=== PATIENT | male | born 1960 | race Caucasian/White ===

== ENCOUNTER → 2016-03-11 | Outpatient (CLI) | payer BC ==
[~2016-03-11] VITALS: Ht 180.3 cm; Wt 194.9 kg
[~2016-03-11] MED LIST: APIX1TAB3 PEG; CRDCD300 PO; LORA10CA2 PO; MULT-513 PO; OMEG10002 PO; PSYL55.43 PO; TMB/100 PO; TPRSR/25 PO
[2016-03-11 13:30] VITALS: BP 145/97; PULSE 103; Ht 180.3 cm; Wt 194.9 kg
== END | disposition home or self-care (01) ==
LOC: C.NEUR 13:08
PROVIDERS: ATTEND Internal Medicine Pulmonary Disease
DX: G47.34 Idiopathic sleep related nonobstructive alveolar hypoventilation (principal); R06.83 Snoring; I48.92 Unspecified atrial flutter

== ENCOUNTER → 2016-03-30 | Day surgery (SDC) | payer BC ==
[~2016-03-30] VITALS: Ht 180.3 cm; Wt 182.0 kg
[2016-03-30] VITALS (8 sets, daily range): BP systolic 109–158; BP diastolic 60–103; PULSE 77–117; TEMP 36.8; O2SAT 94–98; Ht 180.3 cm; Wt 182.0 kg
[~2016-03-30] MED LIST changes: +PROPOFOL IV EMULSION 10 MG/ML 20 ML VIAL IV ONE
--- NOTE | 2016-03-30 08:48 | Cardiology Procedure Brief Nt ---
Preliminary Cardiology Note Procedure Date Mar 30, 2016. Pre-Procedure Diagnosis atrial fibrillation Post-Procedure Diagnosis same Procedure(s) Performed Electrical cardioversion Graphic Production Artist Dr. Abdullahi Teacher Dancing(s) none Estimated Blood Loss none Preliminary Findings Successful cardioversion with 360 J, biphasic, delivered via one set of patches from the right prepectoral to the left scapular area. Another set of patches had been placed from the left prepectoral region to the right scapular area in case 2 defibrillators were required. They were not used however. Both sets of patches were placed under fluoroscopic guidance. Recommendations Monitor briefly and discharge Specimens None Anesthesia via anesthesia department Complication(s) None Disposition Four Slide Operator recovery
--- NOTE | 2016-03-30 08:51 | Discharge Instructions ---
Discharge Instructions Admission Atrial fibrillation Discharge Discharge Diagnosis / Problem: electrical cardioversion Discharge Goals Goal(s): Improve disease control Activity Recommendations Activity Limitations: resume your previous activity . Instructions / Follow-Up Instructions / Follow-Up ACTIVITY RECOMMENDATIONS: * May resume driving tomorrow. SPECIAL CARE: * May apply burn ointment for skin irritation. * Please contact physician for any lightheadedness, dizziness or palpitations. We will schedule outpatient follow-up in about one month Current Hospital Diet Patient's current hospital diet: AHA Diet (Heart Healthy) Discharge Diet Recommended Diet: AHA Diet (Heart Healthy) Pending Studies Studies pending at discharge: no Laboratory Results Hemoglobin A1c Test 01/21/16 14:55 Range/Units Estimated Average Glucose 128 mg/dl Hemoglobin A1c 6.1 H 4.5-5.6 % Lipid Panel Test 01/21/16 14:55 Range/Units Triglycerides Level 121 0-150 mg/dl Cholesterol Level 181 0-200 mg/dl HDL Cholesterol 36 mg/dl Cholesterol/HDL Ratio 5.0 LDL Cholesterol, Calculated 121 mg/dl Medical Emergencies . Who to Call and When: Medical Emergencies: If at any time you feel your situation is an emergency, please call 911 immediately. . Non-Emergent Contact Non-Emergency issues call your: Primary Care Provider . . "Provider Documentation" section prepared by Mark Abdullahi. VTE Core Measure Inpt VTE Proph given/why not?: Other Anticoagulation
--- NOTE | 2016-03-30 09:30 | OPERATIVE REPORT ---
DATE OF OPERATION: 03/30/2016 PREOPERATIVE DIAGNOSIS: Atrial fibrillation. POSTOPERATIVE DIAGNOSIS: Same. PROCEDURE: Electrical cardioversion. HISTORY: This is a 56-year-old male with a history of obesity and dyspnea on exertion when he presented to the office on 01/12/2016 and was noted to be in atrial flutter with a rapid ventricular response. His left ventricular function was normal. He was anticoagulated and scheduled for cardioversion. That procedure was performed; however, his conversion only converted him from atrial flutter to atrial fibrillation and atrial fibrillation could not be converted. He continued to feel poorly. Therefore, he is brought to the laboratory for repeat attempt at atrial fibrillation conversion. We are planning to place patches via fluoroscopic guidance to make sure we are in location since he has a very large chest, in addition 2 sets of patches will be placed for the possibility of using 2 defibrillators if one is unsuccessful. After obtaining informed consent for the procedure, he was brought to the electrophysiology laboratory, placed on the x-ray table and under fluoroscopic guidance, 2 sets of patches were placed, one in the right prepectoral region to the left posterior scapular area and the other from the left prepectoral region to the right posterior scapular area. Both positioned under x-ray guidance to include the left atrium in the field. Once these patches were in place, he was anesthetized using propofol anesthetic delivered by the anesthesia department. Having positioned the patches under fluoroscopic guidance, a single 360-joule shock was delivered via the patch location from the right prepectoral to the left scapular position, this was successful in converting the rhythm to sinus rhythm with a single shock. He remained in sinus rhythm in the laboratory. On the procedure, he recovered without sequelae, will be transferred to the recovery area and monitored briefly before discharge. MICHAEL
--- NOTE | 2016-03-30 11:14 | Anesthesiology Progress Note ---
Anesthesia Post Op Note Date & Time Mar 30, 2016 at 11:15 Vital Signs Pain Intensity: 0 Vital Signs Past 12 Hours Date Time Temp Pulse Resp B/P Pulse Ox O2 Delivery O2 Flow Rate FiO2 03/30/16 09:00 77 16 146/103 94 Room Air 03/30/16 08:45 78 16 122/69 94 Room Air 03/30/16 08:30 74 16 107/74 95 Room Air 03/30/16 08:10 87 16 146/60 95 Room Air 03/30/16 08:05 100 16 146/60 95 Room Air 03/30/16 08:00 100 16 140/80 95 Room Air 03/30/16 07:55 100 16 135/83 97 Mask 10 03/30/16 07:50 100 16 109/82 97 Mask 10 03/30/16 07:45 85 16 145/66 98 Mask 10 03/30/16 07:40 97 16 150/68 98 Mask 10 03/30/16 06:56 36.8 117 16 158/90 95 Room Air Notes Mental Status: alert / awake / arousable, participated in evaluation Pt Amnestic to Procedure: Yes Nausea / Vomiting: adequately controlled Pain: adequately controlled Airway Patency, RR, SpO2: stable & adequate BP & HR: stable & adequate Hydration State: stable & adequate Anesthetic Complications: no major complications apparent
== END | disposition home or self-care (01) ==
LOC: C.CATH 06:23
PROVIDERS: ATTEND Internal Medicine Cardiovascular Disease
DX: I48.91 Unspecified atrial fibrillation (principal); I48.92 Unspecified atrial flutter; E66.9 Obesity, unspecified; I10 Essential (primary) hypertension; R60.9 Edema, unspecified; F41.9 Anxiety disorder, unspecified; E78.5 Hyperlipidemia, unspecified; Z79.01 Long term (current) use of anticoagulants; Z87.891 Personal history of nicotine dependence; Z68.43 Body mass index [BMI] 50.0-59.9, adult

== ENCOUNTER → 2016-04-18 | Outpatient (CLI) | payer BC ==
[~2016-04-18] MED LIST changes: -PROPOFOL IV EMULSION 10 MG/ML 20 ML VIAL IV ONE
--- NOTE | 2016-04-19 06:35 | SPLIT NIGHT TECHNICIAN REPORT ---
[facility] Split Night Polysomnogram - Quality Assurance Nurse Report Study date: 04/18/2016 Referring Physician: DR. STAPLETON Name: LUCI HU Quality Assurance Nurse: WHITLEY Aparicio. Date of : 1960 Height: 56 years, Height 5' 11" Sex: Male Weight: 429 lbs Age: 56 Neck Circum: 21 INCHES BMI: Medications: 59.83 CLARITIN 10 MG, DILTIAZEM CD 300 MG, ELIQUIS 5 MG, FISH OIL 1000 MG Patient History PATIENT HAS HISTORY OF FATIGUE AND DAYTIME SLEEPINESS. HE WAS RECENTLY HOSPITALIZED FOR ONSET ATRIAL FLUTTER. SIGNIFICANT O2 DESATURATIONS WERE NOTED WHILE IN THE HOSPITAL. HE IS HERE TODAY FOR AN EVALUATION OF SIMIN. ESS = 9 RM 1 Parameters Monitored NPSG: E1-M2, E2-M1, Fp1-M2, Fp2-M1, F3-M2, F4-M2, F4-M1, C3-M2, C4-M2, C4-M1, O1-M2, O2-M2, O2-M1, T3-M2, T4-M1, P3-M2, P4-M1, CHIN1, CHIN2, HR, EKG, Legs, PFLOW, SNOR, FLOW, CFLOW, Tidal Volume, THOR, ABDO, SpO2, PLTH, CPRESS, ETCO2 Wave, ETCO2, pH SLEEP SUMMARY DATA DIAGNOSTIC TREATMENT Lights Out: 10:29:52 PM 1:24:22 AM Lights On: 1:04:22 AM 5:45:52 AM Total Recording Time (TRT): 155.0 min. 262.0 min. Total Sleep Time (TST): 126.5 min. 239.5 min. NREM Time: 126.5 min. 151.5 min. REM Time: 0.0 min. 88.0 min. Sleep Period Time (SPT): 145.0 min. 258.0 min. Sleep Efficiency (SE): 82 % 92 % Sleep Latency: 9.5 min. 3.0 min. Arousal Index: 19.0 9.8 PAP Treatment Levels: 4, 5, 6, 7, 8, 9, 10, 11, 12, 14, 15, 16 * Optimal Pressure(s) SLEEP STAGING DATA DIAGNOSTIC TREATMENT Duration (min) TST % Duration (min) TST % Stage Wake: 28.0 min. -- 22.5 min. -- WASO: 18.5 min. -- 18.5 min. -- NREM: 126.5 min. 100 % 151.5 min. 63 % Stage N1: 26.5 min. 21 % 20.0 min. 8 % Stage N2: 100.0 min. 79 % 110.5 min. 46 % Stage N3: 0.0 min. 0 % 21.0 min. 9 % REM: 0.0 min. 0 % 88.0 min. 37 % POSITIONAL DATA Event Count Index Event Count Index Supine: N/A N/A 16 12.2 Supine NREM: N/A N/A 14 14.9 Supine REM: N/A N/A 2 5 Non-Supine: 93 43.2 67 25.0 Non-Supine NREM: 93 43.2 56 35.4 Non-Supine REM: N/A N/A 11 10.0 AROUSAL SUMMARY DATA: Event Count Index Event Count Index Apnea Arousals: 7 7.6 5 4.0 Hypopnea Arousals: 7 3.3 11 2.8 Snore Arousals: 3 1.4 4 1.0 PLM Arousals: 0 0.0 0 0.0 Non-Specific Arousals: 19 9.0 19 4.8 Total Arousals: 40 19.0 39 9.8 MYOCLONUS (PLM) Event Count Index Event Count Index PLM: 0 0.0 1 0.3 PLM AROUSAL: 0 0.0 0 0.0 PLM W/O AROUSAL 0 0.0 1 0.3 PLM W/RESP EVENT 0 0.0 0 0.0 MYOCLONUS (PLM) Event Count Index Event Count Index LM: 4 8.1 7 1.8 LM AROUSAL: 4 1.9 1 0.3 LM W/O AROUSAL LM W/RESP EVENT LM NON SPECIFIC 8 3.8 7 1.8 HEART RATE DATA DIAGNOSTIC TREATMENT Sleep (bpm): 86 76 REM (bpm): N/A 91 NREM (bpm): 90 91 Tachycardia Count: 0 0 Tachycardia Duration: 0.00 0 Bradycardia Count: 0 0 Bradycardia Duration: 0.00 0 DIAGNOSTIC PORTION TREATMENT PORTION RESPIRATORY DATA Event Count Index Event Count Index AHI: -- 43.2 -- 20.8 RDI: -- 44.1 -- 21 Obstructive Apnea: 16 7.6 13 3.3 Central Apnea: 0 0.0 3 0.8 Mixed Apnea: 0 0.0 0 0.0 Hypopnea: 75 35.6 67 16.8 RERA: 2 0.9 0 0.0 Total Apneas: 16 7.6 16 4.0 RESPIRATORY DATA REM NREM SLEEP REM NREM SLEEP Supine Position: Obstructive Apneas: N/A N/A N/A 0 0 0 Central Apneas: N/A N/A N/A 1 0 1 Mixed Apneas: N/A N/A N/A 0 0 0 Hypopneas: N/A N/A N/A 1 14 15 RERA N/A N/A N/A 0 0 0 Total Supine Events: N/A N/A N/A 2 14 16 Supine AHI: N/A N/A N/A 5 14.9 12.2 Supine RDI: N/A N/A N/A 5.5 14.9 12.2 REM NREM SLEEP REM NREM SLEEP Non-Supine Position: Obstructive Apneas: N/A 16 16 1 12 13 Central Apneas: N/A 0 0 2 0 2 Mixed Apneas: N/A 0 0 0 0 0 Hypopneas: N/A 75 75 8 44 52 RERA N/A 2 2 0 0 0 Total Supine Events: N/A 93 93 11 56 67 Supine AHI: N/A 43.2 43.2 10.0 35.4 25.0 Supine RDI: N/A 44.1 44.1 10.0 35.4 25.0 OXYGEN DESTAURATION DATA: Event Count Index Event Count Index REM Desaturations: N/A N/A 11 7.5 NREM Desaturations: 93 44.1 75 29.7 SNORE DATA DIAGNOSTIC TREATMENT Snore Time: 22.0 1:27:22 AM Snore TST%: 9 12 Snore Arousal Count: 3 4 Snore Arousal Index: 1.4 1.0 Desaturation Event Summary: Minimum %SpO2 Event Count Mean/Min/Max Duration(sec.) Desaturation Index % Time In Bed > 90 165 23.2 / 5.3 / 57.0 46.4 51.4 86 - 90 99 22.8 / 7.8 / 64.0 30.1 47.5 81 - 85 2 20.3 / 18.0 / 22.5 27.9 1.0 76 - 80 0 N/A 0.0 0.1 71 - 75 0 N/A 0.0 0.0 66 - 70 0 N/A 0.0 0.0 61 - 65 0 N/A 0.0 0.0 56 - 60 0 N/A 0.0 0.0 51 - 55 0 N/A 0.0 0.0 < 50 0 N/A 0.0 0.0 OXYGEN SATURATION DATA DIAGNOSTIC TREATMENT SpO2 Mean Sleep: 90 % 91 % SpO2 Mean REM: N/A % 91 % SpO2 Mean NREM: 90 % 91 % SpO2 Minimum Sleep: 84 % 79 % SpO2 Minimum REM: N/A % 79 % SpO2 Minimum NREM: 84 % 84 % Time Below 90% (TST): 59.7 67.4 Time Below 88% (TST): 10.0 23.7 Total REM NREM Awake <50% 0.0 min. 0.0 min. 0.0 min. 0.0 min. 51 - 60% 0.0 min. 0.0 min. 0.0 min. 0.0 min. 61 - 70% 0.0 min. 0.0 min. 0.0 min. 0.0 min. 71 - 80% 0.2 min. 0.2 min. 0.0 min. 0.0 min. 81 - 90% 201.8 min. 29.0 min. 158.0 min. 14.8 min. 91 - 100% 213.4 min. 58.8 min. 120.0 min. 34.5 min. Average 91 91 90 92 Minimum SpO2 79 79 84 85 Desaturation Event Index 27.4 7.5 36.3 13.2 # Desat. Events below 89% 155 9 143 3 Time(%) with Saturation below 89% 19.3 3.2 15.6 0.5 Time(min.) with Saturation below 89% 80.0 13.2 64.8 2.0 Recording Quality Assurance Nurse Comments: Mr. Hu slept in the right, left and supine positions. Irregular EKG noted. Leg movements noted. No bruxism noted. Snoring was noted and scored as a 5 on a scale of 1 through 5. (0=no snoring, 5=snoring loud enough to be heard through a closed door or down the segura way) At 1:04 AM, Mr. Hu has met specific Split-Night criteria during the diagnostic portion of this study. CPAP was initiated at +4 CMH2O and up-titrated to an optimal level of +16 CMH2O, which nearly eliminated all respiratory events and snoring. A Resmed Mirage Quattro full face size medium mask was used during titration Mr. Hu awoke to use the restroom 1 time during the night. Mr. Hu stated I slept as well as I do when I am in my own bed. The final report will be interpreted and signed by a sleep physician. The completed physician report will then be placed in the patient medical record. Therapy Event: Therapy (cm H20) 0 4 5 6 7 8 9 Total Time at Pressure (min.) 154.5 11.7 8.9 9.5 9.1 16.2 32.2 TST at Pressure (min.) 126.5 6.7 7.9 9.5 9.1 15.7 30.2 # Periods 1 1 1 1 1 1 1 Sleep Onset (min.) 9.5 3.0 0.0 0.0 0.0 0.0 0.0 REM Onset (min.) N/A N/A N/A N/A N/A N/A 0.6 Sleep Efficiency % 81 57 88 100 100 96 93 Wakefulness (%) 18.1 42.8 11.2 0.0 0.0 3.1 6.2 Wakefulness (min.) 28.0 5.0 1.0 0.0 0.0 0.5 2.0 NREM 1 (%) 17.2 31.5 54.1 5.2 0.0 0.0 9.3 NREM 1 (min.) 26.5 3.7 4.8 0.5 0.0 0.0 3.0 NREM 2 (%) 64.7 25.7 34.7 94.8 100.0 96.9 5.0 NREM 2 (min.) 100.0 3.0 3.1 9.0 9.1 15.7 1.6 NREM 3 (%) 0.0 0.0 0.0 0.0 0.0 0.0 0.0 NREM 3 (min.) 0.0 0.0 0.0 0.0 0.0 0.0 0.0 REM (%) 0.0 0.0 0.0 0.0 0.0 0.0 79.5 REM (min.) 0.0 0.0 0.0 0.0 0.0 0.0 25.6 # Arousals 40 2 3 3 8 2 1 Arousal Index 19.0 18.0 22.7 18.9 52.8 7.7 2.0 # Snore 683 5 27 52 35 31 135 Snore Index 324.0 44.9 204.6 326.8 231.2 118.7 268.5 AHI 43.2 44.9 83.4 56.6 99.1 57.4 15.9 AHI Supine N/A N/A N/A N/A N/A N/A N/A AHI Non-Supine 43.2 44.9 83.4 56.6 99.1 57.4 15.9 NREM AHI 43.2 44.9 83.4 56.6 99.1 57.4 0.0 REM AHI N/A N/A N/A N/A N/A N/A 18.8 RDI 44.1 44.9 83.4 56.6 99.1 57.4 15.9 # Obstructive 16 2 4 1 4 1 0 # Central Ap 0 0 0 0 0 0 1 # Mixed 0 0 0 0 0 0 0 # Hypopneas 75 3 7 8 11 14 7 RERAS 2 0 0 0 0 0 0 Total Respiratory Events 93 5 11 9 15 15 8 Time Below SpO2 89.00% (min.) 34.5 1.4 3.1 5.8 5.0 9.7 13.5 Mean NREM SpO2 (%) 90 90 89 88 88 88 90 Mean REM SpO2 (%) N/A N/A N/A N/A N/A N/A 88 Mean Sleep SpO2 (%) 90 90 89 88 88 88 89 Min NREM SpO2 (%) 84 85 85 85 84 85 88 Min REM SpO2 (%) N/A N/A N/A N/A N/A N/A 79 Position Supine (min.) 0.0 0.0 0.0 0.0 0.0 0.0 0.0 Position Non-supine (min.) 126.5 6.7 7.9 9.5 9.1 15.7 30.2 LM Index Sleep 8.1 0.0 15.2 12.6 0.0 0.0 2.0 LM Index NREM 8.1 0.0 15.2 12.6 0.0 0.0 0.0 LM Index REM N/A N/A N/A N/A N/A N/A 2.3 Mean Heart Rate (bpm) 86 81 81 82 80 82 82 Min Heart Rate (bpm) 58 63 67 64 64 64 57 Therapy (cm H20) 10 11 12 14 15 16 Total Time at Pressure (min.) 10.9 8.6 16.2 8.8 12.7 116.9 TST at Pressure (min.) 10.4 8.6 16.2 8.8 12.7 103.9 # Periods 1 1 1 1 1 1 Sleep Onset (min.) 0.0 0.0 0.0 0.0 0.0 0.0 REM Onset (min.) 0.0 N/A N/A N/A N/A 5.4 Sleep Efficiency % 95 100 100 100 100 88 Wakefulness (%) 4.6 0.0 0.0 0.0 0.0 11.1 Wakefulness (min.) 0.5 0.0 0.0 0.0 0.0 13.0 NREM 1 (%) 9.2 0.0 0.0 0.0 0.0 6.0 NREM 1 (min.) 1.0 0.0 0.0 0.0 0.0 7.0 NREM 2 (%) 45.2 100.0 100.0 26.6 0.0 31.7 NREM 2 (min.) 4.9 8.6 16.2 2.3 0.0 37.0 NREM 3 (%) 0.0 0.0 0.0 73.4 100.0 1.6 NREM 3 (min.) 0.0 0.0 0.0 6.4 12.7 1.9 REM (%) 40.9 0.0 0.0 0.0 0.0 49.6 REM (min.) 4.4 0.0 0.0 0.0 0.0 58.0 # Arousals 1 6 3 0 0 10 Arousal Index 5.8 41.8 11.1 0.0 0.0 5.8 # Snore 67 110 212 128 184 10 Snore Index 388.3 767.0 787.3 876.0 869.8 5.8 AHI 34.8 55.8 7.4 0.0 0.0 2.3 AHI Supine 51.1 55.8 7.4 0.0 0.0 4.3 AHI Non-Supine 21.2 N/A N/A N/A N/A 1.6 NREM AHI 50.8 55.8 7.4 0.0 0.0 0.0 REM AHI 13.5 N/A N/A N/A N/A 4.1 RDI 34.8 55.8 7.4 0.0 0.0 2.3 # Obstructive 0 0 0 0 0 1 # Central Ap 0 0 0 0 0 2 # Mixed 0 0 0 0 0 0 # Hypopneas 6 8 2 0 0 1 RERAS 0 0 0 0 0 0 Total Respiratory Events 6 8 2 0 0 4 Time Below SpO2 89.00% (min.) 1.4 1.8 1.8 0.0 0.0 0.1 Mean NREM SpO2 (%) 91 90 90 90 91 93 Mean REM SpO2 (%) 90 N/A N/A N/A N/A 93 Mean Sleep SpO2 (%) 91 90 90 90 91 93 Min NREM SpO2 (%) 87 88 87 89 90 90 Min REM SpO2 (%) 88 N/A N/A N/A N/A 87 Position Supine (min.) 4.7 8.6 16.2 8.8 12.7 27.6 Position Non-supine (min.) 5.7 0.0 0.0 0.0 0.0 76.2 LM Index Sleep 11.6 0.0 0.0 0.0 0.0 0.6 LM Index NREM 0.0 0.0 0.0 0.0 0.0 0.0 LM Index REM 27.0 N/A N/A N/A N/A 1.0 Mean Heart Rate (bpm) 78 77 76 78 77 72 Min Heart Rate (bpm) 61 60 62 63 54 51
--- NOTE | 2016-04-22 10:52 | POLYSOMNOGRAPH REPORT ---
CLINICAL DATA: A 56-year-old male with BMI of 59.[address] Araya and myself with a recent admission to the hospital for atrial flutter. During that admission, he had significant oxygen desaturation. He does have fatigue, daytime sleepiness, and snoring. This was a split night study. SLEEP ARCHITECTURE: For the diagnostic portion of the study, total sleep period was 145 minutes. Total sleep time was 126.5 minutes, all non-REM sleep. Sleep latency was 9.5 minutes. Sleep efficiency was 82%. Arousal index was 19. Sleep consisted of stage N1 21%, stage N2 79%. For the treatment portion of the study, sleep period was 258 minutes. Total sleep time was 239.5 minutes divided between 151.5 minutes of non-REM sleep and 88 minutes of REM sleep. Sleep latency was 3 minutes. Sleep efficiency was 92%. Arousal index was 9.8. Sleep consisted of stage N1 8%, N2 46%, N3 9%, REM 37%. AROUSAL DATA: Prior to treatment, 40 arousals were recorded for an index of 19 per hour. During treatment, 39 arousals were recorded for an index of 9.8 per hour. PLM DATA: Prior to treatment, 8 limb movements during sleep were noted for an index of 3.8 per hour. During treatment, 7 limb movements during sleep were noted for an index of 1.8 per hour. EKG: Heart rates ranged from 76-91 beats per minute. Intermittent irregular heart rhythm? Atrial fib was noted. RESPIRATORY DATA: Severe sleep apnea was documented prior to treatment. The AHI was 43.2. The RDI was 44.1. There were 16 obstructive apneic episodes, 75 hypopneic episodes, and 2 RERAs. During treatment, the average AHI was 20.8. There were 13 obstructive and 3 central apneic episodes. There were 67 hypopneic episodes. OXIMETRY DATA: Nocturnal hypoxemia was seen. Oxygen ramon was 79%. Mean saturation during treatment was 91%. WINDOWS SERVER ARCHITECT'S COMMENTS AND TREATMENT SUMMARY: The patient slept in the right, left, and supine positions. Snoring was severe, rated 5 on a scale of 1-5. On 1:04 a.m., the patient met split night criteria. He used a ResMed Mirage Quattro full face mask size medium. He was started on CPAP and was titrated up to his final pressure setting of 16 cm of water pressure. At this final pressure setting, the patient slept for 103.9 minutes with an AHI of 2.3 without nocturnal hypoxemia. IMPRESSION: Severe sleep apnea/hypopnea with a diagnostic apnea-hypopnea index of 43.2 corrected with CPAP 16 cm of water pressure ResMed Mirage Quattro full facemask size medium. RECOMMENDATIONS: The patient should be started on the above noted treatment regimen and seen back in followup within 90 days to document efficacy and compliance. MICHAEL
== END | disposition home or self-care (01) ==
LOC: C.NEUR 21:00
PROVIDERS: ATTEND Internal Medicine Pulmonary Disease
DX: I48.92 Unspecified atrial flutter (principal); G47.34 Idiopathic sleep related nonobstructive alveolar hypoventilation; R06.83 Snoring; R06.81 Apnea, not elsewhere classified

== ENCOUNTER → 2016-04-22 | Outpatient (CLI) | payer BC ==
[~2016-04-22] VITALS: Ht 180.3 cm; Wt 195.5 kg
[2016-04-22 16:19] VITALS: BP 130/92; PULSE 112; Ht 180.3 cm; Wt 195.5 kg
== END | disposition home or self-care (01) ==
LOC: C.NEUR 13:19
PROVIDERS: ATTEND Internal Medicine Pulmonary Disease
DX: G47.30 Sleep apnea, unspecified (principal); R09.02 Hypoxemia; I48.91 Unspecified atrial fibrillation; I48.92 Unspecified atrial flutter; E66.9 Obesity, unspecified

== ENCOUNTER → 2016-07-08 | Outpatient (CLI) | payer BC ==
[~2016-07-08] VITALS: Ht 180.3 cm; Wt 197.9 kg
[~2016-07-08] MED LIST changes: -CRDCD300 PO; +DILT300C64 PO
[2016-07-08 15:26] VITALS: BP 131/79; PULSE 89; Ht 180.3 cm; Wt 197.9 kg
== END | disposition home or self-care (01) ==
LOC: C.NEUR 12:48
PROVIDERS: ATTEND Internal Medicine Pulmonary Disease
DX: G47.34 Idiopathic sleep related nonobstructive alveolar hypoventilation (principal); I48.91 Unspecified atrial fibrillation

== ENCOUNTER → 2016-07-26 | Outpatient (CLI) | payer BC ==
[2016-07-26 12:18] LABS: HEMATOCRIT 46.7 % (42-52); MEAN CELL VOLUME 89.8 fL (80-100); MEAN CORPUSCULAR HEMOGLOBIN 30.2 pg (25-34); MEAN CORPUSCULAR HGB CONC 33.6 g/dl (32-36); MEAN PLATELET VOLUME 11.5 fL (7.4-10.4); PLATELET COUNT 220 K/uL (130-400); WHITE BLOOD COUNT 6.68 K/uL (4.8-10.8)
[2016-07-26 12:26] LABS: ALT/SGPT 35 U/L (12-78); BLOOD UREA NITROGEN 11 mg/dl (7-18); BUN/CREATININE RATIO 12.5 (10-20); CARBON DIOXIDE 27 mmol/L (21-32); CHLORIDE 106 mmol/L (98-107); CHOLESTEROL 160 mg/dl (0-200); CREATININE 0.91 mg/dl (0.60-1.40); GLUCOSE 119 mg/dl (70-99); POTASSIUM 4.1 mmol/L (3.5-5.1); SODIUM 142 mmol/L (136-145); TRIGLYCERIDES 68 mg/dl (0-150); VERY LOW DENSITY LIPOPROT CALC 14 mg/dl
[2016-07-26 12:35] LABS: CALCIUM 8.7 mg/dl (8.5-10.1)
[2016-07-26 12:36] LABS: ALB/GLOB RATIO 0.9 (0.9-2); ALKALINE PHOSPHATASE 64 U/L (45-117); AST/SGOT 17 U/L (15-37); CHOLESTEROL/HDL RATIO 4.8; HDL CHOLESTEROL 33 mg/dl; LDL CHOLESTEROL CALCULATED 113 mg/dl
[2016-07-26 13:10] LABS: ESTIMATED AVERAGE GLUCOSE 134 mg/dl; HA1C FLAG Normal (Normal)
== END | disposition home or self-care (01) ==
LOC: C.LABBFT 10:02
PROVIDERS: ATTEND Internal Medicine
DX: R60.0 Localized edema (principal); I48.91 Unspecified atrial fibrillation; R73.9 Hyperglycemia, unspecified; E78.5 Hyperlipidemia, unspecified

== ENCOUNTER → 2016-09-23 | Day surgery (SDC) | payer BC ==
[~2016-09-23] VITALS: Ht 180.3 cm; Wt 195.0 kg
[~2016-09-23] MED LIST changes: +CRDCD300 PO; -DILT300C64 PO; +KETAMINE HCL INJ 50 MG/ML 10 ML VIAL ONE; +LIDOCAINE HCL 2% 2 ML VIAL (20MG/ML) ONE; +PROPOFOL IV EMULSION 10 MG/ML 20 ML VIAL IV ONE
[2016-09-23 07:00] VITALS: BP 136/68; PULSE 80; TEMP 36.7; O2SAT 95; Ht 180.3 cm; Wt 195.0 kg
--- NOTE | 2016-09-23 08:01 | History & Physical Bridge Note ---
H&P Re-Evaluation Bridge Note: I have examined the patient, reviewed the History & Physical and in the interval since the performance of the History & Physical I have noted the following changes of clinical significance: No changes noted. Procedure and risks reviewed, consent obtained. Discussed possible use of 2 defibrillations if needed.
[2016-09-23 08:02] VITALS: BP 124/67; PULSE 70; O2SAT 99
[2016-09-23 08:05] VITALS: BP 111/68; PULSE 59; O2SAT 98
[2016-09-23 08:10] VITALS: BP 121/62; PULSE 60; O2SAT 99
--- NOTE | 2016-09-23 08:10 | Cardioversion ---
Electricial Cardioversion Rpt Date of Service: 09/23/2016 Electrical Cardioversion Rprt Pt brought to lab NPO, on anticoagulation. Anesthesia via anesthesia dept ( propofol). 2 sets of patches placed in anteroposterior position using X-ray guidance. Successful cardioversion using only one set with 360J synchronized biphasic (L anterior, R posterior). Converted to SR, no complications, awoke without sequelae.
[2016-09-23 09:30] VITALS: BP 130/82; PULSE 60; O2SAT 95
--- NOTE | 2016-09-23 09:31 | Discharge Instructions ---
Discharge Instructions Date of Service Sep 23, 2016. Admission Atrial fibrillation Discharge Discharge Diagnosis / Problem: Electrical cardioversion Discharge Goals Goal(s): Improve disease control Activity Recommendations Activity Limitations: as noted below . Instructions / Follow-Up Instructions / Follow-Up ACTIVITY RECOMMENDATIONS: * May resume driving tomorrow. SPECIAL CARE: * May apply burn ointment for skin irritation. * Please contact physician for any lightheadedness, dizziness or palpitations. FOLLOW-UP: 10/05/2016 @ 12:[address] Abdullahi Current Hospital Diet Patient's current hospital diet: AHA Diet (Heart Healthy) Discharge Diet Recommended Diet: AHA Diet (Heart Healthy) Pending Studies Studies pending at discharge: no Laboratory Results Hemoglobin A1c Test 07/26/16 10:08 Range/Units Estimated Average Glucose 134 mg/dl Hemoglobin A1c 6.3 H 4.5-5.6 % Lipid Panel Test 07/26/16 10:08 Range/Units Triglycerides Level 68 0-150 mg/dl Cholesterol Level 160 0-200 mg/dl HDL Cholesterol 33 mg/dl Cholesterol/HDL Ratio 4.8 LDL Cholesterol, Calculated 113 mg/dl Medical Emergencies . Who to Call and When: Medical Emergencies: If at any time you feel your situation is an emergency, please call 911 immediately. . Non-Emergent Contact Non-Emergency issues call your: Sap Security Architect . . "Provider Documentation" section prepared by Paola Ha. . VTE Core Measure Inpt VTE Proph given/why not?: Other Anticoagulation
--- NOTE | 2016-09-23 11:40 | Anesthesiology Progress Note ---
Anesthesia Post Op Note Date & Time Sep 23, 2016 at 11:40 Vital Signs Pain Intensity: 0 Vital Signs Past 12 Hours Date Time Temp Pulse Resp B/P (MAP) Pulse Ox O2 Delivery O2 Flow Rate FiO2 09/23/16 09:30 60 19 121/85 (97) 95 Room Air 130/82 (98) 09/23/16 09:00 60 19 120/85 (97) 95 Room Air 09/23/16 08:45 59 18 109/85 (93) 95 Room Air 09/23/16 08:30 58 18 124/80 (95) 95 Room Air 09/23/16 08:10 60 16 121/62 99 Mask 10 09/23/16 08:05 59 14 111/68 98 Mask 10 09/23/16 08:02 70 16 124/67 99 Mask 10 09/23/16 07:00 36.7 80 18 136/68 95 Room Air Notes Mental Status: alert / awake / arousable, participated in evaluation Pt Amnestic to Procedure: Yes Nausea / Vomiting: adequately controlled Pain: adequately controlled Airway Patency, RR, SpO2: stable & adequate BP & HR: stable & adequate Hydration State: stable & adequate Anesthetic Complications: no major complications apparent
== END | disposition home or self-care (01) ==
LOC: C.CATH 06:31
PROVIDERS: ATTEND Internal Medicine Cardiovascular Disease
DX: I48.91 Unspecified atrial fibrillation (principal); I10 Essential (primary) hypertension; E66.9 Obesity, unspecified; E78.5 Hyperlipidemia, unspecified; G47.30 Sleep apnea, unspecified; Z79.01 Long term (current) use of anticoagulants

== ENCOUNTER 2018-05-04 08:35 | Inpatient (IN) ==
[2018-05-04] MEDS ORDERED: PROCHLORPERAZINE 10 MG in SYRINGE 8 ML IV PRN (10:15)
[2018-05-04] MEDS ORDERED: PROCHLORPERAZINE MALEATE 10 MG TAB PO PRN (10:17)
[2018-05-04] MEDS ORDERED: POLYETHYLENE (MIRALAX) 17 GM PACK PO PRN (11:42)
[2018-05-04] MEDS ORDERED: ALUMINUM/MAGNESIUM SUSP 30 ML UDC PO PRN (11:42)
[2018-05-04] MEDS: SODIUM CHLORIDE 0.9% 1000ML 1,000 ML IV SCH (12:09)
--- NOTE | 2018-05-04 12:41 | History & Physical Report ---
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 Buttock drained and KHUSHI drain currently in place * Mediport placed * Patient admitted to undergo induction chemotherapy with doxorubicin, ifosfamide, and mesna * Compazine ordered as needed for antiemetic as well as 24 mg of Zofran prior to induction. * Review of patient notes indicates that this is most likely palliation and not curative * Further management per oncology (2) Hyperlipidemia: * Continue atorvastatin * Medication reconciliation with 40 mg daily * Patient reports that this is how it was prescribed but he takes 2 tablets ev blessing other day for convenience and does not take any when he is traveling (3) Obstructive sleep apnea: * Patient may use his own CPAP * Continue at 16 cm of water * Patient denies use of supplemental oxygen (4) Atrial fibrillation/flutter: * Continue Toprol, diltiazem, flecainide, Eliquis * Normal sinus rhythm on exam * Rate controlled on exam * Follows with Dr. Abdullahi * Recently changed to one visit per year as arrhythmia is well controlled (5) Morbid obesity: * Height 5 feet 8 inches * Weight 186.5 kg * BMI 62.5 kg/m * BSA 2.99 m (6) Hyperglycemia: * No history of diabetes mellitus * Patient receiving dexamethasone 20 mg prior to induction of chemotherapy * Random glucose slightly elevated * Check a hemoglobin A1c * May be necessary to start BSG's but will hold for now (7) Hypokalemia: * Patient's potassium levels 3.5 * Will give patient 40 mEq of potassium chloride * Check repeat potassium level in the morning * Check magnesium level in the morning (8) DVT prophylaxis: * Patient positive for malignancy * Hemoglobin, hematocrit, platelet count within normal limits * Eliquis History of Present Illness Primary Care Provider: Lc Araya MD Attending:Dr. Cody This is a 58 yo male with a history of atrial flutter/fibrillation, chronic anticoagulation with Eliquis, hyperlipidemia, SIMIN on BiPAP at 16 cm H2O, morbid obesity, and newly diagnosed sarcoma in 03/2018. He is being admitted for induction chemotherapy under the direction of Dr. Camara. He denies hx of DM, CAD, HTN, COPD. Patient has no history of MDRO. He has no recent travel history or illness. he denies fever, chills, sweats, rigors. He has no SOB of chest pain. He denies back pain or abdominal pain. He further denies N/V/D. No other acute complaints are reported. He has no smoking history but has used snuff for most of his adult life. He recently quit using snuff and is now substituting canned, shredded beef jerky. He has no history of regular ethanol abuse. He recently had a KHUSHI drain placed to his left buttock by Dr. Candelario. This is intended to be left in until surgical evaluation in [place] in late May. He has a significant amount of pain from this and controls his pain with Tramadol. Allergies Allergy/AdvReac Type Severity Reaction Status Date / Time No Known Allergies Allergy Unverified 05/02/18 08:16 Home Medications Home Medications Medication Instructions Recorded Confirmed Type Metamucil 1 dose PO QAM 05/01/18 05/02/18 History diltiazem HCl 300 mg PO QAM 05/01/18 05/02/18 History flecainide 100 mg PO Q12H 05/01/18 05/02/18 History loratadine 10 mg PO QAM 05/01/18 05/02/18 History metoprolol succinate 25 mg PO QAM 05/01/18 05/02/18 History multivitamin 1 tab PO QAM 05/01/18 05/02/18 History omega 1-ftf-vzx-fish oil [Fish Oil] 1 cap PO QAM 05/01/18 05/02/18 History oxycodone-acetaminophen [Percocet] 1 tab PO Q4H PRN #20 tab 05/02/18 Rx atorvastatin 40 mg PO DAILY 05/04/18 05/04/18 History tramadol 50 mg PO Q8H 05/04/18 05/04/18 History Past Med/Surg History Social History Communication Ability: Effective Beliefs That Will Affect Care: None Current Living Situation: Spouse and Family 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 Appears uncomfortable secondary to drain and left buttock EYES: No icterus, gaze conjugate. Pupils equal round and reactive to light NOSE: No evidence of epistaxis. MOUTH: No lesions or candidiasis. No facial droop. Tongue midline NECK: Supple LUNGS: CTA B/L, no wheezes, rales or rhonchi. Good inspirational effort HEART: Regular, rate controlled. No appreciation of ectopy CHEST: Mediport in place under the left clavicle with access device ABDOMEN: Soft, NT, ND, BS Present. Protuberant EXTREMITIES: Trace LE edema, pedal pulses intact. KHUSHI drain in left buttock with minimal drainage and no evidence of serosanguineous solution NEURO: A&OX3. No focal deficits Results & Data Laboratory Results Laboratory Tests 05/03/18 05/03/18 05/03/18 14:00 14:00 14:00 WBC 13.27 H RBC 4.43 L Hgb 12.6 L Hct 38.0 L Plt Count 372 Neut # (Auto) 10.71 H Sodium 135 L Potassium 3.5 Chloride 98 Carbon Dioxide 27 Anion Gap 10.0 BUN 9 Creatinine 0.77 Glucose 110 H Lactate Dehydrogenase 287 H Albumin 2.1 L Diagnostic Findings SINGLE VIEW CHEST CLINICAL HISTORY: Status post infusion port placement. FINDINGS: 2 AP, portable, upright chest radiographs are compared to study dated 01/12/2016 and correlated with chest CT dated 04/12/2018. The examination is degraded by portable technique and patient rotation. A left internal jugular central venous infusion port has been placed. The tip of the catheter projects over the junction of the internal jugular and subclavian veins at the thoracic inlet. The examination is degraded by portable technique and patient rotation. The heart is top normal for projection. There is congestion of the pulmonary vasculature. Multifocal pulmonary metastatic disease is again seen. The largest lesion measures 2.8 cm. Bibasilar atelectasis is observed. There is no airspace consolidation typical for pneumonia or large pleural effusion. No pneumothorax is seen. The bony thorax is grossly intact. IMPRESSION: 1. A left internal jugular central venous infusion port as been placed. The tip of the catheter projects over the confluence of the left internal jugular and subclavian veins at the thoracic inlet. 2. No pneumothorax is identified post procedure. 3. Multifocal pulmonary metastatic disease is again noted. 4. There is pulmonary vascular congestion. Electronically signed by: Gian Tillman M.D. 05/02/2018 12:[address] chest w con CLINICAL HISTORY: 58 years-old Male presenting with Sarcoma of soft tissue. TECHNIQUE: Multidetector CT imaging of the chest was performed after the administration of intravenous contrast. IV contrast: 120 mL of Optiray 320. One or more dose lowering techniques were used consistent with the principles of ALARA (as low as reasonably achievable), including automatic exposure control, mA or kV adjustment to individual patient size, and/or use of iterative reconstruction. COMPARISON: None. CT DOSE (mGy.cm): The estimated cumulative dose is 4521.83 mGy.cm. 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 Soft tissues: Partially visualized thyroid gland normal. Gynecomastia. Subcentimeter mediastinal lymph nodes measuring 8 mm in short axis along the right paratracheal region. Few additional prominent subcarinal lymph nodes measuring 9 mm in short axis. Multiple small bilateral hilar lymph nodes. No axillary or supraclavicular lymphadenopathy. Normal aorta. Normal heart size. No pericardial or pleural effusion. Upper abdomen normal. Lungs and airways: No pneumothorax. Central airways patent. Multiple bilateral solid pulmonary nodules affecting all 5 lobes. These have a rounded appearance. The largest is located in the posterior segment of the right upper lobe measuring 28 mm (series 5 image 108). The largest in the left lung is located in the anterior segment of the right upper lobe measuring 22 mm (series 5 image 105). Musculoskeletal: Degenerative changes of the spine. IMPRESSION: 1. Multiple solid bilateral pulmonary nodules affecting all 5 lobes consistent with diffuse metastatic disease. 2. Borderline lymphadenopathy in the mediastinum and bilateral haley. Lymph node involvement cannot be excluded. Electronically signed by: Lino Gonzales M.D. 04/12/2018 8:14 AM Operation Date: 05/02/18 09:55 Actual Procedures p Insertion of Mediport in left internal jugular with Fluoroscopy(Left) - Jaylon Candelario, DO, FACS Code Status & VTE Plan Code Status Level 1 full code. VTE Prophylaxis Plan VTE Prophylaxis will be ordered: Yes Critical Care Time Critical Care Time: No Supervising Physician Co-Signing Physician Notes PA Supervision Note: I personally saw and examined the patient. I verified all medina points and agree with JAKI Santana with the following exceptions and/or additions: Patient directly admitted for his first round of chemotherapy for high-grade sarcoma in the left buttocks. He was having pain which is now much improved with tramadol. He denies chest pain or shortness of breath, denies abdominal pain. He is making plenty of urine. History reviewed as above Vitals reviewed Gen: AAOx3, NAD, morbidly obese HEENT: Anicteric sclerae, EOMI CV: RRR no mgr nl S1S2 Pulm: CTAB no wcr Abd: +BS soft NT ND no masses or hernias Ext: 3+ pitting edema of the left leg and 2+ of the right leg to the knees bilaterally, 2+ DP pulses Skin: Left buttocks with large area of erythema and induration with mass with drain coming out with serosanguineous fluid 58-year-old male here with history of SIMIN, obesity, paroxysmal atrial fibrillation and flutter on Eliquis, here with high-grade sarcoma for induction chemotherapy. -Chemotherapy orders as per oncology -Continue IV fluids, antiemetics -Continue pain control with tramadol -Follow labs
[2018-05-04] MEDS ORDERED: POTASSIUM CHLORIDE 20 MEQ TABCR PO ONE (14:00)
[2018-05-04] MEDS: TRAMADOL HCL 50 MG TABLET PO PRN ×2 (14:41→22:47)
[2018-05-04] MEDS: dexAMETHasone 4 MG TAB PO SCH (16:01)
[2018-05-04] MEDS: ONDANSETRON 8 MG TABLET PO SCH (16:02)
[2018-05-04] MEDS: SODIUM CHLORIDE 0.9% IV SCH ×2 (16:41→16:42)
[2018-05-04] MEDS: DOXORUBICIN HCL IV SCH (16:41)
[2018-05-04] MEDS: IFOSFAMIDE IV SCH (16:42)
[2018-05-04] MEDS: MESNA IV SCH (16:42)
[2018-05-04] MEDS ORDERED: Nursing to Pharmacy Communication ONE (22:34)
[2018-05-04] MEDS: FLECAINIDE ACETATE 100 MG TABLET PO SCH (22:44)
[2018-05-04] MEDS: APIXABAN 5 MG TABLET PO SCH (22:44)
[2018-05-05 06:23] LABS: Basophils # (auto) 0.01 K/uL (0-0.2); Basophils % (auto) 0.1 %; Eosinophils # (auto) 0.01 K/uL (0-0.5); Eosinophils % (auto) 0.1 %; Hematocrit (blood only) 41.4 % (42-52); Hemoglobin 13.8 g/dL (14.0-18.0); Immature Granulocytes # (auto) 0.07 K/uL (0.00-0.02); Immature Granulocytes % (auto) 0.5 %; Lymphocytes # (auto) 0.86 K/uL (1.2-3.4); Lymphocytes % (auto) 5.8 %; Mean Corpuscular Hgb Conc 33.3 g/dL (32-36); Mean Corpuscular Volume 85.7 fL (80-100); Mean Platelet Volume 10.2 fL (7.4-10.4); Monocytes # (auto) 0.35 K/uL (0.11-0.59); Monocytes % (auto) 2.4 %; Neutrophils # (auto) 13.59 K/uL (1.4-6.5); Neutrophils % (auto) 91.1 %; Platelet Count 429 K/uL (130-400); RDW Coefficient of Variation 13.7 % (11.5-14.5); RDW Standard Deviation 42.9 fL (36.4-46.3); Red Blood Count 4.83 M/uL (4.7-6.1); White Blood Count 14.89 K/uL (4.8-10.8)
[2018-05-05] MEDS: SODIUM CHLORIDE 0.9% 1000ML 1,000 ML IV SCH ×3 (06:51→15:57)
[2018-05-05 06:58] LABS: BUN Creatinine Ratio 15.1 (10-20); Calcium 8.4 mg/dl (8.5-10.1); Creatinine Clr Calc Pharmacy 164.6 ml/min; Est GFR (African American) 114.3; Est GFR (Non-African American) 98.7; Magnesium 1.9 mg/dl (1.8-2.4)
[2018-05-05 07:11] LABS: Estimated Average Glucose 128 mg/dl; Hemoglobin A1C 6.1 % (4.5-5.6)
[2018-05-05] MEDS: FLECAINIDE ACETATE 100 MG TABLET PO SCH ×2 (07:43→21:41)
[2018-05-05] MEDS: APIXABAN 5 MG TABLET PO SCH ×2 (07:43→21:40)
[2018-05-05] MEDS: METOPROLOL SUCC 25MG EXT REL TAB PO SCH (07:44)
[2018-05-05] MEDS: dilTIAZem HCL 300 MG CAPCR PO SCH (07:44)
[2018-05-05] MEDS ORDERED: ATORVASTATIN 40 MG TAB PO SCH (09:00)
[2018-05-05] MEDS: TRAMADOL HCL 50 MG TABLET PO PRN ×2 (10:52→21:47)
[2018-05-05] MEDS: dexAMETHasone 4 MG TAB PO SCH (15:57)
[2018-05-05] MEDS: ONDANSETRON 8 MG TABLET PO SCH (15:58)
[2018-05-05] MEDS: SODIUM CHLORIDE 0.9% IV SCH ×2 (17:49→18:03)
[2018-05-05] MEDS: DOXORUBICIN HCL IV SCH (17:49)
[2018-05-05] MEDS: IFOSFAMIDE IV SCH (18:03)
[2018-05-05] MEDS: MESNA IV SCH (18:03)
--- NOTE | 2018-05-05 20:17 | Hospitalist Progress Note ---
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 Buttock drained and KHUSHI drain currently in place * Mediport placed * Patient admitted to undergo induction chemotherapy with doxorubicin, ifosfamide, and mesna-today is day #2 * Continue Compazine ordered as needed for antiemetic as well as 24 mg of Zofran prior to induction. * Review of patient notes indicates that this is most likely palliation and not curative * Further management per oncology (2) Hyperlipidemia: * Continue atorvastatin 40 mill grams daily (3) Obstructive sleep apnea: * Patient may use his own CPAP * Continue at 16 cm of water * Patient denies use of supplemental oxygen (4) Atrial fibrillation/flutter: * Continue Toprol, diltiazem, flecainide, Eliquis * Normal sinus rhythm on exam * Rate controlled on exam * Follows with Dr. Abdullahi * Recently changed to one visit per year as arrhythmia is well controlled (5) Morbid obesity: * BMI 62.5 kg/m (6) Hyperglycemia: * No history of diabetes mellitus * Patient receiving dexamethasone 20 mg prior to induction of chemotherapy * Fasting glucose this morning was 164 * hemoglobin A1c here is in the prediabetic range at 6.1% * No need for Accu-Cheks at this point * -Needs lifestyle modification (7) Hypokalemia: Resolved after replacement (8) DVT prophylaxis: Continue Eliquis Disposition-remain [place] until chemotherapy completed Doing well so far Subjective Patient feeling well today. Denies chest pain or shortness of breath except with walking [place]. Denies nausea or vomiting and is tolerating p.o. The pain in his buttocks is "very comfortable" he thinks it may be due to the dexamethasone he received here. Review of Systems All systems reviewed & are unremarkable except as noted in HPI & below Physical Exam Vital Signs (Past 24 Hours): Last Vital Signs Temp 36.4 C L 05/05/18 19:29 Pulse 62 05/05/18 19:29 Resp 20 05/05/18 19:29 BP 114/61 05/05/18 19:29 Pulse Ox 95 05/05/18 19:29 Constitutional: WD/WN, vitals as above + morbidly obese Eyes: PERRL, conjunctivae normal, anicteric sclerae Neck: trachea midline, no thyromegaly Respiratory: normal respiratory effort, lungs clear to auscultation Cardiovascular: Rate/Rhythm: regular rate and regular rhythm Heart Sounds: no murmur Extremities: + edema (3+ pitting edema of the left leg, 2+ pitting edema of the right leg) Gastrointestinal (Abdomen): normal bowel sounds, soft, nontender, no hepatosplenomegaly Musculoskeletal: Extremities: no cyanosis and no clubbing Skin: + rash (Erythema of the left buttocks with dressing in place with drain with serosanguineous drainage) Neurologic: moves all extremities and awake; no focal motor deficits Psychiatric: A+Ox3, euthymic affect Results & Data Laboratory Results 05/05/18 05/05/18 05/05/18 Range/Units 05:50 05:50 05:50 WBC 14.89 H (4.8-10.8) K/uL RBC 4.83 (4.7-6.1) M/uL Hgb 13.8 L (14.0-18.0) g/dL Hct 41.4 L (42-52) % MCV 85.7 (80-100) fL MCH 28.6 (25-34) pg MCHC 33.3 (32-36) g/dL RDW Std Deviation 42.9 (36.4-46.3) fL RDW Coeff of Silas 13.7 (11.5-14.5) % Plt Count 429 H (130-400) K/uL MPV 10.2 (7.4-10.4) fL Immature Gran % (Auto) 0.5 % Neut % (Auto) 91.1 % Lymph % (Auto) 5.8 % [place] % (Auto) 2.4 % Eos % (Auto) 0.1 % Baso % (Auto) 0.1 % Immature Gran # (Auto) 0.07 H (0.00-0.02) K/uL Neut # (Auto) 13.59 H (1.4-6.5) K/uL Lymph # (Auto) 0.86 L (1.2-3.4) K/uL [place] # (Auto) 0.35 (0.11-0.59) K/uL Eos # (Auto) 0.01 (0-0.5) K/uL Baso # (Auto) 0.01 (0-0.2) K/uL Sodium 135 L (136-145) mmol/L Potassium 4.0 (3.5-5.1) mmol/L Chloride 103 (98-107) mmol/L Carbon Dioxide 23 (21-32) mmol/L Anion Gap 9.0 (3-11) BUN 12 (7-18) mg/dl Creatinine 0.81 (0.6-1.4) mg/dl Est Cr Clr Drug Dosing 164.6 ml/min Est GFR ( Amer) 114.3 Est GFR (Non-Af Amer) 98.7 BUN/Creatinine Ratio 15.1 (10-20) Glucose 164 H (70-99) mg/dl POC Glucose (70-99) Estimat Average Glucose 128 mg/dl Hemoglobin A1c 6.1 H (4.5-5.6) % Calcium 8.4 L (8.5-10.1) mg/dl Magnesium 1.9 (1.8-2.4) mg/dl 05/04/18 Range/Units 20:31 WBC (4.8-10.8) K/uL RBC (4.7-6.1) M/uL Hgb (14.0-18.0) g/dL Hct (42-52) % MCV (80-100) fL MCH (25-34) pg MCHC (32-36) g/dL RDW Std Deviation (36.4-46.3) fL RDW Coeff of Silas (11.5-14.5) % Plt Count (130-400) K/uL MPV (7.4-10.4) fL Immature Gran % (Auto) % Neut % (Auto) % Lymph % (Auto) % [place] % (Auto) % Eos % (Auto) % Baso % (Auto) % Immature Gran # (Auto) (0.00-0.02) K/uL Neut # (Auto) (1.4-6.5) K/uL Lymph # (Auto) (1.2-3.4) K/uL [place] # (Auto) (0.11-0.59) K/uL Eos # (Auto) (0-0.5) K/uL Baso # (Auto) (0-0.2) K/uL Sodium (136-145) mmol/L Potassium (3.5-5.1) mmol/L Chloride (98-107) mmol/L Carbon Dioxide (21-32) mmol/L Anion Gap (3-11) BUN (7-18) mg/dl Creatinine (0.6-1.4) mg/dl Est Cr Clr Drug Dosing ml/min Est GFR ( Amer) Est GFR (Non-Af Amer) BUN/Creatinine Ratio (10-20) Glucose (70-99) mg/dl POC Glucose 170 H (70-99) Estimat Average Glucose mg/dl Hemoglobin A1c (4.5-5.6) % Calcium (8.5-10.1) mg/dl Magnesium (1.8-2.4) mg/dl
[2018-05-05] MEDS: ATORVASTATIN 40 MG TAB PO SCH (21:41)
--- NOTE | 2018-05-06 00:24 | Consultation Report ---
DATE OF CONSULTATION: 05/05/2018 MEDICAL ONCOLOGY CONSULTATION REASON FOR CONSULTATION: A 58-year-old gentleman with metastatic pleomorphic sarcoma, receiving initial course of combination ifosfamide, Adriamycin and mesna. HISTORY OF PRESENT ILLNESS: Mr. Hu is a morbidly obese 58-year-old gentleman who was admitted to [facility] yesterday to begin his first cycle of combination Adriamycin, ifosfamide and mesna. I originally met Jerrell last month when he had presented with soft tissue sarcoma involving his left buttock. Jerrell was continuing to have symptoms of increased pain from a protruding growth from the left buttock that began in early December. He initially had some relief from the lesion spontaneously shrinking. However, shortly thereafter, the lesion reemerged towards in January, was quite large and painful specifically upon sitting. He was initially seen by his primary care physician who ordered a CT scan of the pelvis, which revealed a complex primarily cystic mass in the subcutaneous fat, measuring 17 x 13 cm, thought to be a hematoma/seroma; however, a cystic neoplastic process was not excluded. A couple of days thereafter, the gentleman was seen by Dr. Candelario, general surgery service, and recommended drainage to relieve his discomfort. According to Jerrell, over a liter of fluid was extracted, which provided a fair amount of pain relief. Unfortunately, the relief was short lived and Jerrell underwent 2 additional aspirations in the meantime. After the third, a Billy-Whitman drain was then installed, which Jerrell empties on an average 7-8 times per day. I had recommended surgical oncologic consultation at the [facility]. I was not aware of this gentleman's abnormal CT of the chest, which clearly demonstrated multiple pulmonary lesions suggesting he suffers from metastatic disease, and therefore, surgery other than for palliation was not an option. Jerrell was eventually seen by Dr. Vang at the [facility] who recommended at least 2 cycles of combination chemotherapy and reevaluate Jerrell thereafter for possible palliative surgical resection. PAST MEDICAL HISTORY: Again, significant for: 1. Metastatic pleomorphic sarcoma. 2. Anxiety. 3. Atrial fibrillation. 4. Dyslipidemia. 5. Hypertension. 6. Hyperglycemia. 7. Obstructive sleep apnea. PAST SURGICAL HISTORY: Ultrasound-guided biopsy of the left gluteal mass, hernia repair and back surgery. MEDICATIONS: Prior to admission include atorvastatin 20 mg p.o. daily, Cardizem 300 mg p.o. daily, Eliquis 5 mg p.o. b.i.d., tramadol 50 mg 1-2 tablets q.8 hours p.r.n., Metamucil daily, multivitamins 1 p.o. daily, furosemide 20 mg p.o. daily, Claritin 10 mg p.o. at bedtime, flecainide 100 mg p.o. b.i.d., metoprolol 25 mg p.o. daily, [place] fatty acids 1000 mg p.o. daily. ALLERGIES: No known drug allergies. SOCIAL HISTORY: The patient is retired, , nonsmoker, nondrinker. FAMILY HISTORY: Both his mother and maternal grandmother suffered from gynecologic based cancers. His maternal grandmother is actually a patient of mine, suffers from colorectal cancer. REVIEW OF SYSTEMS: As per HPI, most notably for left gluteal pain, brought on by progressing tumor. GENERAL: Negative for fevers, chills or sweats. He is morbidly obese. SKIN: No rashes or lesions otherwise. No history of dermatoses. HEENT: Negative for headaches, lightheadedness or dizziness. No acute visual or hearing deficits. No sinus symptoms, sore throat or dysphagia. LYMPHATICS: No history of lymphoproliferative disease. CARDIAC: Positive for atrial fibrillation. No current angina or palpitations. PULMONARY: Negative for COPD. He is not short of breath, dyspneic or orthopneic. He does suffer from obstructive sleep apnea. ABDOMEN: No abdominal pain, nausea, vomiting, diarrhea, constipation, hematochezia or melena stools. GENITOURINARY: No hematuria, dysuria, or urinary incontinence. PSYCHIATRIC: Negative for anxiety, depression or psychoses. ENDOCRINE: Negative for diabetes or thyroid disease. NEUROLOGIC: Negative for seizure, stroke, or migraine headache. HEMATOLOGIC: Negative for anemia, thrombophilia or bleeding diathesis. PHYSICAL EXAMINATION: GENERAL: Jerrell is a very morbidly obese, pleasant 58-year-old gentleman. Awake, alert and appropriate, in no acute distress. VITAL SIGNS: Temperature 36.8, pulse 70, respiratory rate 20, blood pressure 146/76. SKIN: Warm, dry, noncyanotic without petechia, rash or ecchymosis. HEENT: Atraumatic, normocephalic. Eyes: PERRLA, EOMI. Sclerae nonicteric. No conjunctival injection. Nares are patent without rhinorrhea or discharge. Throat is clear. Tongue is midline. Mucous membranes are moist. NECK: Bull neck, supple. Trachea is midline. LYMPHATICS: No cervical or supraclavicular palpable nodes. HEART: Regular rate and rhythm. No clicks, rubs, murmurs or gallops. LUNGS: Clear to auscultation bilaterally. ABDOMEN: Obese, soft, nontender, nondistended, without palpable hepatosplenomegaly. Bowel sounds are active. EXTREMITIES: Trace peripheral edema. MUSCULOSKELETAL: Strength is equal in all 4 quadrants. NEUROLOGICAL: He is awake, alert, oriented x3. Cranial nerves are intact. No gross motor or sensory deficits are noted. LABORATORY DATA: WBC count 14,890, hemoglobin 13.8, platelet count 429,000. Sodium 135, potassium 4.0, chloride 103, carbon dioxide 23, BUN 12, creatinine 0.81. IMPRESSION: 1. Metastatic pleomorphic sarcoma (pulmonary metastasis). 2. Begin cycle 1 combination Adriamycin, ifosfamide and mesna. 3. Leukocytosis. 4. Billy-Whitman drainage of the left buttock primary lesion. 5. Atrial fibrillation. 6. Deep venous thrombosis prophylaxis. PLAN: Mr. Hu is a pleasant, unfortunate 58-year-old gentleman who suffers from pleomorphic metastatic sarcoma involving the lungs. Jerrell has a primary left gluteal lesion, which was aspirated on several occasions and subsequently Billy-Whitman drain was placed to facilitate frequent drainage. Jerrell began a combination Adriamycin, ifosfamide and mesna in yesterday. He was very pleased that he was able to sleep comfortably overnight and quite frankly there most likely has been some tumor regression and less pressure on his sciatic nerve distribution, which I am convinced has been encroached by this lesion. Hopefully, he will continue to enjoy pain-free nights. His infusion will continue for 4 days. Jerrell was provided information regarding chemotherapy and signed informed consent allowing us to proceed. We will continue to periodically monitor Jerrell during his stay. I do not anticipate any difficulties moving forward. I agree with medical management otherwise. I appreciate the hospitalist's help in taking care of Jerrell's medical problems during chemotherapy. I have nothing further to add at this time. Thank you very much for allowing me to assist in his care. MICHAEL
[2018-05-06] MEDS: SODIUM CHLORIDE 0.9% 1000ML 1,000 ML IV SCH ×3 (01:59→21:32)
[2018-05-06 06:09] LABS: Hematocrit (blood only) 37.6 % (42-52); Hemoglobin 12.3 g/dL (14.0-18.0); Immature Granulocytes % (auto) 0.7 %; Lymphocytes # (auto) 0.84 K/uL (1.2-3.4); Lymphocytes % (auto) 5.7 %; Mean Corpuscular Hgb Conc 32.7 g/dL (32-36); Mean Corpuscular Volume 86.2 fL (80-100); Monocytes # (auto) 0.81 K/uL (0.11-0.59); Monocytes % (auto) 5.5 %; Neutrophils # (auto) 13.06 K/uL (1.4-6.5); Neutrophils % (auto) 88.1 %; Platelet Count 380 K/uL (130-400); RDW Coefficient of Variation 13.7 % (11.5-14.5); RDW Standard Deviation 43.3 fL (36.4-46.3); Red Blood Count 4.36 M/uL (4.7-6.1); White Blood Count 14.81 K/uL (4.8-10.8)
[2018-05-06 06:44] LABS: BUN Creatinine Ratio 19.9 (10-20); Calcium 8.4 mg/dl (8.5-10.1); Creatinine Clr Calc Pharmacy 201.6 ml/min; Est GFR (African American) 124.4; Est GFR (Non-African American) 107.3; Potassium 4.1 mmol/L (3.5-5.1)
[2018-05-06] MEDS: METOPROLOL SUCC 25MG EXT REL TAB PO SCH (08:19)
[2018-05-06] MEDS: FLECAINIDE ACETATE 100 MG TABLET PO SCH ×2 (08:19→21:30)
[2018-05-06] MEDS: dilTIAZem HCL 300 MG CAPCR PO SCH (08:19)
[2018-05-06] MEDS: APIXABAN 5 MG TABLET PO SCH ×2 (08:19→20:11)
[2018-05-06] MEDS: TRAMADOL HCL 50 MG TABLET PO PRN ×2 (08:20→16:36)
--- NOTE | 2018-05-06 10:45 | Hospitalist Progress Note ---
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 Buttock drained and KHUSHI drain currently in place-seems to be draining a lot around it and having increased pain today- consult general surgery to see if drain needs to be replaced * Mediport in place * Patient admitted to undergo induction chemotherapy with doxorubicin, ifosfamide, and mesna-today is day #3/4 * Continue Compazine ordered as needed for antiemetic as well as 24 mg of Zofran * Review of patient notes indicates that this is most likely palliation and not curative * Further management per oncology * Pain management with tramadol 50 mg p.o. every 6 hours as needed (2) Hyperlipidemia: * Continue atorvastatin 40 mg daily (3) Obstructive sleep apnea: * Continue home CPAP at 16 * Not requiring oxygen (4) Atrial fibrillation/flutter: * Continue Toprol, diltiazem, flecainide, Eliquis * Normal sinus rhythm on exam * Rate controlled on exam * Follows with Dr. Abdullahi * Recently changed to one visit per year as arrhythmia is well controlled (5) Morbid obesity: * BMI 62.5 kg/m (6) Hyperglycemia: * No history of diabetes mellitus * Patient receiving dexamethasone 20 mg daily with chemotherapy * Fasting glucose this morning was again 164 * hemoglobin A1c here is in the prediabetic range at 6.1% * No need for Accu-Cheks at this point * -Needs lifestyle modification (7) Hypokalemia: Resolved after replacement (8) DVT prophylaxis: Continue Eliquis Disposition-remain in inpatient [place] until chemotherapy completed, then likely home on Monday Doing well so far Subjective Patient having a lot of drainage coming from around his buttocks KHUSHI than previous. RN reports it is soaking the dressing every 2 hours which was not happening before. His bulb drain is not feeling it nearly as frequently as before. He is having more pain in the area as well. No fevers, no nausea or vomiting. No chest pain or shortness of breath. He is concerned that his weight is up so much, however I noted that the scale is likely inaccurate as his I's and O's which nurses reporting are very accurate are only showing that he is up 1 L positive for the whole stay. Review of Systems All systems reviewed & are unremarkable except as noted in HPI & below Physical Exam Vital Signs (Past 24 Hours): Last Vital Signs Temp 36.4 C L 05/06/18 07:00 Pulse 68 05/06/18 07:00 Resp 20 05/06/18 07:00 BP 118/64 05/06/18 07:00 Pulse Ox 95 05/06/18 07:00 Constitutional: WD/WN, vitals as above + morbidly obese Eyes: PERRL, conjunctivae normal, anicteric sclerae Neck: trachea midline, no thyromegaly Respiratory: normal respiratory effort, lungs clear to auscultation Cardiovascular: Rate/Rhythm: regular rate and regular rhythm Heart Sounds: no murmur Extremities: + edema (3+ pitting edema of the left leg, 2+ pitting edema of the right leg) Gastrointestinal (Abdomen): normal bowel sounds, soft, nontender, no hepatosplenomegaly Musculoskeletal: Extremities: no cyanosis and no clubbing Skin: + rash (Decreased erythema of the left buttocks with dressing in place with drain with serosanguineous drainage, soaked dressing) Neurologic: moves all extremities and awake; no focal motor deficits Psychiatric: A+Ox3, euthymic affect Results & Data Laboratory Results 05/06/18 05/06/18 05/06/18 Range/Units 07:37 05:57 05:57 WBC 14.81 H (4.8-10.8) K/uL RBC 4.36 L (4.7-6.1) M/uL Hgb 12.3 L (14.0-18.0) g/dL Hct 37.6 L (42-52) % MCV 86.2 (80-100) fL MCH 28.2 (25-34) pg MCHC 32.7 (32-36) g/dL RDW Std Deviation 43.3 (36.4-46.3) fL RDW Coeff of Silas 13.7 (11.5-14.5) % Plt Count 380 (130-400) K/uL MPV 10.0 (7.4-10.4) fL Immature Gran % (Auto) 0.7 % Neut % (Auto) 88.1 % Lymph % (Auto) 5.7 % [place] % (Auto) 5.5 % Eos % (Auto) 0.0 % Baso % (Auto) 0.0 % Immature Gran # (Auto) 0.10 H (0.00-0.02) K/uL Neut # (Auto) 13.06 H (1.4-6.5) K/uL Lymph # (Auto) 0.84 L (1.2-3.4) K/uL [place] # (Auto) 0.81 H (0.11-0.59) K/uL Eos # (Auto) 0.00 (0-0.5) K/uL Baso # (Auto) 0.00 (0-0.2) K/uL Sodium 143 D (136-145) mmol/L Potassium 4.1 (3.5-5.1) mmol/L Chloride 110 H (98-107) mmol/L Carbon Dioxide 27 (21-32) mmol/L Anion Gap 7.0 (3-11) BUN 13 (7-18) mg/dl Creatinine 0.66 (0.6-1.4) mg/dl Est Cr Clr Drug Dosing 201.6 ml/min Est GFR ( Amer) 124.4 Est GFR (Non-Af Amer) 107.3 BUN/Creatinine Ratio 19.9 (10-20) Glucose 164 H (70-99) mg/dl POC Glucose 142 H (70-99) Calcium 8.4 L (8.5-10.1) mg/dl
[2018-05-06] MEDS: DOCUSATE SODIUM 100 MG CAP PO SCH ×2 (12:40→20:11)
[2018-05-06] MEDS: ACETAMINOPHEN 325 MG TAB PO PRN (12:40)
[2018-05-06] MEDS: dexAMETHasone 4 MG TAB PO SCH (16:16)
[2018-05-06] MEDS: IFOSFAMIDE IV SCH (16:16)
[2018-05-06] MEDS: SODIUM CHLORIDE 0.9% IV SCH ×2 (16:16)
[2018-05-06] MEDS: MESNA IV SCH (16:16)
[2018-05-06] MEDS: DOXORUBICIN HCL IV SCH (16:16)
[2018-05-06] MEDS: ONDANSETRON 8 MG TABLET PO SCH (16:17)
--- NOTE | 2018-05-06 19:25 | Surgery Consultation ---
Date of Consultation May 06, 2018 Assessment & Plan (1) Sarcoma of buttock: the drain appeared clogged with debris as did the grenade itself I flushed the tubing with sterile saline, stripped it, and shortened it we also obtained a new grenade. tubing appeared to immediately start filling up with fluid again if this doesn't work, will d/w Dr. Candelario about possibly inserting a new drain. History of Present Illness Attending Physician: Maria Isabel Cody MD History of Present Illness pt known to our practice. 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 has had a drain in to assist with fluid extraction secondary to symptoms. he is admitted for chemo induction. this am the drain stopped functioning and he has been getting large amounts of fluid from around the drain. he feels pressure build up in the buttock as well. Allergies Allergy/AdvReac Type Severity Reaction Status Date / Time No Known Allergies Allergy Unverified 05/02/18 08:16 Home Medications Home Medications Medication Instructions Recorded Confirmed Type Metamucil 1 dose PO QAM 05/01/18 05/04/18 History diltiazem HCl 300 mg PO QAM 05/01/18 05/04/18 History flecainide 100 mg PO Q12H 05/01/18 05/04/18 History loratadine 10 mg PO QAM 05/01/18 05/04/18 History metoprolol succinate 25 mg PO QAM 05/01/18 05/04/18 History multivitamin 1 tab PO QAM 05/01/18 05/04/18 History omega 9-[id number]-fish oil [Fish Oil] 1 cap PO QAM 05/01/18 05/04/18 History oxycodone-acetaminophen [Percocet] 1 tab PO Q4H PRN #20 tab 05/02/18 05/04/18 Rx atorvastatin 40 mg PO DAILY 05/04/18 05/04/18 History tramadol 50 mg PO Q8H 05/04/18 05/04/18 History Patient History Social History Communication Ability: Effective Beliefs That Will Affect Care: None Current Living Situation: Spouse and Family 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 Physical Exam Vital Signs (Past 24 Hours): Last Vital Signs Temp 36.6 C 05/06/18 15:00 Pulse 69 05/06/18 15:00 Resp 20 05/06/18 15:00 BP 130/61 05/06/18 15:00 Pulse Ox 94 05/06/18 15:00 Physical Exam: alert. nad. lying on abdomen for comfort. large left buttock fluid collection. serous. round drain in place. minimal fluid in drain
[2018-05-06] MEDS: ATORVASTATIN 40 MG TAB PO SCH (20:11)
[2018-05-07] MEDS: TRAMADOL HCL 50 MG TABLET PO PRN ×2 (06:28→20:56)
[2018-05-07] MEDS: SODIUM CHLORIDE 0.9% 1000ML 1,000 ML IV SCH ×2 (06:30→16:27)
[2018-05-07] MEDS: FLECAINIDE ACETATE 100 MG TABLET PO SCH ×2 (07:50→20:51)
[2018-05-07] MEDS: DOCUSATE SODIUM 100 MG CAP PO SCH ×2 (07:51→20:51)
[2018-05-07] MEDS: dilTIAZem HCL 300 MG CAPCR PO SCH (07:51)
[2018-05-07] MEDS: APIXABAN 5 MG TABLET PO SCH ×2 (07:51→20:52)
[2018-05-07] MEDS: METOPROLOL SUCC 25MG EXT REL TAB PO SCH (08:56)
[2018-05-07 09:09] LABS: Basophils # (auto) 0.01 K/uL (0-0.2); Basophils % (auto) 0.1 %; Hematocrit (blood only) 38.4 % (42-52); Hemoglobin 12.7 g/dL (14.0-18.0); Immature Granulocytes # (auto) 0.04 K/uL (0.00-0.02); Immature Granulocytes % (auto) 0.3 %; Lymphocytes # (auto) 0.71 K/uL (1.2-3.4); Mean Corpuscular Hgb Conc 33.1 g/dL (32-36); Mean Corpuscular Volume 87.3 fL (80-100); Mean Platelet Volume 9.7 fL (7.4-10.4); Monocytes # (auto) 0.99 K/uL (0.11-0.59); Neutrophils # (auto) 12.34 K/uL (1.4-6.5); Neutrophils % (auto) 87.6 %; Platelet Count 387 K/uL (130-400); RDW Coefficient of Variation 13.9 % (11.5-14.5); RDW Standard Deviation 44.2 fL (36.4-46.3); White Blood Count 14.09 K/uL (4.8-10.8)
--- NOTE | 2018-05-07 09:19 | Hospitalist Progress Note ---
Date of Service May 07, 2018 Assessment & Plan (1) Sarcoma of buttock: * Patient with biopsy in February 2018 showing sarcoma. Patient is having increased buttock pain and. gerneral surgery manipulated surgical drain 05/06 and is now working * Mediport in place for recurrent chemotherapy * Patient admitted to undergo induction chemotherapy with doxorubicin, ifosfamide, and mesna * Continue Compazine ordered as needed for antiemetic as well as 24 mg of Zofran * Review of patient notes indicates that this is most likely palliation and not curative * Pain management with tramadol 50 mg p.o. every 6 hours as needed (2) Hyperlipidemia: * Continue atorvastatin 40 mg daily (3) Obstructive sleep apnea: * Continue home CPAP at 16 * Not requiring oxygen (4) Atrial fibrillation/flutter: * Remains controlled with Toprol, diltiazem, flecainide, Eliquis, patient is in normal sinus rhythm on exam * Follows with Dr. Abdullahi * Recently changed to one visit per year as arrhythmia is well controlled (5) Morbid obesity: * BMI 62.5 kg/m this will directly impact wound healing (6) Hyperglycemia: * No history of diabetes mellitus however his morbid obesity places him at increased risk for type 2 diabetes * Patient receiving dexamethasone 20 mg daily with chemotherapy * Fasting glucose this morning was again 164 * hemoglobin A1c here is in the prediabetic range at 6.1% * No need for Accu-Cheks at this point (7) Hypokalemia: Resolved after replacement (8) DVT prophylaxis: Continue Eliquis Disposition-remain in inpatient [place] until chemotherapy completed, then likely home on Monday Doing well so far Subjective Patient states he had some discomfort last night in his buttocks and left leg but this is improved today. Some is revolved around his surgical drain being occluded this was repositioned by surgery and is are draining quite nicely. Otherwise he has very poor appetite and some fatigue but no other new complaints or problems Review of Systems ROS: well nourished well developed. Patient's morbidly obese No double vision blurry vision No problems with speech or swallowing No palpitations, chest pain or pressure No Wheezing or breathing issues No abdominal pain nausea vomiting diarrhea changes in appetite or weight No burning urine urine frequency or changes in color Patient has some joint pain in his left leg his rib lead with position Patient has a drain in his left buttocks and some swelling No unusual bruising or bleeding No focused back pain or numbness or loss of strength No changes in memory or confusion Physical Exam Vital Signs (Past 24 Hours): Last Vital Signs Temp 36.4 C L 05/07/18 08:26 Pulse 61 05/07/18 08:26 Resp 16 19 08:26 BP 132/70 05/07/18 08:26 Pulse Ox 97 05/07/18 08:26 The patient appeared well nourished and normally developed. Patient is morbidly obese with a BMI of 65.5 Vital signs as documented. Head exam is unremarkable. normocephalic, atraumatic Neck is without jugular venous distension, thyromegaly, or lymphademopathy Lungs are clear to auscultation and percussion. Cardiac exam reveals Rhythm is regular. First and second heart sounds normal. Abdominal exam reveals normal bowel sounds, no masses, no organomegaly Extremities are mildly edematous and both pedal pulses are present Patient is extreme discordance size between his left and right gluteus buttock area his left big markedly enlarged and firm to palpation with a drain surgical drain in place Neurologic exam is A&Ox3, no focal deficits, strength is equal bilateral Psychologically seems neither anxious or depressed Skin is warm Dry without bruises or lesions
[2018-05-07 09:41] LABS: BUN Creatinine Ratio 20.9 (10-20); Calcium 8.2 mg/dl (8.5-10.1); Creatinine Clr Calc Pharmacy 199.1 ml/min; Est GFR (African American) 122.1; Est GFR (Non-African American) 105.4; Potassium 4.1 mmol/L (3.5-5.1)
--- NOTE | 2018-05-07 13:50 | Surgery Progress Note ---
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 He has a drain in his left buttock sarcoma due to the large seroma that is occurred around it. Over the weekend the drain became clogged and was leaking and causing him significant discomfort as the pressure build up around the tumor. Dr. Menezes trouble shot the drain yesterday and it appears to be functioning well. He still says it is not draining much but is not leaking as much either. He also says his pain is improving though still feels a little swollen. Physical Exam Vital Signs (Past 24 Hours): Last Vital Signs Temp 36.5 C 05/07/18 11:32 Pulse 123 H 05/07/18 11:32 Resp 16 05/07/18 11:32 BP 118/74 05/07/18 11:32 Pulse Ox 96 05/07/18 11:32 Constitutional: WD/WN, vitals as above Skin: Large left buttock sarcoma, drain appears to be functioning with no debris. Dressing in place, not saturated
[2018-05-07] MEDS ORDERED: SODIUM CHLORIDE 0.9% IV ONE (16:00)
[2018-05-07] MEDS ORDERED: MESNA IV ONE (16:00)
[2018-05-07] MEDS: ATORVASTATIN 40 MG TAB PO SCH (20:50)
[2018-05-08] MEDS: HEPARIN 100 UNIT/ML 5ML FLUSH FLUSH PRN ×3 (04:16→23:52)
[2018-05-08] MEDS: METOPROLOL SUCC 25MG EXT REL TAB PO SCH ×2 (08:45→10:13)
[2018-05-08] MEDS: FLECAINIDE ACETATE 100 MG TABLET PO SCH ×3 (08:45→21:21)
[2018-05-08] MEDS: dilTIAZem HCL 300 MG CAPCR PO SCH ×2 (08:45→10:12)
[2018-05-08] MEDS: DOCUSATE SODIUM 100 MG CAP PO SCH ×3 (08:46→21:22)
[2018-05-08] MEDS: APIXABAN 5 MG TABLET PO SCH ×3 (08:46→21:22)
[2018-05-08] MEDS ORDERED: HYDROmorphone INJ 0.5 MG/0.5 ML SYR IV STA (08:59)
--- NOTE | 2018-05-08 11:40 | Surgery Progress Note ---
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
[2018-05-08] MEDS: HYDROmorphone INJ 1 MG/ML SYRINGE IV PRN ×2 (12:31→23:51)
--- NOTE | 2018-05-08 15:56 | Hospitalist Progress Note ---
Date of Service May 08, 2018 Assessment & Plan (1) Encephalopathy: Patient is hospital delirium which may be in part from his chemotherapy. We will look for secondary sources of infection or electrolyte abnormalities and consider imaging of his brain. If his area of discoloration of the skin expands of his hip or if he declares clinical signs of infection we may re-CT scan his hip to look for a subcutaneous abscess given he is had a surgical drain in place for quite some time (2) Sarcoma of buttock: * Patient with biopsy in February 2018 showing sarcoma. Patient is having increased buttock pain and. gerneral surgery manipulated surgical drain 05/06 and is now working drain was sutured in place for more secure status on 319 * Mediport in place for recurrent chemotherapy * Patient admitted to undergo induction chemotherapy with doxorubicin, ifosfamide, and mesna * Continue Zofran * Review of patient notes indicates that this is most likely palliation and not curative * Pain management with tramadol 50 mg p.o. every 6 hours as needed patient had addition of parenteral opiates for pain control on 05/08 due to extreme pain in his buttocks (3) Hyperlipidemia: * Continue atorvastatin 40 mg daily (4) Obstructive sleep apnea: * Continue home CPAP at 16 * Not requiring oxygen (5) Atrial fibrillation/flutter: * Remains controlled and asymptomatic with Toprol, diltiazem, flecainide, Eliquis, patient is in normal sinus rhythm on exam * Follows with Dr. Abdullahi * Recently changed to one visit per year as arrhythmia is well controlled (6) Morbid obesity: * BMI 62.5 kg/m this will directly impact wound healing (7) Hyperglycemia: * No history of diabetes mellitus however his morbid obesity places him at increased risk for type 2 diabetes * Patient receiving dexamethasone 20 mg daily with chemotherapy * 's glucose has remained in acceptable ranges * hemoglobin A1c here is in the prediabetic range at 6.1% * No need for Accu-Cheks at this point (8) Hypokalemia: Resolved after replacement (9) DVT prophylaxis: Continue Eliquis Disposition-remain in inpatient [place] until chemotherapy completed, then likely home on Monday Doing well so far Subjective Patient is having some in-hospital delirium today's having some incontinence of urine he is very emotionally labile and tearful. He however is oriented when direct questioning is asked to him. He has persistent discomfort at the site of his tumor there is some concern that overnight his drain was disconnected from his vacuum source. Surgery reevaluate the area and sutured the drain in place His and daughter at the bedside and they were updated Review of Systems The patient appeared comfortable and tearful Vital signs as documented. Head exam is unremarkable. normocephalic, atraumatic Neck is without jugular venous distension, thyromegaly, or lymphademopathy Lungs are clear to auscultation and percussion. Cardiac exam reveals Rhythm is regular. First and second heart sounds normal. Abdominal exam reveals normal bowel sounds, no masses, no organomegaly Patient is tenderness to this large protruding left buttocks mass with some surrounding discomfort down his leg Extremities are mildly edematous and both pedal pulses are present Neurologic exam is A&Ox3, no focal deficits, strength is equal bilateral Psychologically seems anxious and emotionally labile Skin is warm Dry bruising about his left leg near the mass Physical Exam Vital Signs (Past 24 Hours): Last Vital Signs Temp 37.0 C 05/08/18 07:32 Pulse 87 05/08/18 07:32 Resp 20 05/08/18 07:32 BP 146/73 H 05/08/18 07:32 Pulse Ox 99 05/08/18 07:32 The patient appeared in emotional distress and morbidly obese Vital signs as documented. Had no fever Head exam is unremarkable. normocephalic, atraumatic Neck is without jugular venous distension, thyromegaly, or lymphademopathy Lungs are clear to auscultation and percussion. Cardiac exam reveals Rhythm is regular. First and second heart sounds normal. Abdominal exam reveals normal bowel sounds, no masses, no organomegaly Extremities are mildly edematous and his left buttocks has a protruding drain. There is some mottling ecchymotic area laterally down his left thigh this was drawn around with a line of demarcation Neurologic exam is A&Ox3, no focal deficits, strength is equal bilateral Psychologically seems anxious depressed and emotionally labile
--- NOTE | 2018-05-08 16:38 | Hematology/Oncology Prog Note ---
Date of Service May 08, 2018 Assessment & Plan (1) Encephalopathy: He was encephalopathic on exam today. Encephalopathy is a well- characterized, if uncommon, toxicity of ifosfamide. It is attributable to toxic metabolites that can persist in the serum following treatment. These effects tend to last a few days and clear spontaneously. Very rarely, patients can develop seizures or other focal neurologic signs. He may also have a metabolic encephalopathy for unrelated reasons and I would investigate him for lab abnormalities and infections. However, if no explanation is identified, we may attribute this issue to the ifosfamide. Present on Admission?: No (2) Sarcoma of buttock: He has completed his first cycle of chemotherapy. He had no major issues with nausea or hematuria. However, as noted above, he may be experiencing an acute drug toxicity. His drug was dosed based on actual body weight. Moving forward, we may consider dosing him based on ideal body weight, given his morbid obesity. Present on Admission?: Yes Subjective Mr. Hu was very uncomfortable when I saw him this morning. He was com plaining of pain in his buttocks but also seemed confused. His nurse noted that he was much less calm and more confused than usual. He denied any fevers, nausea, or headaches. Review of Systems His ROS was limited due to his acute pain and his confusion. See HPI for limited pertinent positives. Physical Exam Vital Signs (Past 24 Hours): Last Vital Signs Temp 36.7 C 05/08/18 15:58 Pulse 77 05/08/18 15:58 Resp 20 05/08/18 15:58 BP 157/67 H 05/08/18 15:58 Pulse Ox 96 05/08/18 15:58 Constitutional: + acute distress (mild distress due to pain), + ill appearing and + morbidly obese Respiratory: normal respiratory effort, lungs clear to auscultation Cardiovascular: Rate/Rhythm: regular rate and + tachycardic Extremities: no edema Gastrointestinal (Abdomen): normal bowel sounds, soft, nontender, no hepatosplenomegaly Musculoskeletal: His large mass in his left buttocks area was tender and malodorous. Psychiatric: Orientation: alert and oriented x 3 Results & Data Laboratory Results Laboratory Results - last 48 hr 05/07/18 05/07/18 08:42 08:42 WBC 14.09 H RBC 4.40 L Hgb 12.7 L Hct 38.4 L MCV 87.3 MCH 28.9 MCHC 33.1 RDW Std Deviation 44.2 RDW Coeff of Silas 13.9 Plt Count 387 MPV 9.7 Immature Gran % (Auto) 0.3 Neut % (Auto) 87.6 Lymph % (Auto) 5.0 [place] % (Auto) 7.0 Eos % (Auto) 0.0 Baso % (Auto) 0.1 Immature Gran # (Auto) 0.04 H Neut # (Auto) 12.34 H Lymph # (Auto) 0.71 L [place] # (Auto) 0.99 H Eos # (Auto) 0.00 Baso # (Auto) 0.01 Sodium 140 Potassium 4.1 Chloride 109 H Carbon Dioxide 26 Anion Gap 5.0 BUN 14 Creatinine 0.69 Est Cr Clr Drug Dosing 199.1 Est GFR ( Amer) 122.1 Est GFR (Non-Af Amer) 105.4 BUN/Creatinine Ratio 20.9 H Glucose 122 H Calcium 8.2 L
[2018-05-08 17:19] LABS: Eosinophils # (auto) 0.03 K/uL (0-0.5); Eosinophils % (auto) 0.3 %; Hematocrit (blood only) 35.7 % (42-52); Hemoglobin 11.7 g/dL (14.0-18.0); Immature Granulocytes # (auto) 0.02 K/uL (0.00-0.02); Immature Granulocytes % (auto) 0.2 %; Lymphocytes # (auto) 0.81 K/uL (1.2-3.4); Lymphocytes % (auto) 9.3 %; Mean Corpuscular Hgb Conc 32.8 g/dL (32-36); Mean Corpuscular Volume 86.9 fL (80-100); Mean Platelet Volume 9.8 fL (7.4-10.4); Monocytes # (auto) 0.17 K/uL (0.11-0.59); Monocytes % (auto) 1.9 %; Neutrophils % (auto) 88.3 %; Platelet Count 294 K/uL (130-400); RDW Coefficient of Variation 14.1 % (11.5-14.5); RDW Standard Deviation 44.7 fL (36.4-46.3); Red Blood Count 4.11 M/uL (4.7-6.1); White Blood Count 8.73 K/uL (4.8-10.8)
[2018-05-08 17:46] LABS: Albumin Level 1.7 gm/dl (3.4-5.0); BUN Creatinine Ratio 23.7 (10-20); Calcium 8.5 mg/dl (8.5-10.1); Creatinine Clr Calc Pharmacy 195.4 ml/min; Est GFR (African American) 120.7; Est GFR (Non-African American) 104.2; Potassium 3.6 mmol/L (3.5-5.1)
[2018-05-08 17:49] LABS: Albumin Globulin Ratio 0.5 (0.9-2); Bilirubin,Total 0.7 mg/dl (0.2-1); Globulin 3.5 gm/dl (2.5-4.0); Total Protein 5.2 gm/dl (6.4-8.2)
[2018-05-08] MEDS: ATORVASTATIN 40 MG TAB PO SCH (21:22)
[2018-05-09] MEDS: dilTIAZem HCL 300 MG CAPCR PO SCH (07:34)
[2018-05-09] MEDS: FLECAINIDE ACETATE 100 MG TABLET PO SCH ×2 (07:34→20:08)
[2018-05-09] MEDS: DOCUSATE SODIUM 100 MG CAP PO SCH ×2 (07:34→20:08)
[2018-05-09] MEDS: APIXABAN 5 MG TABLET PO SCH ×2 (07:35→20:08)
[2018-05-09] MEDS: METOPROLOL SUCC 25MG EXT REL TAB PO SCH (07:35)
[2018-05-09] MEDS: TRAMADOL HCL 50 MG TABLET PO PRN ×2 (09:04→15:04)
[2018-05-09] MEDS: ACETAMINOPHEN 325 MG TAB PO PRN ×2 (13:41→18:23)
--- NOTE | 2018-05-09 13:45 | Surgery Progress Note ---
Date of Service May 09, 2018 Assessment & Plan (1) Sarcoma of buttock: buttock sarcoma, reactive seroma controlled with drain, functioning. Recommend flush every few days with 10cc sterile saline. f/u in clinic as needed call with questions or concerns patient scheduled for possible palliative resection in [place] in May. Present on Admission?: Yes Subjective left buttock sarcoma with mets, admitted for induction chemo. Drain functioning. Some delirium yesterday but improving. Physical Exam Vital Signs (Past 24 Hours): Last Vital Signs Temp 36.7 C 05/09/18 11:47 Pulse 80 05/09/18 11:47 Resp 20 05/09/18 11:47 BP 125/56 L 05/09/18 11:47 Pulse Ox 95 05/09/18 11:47 Constitutional: WD/WN, vitals as above Skin: large left buttock sarcoma, drain in place, functioning, ss fluid.
--- NOTE | 2018-05-09 17:18 | Hospitalist Progress Note ---
Date of Service May 09, 2018 Assessment & Plan (1) Encephalopathy: delirium seems to be from his chemotherapy. Laboratories checked on 05/08 did not support any serological evidence of physiological stress of infection. Since it is clearing we will continue to have watchful waiting and not employ imaging of his brain or hip (2) Sarcoma of buttock: * Patient with biopsy in February 2018 showing sarcoma. Patient is having increased buttock pain and. gerneral surgery manipulated surgical drain 05/06 and is now working drain was sutured in place for more secure status on 319 * Mediport in place for recurrent chemotherapy * Patient admitted to undergo induction chemotherapy with doxorubicin, ifosfamide, and mesna * Review of patient notes indicates that this is most likely palliation and not curative * Pain management with will attempt to use oxycodone in addition to Ultram for pain control of augmented parenteral Dilaudid if need be during his the remainder of his hospital stay (3) Hyperlipidemia: * Continues with atorvastatin 40 mg daily (4) Obstructive sleep apnea: * Continue home CPAP at 16 * Not requiring oxygen (5) Atrial fibrillation/flutter: * Remains controlled and asymptomatic with Toprol, diltiazem, flecainide, Eliquis, patient is in normal sinus rhythm on exam * Follows with Dr. Abdullahi (6) Morbid obesity: * BMI 62.5 kg/m this will directly impact wound healing (7) Hyperglycemia: * No history of diabetes mellitus however his morbid obesity places him at increased risk for type 2 diabetes * Patient was receiving dexamethasone 20 mg daily with chemotherapy * hemoglobin A1c here is in the prediabetic range at 6.1% (8) Hypokalemia: Resolved after replacement (9) DVT prophylaxis: Continue Eliquis Disposition-remain in inpatient [place] until chemotherapy completed, then likely home on Monday Doing well so far Subjective She is much more mentally clear today would not he is completely at his baseline his pain is significantly an issue still his buttocks is drain was inspected bobs in the room by his Dr. Candelario from surgery who feels was appropriately draining Review of Systems ROS: well nourished well developed. No double vision blurry vision No problems with speech or swallowing No palpitations, chest pain or pressure No Wheezing or breathing issues No abdominal pain nausea vomiting diarrhea changes in appetite or weight No burning urine urine frequency or changes in color Focal left hip pain. swollen and painful No skin rashes or oral lesions No unusual bruising or bleeding No focused back pain or numbness or loss of strength No changes in memory or confusion Physical Exam Vital Signs (Past 24 Hours): Last Vital Signs Temp 36.9 C 05/09/18 15:43 Pulse 76 05/09/18 15:43 Resp 20 05/09/18 15:43 BP 147/68 H 05/09/18 15:43 Pulse Ox 94 05/09/18 15:43 The patient appeared morbidly obese Vital signs as documented. Head exam is unremarkable. normocephalic, atraumatic Neck is without jugular venous distension, thyromegaly, or lymphademopathy Lungs are clear to auscultation and percussion. Cardiac exam reveals Rhythm is regular. First and second heart sounds normal. Abdominal exam reveals normal bowel sounds, no masses, no organomegaly Extremities are moderately edematous larger swelling on his left hip does not show any progression of erythema from the line of demarcation is not any more large swollen or tender than yesterday and I think his encephalopathy improving help has not tolerating pain somewhat better Neurologic exam is A&Ox3, no focal deficits, strength is equal bilateral Psychologically seems anxious
[2018-05-09] MEDS ORDERED: OXYCODONE HCL IR 5 MG TAB (IMMEDIATE RELEASE) PO PRN (18:00)
[2018-05-09] MEDS: ATORVASTATIN 40 MG TAB PO SCH (20:08)
[2018-05-10] MEDS: TRAMADOL HCL 50 MG TABLET PO PRN ×2 (03:07→08:18)
[2018-05-10 05:36] VITALS: O2SAT 96
[2018-05-10] MEDS: DOCUSATE SODIUM 100 MG CAP PO SCH (08:16)
[2018-05-10] MEDS: METOPROLOL SUCC 25MG EXT REL TAB PO SCH (08:16)
[2018-05-10] MEDS: FLECAINIDE ACETATE 100 MG TABLET PO SCH (08:17)
[2018-05-10] MEDS: dilTIAZem HCL 300 MG CAPCR PO SCH (08:17)
[2018-05-10] MEDS: APIXABAN 5 MG TABLET PO SCH (08:17)
[2018-05-10 08:43] VITALS: BP 143/73; PULSE 77; TEMP 97.9
--- NOTE | 2018-05-10 10:18 | Progress Note ---
DATE: 05/10/2018 DIAGNOSES: 1. Toxic encephalopathy attributable to ifosfamide. 2. 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 SUBJECTIVE: The patient was seen and examined at bedside this morning. He was awake, alert and appropriate. He recognized that he had a difficult time about [address] Acevedo had imparted some information regarding the patient's behavior was a little bizarre and I believe attributable to ifosfamide toxicity. His original dose was based on total body weight and maybe considerable considering the patient's obesity. He is tolerating his diet, although he readily admits to dysgeusia, which again I believe is attributable to chemotherapy. Nursing reports no overnight difficulties. PHYSICAL EXAMINATION: GENERAL: The patient is in no acute distress. VITAL SIGNS: Temperature 36.7, pulse 78, respiratory rate 20, blood pressure 151/63. SKIN: Without rash or lesion. HEENT: Oral mucosa without erythema or ulceration. NECK: Bull neck HEART: Regular rate and rhythm. LUNGS: Clear to auscultation bilaterally. ABDOMEN: Obese, soft, nontender, nondistended. EXTREMITIES: 1+ peripheral edema bilaterally. NEUROLOGIC: Grossly intact. LABORATORY DATA: Hematology was last performed on 05/08/2018. WBC count 8730, hemoglobin 11.7, platelet count 294,000. Chemistries as of the : Sodium 141, potassium 3.6, chloride 108, carbon dioxide 27, creatinine 0.71, BUN 17, albumin 1.7. IMPRESSION: 1. Metastatic pleomorphic sarcoma. 2. Toxic encephalopathy attributable to ifosfamide. 3. Hypoalbuminemia. 4. Left buttock primary lesion with a KHUSHI drain intact. PLAN: I visited with the patient at bedside this morning and from a neurologic and psychologic perspective, he is doing much better. He definitely expressed desire to go home. His one complaint he felt that his KHUSHI drain has not been emptied frequent enough. He continues to struggle with some discomfort; however, the opioids have been quite helpful. Main concern moving forward is avoiding ifosfamide induced neurotoxicity. Therefore, we will plan to reduce his dose by 20% leading up to cycle #2. I request Neulasta be given 6 mg subQ prior to discharge. He will almost certainly become neutropenic. We will arrange for outpatient followup sometime in the next week or two to ensure he is progressing satisfactorily. I very much appreciate your assistance in this very pleasant, but unfortunate gentleman. MICHAEL
[2018-05-10] MEDS: HEPARIN 100 UNIT/ML 5ML FLUSH FLUSH PRN (11:18)
[2018-05-10] MEDS: ACETAMINOPHEN 325 MG TAB PO PRN (11:28)
--- NOTE | 2018-05-10 17:10 | Discharge Summary ---
Date of Service May 10, 2018 Admission HPI Per Admitting Provider Attending:Dr. Cody This is a 58 yo male with a history of atrial flutter/fibrillation, chronic anticoagulation with Eliquis, hyperlipidemia, SIMIN on BiPAP at 16 cm H2O, morbid obesity, and newly diagnosed sarcoma in 03/2018. He is being admitted for induction chemotherapy under the direction of Dr. Camara. He denies hx of DM, CAD, HTN, COPD. Patient has no history of MDRO. He has no recent travel history or illness. he denies fever, chills, sweats, rigors. He has no SOB of chest pain. He denies back pain or abdominal pain. He further denies N/V/D. No other acute complaints are reported. He has no smoking history but has used snuff for most of his adult life. He recently quit using snuff and is now substituting canned, shredded beef jerky. He has no history of regular ethanol abuse. He recently had a KHUSHI drain placed to his left buttock by Dr. Candelario. This is intended to be left in until surgical evaluation in [place] in late May. He has a significant amount of pain from this and controls his pain with Tramadol. Principal Diagnosis Sarcoma treated with chemotherapy Toxic encephalopathy from chemotherapy resolved Pain from sarcoma Discharge Exam Left buttocks is extremely large amount of soft tissue swelling there is erythema which is contained within the LAD demarcation and a drain with vacuum grenade based upon it is boggy and firm does not appear to have changed in size since institute of chemotherapy Constitutional well developed and average body habitus Eyes no conjunctival abnormality and no scleral abnormality Neck normal visual inspection and trachea midline Respiratory normal respiratory effort; no respiratory distress Auscultation: lungs clear to auscultation bilaterally Cardiovascular RRR, no murmur, no edema Gastrointestinal (Abdomen) normal bowel sounds, soft, nontender, no hepatosplenomegaly Discharge Data Allergies Allergy/AdvReac Type Severity Reaction Status Date / Time No Known Allergies Allergy Unverified 05/02/18 08:16 Consultations 05/04/18 11:44 Consult Case Management - Discharge Planning Routine Consult Oncology Routine 05/06/18 10:40 Consult General Surgery Routine Hospital Course (1) Encephalopathy: delirium from his chemotherapy. Laboratories checked on 05/08 did not support any serological evidence of physiological stress of infection. It has since resolved (2) Sarcoma of buttock: * Patient with biopsy in February 2018 showing sarcoma. Patient is having increased buttock pain and. gerneral surgery manipulated surgical drain 05/06 and is now working drain was sutured in place for more secure status on 319 * Mediport in place for recurrent chemotherapy * Patient admitted to undergo induction chemotherapy with doxorubicin, ifosfamide, and mesna * Review of patient notes indicates that this is most likely palliation and not curative * Pain management with oxycodone in addition to Ultram for pain control with scheduled aspirin (3) Hyperlipidemia: * Continues with atorvastatin 40 mg daily (4) Obstructive sleep apnea: * Continue home CPAP at 16 * Not requiring oxygen (5) Atrial fibrillation/flutter: * Remains controlled and asymptomatic with Toprol, diltiazem, flecainide, Eliquis, patient is in normal sinus rhythm on exam * Follows with Dr. Abdullahi (6) Morbid obesity: * BMI 62.5 kg/m this will directly impact wound healing (7) Hyperglycemia: * No history of diabetes mellitus however his morbid obesity places him at increased risk for type 2 diabetes * hemoglobin A1c here is in the prediabetic range at 6.1% (8) Hypokalemia: Resolved after replacement (9) DVT prophylaxis: Continue Eliquis Total Time Total Time Spent Total Time Spent (In Minutes): greater than 30 minutes were required to prepare discharge Discharge Plan Discharge Items Patient Disposition: Home - Home Health Services Reason For Visit: TO RECEIVE CHEMOTHERAPY Discharge Diagnosis: sarcoma with chemotheropy induction and surgical drain at site Discharge Goals: Decrease discomfort, Diagnostic testing and Improve disease control Activity: Resume your previous activity Non-emergency contact: Primary Care Provider and Surgeon Call non-emergency contact if: you have any medication questions Follow-up/Referrals: Lc Araya III, MD [Primary Care Provider] - 05/16/18 2:00 pm (Please, follow up at Dr. Araya's office with his associate, Brittani SPRINGER, on MondayJune 16 at 2:00 pm. ) Diet: Carb Consistent or DM2 Addtl Provider Instructions: please follow up with surgery for drain management, and please have a lower carbohydrate diet as your treatment has increased your blood sugars Prescriptions: New tramadol 50 mg Tablet 100 mg PO Q6H PRN (Reason: pain) Qty: 60 RF: 0 oxycodone 5 mg capsule 10 mg PO Q6H PRN (Reason: pain) Qty: 60 RF: 0 Senna-Extra 17.2 mg tablet 17.2 mg PO DAILY Qty: 30 RF: 0 acetaminophen 500 mg capsule 1,000 mg PO Q8 Qty: 90 RF: 0 Continued atorvastatin 20 mg tablet 40 mg PO DAILY RF: 0 multivitamin Tablet 1 tab PO QAM RF: 0 flecainide 100 mg Tablet 100 mg PO Q12H RF: 0 metoprolol succinate 25 mg Tablet Extended Release 24 Hr 25 mg PO QAM RF: 0 loratadine 10 mg Tablet 10 mg PO QAM RF: 0 diltiazem HCl 300 mg Tablet Extended Release 24 Hr 300 mg PO QAM RF: 0 omega [id number]-fish oil [Fish Oil] 1,000 mg (120 mg-180 mg) Capsule 1 cap PO QAM RF: 0 Metamucil 1 dose PO QAM RF: 0 Discontinued tramadol 50 mg tablet 50 mg PO Q8H RF: 0 oxycodone-acetaminophen [Percocet] 5-325 mg Tablet 1 tab PO Q4H PRN (Reason: pain) Qty: 20 RF: 0 Stand-Alone Forms: [facility]/Other Patient Handouts: Prediabetes, Diabetes Meal Planning Discharge Orders: Discharge Order (Routine); Ordered 05/10/18 Ordered By: Alex Acevedo Admission Data Admit Date/Time: 05/04/18 10:29 Attending Provider: Alex Acevedo Admit Provider: Maria Isabel Cody Primary Care Provider: Lc Araya III Other Providers: Karl Camara V ; Tato Menezes ; Maria Isabel Cody Service: Oncology Other Interventions: Discharge Summary Assessment (RN) Last Done: 05/10/18 11:16 DC Date/Time DO NOT enter until pt leaves facility: 05/10/18 12:19
== END 2018-05-10 12:19 | disposition home health service (06) | DRG 846 ==
LOC: 4E 10:29 → SUATTDRO 10:29

== ENCOUNTER 2018-05-16 14:23 | Inpatient (IN) ==
[2018-05-16] MEDS ORDERED: SODIUM CHLORIDE 0.9% 1000ML 500 ML IV ONE (14:51)
--- NOTE | 2018-05-16 15:06 | XRay Report ---
XR chest 1V portable CLINICAL HISTORY: Chest Pain dyspnea COMPARISON STUDY: 05/02/2018 FINDINGS: Bilateral parenchymal nodularity is again noted. Appears stable. Hilar adenopathy is stable as well. There is a central catheter in superior vena cava. There is no evidence pneumothorax. IMPRESSION: 1. Unchanged metastatic disease as discussed. 2. Central catheter ends in the superior vena cava cava. 3. No significant interval change from the prior study. The above report was generated using voice recognition software. It may contain grammatical, syntax or spelling errors. Electronically signed by: Siva Springer M.D. 05/16/2018 3:05 PM
[2018-05-16 15:39] LABS: INR 1.4 (0.9-1.1); Prothrombin Time 14.3 Seconds (9.0-12.0)
[2018-05-16 15:45] LABS: Creatinine Clr Calc Pharmacy 121.8 ml/min
[2018-05-16 15:46] LABS: Albumin Level 1.8 gm/dl (3.4-5.0); BUN Creatinine Ratio 10.8 (10-20); Calcium 7.9 mg/dl (8.5-10.1); Est GFR (Non-African American) 73.3; Magnesium 1.8 mg/dl (1.8-2.4); Potassium 2.8 mmol/L (3.5-5.1)
[2018-05-16] MEDS ORDERED: ACETAMINOPHEN 1,000 MG/100 ML VIAL IV STA (15:47)
[2018-05-16 15:56] LABS: Albumin Globulin Ratio 0.5 (0.9-2); Globulin 3.9 gm/dl (2.5-4.0); Phosphorus 1.8 mg/dl (2.5-4.9); Total Protein 5.7 gm/dl (6.4-8.2); Troponin I 0.028 ng/ml (0-0.045)
[2018-05-16 16:15] LABS: Influenza A virus by PCR Neg for Influ A (Neg); Influenza B virus by PCR Neg for Influ B (Neg)
[2018-05-16] MEDS: fentaNYL citrate 100 MCG/2 ML VIAL IV STA ×2 (16:16→16:21)
[2018-05-16 16:21] LABS: Hematocrit (blood only) 32.3 % (42-52); Hemoglobin 10.6 g/dL (14.0-18.0); Mean Corpuscular Hgb Conc 32.8 g/dL (32-36); Mean Corpuscular Volume 83.7 fL (80-100); Mean Platelet Volume 10.3 fL (7.4-10.4); Platelet Count 155 K/uL (130-400); Red Blood Count 3.86 M/uL (4.7-6.1); White Blood Count 1.45 K/uL (4.8-10.8)
[2018-05-16] MEDS ORDERED: VANCOMYCIN HCL 2,750 MG in SODIUM CHLORIDE 0.9% 500 ML IV ONE ×2 (16:21→22:00)
[2018-05-16] MEDS ORDERED: VANCOMYCIN CONSULT ACTIVE PRN ×2 (16:21→21:18)
[2018-05-16] MEDS ORDERED: PIPERACILLIN/TAZOBACTAM 4.5 GM/120 ML BAG IV ONE (16:21)
[2018-05-16 16:22] LABS: Basophils # (auto) 0.01 K/uL (0-0.2); Basophils % (auto) 0.7 %; Immature Granulocytes # (auto) 0.01 K/uL (0.00-0.02); Immature Granulocytes % (auto) 0.7 %; Lymphocytes # (auto) 0.38 K/uL (1.2-3.4); Lymphocytes % (auto) 26.2 %; Monocytes # (auto) 0.61 K/uL (0.11-0.59); Monocytes % (auto) 42.1 %; Neutrophils # (auto) 0.44 K/uL (1.4-6.5); Neutrophils % (auto) 30.3 %
[2018-05-16] MEDS ORDERED: POTASSIUM PHOS 3 MMOL/1 ML INFUSION IV STA (16:23)
[2018-05-16] MEDS ORDERED: POTASSIUM PHOSPHATE 9 MMOL in SODIUM CHLORIDE 0.9% 250 ML IV STA (16:28)
[2018-05-16] MEDS ORDERED: OPTIRAY 320 125ml IV PRN (16:44)
--- NOTE | 2018-05-16 16:54 | CT Scan Report ---
CT abd pelvis IV con only CLINICAL HISTORY: left gluteal sarcoma/erythema/neutropenia/fever COMPARISON STUDY: 04/12/2018 TECHNIQUE: The patient was scanned in a dynamic helical fashion during intravenous administration of 122 cc of Optiray 320. A dose lowering technique was utilized adhering to the principles of ALARA. CT DOSE: 2349.17 mGy.cm FINDINGS: Lower chest: There are enlarging bilateral solid pulmonary nodules indicative of progressive pulmonar y metastatic disease. Liver: The contrast-enhanced liver is normal in size, contour, and attenuation. There is no intrahepa tic biliary ductal dilatation. The hepatic veins and portal veins are patent. Gallbladder: Unremarkable. Spleen: The spleen is enlarged measuring 16.8 cm Pancreas: Unremarkable. Adrenal glands: Unremarkable. Kidneys: There is symmetric renal cortical enhancement. The kidneys are normal in size without hydron ephrosis. Bowel: Portions of bowel are not visible due to the patient's large body habitus. The right lateral a bdomen is not fully included. There are no transition zones to indicate bowel obstruction. There is c olonic diverticulosis. There are no acute peridiverticular inflammatory changes. The appendix is not visualized. Peritoneum: There is no intraperitoneal free air or abdominal ascites. Vasculature: The abdominal aorta is normal in course and caliber. Adenopathy: None. Pelvic viscera: The bladder, and pelvic viscera are unremarkable. Skeletal structures: Postsurgical changes are present within the lumbar spine. There is a very large are slightly visualized left sided gluteal mass measuring in excess of 20 cm. This contains multiple air locules as well as catheters. The multiple air bubbles likely indicate a necrotic/infected mass. IMPRESSION: 1. Technically limited study secondary to the patient's large body habitus. 2. Enlarging bilateral pulmonary nodules indicative of progressive pulmonary metastasis. 3. Partially visualized left-sided gluteal mass measuring in excess of 20 cm. This contains multiple air locules and catheters. The air bubbles indicate either a necrotic/infected mass. Electronically signed by: Rickie Paul M.D. 05/16/2018 4:53 PM
[2018-05-16] MEDS ORDERED: CEFEPIME 2,000 MG in SYRINGE 7.5 ML IV ONE (19:00)
[2018-05-16] MEDS: POTASSIUM CHLORIDE / WTR 10 MEQ/100 ML PLCT IV SCH ×2 (19:06→22:39)
--- NOTE | 2018-05-16 19:26 | History & Physical Report ---
Date of Service May 16, 2018 Assessment & Plan (1) Neutropenia: Patient is neutropenic, WBC=1.45, ANC=0.44. These numbers are improved from laboratory studies obtained on 05/14/18 (0.53 and 0.12, respectively.) Patient is afebrile. Tm at outpatient clinic reported to be 99.8. He has mari ined afebrile here as well. His chills and episode of night sweats are concerning for underlying infection, however. Sources to include lung, blood, buttock wound. His generalized complaints of weakness and fatigue may be secondary to possible infection vs underlying electrolyte derangements. -Admit to medical floor -Follow blood culture results -Empiric coverage with Vancomycin and Cefepime -Wound care -Consider surgical consult Present on Admission?: Yes (2) Atrial fibrillation/flutter: Patient with history of PAF. Presently in AF, rate of 97 -Continue Diltiazem -Continue metoprolol -Continue Flecainide -Continue Eliquis -Telemetry monitoring Present on Admission?: Yes (3) Hypokalemia: K=2.8. Patient administered potassium repletion in ER -Repeat BMP in AM -Continue to monitor electrolytes Present on Admission?: Yes (4) Obstructive sleep apnea: Patient with CPAP at home -CPAP qHS at 16 Present on Admission?: Yes (5) Hyperlipidemia: Chronic -Continue Atorvastatin Present on Admission?: Yes (6) Sarcoma of buttock: Patient with newly diagnosed sarcoma of the buttock, concern for metastatic lesions to the lung. S/p induction chemotherapy 05/04 complicated by chemo-induced delirium. Drain in place. -Wound Care consult -Empiric antibiotics with Vancomycin and Cefepime -Monitor wound, consider surgical consultation for further debridement -Will Consult Hematology for additional recommendations Present on Admission?: Yes (7) Hypophosphatemia: PO4=1.8. Patient administerd KPhos in the ER -Repeat level in AM -Continue to monitor Present on Admission?: Yes (8) Hyponatremia: Xw=085. Patient with poor po intake. Suspect mild degree of volume contraction -NSS -Repeat BMP in AM F/E/N - NSS at 125mL/hr x 2 liters, repletion of electrolytes, K, Mg and PO4, patient may require Ca as well, Heart healthy diet as tolerated Ppx - Eliquis at home dose Code - Full Dispo - Admit to medical floor History of Present Illness Chief Complaint: weakness, fatigue Primary Care Provider: Lc Araya MD Mr. 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 Patient is s/p inpatient induction chemotherapy performed on 05/04/18 with adriamycin, ifosfamide and mesna. Chemotherapy was complicated by episode of delirium. Patient did not receive Neupogen/or CSF after chemo. He was discharged home in stable condition. He was feeling well. He has home health nursing that comes in and draws blood every Monday and . Blood that was drawn on 05/14/18 with neutropenia, WBC=0.53 and ANC of 0.12. Over the last 2-3 days the patient states he has been feeling weak and fatigued. He has difficult time ambulating in his home and performing ADLS secondary to weakness and shortness of breath. He complains of chills since receiving chemotherapy. Had an episode of night sweats last evening. Also with poor appetite, food does not taste well. He was seen at Dr. Araya's office for the above complaints. Per Brittani Claudio's note the patient appeared miranda and color with dyspnea, worse with exertion. His temperature was found to be 99.8. She also noted foul smelling discharge from the catheter site. Patient had aspiration of fluid from the mass performed x 3. Had placement of a Billy-Whitman drain which the patient manages and drains on his own. Patient is to receive two cycles of combination chemotherapy and [place] [facility] [place]ang for palliative surgical resection. He also has a left sided chest port Allergies Allergy/AdvReac Type Severity Reaction Status Date / Time No Known Allergies Allergy Unverified 05/16/18 15:36 Home Medications Home Medications Medication Instructions Recorded Confirmed Type diltiazem HCl 300 mg PO QAM 05/01/18 05/16/18 History flecainide 100 mg PO Q12H 05/01/18 05/16/18 History metoprolol succinate 25 mg PO QAM 05/01/18 05/16/18 History multivitamin 1 tab PO QAM 05/01/18 05/16/18 History atorvastatin 40 mg PO DAILY 05/04/18 05/16/18 History acetaminophen 1,000 mg PO Q8 #90 cap 05/08/18 05/16/18 Rx tramadol 100 mg PO Q6H PRN #60 tab 05/08/18 05/16/18 Rx psyllium husk [Metamucil] 1 dose PO QAM 05/16/18 05/16/18 History Past Med/Surg History Medical History Anxiety Dyslipidemia History of atrial fibrillation ON ELIQUIS History of atrial flutter ON ELIQUIS Hypertension Morbid obesity with BMI of 60.0-69.9, adult Sarcoma of soft tissue Sleep apnea CPAP Surgical History History of cardioversion X 2 History of colonoscopy History of excision of pilonidal cyst History of inguinal hernia repair BL History of lumbar fusion History of wisdom tooth extraction Social History Preferred Language: Kazakh Beliefs That Will Affect Care: None Current Living Situation: Spouse and Family 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 Feels Safe at Home: Yes Smoking Status: Former smoker Hx Alcohol Use: No Hx Substance Use: No Review of Systems All systems reviewed & are unremarkable except as noted in HPI & below Physical Exam Vital Signs (Past 24 Hours): Last Vital Signs Temp 37.2 C 05/16/18 14:42 Pulse 97 H 05/16/18 18:22 Resp 30 H 05/16/18 18:22 BP 116/58 L 05/16/18 18:22 Pulse Ox 94 05/16/18 18:22 Physical Exam: General: patient resting comfortably, NAD, non-toxic in appearance, AA&O x 4, morbidly obese Skin: warm, dry, no rashes HEENT: NC/AT, PERRL, EOMI, anicteric sclera, conjunctiva without injection, external ear normal to inspection and nontender, nares patent, moist mucus membranes, dentition intact, no oropharyngeal lesions, neck supple, trachea midline, no LAD, no thyromegaly, no JVD Heart: +S1/S2, irregularly irregular, no m/r/g Lungs: equal air entry bilaterally, no rales/rhonchi/wheezes Abd: +BS, soft, NT/ND, no masses/organomegaly/ascites Ext: warm, 1+ pulses in UE/LE bilaterally, 3+ nonpitting edema of LLE, 2+ edema of RLE Neuro: nonfocal, patient AA&O x 4, speech intact, no facial droop, moving all extremities on command with equal strength 5/5 Buttock wound with dressing in place, c/d/i, small amount of serosanguinous drainage in the KHUSHI, area is tender to palpation Results & Data Laboratory Results Lab Results 05/16/18 05/16/18 05/16/18 Range/Units 15:10 15:13 15:13 WBC 1.45 L (4.8-10.8) K/uL RBC 3.86 L (4.7-6.1) M/uL Hgb 10.6 L (14.0-18.0) g/dL Hct 32.3 L (42-52) % MCV 83.7 (80-100) fL MCH 27.5 (25-34) pg MCHC 32.8 (32-36) g/dL RDW Std Deviation 42.0 (36.4-46.3) fL RDW Coeff of Silas 14.0 (11.5-14.5) % Plt Count 155 (130-400) K/uL MPV 10.3 (7.4-10.4) fL Immature Gran % (Auto) 0.7 % Neut % (Auto) 30.3 % Lymph % (Auto) 26.2 % Carroll % (Auto) 42.1 % Eos % (Auto) 0.0 % Baso % (Auto) 0.7 % Immature Gran # (Auto) 0.01 (0.00-0.02) K/uL Neut # (Auto) 0.44 L* (1.4-6.5) K/uL Lymph # (Auto) 0.38 L (1.2-3.4) K/uL Carroll # (Auto) 0.61 H (0.11-0.59) K/uL Eos # (Auto) 0.00 (0-0.5) K/uL Baso # (Auto) 0.01 (0-0.2) K/uL PT (9.0-12.0) Seconds INR (0.9-1.1) Sodium 132 L (136-145) mmol/L Potassium 2.8 L (3.5-5.1) mmol/L Chloride 96 L (98-107) mmol/L Carbon Dioxide 29 (21-32) mmol/L Anion Gap 7.0 (3-11) BUN 12 (7-18) mg/dl Creatinine 1.11 (0.6-1.4) mg/dl Est Cr Clr Drug Dosing 121.8 ml/min Est GFR ( Amer) 85.0 Est GFR (Non-Af Amer) 73.3 BUN/Creatinine Ratio 10.8 (10-20) Glucose 124 H (70-99) mg/dl Calcium 7.9 L (8.5-10.1) mg/dl Phosphorus 1.8 L (2.5-4.9) mg/dl Magnesium 1.8 (1.8-2.4) mg/dl Total Bilirubin 1.0 (0.2-1) mg/dl AST 14 L (15-37) U/L ALT 17 (12-78) U/L Alkaline Phosphatase 120 H (45-117) U/L Troponin I 0.028 (0-0.045) ng/ml Total Protein 5.7 L (6.4-8.2) gm/dl Albumin 1.8 L (3.4-5.0) gm/dl Globulin 3.9 (2.5-4.0) gm/dl Albumin/Globulin Ratio 0.5 L (0.9-2) Lipase 25 L (73-393) U/L Procalcitonin (0-0.5) ng/ml TSH 1.480 (0.300-4.500) uIu/ml Influenza Type A (PCR) Neg for Influ A (Neg) Influenza Type B (PCR) Neg for Influ B (Neg) 05/16/18 05/16/18 05/16/18 Range/Units 15:13 15:13 15:13 WBC (4.8-10.8) K/uL RBC (4.7-6.1) M/uL Hgb (14.0-18.0) g/dL Hct (42-52) % MCV (80-100) fL MCH (25-34) pg MCHC (32-36) g/dL RDW Std Deviation (36.4-46.3) fL RDW Coeff of Silas (11.5-14.5) % Plt Count (130-400) K/uL MPV (7.4-10.4) fL Immature Gran % (Auto) % Neut % (Auto) % Lymph % (Auto) % Carroll % (Auto) % Eos % (Auto) % Baso % (Auto) % Immature Gran # (Auto) (0.00-0.02) K/uL Neut # (Auto) (1.4-6.5) K/uL Lymph # (Auto) (1.2-3.4) K/uL Carroll # (Auto) (0.11-0.59) K/uL Eos # (Auto) (0-0.5) K/uL Baso # (Auto) (0-0.2) K/uL PT 14.3 H (9.0-12.0) Seconds INR 1.4 H (0.9-1.1) Sodium (136-145) mmol/L Potassium (3.5-5.1) mmol/L Chloride (98-107) mmol/L Carbon Dioxide (21-32) mmol/L Anion Gap (3-11) BUN (7-18) mg/dl Creatinine (0.6-1.4) mg/dl Est Cr Clr Drug Dosing ml/min Est GFR ( Amer) Est GFR (Non-Af Amer) BUN/Creatinine Ratio (10-20) Glucose (70-99) mg/dl Calcium (8.5-10.1) mg/dl Phosphorus (2.5-4.9) mg/dl Magnesium (1.8-2.4) mg/dl Total Bilirubin (0.2-1) mg/dl AST (15-37) U/L ALT (12-78) U/L Alkaline Phosphatase (45-117) U/L Troponin I (0-0.045) ng/ml Total Protein (6.4-8.2) gm/dl Albumin (3.4-5.0) gm/dl Globulin (2.5-4.0) gm/dl Albumin/Globulin Ratio (0.9-2) Lipase (73-393) U/L Procalcitonin 4.27 H (0-0.5) ng/ml TSH Cancelled (0.300-4.500) uIu/ml Influenza Type A (PCR) (Neg) Influenza Type B (PCR) (Neg) Diagnostic Findings CT abd pelvis IV con only CLINICAL HISTORY: left gluteal sarcoma/erythema/neutropenia/fever COMPARISON STUDY: 04/12/2018 TECHNIQUE: The patient was scanned in a dynamic helical fashion during intravenous administration of 122 cc of Optiray 320. A dose lowering technique was utilized adhering to the principles of ALARA. CT DOSE: 2349.17 mGy.cm FINDINGS: Lower chest: There are enlarging bilateral solid pulmonary nodules indicative of progressive pulmonary metastatic disease. Liver: The contrast-enhanced liver is normal in size, contour, and attenuation. There is no intrahepatic biliary ductal dilatation. The hepatic veins and portal veins are patent. Gallbladder: Unremarkable. Spleen: The spleen is enlarged measuring 16.8 cm Pancreas: Unremarkable. Adrenal glands: Unremarkable. Kidneys: There is symmetric renal cortical enhancement. The kidneys are normal in size without hydronephrosis. Bowel: Portions of bowel are not visible due to the patient's large body habi tus. The right lateral abdomen is not fully included. There are no transition zones to indicate bowel obstruction. There is colonic diverticulosis. There are no acute peridiverticular inflammatory changes. The appendix is not visualized. Peritoneum: There is no intraperitoneal free air or abdominal ascites. Vasculature: The abdominal aorta is normal in course and caliber. Adenopathy: None. Pelvic viscera: The bladder, and pelvic viscera are unremarkable. Skeletal structures: Postsurgical changes are present within the lumbar spine. There is a very large are slightly visualized left sided gluteal mass measuring in excess of 20 cm. This contains multiple air locules as well as catheters. The multiple air bubbles likely indicate a necrotic/infected mass. IMPRESSION: 1. Technically limited study secondary to the patient's large body habitus. 2. Enlarging bilateral pulmonary nodules indicative of progressive pulmonary metastasis. 3. Partially visualized left-sided gluteal mass measuring in excess of 20 cm. This contains multiple air locules and catheters. The air bubbles indicate either a necrotic/infected mass. Electronically signed by: Rickie Paul M.D. 05/16/2018 4:53 PM Dictated: 05/16/185 Transcribed: 05/16/18 1645 XR chest 1V portable CLINICAL HISTORY: Chest Pain dyspnea COMPARISON STUDY: 05/02/2018 FINDINGS: Bilateral parenchymal nodularity is again noted. Appears stable. Hilar adenopathy is stable as well. There is a central catheter in superior vena cava. There is no evidence pneumothorax. IMPRESSION: 1. Unchanged metastatic disease as discussed. 2. Central catheter ends in the superior vena cava cava. 3. No significant interval change from the prior study. The above report was generated using voice recognition software. It may contain grammatical, syntax or spelling errors. Electronically signed by: Siva Springer M.D. 05/16/2018 3:05 PM Dictated: 05/16/18 1504 Transcribed: 05/16/18 1504 ECG Additional Comments: The study reveals AF at 113bpm, normal axis, QRS=90, KSy=254, no acute ischemic changes Code Status & VTE Plan Code Status FULL VTE Prophylaxis Plan VTE Prophylaxis will be ordered: Yes Critical Care Time Critical Care Time: No (1) Hyperlipidemia Hyperlipidemia type: unspecified Qualified Code(s): E78.5 - Hyperlipidemia, unspecified (2) Neutropenia Neutropenia type: secondary to cancer chemotherapy Qualified Code(s): D70.1 - Agranulocytosis secondary to cancer chemotherapy; T45.1X5A - Adverse effect of antineoplastic and immunosuppressive drugs, initial encounter
[2018-05-16] MEDS ORDERED: ONDANSETRON INJ 2 MG/ML 2 ML VIAL IV PRN (21:18)
[2018-05-16] MEDS ORDERED: NON-FORMULARY MEDICATION (Acetaminophen 1,000 MG) PO SCH (22:00)
[2018-05-16] MEDS: ACETAMINOPHEN 325 MG TAB PO PRN (22:39)
[2018-05-16] MEDS: SODIUM CHLORIDE 0.9% 1000ML 1,000 ML IV SCH (22:53)
[2018-05-16] MEDS ORDERED: POTASSIUM CHLORIDE 20 MEQ TABCR PO STA (22:58)
[2018-05-16] MEDS ORDERED: MAGNESIUM SULFATE / D5W 1 GM/100 ML BAG IV ONE (23:00)
[2018-05-16] MEDS: FLECAINIDE ACETATE 100 MG TABLET PO SCH (23:02)
[2018-05-16] MEDS ORDERED: IBUPROFEN 800 MG TAB PO STA (23:07)
--- NOTE | 2018-05-16 23:35 | Emergency Department Note ---
Entered by Kayla Moon acting as a scribe for Cash Monreal MD History of Present Illness General Chief complaint: Illness Time Seen by Provider: 05/16/18 14:44 Source: patient Limitations: no limitations History of Present Illness Provider complaint: illness Onset (ago): week(s) 1 Associated symptoms: + denies other symptoms (congestion, abdominal pain), + fever/chills (fevers no chills ) and + weakness; no cough Treatments prior to arrival: none The patient is a 58 year old male who presents to the Emergency Room with complaints of an illness that began 1 week prior to arrival. The patient states that he has weakness and fevers. The patient denies any cough, congestion, or abdominal pain. The patient states that he has been eating and drinking normally. The patient states that he went to a follow-up appointment with Dr. Cam[facility] 1 day prior to arrival for his sarcoma tumor and states that it was drained. Previous Records: The patient was admitted in March for a left gluteal mass and there was also evidenace of metastatic disease with multiple solid pulmonary nodules steve aterally. 05/14 WBC 0.53 with an ANC 0.12. The patient was discharged on 05/11 due to chemotherapy-induced delirium. The patient has been undergoing chemotherapy. The patient was shown to have sleep apnea on CPAP and was shown to have afib on Diltiazem and Eliquis. Home Medications Home Medications Medication Instructions Recorded Confirmed Type diltiazem HCl 300 mg PO QAM 05/01/18 05/16/18 History flecainide 100 mg PO Q12H 05/01/18 05/16/18 History metoprolol succinate 25 mg PO QAM 05/01/18 05/16/18 History multivitamin 1 tab PO QAM 05/01/18 05/16/18 History atorvastatin 40 mg PO DAILY 05/04/18 05/16/18 History acetaminophen 1,000 mg PO Q8 #90 cap 05/08/18 05/16/18 Rx tramadol 100 mg PO Q6H PRN #60 tab 05/08/18 05/16/18 Rx psyllium husk [Metamucil] 1 dose PO QAM 05/16/18 05/16/18 History Allergies Allergy/AdvReac Type Severity Reaction Status Date / Time No Known Allergies Allergy Unverified 05/16/18 15:36 Past Med/Surg History Medical History Anxiety Dyslipidemia History of atrial fibrillation ON ELIQUIS History of atrial flutter ON ELIQUIS Hypertension Morbid obesity with BMI of 60.0-69.9, adult Sarcoma of soft tissue Sleep apnea CPAP Surgical History History of cardioversion X 2 History of colonoscopy History of excision of pilonidal cyst History of inguinal hernia repair BL History of lumbar fusion History of wisdom tooth extraction Family History Father Family history of diabetes mellitus Mother , in her 70s Cancer Uterine,ovarian Social History Preferred Language: German Communication Ability: Effective Insurance Processing Clerk Required: No Beliefs That Will Affect Care: None Current Living Situation: Spouse 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 and A total of 10 systems reviewed and were otherwise negative See HPI for pertinent positives & negatives. A total of 10 systems reviewed and were otherwise negative. Physical Exam Vital Signs Vital Signs - 24 hr 05/16/18 14:42 05/16/18 15:31 05/16/18 16:01 Temperature 37.2 C Temperature Source Oral Sepsis Recent Fever Within 48 Hours No Sepsis New/Unexplained Change in Mental Status No Sepsis Action Taken by Nursing No Action Required Pulse Rate 95 H 104 H 109 H Pulse Rate [Brachial] Pulse Rate from SpO2 Sensor 125 H 163 H Respiratory Rate 16 19 30 H Respiratory Effort / Characteristics Respiratory Depth Respiratory Pattern Blood Pressure 91/50 L 136/87 121/92 Blood Pressure [Left Arm] Blood Pressure Mean 63 103 101 Blood Pressure Mean [Left Arm] Blood Pressure Position [Left Arm] Pulse Oximetry 95 93 92 Oxygen Delivery Method Room Air Room Air Room Air 05/16/18 18:22 05/16/18 20:16 05/16/18 20:57 Temperature 36.8 C 38.8 C H Temperature Source Oral Sepsis Recent Fever Within 48 Hours Sepsis New/Unexplained Change in Mental Status Sepsis Action Taken by Nursing Pulse Rate 97 H 121 H Pulse Rate [Brachial] 114 H Pulse Rate from SpO2 Sensor Respiratory Rate 30 H 18 20 Respiratory Effort / Characteristics Respiratory Depth Respiratory Pattern Blood Pressure 116/58 L 133/81 Blood Pressure [Left Arm] 111/64 Blood Pressure Mean 77 98 Blood Pressure Mean [Left Arm] 79 Blood Pressure Position [Left Arm] Left Lateral Pulse Oximetry 94 96 94 Oxygen Delivery Method Room Air Room Air 05/16/18 22:57 05/16/18 23:00 05/16/18 23:03 Temperature 39.4 C H 38.9 C H Temperature Source Oral Oral Sepsis Recent Fever Within 48 Hours Sepsis New/Unexplained Change in Mental Status Sepsis Action Taken by Nursing Pulse Rate 124 H Pulse Rate [Brachial] 123 H 135 H Pulse Rate from SpO2 Sensor Respiratory Rate 28 H 22 Respiratory Effort / Characteristics Non-Labored Spontaneous Respiratory Depth Normal Respiratory Pattern Regular Blood Pressure Blood Pressure [Left Arm] 123/65 113/64 Blood Pressure Mean Blood Pressure Mean [Left Arm] 84 80 Blood Pressure Position [Left Arm] Pulse Oximetry 92 90 91 Oxygen Delivery Method Room Air Room Air 05/17/18 00:30 Temperature 37.7 C H Temperature Source Oral Sepsis Recent Fever Within 48 Hours Sepsis New/Unexplained Change in Mental Status Sepsis Action Taken by Nursing Pulse Rate Pulse Rate [Brachial] Pulse Rate from SpO2 Sensor Respiratory Rate Respiratory Effort / Characteristics Respiratory Depth Respiratory Pattern Blood Pressure Blood Pressure [Left Arm] Blood Pressure Mean Blood Pressure Mean [Left Arm] Blood Pressure Position [Left Arm] Pulse Oximetry Oxygen Delivery Method GENERAL: Awake, alert, ill-appearing, in no distress. HENT: Normocephalic, atraumatic. Oropharynx with dry mucous membranes and otherwise unremarkable. EYES: Normal conjunctiva. Sclera non-icteric. NECK: Supple. No nuchal rigidity. FROM. No JVD. RESPIRATORY: Clear to auscultation. CARDIAC: Tachycardic rate, irregular rhythm. Extremities warm and well perfused. Pulses equal. ABDOMEN: Soft, non-distended. No tenderness to palpation. No rebound or guarding. No masses. RECTAL: Deferred. MUSCULOSKELETAL: Chest examination reveals no tenderness. The back is symmetrical on inspection without obvious abnormality. There is no CVA tenderness to palpation. No joint edema. LOWER EXTREMITIES: 15 cm left gluteal wound site with surrounding edema, erythema, warmth, and serous discharge. Calves are equal size bilaterally and non-tender. Scant BLE edema. No discoloration. NEURO: Normal sensorium. No sensory or motor deficits noted. SKIN: No rash or jaundice noted. Course 1448: Past medical records reviewed. The patient was evaluated in room C1A, and a complete history and physical examination were performed. 1620: I checked on and updated the patient on his results. 1724: I discussed the patient's case with Dr. Blake [facility] Hospitalist who will evaluate the patient for further hospitalization. Consultations Consultation #1: Dr. Blake [facility] Hospitalist Time: 17:24 Administered Medications Acetaminophen (Tylenol) 650 mg PO Q4H PRN PRN Reason: pain/fever Stop: 06/15/18 21:17 Last Admin: 05/16/18 22:39 Dose: 650 mg Documented by: [id number] Apixaban (Eliquis) 5 mg PO BID [facility] Stop: 06/15/18 21:17 Last Admin: 05/17/18 00:04 Dose: 5 mg Documented by: [id number] Flecainide Acetate (Tambocor) 100 mg PO Q12 ALICIA Stop: 06/15/18 21:59 Last Admin: 05/16/18 23:02 Dose: 100 mg Documented by: [id number] Sodium Chloride (Nss 1000ml) 1,000 mls @ 125 mls/hr IV .Q8H [facility] Stop: 05/17/18 13:17 Last Admin: 05/16/18 22:53 Dose: 125 mls/hr Documented by: [id number] Cefepime HCl 2,000 mg/ Syringe 20 mls @ 5.5 mls/min IV Q8H [facility]; Protocol Stop: 05/19/18 01:59 Last Admin: 05/17/18 01:24 Dose: 5.5 mls/min Documented by: [id number] Vancomycin HCl 2,000 mg/ (Sodium Chloride) 540 mls @ 200 mls/hr IV Q12H [facility] Stop: 05/19/18 03:59 Last Admin: 05/17/18 04:18 Dose: 200 mls/hr Documented by: [id number] Discontinued Medications Fentanyl Citrate (Fentanyl Citrate) 50 mcg IV NOW STA Stop: 05/16/18 15:48 Last Admin: 05/16/18 16:21 Dose: Not Given Documented by: [id number] Sodium Chloride (Nss 1000ml) 500 mls @ 999 mls/hr IV .Q31M ONE Stop: 05/16/18 15:21 Last Infusion: 05/16/18 15:51 Dose: 0 mls/hr Documented by: [id number] Admin: 05/16/18 15:20 Dose: 999 mls/hr Documented by: [id number] Acetaminophen (Ofirmev) 1,000 mg in 100 mls @ 400 mls/hr IV NOW STA Stop: 05/16/18 16:01 Last Infusion: 05/16/18 16:35 Dose: 0 mls/hr Documented by: [id number] Admin: 05/16/18 16:16 Dose: 400 mls/hr Documented by: [id number] Piperacillin Sod/Tazobactam Sod (Zosyn) 4.5 gm in 120 mls @ 30 mls/hr IV NOW ONE Stop: 05/16/18 20:20 Last Admin: 05/16/18 19:26 Dose: Not Given Documented by: [id number] Vancomycin HCl 2,750 mg/ (Sodium Chloride) 555 mls @ 200 mls/hr IV NOW ONE Stop: 05/16/18 19:07 Last Admin: 05/16/18 19:26 Dose: Not Given Documented by: [id number] Potassium Chloride (K Jan / Wtr) 10 meq in 100 mls @ 100 mls/hr IV Q1H ALICIA Stop: 05/16/18 18:29 Last Infusion: 05/17/18 00:09 Dose: 0 mls/hr Documented by: [id number] Admin: 05/16/18 22:39 Dose: 100 mls/hr Documented by: [id number] Infusion: 05/16/18 22:06 Dose: 0 mls/hr Documented by: [id number] Admin: 05/16/18 19:06 Dose: 100 mls/hr Documented by: [id number] Potassium Phosphate 9 mmol/ (Sodium Chloride) 253 mls @ 88 mls/hr IV NOW STA Stop: 05/16/18 19:20 Last Infusion: 05/16/18 21:26 Dose: 0 mls/hr Documented by: [id number] Admin: 05/16/18 18:15 Dose: 88 mls/hr Documented by: [id number] Cefepime HCl 2,000 mg/ Syringe 20 mls @ 5.5 mls/min IV ONE ONE Stop: 05/16/18 19:03 Last Admin: 05/16/18 19:05 Dose: 5.5 mls/min Documented by: [id number] Vancomycin HCl 2,750 mg/ (Sodium Chloride) 555 mls @ 200 mls/hr IV NOW ONE Stop: 05/17/18 00:46 Last Infusion: 05/17/18 04:02 Dose: 0 mls/hr Documented by: [id number] Admin: 05/16/18 22:56 Dose: 200 mls/hr Documented by: [id number] Magnesium Sulfate/Dextrose (Magnesium Sulfate / D5w) 1 gm in 100 mls @ 100 mls/hr IV ONE ONE Stop: 05/16/18 23:59 Last Infusion: 05/17/18 01:34 Dose: 0 mls/hr Documented by: [id number] Admin: 05/17/18 00:01 Dose: 100 mls/hr Documented by: [id number] Ibuprofen (Motrin) 800 mg PO NOW STA Stop: 05/16/18 23:08 Last Admin: 05/16/18 23:32 Dose: 800 mg Documented by: [id number] Ioversol (Optiray 320 125ml) 122 ml IV ONCE PRN PRN Reason: Interaction Checking Stop: 05/20/18 16:43 Last Admin: 05/16/18 16:44 Dose: 122 ml Documented by: [id number] Potassium Chloride (Klor-Con M20) 60 meq PO NOW STA Stop: 05/16/18 22:59 Last Admin: 05/17/18 00:04 Dose: 60 meq Documented by: [id number] Potassium Phosphate (Potassium Phosphate Replace) 9 mmol IV NOW STA Stop: 05/16/18 16:24 Last Admin: 05/16/18 18:15 Dose: Not Given Documented by: [id number] Medical Decision Making Differential Diagnosis Differential diagnosis: Etiologies such as viral syndrome, otitis, pharyngitis, pneumonia, influenza, meningitis, urinary tract infection, sepsis, bacteremia, as well as others were entertained. Medical Records Attestation: I reviewed the patient's medical records. Home Medications Current Medication List: was personally reviewed by me Laboratory Data Attestation: I reviewed the patient's lab results. Result diagrams: 05/16/18 15:13 05/16/18 15:13 Lab Results 05/16/18 05/16/1805/16/19 Range/Units 15:10 15:13 15:13 WBC 1.45 L (4.8-10.8) K/uL RBC 3.86 L (4.7-6.1) M/uL Hgb 10.6 L (14.0-18.0) g/dL Hct 32.3 L (42-52) % MCV 83.7 (80-100) fL MCH 27.5 (25-34) pg MCHC 32.8 (32-36) g/dL RDW Std Deviation 42.0 (36.4-46.3) fL RDW Coeff of Silas 14.0 (11.5-14.5) % Plt Count 155 (130-400) K/uL MPV 10.3 (7.4-10.4) fL Immature Gran % (Auto) 0.7 % Neut % (Auto) 30.3 % Lymph % (Auto) 26.2 % [place] % (Auto) 42.1 % Eos % (Auto) 0.0 % Baso % (Auto) 0.7 % Immature Gran # (Auto) 0.01 (0.00-0.02) K/uL Neut # (Auto) 0.44 L* (1.4-6.5) K/uL Lymph # (Auto) 0.38 L (1.2-3.4) K/uL [place] # (Auto) 0.61 H (0.11-0.59) K/uL Eos # (Auto) 0.00 (0-0.5) K/uL Baso # (Auto) 0.01 (0-0.2) K/uL PT (9.0-12.0) Seconds INR (0.9-1.1) Sodium 132 L (136-145) mmol/L Potassium 2.8 L (3.5-5.1) mmol/L Chloride 96 L (98-107) mmol/L Carbon Dioxide 29 (21-32) mmol/L Anion Gap 7.0 (3-11) BUN 12 (7-18) mg/dl Creatinine 1.11 (0.6-1.4) mg/dl Est Cr Clr Drug Dosing 121.8 ml/min Est GFR ( Amer) 85.0 Est GFR (Non-Af Amer) 73.3 BUN/Creatinine Ratio 10.8 (10-20) Glucose 124 H (70-99) mg/dl Lactate (0.4-2.0) mmol/L Calcium 7.9 L (8.5-10.1) mg/dl Phosphorus 1.8 L (2.5-4.9) mg/dl Magnesium 1.8 (1.8-2.4) mg/dl Total Bilirubin 1.0 (0.2-1) mg/dl AST 14 L (15-37) U/L ALT 17 (12-78) U/L Alkaline Phosphatase 120 H (45-117) U/L Troponin I 0.028 (0-0.045) ng/ml Total Protein 5.7 L (6.4-8.2) gm/dl Albumin 1.8 L (3.4-5.0) gm/dl Globulin 3.9 (2.5-4.0) gm/dl Albumin/Globulin Ratio 0.5 L (0.9-2) Lipase 25 L (73-393) U/L Procalcitonin (0-0.5) ng/ml TSH 1.480 (0.300-4.500) uIu/ml Influenza Type A (PCR) Neg for Influ A (Neg) Influenza Type B (PCR) Neg for Influ B (Neg) 05/16/18 05/16/18 05/16/18 Range/Units 15:13 15:13 15:13 WBC (4.8-10.8) K/uL RBC (4.7-6.1) M/uL Hgb (14.0-18.0) g/dL Hct (42-52) % MCV (80-100) fL MCH (25-34) pg MCHC (32-36) g/dL RDW Std Deviation (36.4-46.3) fL RDW Coeff of Silas (11.5-14.5) % Plt Count (130-400) K/uL MPV (7.4-10.4) fL Immature Gran % (Auto) % Neut % (Auto) % Lymph % (Auto) % [place] % (Auto) % Eos % (Auto) % Baso % (Auto) % Immature Gran # (Auto) (0.00-0.02) K/uL Neut # (Auto) (1.4-6.5) K/uL Lymph # (Auto) (1.2-3.4) K/uL [place] # (Auto) (0.11-0.59) K/uL Eos # (Auto) (0-0.5) K/uL Baso # (Auto) (0-0.2) K/uL PT 14.3 H (9.0-12.0) Seconds INR 1.4 H (0.9-1.1) Sodium (136-145) mmol/L Potassium (3.5-5.1) mmol/L Chloride (98-107) mmol/L Carbon Dioxide (21-32) mmol/L Anion Gap (3-11) BUN (7-18) mg/dl Creatinine (0.6-1.4) mg/dl Est Cr Clr Drug Dosing ml/min Est GFR ( Amer) Est GFR (Non-Af Amer) BUN/Creatinine Ratio (10-20) Glucose (70-99) mg/dl Lactate (0.4-2.0) mmol/L Calcium (8.5-10.1) mg/dl Phosphorus (2.5-4.9) mg/dl Magnesium (1.8-2.4) mg/dl Total Bilirubin (0.2-1) mg/dl AST (15-37) U/L ALT (12-78) U/L Alkaline Phosphatase (45-117) U/L Troponin I (0-0.045) ng/ml Total Protein (6.4-8.2) gm/dl Albumin (3.4-5.0) gm/dl Globulin (2.5-4.0) gm/dl Albumin/Globulin Ratio (0.9-2) Lipase (73-393) U/L Procalcitonin 4.27 H (0-0.5) ng/ml TSH Cancelled (0.300-4.500) uIu/ml Influenza Type A (PCR) (Neg) Influenza Type B (PCR) (Neg) 05/16/18 05/16/18 Range/Units 18:50 21:47 WBC (4.8-10.8) K/uL RBC (4.7-6.1) M/uL Hgb (14.0-18.0) g/dL Hct (42-52) % MCV (80-100) fL MCH (25-34) pg MCHC (32-36) g/dL RDW Std Deviation (36.4-46.3) fL RDW Coeff of Silas (11.5-14.5) % Plt Count (130-400) K/uL MPV (7.4-10.4) fL Immature Gran % (Auto) % Neut % (Auto) % Lymph % (Auto) % [place] % (Auto) % Eos % (Auto) % Baso % (Auto) % Immature Gran # (Auto) (0.00-0.02) K/uL Neut # (Auto) (1.4-6.5) K/uL Lymph # (Auto) (1.2-3.4) K/uL [place] # (Auto) (0.11-0.59) K/uL Eos # (Auto) (0-0.5) K/uL Baso # (Auto) (0-0.2) K/uL PT (9.0-12.0) Seconds INR (0.9-1.1) Sodium (136-145) mmol/L Potassium (3.5-5.1) mmol/L Chloride (98-107) mmol/L Carbon Dioxide (21-32) mmol/L Anion Gap (3-11) BUN (7-18) mg/dl Creatinine (0.6-1.4) mg/dl Est Cr Clr Drug Dosing ml/min Est GFR ( Amer) Est GFR (Non-Af Amer) BUN/Creatinine Ratio (10-20) Glucose (70-99) mg/dl Lactate 2.0 (0.4-2.0) mmol/L Calcium (8.5-10.1) mg/dl Phosphorus (2.5-4.9) mg/dl Magnesium (1.8-2.4) mg/dl Total Bilirubin (0.2-1) mg/dl AST (15-37) U/L ALT (12-78) U/L Alkaline Phosphatase (45-117) U/L Troponin I 0.039 (0-0.045) ng/ml Total Protein (6.4-8.2) gm/dl Albumin (3.4-5.0) gm/dl Globulin (2.5-4.0) gm/dl Albumin/Globulin Ratio (0.9-2) Lipase (73-393) U/L Procalcitonin (0-0.5) ng/ml TSH (0.300-4.500) uIu/ml Influenza Type A (PCR) (Neg) Influenza Type B (PCR) (Neg) Imaging Data Radiologist's Impression: Radiology results as stated below per my review and the radiologist's interpretation: XR chest 1V portable CLINICAL HISTORY: Chest Pain dyspnea COMPARISON STUDY: 05/02/2018 FINDINGS: Bilateral parenchymal nodularity is again noted. Appears stable. Hilar adenopathy is stable as well. There is a central catheter in superior vena cava. There is no evidence pneumo thorax. IMPRESSION: 1. Unchanged metastatic disease as discussed. 2. Central catheter ends in the superior vena cava cava. 3. No significant interval change from the prior study. The above report was generated using voice recognition software. It may contain grammatical, syntax or spelling errors. Electronically signed by: Siva Springer M.D. 05/16/2018 3:[address] abd pelvis IV con only CLINICAL HISTORY: left gluteal sarcoma/erythema/neutropenia/fever COMPARISON STUDY: 04/12/2018 TECHNIQUE: The patient was scanned in a dynamic helical fashion during intravenous administration of 122 cc of Optiray 320. A dose lowering technique was utilized adhering to the principles of ALARA. CT DOSE: 2349.17 mGy.cm FINDINGS: Lower chest: There are enlarging bilateral solid pulmonary nodules indicative of progressive pulmonary metastatic disease. Liver: The contrast-enhanced liver is normal in size, contour, and attenuation. There is no intrahepatic biliary ductal dilatation. The hepatic veins and portal veins are patent. Gallbladder: Unremarkable. Spleen: The spleen is enlarged measuring 16.8 cm Pancreas: Unremarkable. Adrenal glands: Unremarkable. Kidneys: There is symmetric renal cortical enhancement. The kidneys are normal in size without hydronephrosis. Bowel: Portions of bowel are not visible due to the patient's large body habitu s. The right lateral abdomen is not fully included. There are no transition zones to indicate bowel obstruction. There is colonic diverticulosis. There are no acute peridiverticular inflammatory changes. The appendix is not visualized. Peritoneum: There is no intraperitoneal free air or abdominal ascites. Vasculature: The abdominal aorta is normal in course and caliber. Adenopathy: None. Pelvic viscera: The bladder, and pelvic viscera are unremarkable. Skeletal structures: Postsurgical changes are present within the lumbar spine. There is a very large are slightly visualized left sided gluteal mass measuring in excess of 20 cm. This contains multiple air locules as well as catheters. The multiple air bubbles likely indicate a necrotic/infected mass. IMPRESSION: 1. Technically limited study secondary to the patient's large body habitus. 2. Enlarging bilateral pulmonary nodules indicative of progressive pulmonary metastasis. 3. Partially visualized left-sided gluteal mass measuring in excess of 20 cm. This contains multiple air locules and catheters. The air bubbles indicate ei ther a necrotic/infected mass. Electronically signed by: Rickie Paul M.D. 05/16/2018 4:53 PM ECG Data Attestation: I personally reviewed and interpreted this ECG as follows: Indication: weakness Rate (beats per minute): 113 Rhythm: atrial fibrillation (RVR) Findings: no acute ischemic change and no ectopy Blood Pressure Blood Pressure Findings: Normal blood pressure MDM Narrative The patient is a 58-year-old gentleman with a past medical history of A. 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 On arrival the patient is ill-appearing but no acute distress, afebrile at 37.2, with heart rate in the 100s and blood pressure 90s over 50s but mentating normally. On exam the patient appears clinically dry. There is a 15 cm left gluteal wound site with surrounding edema, erythema, warmth, and serous discharge. Patient CBC is notable for neutropenia with WBC of 1.5 and ANC of 0.44. H/H 10.6/32.3 within patient's recent baseline. Chemistry without acidosis. Potassium 2.8 and phosphorus 1.8 with repletion ordered. Lactate 2.0. Troponin within normal limits. Pro-calcitonin 4.2. F flu negative. Chest x-ray demonstrates unchanged metastatic disease and otherwise no acute process. CT abdomen pelvis with progressively enlarged pulmonary nodules consistent with metastatic disease. Recent left gluteal mass is visualized with multiple air locules and catheters which could be consistent with necrotic/infected mass. Given the patient's neutropenia and fever the patient was treated with vancomycin and Zosyn upon arrival. Blood pressure improving with IV fluid hydration. Case was discussed with Dr. Espinoza, [facility] hospitalist, who will evaluate the patient for admission. Impression & Plan Sepsis, Hypophosphatemia, Hypokalemia, Fever and neutropenia, Cellulitis, gluteal, left, Metastatic disease Critical Care Time I have personally spent greater than 65 minutes of critical care time in the direct management of this patient. This includes bedside care, interpretation of diagnostic studies, and testing, discussion with consultants, patient, and family members, and other required patient management activities. This 65 minutes is in excess of all separately billable procedures. Critical Care Time: Yes Total Critical Care Time: 65 Discharge Plan Visit Data *Final* Discharge Date/Time: 05/16/18 20:15 Chief Complaint: Illness ED Provider: Cash Monreal Discharge Problem: Sepsis, Hypophosphatemia, Hypokalemia, Fever and neutropenia, Cellulitis, gluteal, left, Metastatic disease Patient Disposition: Admitted As Inpatient Discharge Instructions Interventions: ED Discharge Assessment Last Done: 05/16/18 20:15 Discharge Problem: Sepsis Qualifiers: Sepsis type: sepsis due to unspecified organism Qualified Code(s): A41.9 - Sepsis, unspecified organism The scribe's documentation has been prepared under my direction and personally reviewed by me in its entirety. I confirm that the note above accurately reflects all work, treatment, procedures, and medical decision making performed by me.
[2018-05-17] MEDS: APIXABAN 5 MG TABLET PO SCH ×3 (00:04→21:23)
[2018-05-17] MEDS: CEFEPIME 2,000 MG in SYRINGE 7.5 ML IV SCH ×3 (01:24→17:41)
[2018-05-17] MEDS ORDERED: VANCOMYCIN HCL 2,000 MG in SODIUM CHLORIDE 0.9% 500 ML IV SCH (04:00)
[2018-05-17 05:07] LABS: Albumin Level 1.6 gm/dl (3.4-5.0); Bilirubin Direct 0.5 mg/dl (0-0.2); Calcium 7.9 mg/dl (8.5-10.1); Creatinine Clr Calc Pharmacy 137.7 ml/min; Est GFR (African American) 101.3; Est GFR (Non-African American) 87.4; Potassium 3.2 mmol/L (3.5-5.1)
[2018-05-17 05:17] LABS: Bilirubin,Total 0.8 mg/dl (0.2-1); Phosphorus 3.1 mg/dl (2.5-4.9); Total Protein 5.2 gm/dl (6.4-8.2)
[2018-05-17 05:23] LABS: Hematocrit (blood only) 30.1 % (42-52); Hemoglobin 10.1 g/dL (14.0-18.0); Mean Corpuscular Hgb Conc 33.6 g/dL (32-36); Mean Corpuscular Volume 83.8 fL (80-100); Platelet Count 159 K/uL (130-400); RDW Standard Deviation 42.4 fL (36.4-46.3); Red Blood Count 3.59 M/uL (4.7-6.1); White Blood Count 1.69 K/uL (4.8-10.8)
[2018-05-17 05:25] LABS: ALC (manual) 0.45 K/uL (1.2-3.4); Dohle Bodies 1+; Eosinophils # (manual) 0.02 K/uL (0-0.5); Eosinophils % (manual) 0.9 %; Giant Platelets 1+; Lymphocytes # (manual) 0.45 K/uL (1.2-3.4); Lymphocytes % (manual) 26.7 %; Monocytes # (manual) 0.48 K/uL (0.11-0.59); Monocytes % (manual) 28.4 %; Myelocytes # (manual) 0.03 K/uL (0-0); Myelocytes % (manual) 1.7 %; Neutrophils % (manual) 42.3 %; Toxic Vacuolation 1+
[2018-05-17] MEDS ORDERED: POTASSIUM CHLORIDE / WTR 20 MEQ/100 ML PLCT IV ONE (09:30)
[2018-05-17] MEDS ORDERED: POTASSIUM CHLORIDE 10 MEQ TABCR PO ONE (09:30)
--- NOTE | 2018-05-17 09:38 | Consultation Report ---
DATE OF CONSULTATION: 05/17/2018 REASON FOR CONSULTATION: Neutropenic fever in a 58-year-old gentleman status post Adriamycin, ifosfamide, mesna. 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 The patient had just been discharged from his initial course of combination of Adriamycin, ifosfamide and mesna. He was supposed to receive Neulasta afterwards, which was denied by the insurance company. Apparently last night, developed low grade fever as well as generalized weakness and fatigue. He has also been struggling performing his activities of daily living because of weakness and shortness of breath. The patient also describes anorexia and dysgeusia. He has also described many tearful episodes, which he believes has worsened since diagnosis. I had met the patient about a month prior to his initial admission when he had originally presented with a protruding growth from the left buttock that began in early December. The lesion had initially spontaneously shrunk; however, shortly thereafter, the lesion grew much larger and in January, became painful upon sitting. Jerrell was initially seen by his primary care physician, who ordered CT scan of the abdomen and pelvis, which revealed a complex primary cystic mass in the subcutaneous fat measuring 17 x 13 cm. Couple of days thereafter, he was then seen by Dr. Candelario and recommended drainage to relieve his discomfort. Jerrell was drained multiple times and finally a Billy-Whitman drain was installed. During the initial workup, a CT scan of the chest also demonstrated multiple pulmonary lesions suggestive of metastatic disease. The patient was subsequently admitted receiving his first course of Adriamycin, ifosfamide and mesna. His course was complicated by temporary psychoses, which resolved over time. The patient again continues to benoit with depressive symptoms particularly spontaneous crying and depressed mood. PAST MEDICAL HISTORY: Again significant for metastatic pleomorphic sarcoma, anxiety, atrial fibrillation, dyslipidemia, hypertension, hyperglycemia and obstructive sleep apnea. PAST SURGICAL HISTORY: Includes ultrasound-guided biopsy of left gluteal mass, hernia repair and back surgery. MEDICATIONS: Prior to admission include atorvastatin 20 mg p.o. daily, Cardizem 300 mg p.o. daily, Eliquis 5 mg p.o. b.i.d., tramadol 50 mg 1-2 tablets q. 8 hours p.r.n., Metamucil daily, multivitamins 1 p.o. daily, furosemide 20 mg p.o. daily, Claritin 10 mg p.o. at bedtime, flecainide 100 mg p.o. b.i.d., metoprolol 25 mg p.o. daily, omega fatty acids 1000 mg p.o. daily. ALLERGIES: No known drug allergies. SOCIAL HISTORY: The patient is retired, , nonsmoker, nondrinker. FAMILY HISTORY: Both his mother and maternal grandmother suffered from gynecologic based cancers. Maternal grandmother is actually a patient of mine suffers from colorectal cancer. REVIEW OF SYSTEMS: GENERAL: Positive for generalized weakness, fatigue, anorexia and dysgeusia. He has also been struggling with a depressed mood. SKIN: No new rashes or lesions. No history of dermatoses. HEENT: Negative for headaches. He is not lightheaded or dizzy. No acute visual or hearing deficits. No sinus symptoms, sore throat or dysphagia. LYMPH: No history of lymphoproliferative disease. CARDIAC: Negative for angina or palpitations. PULMONARY: Negative for COPD. No shortness of breath, dyspnea or orthopnea. He suffers from obstructive sleep apnea, utilizes CPAP. GASTROINTESTINAL: Negative for abdominal pain. No current nausea or vomiting. No diarrhea or constipation. GENITOURINARY: No history of prostate disease. No hematuria, dysuria, urinary incontinence. PSYCHIATRIC: Positive for depressed mood. ENDOCRINE: Negative for diabetes or thyroid disease. NEUROLOGIC: Negative for seizure, stroke or migraine headache. HEMATOLOGIC: Positive for cytopenias attributable to chemotherapy. PHYSICAL EXAMINATION: GENERAL: The patient is a morbidly obese 58-year-old gentleman, in no acute distress. VITAL SIGNS: Temperature 34.2, pulse 112, respiratory rate 20, blood pressure 108/68. SKIN: Warm, dry, noncyanotic without petechia, rash or ecchymosis. Sterile dressing covering the left buttock lesion. KHUSHI drain functional. HEENT: Atraumatic, normocephalic. Eyes: PERRLA, EOMI. Sclerae nonicteric. No conjunctival injection. Nares are patent without rhinorrhea or discharge. Throat is clear. Tongue is midline. Mucous membranes are moist. NECK: Supple without JVD or thyromegaly. LYMPH: No cervical or supraclavicular palpable nodes. HEART: Regular rate and rhythm. No clicks, rubs, murmurs, gallops. LUNGS: Clear to auscultation bilaterally. ABDOMEN: Obese, soft, nontender, nondistended. EXTREMITIES: Trace peripheral edema bilaterally and translated pedal edema. MUSCULOSKELETAL: Strength is equal in all 4 quadrants. NEUROLOGICAL: He is awake, alert and oriented x3. Cranial nerves are grossly intact. LABORATORY DATA: WBC count 1690, hemoglobin 10.1, platelet count 59,000, absolute neutrophil count 440. Sodium 140, potassium 3.2, chloride 105, carbon dioxide 29, BUN 13, creatinine 0.96, albumin 1.6. MICROBIOLOGY: Blood culture, one culture is positive for Gram positive cocci. DIAGNOSTIC DATA: CT scan of the abdomen and pelvis done yesterday technically limited study; however, enlarging bilateral pulmonary nodules indicative of disease progression, partially visualized left gluteal mass measuring in excess of 20 cm, air bubbles present suggestive of chronic possible infected mass. IMPRESSION: 1. Neutropenic fever. 2. Gram-positive bacteremia. 3. Hypoalbuminemia. 4. Hypokalemia. 5. Metastatic pleomorphic sarcoma. 6. Clinical depression. PLAN: In summary, the patient is a very pleasant unfortunate 58-year-old gentleman well known to [facility], currently under my care, recently completed his initial course of Adriamycin, ifosfamide and mesna. The patient was hospitalized for about 5 days while receiving treatment. During that time experienced some neurotoxicity, particularly temporary psychoses, confusion, agitation, which was transient and did resolve. It was decided after the psychotic event to consider reducing his dose of ifosfamide and mesna by 20% prior to his next course. His most recent CT of the abdomen and pelvis is somewhat discouraging suggesting his disease is progressing despite our efforts. Additionally, the patient is struggling with depression, was quite tearful during today's interview and I have taken the liberty of starting him on Effexor 75 mg p.o. daily. I believe his next course of chemotherapy is due in about 10 days. Obviously, we need to start granulocyte colony stimulating growth factor 480 mcg daily for the next 3-4 days to bolster his white count. One blood culture is positive for Gram positive cocci, presumably coag negative staph; however, sensitivity and identification is pending. Replace electrolytes as appropriate. We also need to work on the patient's nutritional status. His albumin is very low at 1.6. His overall prognosis is quite poor, nonetheless has expressed desire to continue fighting. Thank you very much for assisting us in the care of this very pleasant gentleman. We will continue to follow him periodically during his hospital stay. MICHAEL
[2018-05-17] MEDS: FLECAINIDE ACETATE 100 MG TABLET PO SCH ×2 (09:52→21:23)
[2018-05-17] MEDS: VENLAFAXINE HCL XR 75 MG CAPXR PO SCH (09:52)
[2018-05-17] MEDS: dilTIAZem ER 180 MG CAPCR PO SCH (09:53)
[2018-05-17] MEDS: METOPROLOL SUCC 25MG EXT REL TAB PO SCH (09:53)
[2018-05-17] MEDS: PSYLLIUM 58.6% POWDER PACKET PO SCH (09:53)
[2018-05-17] MEDS: ATORVASTATIN 40 MG TAB PO SCH (09:53)
[2018-05-17] MEDS: dilTIAZem ER 120 MG CAPCR PO SCH (09:53)
[2018-05-17] MEDS: SODIUM CHLORIDE 0.9% 1000ML 1,000 ML IV SCH (09:55)
--- NOTE | 2018-05-17 11:05 | Infectious Disease Consult ---
Date of Consultation May 17, 2018 Assessment & Plan (1) Staphylococcus aureus bacteremia with sepsis: 58-year-old male with metastatic sarcoma with necrotic gluteal mass on chemotherapy now with staph aureus sepsis. Potential sources include seeding from his gluteal process, as well as infection related to his indwelling [id number]. Will continue vancomycin for now, likely can change to cephalosporin alone once sensitivities available. Will need likely 14 days minimum of IV antibiotics. Would generally recommend removal of [id number], but given his clinical situation may want to try attempted medical treatment. Will follow. History of Present Illness Reason for Consultation: Staph bacteremia Attending Physician: Maria Isabel Cody MD History of Present Illness 58-year-old male with recently diagnosed sarcoma of the left buttock, with large necrotic left buttock mass requiring drainage and drain placement, now on chemotherapy, admitted with fever and chills and weakness with pancytopenia found on CBC. Started empirically on vancomycin and cefepime. Blood cultures returned positive for a methicillin sensitive staph aureus. Patient has indwelling [id number], has had no problems with access or any evidence of infection. He has persistent pain in his left buttock with brownish drainage. Feeling slightly better since admission. Temperature is down. Remains pancytopenic. Allergies Allergy/AdvReac Type Severity Reaction Status Date / Time No Known Allergies Allergy Unverified 05/16/18 15:36 Home Medications Home Medications Medication Instructions Recorded Confirmed Type diltiazem HCl 300 mg PO QAM 05/01/18 05/16/18 History flecainide 100 mg PO Q12H 05/01/18 05/16/18 History metoprolol succinate 25 mg PO QAM 05/01/18 05/16/18 History multivitamin 1 tab PO QAM 05/01/18 05/16/18 History atorvastatin 40 mg PO DAILY 05/04/18 05/16/18 History acetaminophen 1,000 mg PO Q8 #90 cap 05/08/18 05/16/18 Rx tramadol 100 mg PO Q6H PRN #60 tab 05/08/18 05/16/18 Rx psyllium husk [Metamucil] 1 dose PO QAM 05/16/18 05/16/18 History Patient History Medical History Anxiety Dyslipidemia History of atrial fibrillation ON ELIQUIS History of atrial flutter ON ELIQUIS Hypertension Morbid obesity with BMI of 60.0-69.9, adult Sarcoma of soft tissue Sleep apnea CPAP Surgical History History of cardioversion X 2 History of colonoscopy History of excision of pilonidal cyst History of inguinal hernia repair BL History of lumbar fusion History of wisdom tooth extraction Family History Father Family history of diabetes mellitus Mother , in her 70s Cancer Uterine,ovarian Social History Communication Ability: Effective Beliefs That Will Affect Care: None Current Living Situation: Spouse 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 Other Information That Helps Us Care for You: No Feels Safe at Home: Yes Safety Concerns: Feels Safe At This Time Smoking Status: Never smoker Hx Alcohol Use: No Hx Substance Use: No Review of Systems All systems were reviewed and are negative except as per HPI Physical Exam Vital Signs (Past 24 Hours): Last Vital Signs Temp 36.5 C 05/17/18 10:48 Pulse 120 H 05/17/18 10:48 Resp 20 05/17/18 10:48 BP 106/68 05/17/18 10:48 Pulse Ox 98 05/17/18 10:48 Constitutional: WD/WN, vitals as above + ill appearing and comfortable; no acute distress Eyes: PERRL, conjunctivae normal, anicteric sclerae ENMT: external ear and nose normal, oropharynx normal Neck: trachea midline, no thyromegaly neck nontender Respiratory: normal respiratory effort, lungs clear to auscultation normal percussion; does not use accessory muscles Cardiovascular: Rate/Rhythm: regular rate and regular rhythm Heart Sounds: normal S1 and normal S2; no gallop, no murmur and no cardiac rub Vessels: normal peripheral pulses; no JVD Gastrointestinal (Abdomen): normal bowel sounds, soft, nontender, no hepatosplenomegaly Musculoskeletal: no cyanosis or clubbing, extremities motor strength 5/5 Spine: thoracic spine normal to inspection and lumbar spine normal to inspection; no cervical spinal tenderness Skin: normal turgor and + wound (With drain in place, erythema and induration, a port line appears without evidence of infection); no rashes Neurologic: patellar DTR's 2+ bilat, sensation intact no focal motor deficits Psychiatric: A+Ox3, euthymic affect Orientation: cooperative Lymphatic: no cervical or axillary lymphadenopathy no inguinal lymphadenopathy Results & Data Laboratory Results Short CBC 05/16/18 05/17/18 Range/Units 15:13 04:38 WBC 1.45 L 1.69 L (4.8-10.8) K/uL Hgb 10.6 L 10.1 L (14.0-18.0) g/dL Hct 32.3 L 30.1 L (42-52) % Plt Count 155 159 (130-400) K/uL BMP 05/16/18 05/17/18 15:13 04:38 Sodium 132 L 140 D Potassium 2.8 L 3.2 L Chloride 96 L 105 Carbon Dioxide 29 29 BUN 12 13 Creatinine 1.11 0.96 Glucose 124 H 127 H Calcium 7.9 L 7.9 L Cardiac Enzymes 05/16/18 05/16/18 Range/Units 15:13 21:47 Troponin I 0.028 0.039 (0-0.045) ng/ml Liver Function 05/16/18 05/17/18 Range/Units 15:13 04:38 Total Bilirubin 1.0 0.8 (0.2-1) mg/dl Direct Bilirubin 0.5 H (0-0.2) mg/dl AST 14 L 17 (15-37) U/L ALT 17 18 (12-78) U/L Alkaline Phosphatase 120 H 104 (45-117) U/L Albumin 1.8 L 1.6 L (3.4-5.0) gm/dl Diagnostic Findings Microbiology 05/16/18 18:00 Blood Blood Culture - Preliminary Gram positive cocci 05/16/18 15:13 Blood Blood Culture - Preliminary Gram positive cocci CT abd pelvis IV con only CLINICAL HISTORY: left gluteal sarcoma/erythema/neutropenia/fever COMPARISON STUDY: 04/12/2018 TECHNIQUE: The patient was scanned in a dynamic helical fashion during intravenous administration of 122 cc of Optiray 320. A dose lowering technique was utilized adhering to the principles of ALARA. CT DOSE: 2349.17 mGy.cm FINDINGS: Lower chest: There are enlarging bilateral solid pulmonary nodules indicative of progressive pulmonary metastatic disease. Liver: The contrast-enhanced liver is normal in size, contour, and attenuation. There is no intrahepatic biliary ductal dilatation. The hepatic veins and portal veins are patent. Gallbladder: Unremarkable. Spleen: The spleen is enlarged measuring 16.8 cm Pancreas: Unremarkable. Adrenal glands: Unremarkable. Kidneys: There is symmetric renal cortical enhancement. The kidneys are normal in size without hydronephrosis. Bowel: Portions of bowel are not visible due to the patient's large body habitus. The right lateral abdomen is not fully included. There are no transition zones to indicate bowel obstruction. There is colonic diverticulosis. There are no acute peridiverticular inflammatory changes. The appendix is not visualized. Peritoneum: There is no intraperitoneal free air or abdominal ascites. Vasculature: The abdominal aorta is normal in course and caliber. Adenopathy: None. Pelvic viscera: The bladder, and pelvic viscera are unremarkable. Skeletal structures: Postsurgical changes are present within the lumbar spine. There is a very large are slightly visualized left sided gluteal mass measuring in excess of 20 cm. This contains multiple air locules as well as catheters. The multiple air bubbles likely indicate a necrotic/infected mass. IMPRESSION: 1. Technically limited study secondary to the patient's large body habitus. 2. Enlarging bilateral pulmonary nodules indicative of progressive pulmonary metastasis. 3. Partially visualized left-sided gluteal mass measuring in excess of 20 cm. This contains multiple air locules and catheters. The air bubbles indicate either a necrotic/infected mass. Electronically signed by: Rickie Paul M.D. 05/16/2018 4:53 PM Dictated: 05/16/18 1645 Transcribed: 05/16/18 1645
[2018-05-17] MEDS: TRAMADOL HCL 50 MG TABLET PO PRN (15:32)
[2018-05-17] MEDS ORDERED: CALCIUM CARBONATE 500 MG CHEWABLE TAB PO PRN (16:51)
--- NOTE | 2018-05-17 17:36 | Hospitalist Progress Note ---
Date of Service May 17, 2018 Assessment & Plan (1) Fever and neutropenia: Patient is neutropenic which is improving today With bacteremia as below -treating with abx -Oncology recommended starting Neupogen--> will start in AM if ANC doesn't continue to rise as it is already (2) Staphylococcus aureus bacteremia with sepsis: MSSA in blood on both sets of BCxs -treating with Cefepime, dcd Vanco due to morbid obesity making dosing difficult -discussed case with ID Dr. Carter who recommended Ancef IV until final culture results back -repeat BCxs today -if port is infected, consider lock therapy (3) Atrial fibrillation/flutter: With h/o PAFlutter; here with rapid A-flutter which is now improved after reciving IVFs -Continue Diltiazem -Continue metoprolol -Continue Flecainide -Continue Eliquis -Telemetry monitoring (4) Hypokalemia: persists but is improved -replace with IV and po KCl today -follow BMP (5) Obstructive sleep apnea: Patient with CPAP at home -CPAP qHS at 16 (6) Hyperlipidemia: Chronic -Continue Atorvastatin (7) Sarcoma of buttock: Patient with newly diagnosed sarcoma of the buttock, concern for metastatic lesions to the lung. S/p induction chemotherapy 05/04 complicated by chemo-induced delirium. Drain in place. CT scan here shows enlarging pulm nodules and sarcoma in buttocks -Wound Care consult -Empiric antibiotics as above -Monitor wound, consider surgical consultation for further debridement -Will Consult Hematology for additional recommendations (8) Hypophosphatemia: PO4=1.8. Patient administerd KPhos in the ER -Repeat level in AM -Continue to monitor (9) Hyponatremia: Ln=865 on admission and likely secondary to poor po intake. Suspect mild degree of volume contraction -NSS was given and now Na+ 140 -follow BMP (10) Morbid obesity: BMI 67 -needs weight loss counseling (11) DVT prophylaxis: Eliquis Dispo-can change from PCU to Med tele Subjective Pt feeling very tired but overall feels much improved since yesterday. Reports having some chills again now. No CP or SOB. Has pain in left buttocks. Having heart burn today too Review of Systems All systems reviewed & are unremarkable except as noted in HPI & below Physical Exam Vital Signs (Past 24 Hours): Last Vital Signs Temp 36.4 C L 05/17/18 15:51 Pulse 94 H 05/17/18 15:51 Resp 20 05/17/18 15:51 BP 110/85 05/17/18 15:51 Pulse Ox 97 05/17/18 15:51 Constitutional: WD/WN, vitals as above + morbidly obese Eyes: PERRL, conjunctivae normal, anicteric sclerae ENMT: external ear and nose normal, oropharynx normal Neck: trachea midline, no thyromegaly Respiratory: normal respiratory effort, lungs clear to auscultation Cardiovascular: RRR, no murmur, no edema Gastrointestinal (Abdomen): normal bowel sounds, soft, nontender, no hepatosplenomegaly Musculoskeletal: Extremities: + extremities abnormal to inspection (left buttocks with immensely large mass about 12 inches across protruding), no c yanosis and no clubbing Skin: no rashes, warm and dry Neurologic: moves all extremities and awake; no focal motor deficits Psychiatric: A+Ox3, euthymic affect Results & Data Laboratory Results 05/17/18 05/17/18 05/17/18 Range/Units 05:50 04:38 04:38 WBC (4.8-10.8) K/uL RBC (4.7-6.1) M/uL Hgb (14.0-18.0) g/dL Hct (42-52) % MCV (80-100) fL MCH (25-34) pg MCHC (32-36) g/dL RDW Std Deviation (36.4-46.3) fL RDW Coeff of Silas (11.5-14.5) % Plt Count (130-400) K/uL MPV (7.4-10.4) fL Neutrophils % (Manual) % Lymphocytes % (Manual) % Monocytes % (Manual) % Eosinophils % (Manual) % Myelocytes % (Man) % Neutrophils # (Manual) (1.4-6.5) K/uL Total Absolute Neuts (1.4-6.5) K/uL Lymphocytes # (Manual) (1.2-3.4) K/uL Total Abs Lymphocytes (1.2-3.4) K/uL Monocytes # (Manual) (0.11-0.59) K/uL Eosinophils # (Manual) (0-0.5) K/uL Myelocytes # (Manual) (0-0) K/uL Toxic Vacuolation Dohle Bodies Giant Platelets Sodium 140 D (136-145) mmol/L Potassium 3.2 L (3.5-5.1) mmol/L Chloride 105 (98-107) mmol/L Carbon Dioxide 29 (21-32) mmol/L Anion Gap 6.0 (3-11) BUN 13 (7-18) mg/dl Creatinine 0.96 (0.6-1.4) mg/dl Est Cr Clr Drug Dosing 137.7 ml/min Est GFR ( Amer) 101.3 Est GFR (Non-Af Amer) 87.4 BUN/Creatinine Ratio 14.0 (10-20) Glucose 127 H (70-99) mg/dl Calcium 7.9 L (8.5-10.1) mg/dl Ionized Calcium 1.05 L Cancelled Phosphorus 3.1 D (2.5-4.9) mg/dl Total Bilirubin 0.8 (0.2-1) mg/dl Direct Bilirubin 0.5 H (0-0.2) mg/dl AST 17 (15-37) U/L ALT 18 (12-78) U/L Alkaline Phosphatase 104 (45-117) U/L Total Protein 5.2 L (6.4-8.2) gm/dl Albumin 1.6 L (3.4-5.0) gm/dl Bld Cult Staph aureus PCR (Negative) Blood Culture MRSA PCR (Negative) 05/17/18 05/16/18 Range/Units 04:38 15:13 WBC 1.69 L (4.8-10.8) K/uL RBC 3.59 L (4.7-6.1) M/uL Hgb 10.1 L (14.0-18.0) g/dL Hct 30.1 L (42-52) % MCV 83.8 (80-100) fL MCH 28.1 (25-34) pg MCHC 33.6 (32-36) g/dL RDW Std Deviation 42.4 (36.4-46.3) fL RDW Coeff of Silas 14.0 (11.5-14.5) % Plt Count 159 (130-400) K/uL MPV 10.0 (7.4-10.4) fL Neutrophils % (Manual) 42.3 % Lymphocytes % (Manual) 26.7 % Monocytes % (Manual) 28.4 % Eosinophils % (Manual) 0.9 % Myelocytes % (Man) 1.7 % Neutrophils # (Manual) 0.71 L (1.4-6.5) K/uL Total Absolute Neuts 0.71 L* (1.4-6.5) K/uL Lymphocytes # (Manual) 0.45 L (1.2-3.4) K/uL Total Abs Lymphocytes 0.45 L (1.2-3.4) K/uL Monocytes # (Manual) 0.48 (0.11-0.59) K/uL Eosinophils # (Manual) 0.02 (0-0.5) K/uL Myelocytes # (Manual) 0.03 H (0-0) K/uL Toxic Vacuolation 1+ Dohle Bodies 1+ Giant Platelets 1+ Sodium (136-145) mmol/L Potassium (3.5-5.1) mmol/L Chloride (98-107) mmol/L Carbon Dioxide (21-32) mmol/L Anion Gap (3-11) BUN (7-18) mg/dl Creatinine (0.6-1.4) mg/dl Est Cr Clr Drug Dosing ml/min Est GFR ( Amer) Est GFR (Non-Af Amer) BUN/Creatinine Ratio (10-20) Glucose (70-99) mg/dl Calcium (8.5-10.1) mg/dl Ionized Calcium Phosphorus (2.5-4.9) mg/dl Total Bilirubin (0.2-1) mg/dl Direct Bilirubin (0-0.2) mg/dl AST (15-37) U/L ALT (12-78) U/L Alkaline Phosphatase (45-117) U/L Total Protein (6.4-8.2) gm/dl Albumin (3.4-5.0) gm/dl Bld Cult Staph aureus PCR Positive A (Negative) Blood Culture MRSA PCR Negative (Negative) (1) Hyperlipidemia Hyperlipidemia type: unspecified Qualified Code(s): E78.5 - Hyperlipidemia, unspecified
[2018-05-17] MEDS: FAMOTIDINE 20 MG in SYRINGE 3 ML IV SCH (17:41)
[2018-05-18] MEDS ORDERED: CEFAZOLIN 1000MG 1,000 MG/7.5 ML SYR IV SCH
[2018-05-18] MEDS: CEFAZOLIN 2000MG 2,000 MG/15 ML SYR IV SCH ×4 (00:37→20:18)
[2018-05-18] MEDS ORDERED: VANCOMYCIN TROUGH ONE (03:30)
[2018-05-18] MEDS: ACETAMINOPHEN 325 MG TAB PO PRN (04:56)
[2018-05-18 05:41] LABS: Hematocrit (blood only) 29.4 % (42-52); Hemoglobin 9.7 g/dL (14.0-18.0); Mean Corpuscular Volume 83.5 fL (80-100); Mean Platelet Volume 9.7 fL (7.4-10.4); Platelet Count 198 K/uL (130-400); RDW Coefficient of Variation 14.2 % (11.5-14.5); RDW Standard Deviation 42.9 fL (36.4-46.3); Red Blood Count 3.52 M/uL (4.7-6.1); White Blood Count 3.02 K/uL (4.8-10.8)
[2018-05-18 06:12] LABS: BUN Creatinine Ratio 17.1 (10-20); Calcium 7.9 mg/dl (8.5-10.1); Creatinine Clr Calc Pharmacy 165.2 ml/min; Est GFR (African American) 114.9; Est GFR (Non-African American) 99.2; Magnesium 2.1 mg/dl (1.8-2.4)
[2018-05-18 06:48] LABS: Basophils # (manual) 0.08 K/uL (0-0.2); Basophils % (manual) 2.7 %; Dohle Bodies 1+; Giant Platelets 1+; Lymphocytes % (manual) 13.3 %; Monocytes # (manual) 0.69 K/uL (0.11-0.59); Myelocytes # (manual) 0.08 K/uL (0-0); Myelocytes % (manual) 2.7 %; Neutrophils % (manual) 58.3 %; Toxic Granulation 1+
[2018-05-18] MEDS ORDERED: POTASSIUM CHLORIDE 20 MEQ TABCR PO ONE (08:30)
[2018-05-18] MEDS: ATORVASTATIN 40 MG TAB PO SCH (08:32)
[2018-05-18] MEDS: dilTIAZem ER 120 MG CAPCR PO SCH (08:32)
[2018-05-18] MEDS: dilTIAZem ER 180 MG CAPCR PO SCH (08:32)
[2018-05-18] MEDS: FLECAINIDE ACETATE 100 MG TABLET PO SCH ×2 (08:32→20:18)
[2018-05-18] MEDS: METOPROLOL SUCC 25MG EXT REL TAB PO SCH (08:33)
[2018-05-18] MEDS: VENLAFAXINE HCL XR 75 MG CAPXR PO SCH (08:33)
[2018-05-18] MEDS: POTASSIUM CHLORIDE / WTR 20 MEQ/100 ML PLCT IV SCH ×2 (08:33→11:27)
[2018-05-18] MEDS: FAMOTIDINE 20 MG in SYRINGE 3 ML IV SCH (08:50)
[2018-05-18] MEDS: PSYLLIUM 58.6% POWDER PACKET PO SCH (08:51)
[2018-05-18] MEDS: NSS + 20MEQ KCL 20 MEQ/1,000 ML BAG IV SCH ×2 (09:04→19:08)
--- NOTE | 2018-05-18 09:44 | Progress Note ---
DATE: 05/18/2018 MEDICAL ONCOLOGY PROGRESS NOTE DIAGNOSES: 1. Neutropenic fever. 2. Gram-positive bacteremia. 3. Hypoalbuminemia. 4. Hypokalemia. 5. Clinical depression. 6. Metastatic pleomorphic sarcoma. SUBJECTIVE: Jerrell was seen and examined at bedside. He was definitely in better spirits this morning. Encouraged him to continue Effexor as it generally takes about 10 days before mood improves. Briefly I spoke to Dr. Cody, who is currently managing Jerrell. He continues broad-spectrum antibiotics for both the bacteremia and positive wound cultures. Conceivably, he may be on antimicrobials for the next couple of weeks. Surprisingly, he is having no symptoms particularly nausea, attributable to chemotherapy. His pain is actually improved. Nursing reports no overnight difficulties with Jerrell. PHYSICAL EXAMINATION: GENERAL: Morbidly obese 58-year-old gentleman in no acute distress. VITAL SIGNS: Temperature 37.1, pulse 117, respiratory rate 18, blood pressure 103/66. SKIN: Without any rash or lesion. HEENT: Oral mucosa without erythema or ulceration. HEART: Regular rate and rhythm. LUNGS: Clear to auscultation bilaterally. ABDOMEN: Obese, soft, nontender, nondistended. EXTREMITIES: Chronic lower extremity edema and translated pedal edema. NEUROLOGIC: Awake, alert and appropriate. Grossly intact otherwise. LABORATORY DATA: WBC count 3220, hemoglobin 9.7, platelet count 198,000. Sodium 137, potassium 3.0, chloride 103, carbon dioxide 27, creatinine 0.80, BUN 14. Microbiology: Blood positive for Staphylococcus aureus ____. IMPRESSION: 1. Neutropenic fever. 2. Staphylococcus aureus bacteremia. 3. Hypoalbuminemia. 4. Hypokalemia. 5. Depression. 6. Metastatic pleomorphic sarcoma. PLAN: Jerrell is making slow but steady progress. His pain is improved. Thus far, he is having no adverse effects from his previously administered chemotherapy. I need to calculate when he is due for next treatment as it may be overlapping with antibiotics moving forward. From a laboratory perspective, he needs potassium replaced, but otherwise seems to be holding his own. I have nothing further to add. Again, I encouraged him to continue Effexor to see if this is helpful offset Jerrell's depressed mood. He is scheduled to see me in the office, I believe on May 27. Dr. Cardenas will be taking over service over the weekend. Thank you again for assisting us in the care of this very pleasant gentleman.
[2018-05-18] MEDS: APIXABAN 5 MG TABLET PO SCH ×2 (10:26→20:19)
[2018-05-18] MEDS: TRAMADOL HCL 50 MG TABLET PO PRN (19:08)
[2018-05-18] MEDS: FAMOTIDINE 20 MG TAB PO SCH (20:19)
--- NOTE | 2018-05-18 23:11 | Hospitalist Progress Note ---
Date of Service May 18, 2018 Assessment & Plan (1) Fever and neutropenia: Patient was neutropenic on admission and febrile. Neutropenia now resolved, afebrile now for over 24 hrs With bacteremia as below -treating with abx No need for neupogen now (2) Staphylococcus aureus bacteremia with sepsis: MSSA in blood on both sets of BCxs from 05/16 and again 05/17 cxs with GPC -Appreciate ID consultation -now on IV Ancef 2000mg IV q8h--> needs 14 days of therapy from time of last negative culture -repeat BCxs today -if port is infected, consider lock therapy -check ECHO for valvular vegetation (3) Atrial fibrillation/flutter: With h/o PAFlutter; here with rapid A-flutter which is now improved after receiving IVFs Rates still slightly elevated -Continue Diltiazem 300mg daily -Continue metoprolol XL 25mg daily -Continue Flecainide 100mg po bid -Continue Eliquis 5mg po bid -continue Telemetry monitoring -restarted IVFs for hydration--> normally rate controlled on these doses and this is likely due to physiologic response to sepsis and infection (4) Hypokalemia: Severe at 3.0 today, possibly due to poor po intake -replace with IV and po KCl today -follow BMP (5) Obstructive sleep apnea: Patient with CPAP at home -CPAP qHS at 16 (6) Hyperlipidemia: Chronic -Continue Atorvastatin (7) Sarcoma of buttock: Patient with newly diagnosed pleomorphic sarcoma of the buttock, 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 S/p induction chemotherapy 05/04 complicated by chemo-induced delirium. Drain in place. CT scan here shows enlarging pulm nodules and sarcoma in buttocks -Wound Care consult -Empiric antibiotics as above -has KHUSHI drain in place from wound-necrotic appearing on CT scan this admission likely secondary to infection vs chemo effect -continue tramadol prn pain (8) Hypophosphatemia: low on admission and replaced (9) Hyponatremia: Pj=174 on admission and likely secondary to poor po intake. Suspect mild degree of volume contraction -NSS was given and now Na+ normal -follow BMP (10) Morbid obesity: BMI 61 -needs weight loss counseling (11) Anemia: Hgb dropped to 9.7, likely secondary to antineoplastic effect -follow CBC (12) Adjustment disorder: Started on Effexor for depressed mood here by Oncology -follow mood (13) DVT prophylaxis: Jennifer Dispo-continue tele monitoring Subjective Pt still feeling "drained" but slightly improved today. No nausea and appetite slightly improved today. Pain in buttocks is improved Tele with atrial flutter, rates in the 100s now but were in the 120s-130s overnight Discussed his case with Dr. Camara of Oncology Review of Systems All systems reviewed & are unremarkable except as noted in HPI & below Physical Exam Vital Signs (Past 24 Hours): Last Vital Signs Temp 36.7 C 05/18/18 19:42 Pulse 102 H 05/18/18 19:42 Resp 20 05/18/18 19:42 BP 124/68 05/18/18 19:42 Pulse Ox 90 05/18/18 19:42 Constitutional: WD/WN, vitals as above + morbidly obese Eyes: PERRL, conjunctivae normal, anicteric sclerae Neck: trachea midline, no thyromegaly Respiratory: normal respiratory effort, lungs clear to auscultation Cardiovascular: RRR, no murmur, no edema Gastrointestinal (Abdomen): normal bowel sounds, soft, nontender, no hepatosplenomegaly Musculoskeletal: Extremities: + extremities abnormal to inspection (left buttocks with immensely large mass about 12 inches across protruding), no cyanosis and no clubbing Skin: no rashes, warm and dry Neurologic: moves all extremities and awake; no focal motor deficits Psychiatric: A+Ox3, euthymic affect Results & Data Laboratory Results 05/18/18 05/18/18 Range/Units 05:32 05:32 WBC 3.02 L (4.8-10.8) K/uL RBC 3.52 L (4.7-6.1) M/uL Hgb 9.7 L (14.0-18.0) g/dL Hct 29.4 L (42-52) % MCV 83.5 (80-100) fL MCH 27.6 (25-34) pg MCHC 33.0 (32-36) g/dL RDW Std Deviation 42.9 (36.4-46.3) fL RDW Coeff of Silas 14.2 (11.5-14.5) % Plt Count 198 (130-400) K/uL MPV 9.7 (7.4-10.4) fL Neutrophils % (Manual) 58.3 % Lymphocytes % (Manual) 13.3 % Monocytes % (Manual) 23.0 % Basophils % (Manual) 2.7 % Myelocytes % (Man) 2.7 % Neutrophils # (Manual) 1.76 (1.4-6.5) K/uL Total Absolute Neuts 1.76 (1.4-6.5) K/uL Lymphocytes # (Manual) 0.40 L (1.2-3.4) K/uL Total Abs Lymphocytes 0.40 L (1.2-3.4) K/uL Monocytes # (Manual) 0.69 H (0.11-0.59) K/uL Basophils # (Manual) 0.08 (0-0.2) K/uL Myelocytes # (Manual) 0.08 H (0-0) K/uL Toxic Granulation 1+ Dohle Bodies 1+ Giant Platelets 1+ Sodium 137 (136-145) mmol/L Potassium 3.0 L (3.5-5.1) mmol/L Chloride 103 (98-107) mmol/L Carbon Dioxide 27 (21-32) mmol/L Anion Gap 7.0 (3-11) BUN 14 (7-18) mg/dl Creatinine 0.80 (0.6-1.4) mg/dl Est Cr Clr Drug Dosing 165.2 ml/min Est GFR ( Amer) 114.9 Est GFR (Non-Af Amer) 99.2 BUN/Creatinine Ratio 17.1 (10-20) Glucose 114 H (70-99) mg/dl Calcium 7.9 L (8.5-10.1) mg/dl Magnesium 2.1 (1.8-2.4) mg/dl BCxs 05/16 2/2 bottles with MSSA BCxs 05/17 2/2 with GPC (1) Hyperlipidemia Hyperlipidemia type: unspecified Qualified Code(s): E78.5 - Hyperlipidemia, unspecified
[2018-05-19] MEDS: CEFAZOLIN 2000MG 2,000 MG/15 ML SYR IV SCH ×4 (02:57→20:13)
[2018-05-19] MEDS: NSS + 20MEQ KCL 20 MEQ/1,000 ML BAG IV SCH ×2 (05:12→15:49)
[2018-05-19 05:51] LABS: Hematocrit (blood only) 29.4 % (42-52); Hemoglobin 9.6 g/dL (14.0-18.0); Mean Corpuscular Hgb Conc 32.7 g/dL (32-36); Mean Platelet Volume 10.3 fL (7.4-10.4); Platelet Count 279 K/uL (130-400); RDW Coefficient of Variation 14.4 % (11.5-14.5); RDW Standard Deviation 43.6 fL (36.4-46.3); White Blood Count 6.22 K/uL (4.8-10.8)
[2018-05-19 06:14] LABS: BUN Creatinine Ratio 15.8 (10-20); Calcium 7.5 mg/dl (8.5-10.1); Creatinine Clr Calc Pharmacy 207.1 ml/min; Est GFR (Non-African American) 108.7; Magnesium 2.2 mg/dl (1.8-2.4); Phosphorus 1.8 mg/dl (2.5-4.9); Potassium 3.5 mmol/L (3.5-5.1)
[2018-05-19 06:17] LABS: Basophils # (auto) 0.02 K/uL (0-0.2); Basophils % (auto) 0.3 %; Dohle Bodies 1+; Eosinophils # (auto) 0.01 K/uL (0-0.5); Eosinophils % (auto) 0.2 %; Lymphocytes # (auto) 0.55 K/uL (1.2-3.4); Lymphocytes % (auto) 8.8 %; Monocytes # (auto) 1.25 K/uL (0.11-0.59); Monocytes % (auto) 20.1 %; Neutrophils # (auto) 3.89 K/uL (1.4-6.5); Neutrophils % (auto) 62.6 %; Toxic Granulation 2+
[2018-05-19] MEDS: TRAMADOL HCL 50 MG TABLET PO PRN ×2 (07:24→15:52)
[2018-05-19] MEDS: VENLAFAXINE HCL XR 75 MG CAPXR PO SCH (08:36)
[2018-05-19] MEDS: METOPROLOL SUCC 25MG EXT REL TAB PO SCH ×2 (08:36→10:38)
[2018-05-19] MEDS: FAMOTIDINE 20 MG TAB PO SCH ×2 (08:37→20:14)
[2018-05-19] MEDS: ATORVASTATIN 40 MG TAB PO SCH (08:37)
[2018-05-19] MEDS: dilTIAZem ER 180 MG CAPCR PO SCH (08:37)
[2018-05-19] MEDS: dilTIAZem ER 120 MG CAPCR PO SCH (08:38)
[2018-05-19] MEDS: FLECAINIDE ACETATE 100 MG TABLET PO SCH ×2 (08:38→20:15)
[2018-05-19] MEDS: APIXABAN 5 MG TABLET PO SCH ×2 (08:38→20:14)
[2018-05-19] MEDS: PSYLLIUM 58.6% POWDER PACKET PO SCH (08:39)
[2018-05-19] MEDS ORDERED: POTASSIUM PHOS 3 MMOL/1 ML INFUSION IV STA (08:48)
[2018-05-19] MEDS ORDERED: POTASSIUM CHLORIDE 20 MEQ TABCR PO STA (08:48)
[2018-05-19] MEDS ORDERED: POTASSIUM PHOSPHATE 15 MMOL in SODIUM CHLORIDE 0.9% 250 ML IV ONE (09:30)
--- NOTE | 2018-05-19 14:53 | Hospitalist Progress Note ---
Date of Service May 19, 2018 Assessment & Plan (1) Fever and neutropenia: Patient was neutropenic on admission and febrile. Neutropenia now resolved, afebrile now for over 48 hrs With bacteremia as below -treating with abx No need for neupogen now as neutropenia resolved (2) Staphylococcus aureus bacteremia with sepsis: MSSA in blood on both sets of BCxs from 05/16 and again 05/17 cxs with Staph species -Appreciate ID consultation -now on IV Ancef 2000mg IV q8h--> needs 14 days of therapy from time of last negative culture-so far NGTD on cultures from 05/18 -follow BCxs Port now appears to have developed surrounding erythema and is tender on palpation -likely need to consider lock therapy with Vanco vs removal of port--> will await opinion from ID ECHO negative for obvious valvular vegetation If gets lock therapy, will need PIV placed temporarily, and if needs port removal, would need PICC line placed (3) Atrial fibrillation/flutter: With h/o PAFlutter; here with rapid A-flutter likely due to physiologic response to sepsis and infection - now improved after receiving IVFs and after resolution of sepsis Rates still slightly elevated in the low 100s -Continue Diltiazem 300mg daily -increase metoprolol XL to 37.5mg daily -Continue Flecainide 100mg po bid -Continue Eliquis 5mg po bid -continue Telemetry monitoring -dc IVFs as now taking po (4) Hypokalemia: was severe at 3.0, possibly due to poor po intake, now improved -replace with IV and po KCl today to keep>4.0 -follow BMP (5) Obstructive sleep apnea: Patient with CPAP at home -CPAP qHS at 16 (6) Hyperlipidemia: Chronic -Continue Atorvastatin (7) Sarcoma of buttock: Patient with newly diagnosed pleomorphic sarcoma of the buttock, 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 S/p induction chemotherapy 05/04 complicated by chemo-induced delirium. Drain in place. CT scan here shows enlarging pulm nodules and sarcoma in buttocks -Wound Care consult -Empiric antibiotics as above -has KHUSHI drain in place from wound-necrotic appearing on CT scan this admission likely secondary to infection vs chemo effect -continue tramadol prn pain (8) Hypophosphatemia: low again-replaced with IV phos (9) Hyponatremia: Ac=803 on admission and likely secondary to poor po intake. Suspect mild degree of volume contraction -NSS was given and now Na+ normal -follow BMP (10) Morbid obesity: BMI 61 -needs weight loss counseling (11) Anemia: Hgb dropped to 9.6 and stable, likely secondary to antineoplastic effect -follow CBC (12) Adjustment disorder: Started on Effexor for depressed mood here by Oncology -follow mood-seems improved today (13) DVT prophylaxis: Jennifer Dispo-continue tele monitoring Subjective Feeling better today, more energy, better appetite. is having some soreness he noticed today at his port site. No CP or SOB Tele with Aflutter, rates low 100s Review of Systems All systems reviewed & are unremarkable except as noted in HPI & below Physical Exam Vital Signs (Past 24 Hours): Last Vital Signs Temp 36.5 C 05/19/18 12:34 Pulse 113 H 05/19/18 12:34 Resp 20 05/19/18 12:34 BP 104/64 05/19/18 12:34 Pulse Ox 92 05/19/18 12:34 Constitutional: WD/WN, vitals as above + morbidly obese Eyes: PERRL, conjunctivae normal, anicteric sclerae Neck: trachea midline, no thyromegaly Respiratory: normal respiratory effort, lungs clear to auscultation Cardiovascular: RRR, no murmur, no edema Gastrointestinal (Abdomen): normal bowel sounds, soft, nontender, no hepatosplenomegaly Musculoskeletal: Extremities: + extremities abnormal to inspection (left buttocks with immensely large mass about 12 inches across protruding), no cyanosis and no clubbing Skin: + erythema (over left buttocks and also some erythema surrounding port) Neurologic: moves all extremities and awake; no focal motor deficits Psychiatric: A+Ox3, euthymic affect Results & Data Laboratory Results 05/19/18 05/19/18 Range/Units 05:23 05:23 WBC 6.22 (4.8-10.8) K/uL RBC 3.50 L (4.7-6.1) M/uL Hgb 9.6 L (14.0-18.0) g/dL Hct 29.4 L (42-52) % MCV 84.0 (80-100) fL MCH 27.4 (25-34) pg MCHC 32.7 (32-36) g/dL RDW Std Deviation 43.6 (36.4-46.3) fL RDW Coeff of Silas 14.4 (11.5-14.5) % Plt Count 279 (130-400) K/uL MPV 10.3 (7.4-10.4) fL Immature Gran % (Auto) 8.0 % Neut % (Auto) 62.6 % Lymph % (Auto) 8.8 % [place] % (Auto) 20.1 % Eos % (Auto) 0.2 % Baso % (Auto) 0.3 % Immature Gran # (Auto) 0.50 H (0.00-0.02) K/uL Neut # (Auto) 3.89 (1.4-6.5) K/uL Lymph # (Auto) 0.55 L (1.2-3.4) K/uL [place] # (Auto) 1.25 H (0.11-0.59) K/uL Eos # (Auto) 0.01 (0-0.5) K/uL Baso # (Auto) 0.02 (0-0.2) K/uL Toxic Granulation 2+ Dohle Bodies 1+ Sodium 137 (136-145) mmol/L Potassium 3.5 D (3.5-5.1) mmol/L Chloride 104 (98-107) mmol/L Carbon Dioxide 27 (21-32) mmol/L Anion Gap 6.0 (3-11) BUN 10 (7-18) mg/dl Creatinine 0.64 (0.6-1.4) mg/dl Est Cr Clr Drug Dosing 207.1 ml/min Est GFR ( Amer) 126.0 Est GFR (Non-Af Amer) 108.7 BUN/Creatinine Ratio 15.8 (10-20) Glucose 108 H (70-99) mg/dl Calcium 7.5 L (8.5-10.1) mg/dl Phosphorus 1.8 L (2.5-4.9) mg/dl Magnesium 2.2 (1.8-2.4) mg/dl BCxs 05/18- NGTD BCx 05/17 Staph species 2/2 BCxs 05/16 MSSA (1) Hyperlipidemia Hyperlipidemia type: unspecified Qualified Code(s): E78.5 - Hyperlipidemia, unspecified
[2018-05-19] MEDS ORDERED: PERFLUTREN LIPID MICROSPHERE (DEFINITY) IV ONE (15:41)
[2018-05-20] MEDS: CEFAZOLIN 2000MG 2,000 MG/15 ML SYR IV SCH ×4 (01:24→20:46)
[2018-05-20] MEDS: TRAMADOL HCL 50 MG TABLET PO PRN ×3 (01:31→17:03)
[2018-05-20] MEDS: NSS + 20MEQ KCL 20 MEQ/1,000 ML BAG IV SCH (05:33)
[2018-05-20 06:09] LABS: Hematocrit (blood only) 31.4 % (42-52); Mean Corpuscular Hgb Conc 31.8 g/dL (32-36); Mean Corpuscular Volume 84.9 fL (80-100); Nucleated RBC # (auto) 0.03 K/uL (0-0); Nucleated RBC % (auto) 0.4 %; Platelet Count 347 K/uL (130-400); RDW Coefficient of Variation 14.5 % (11.5-14.5); RDW Standard Deviation 45.1 fL (36.4-46.3); White Blood Count 8.93 K/uL (4.8-10.8)
[2018-05-20 06:36] LABS: ALC (manual) 0.86 K/uL (1.2-3.4); Dohle Bodies 1+; Echinocytes 1+; Eosinophils # (manual) 0.08 K/uL (0-0.5); Eosinophils % (manual) 0.9 %; Lymphocytes # (manual) 0.86 K/uL (1.2-3.4); Lymphocytes % (manual) 9.6 %; Metamyelocytes # (manual) 0.46 K/uL (0-0); Metamyelocytes % (manual) 5.2 %; Monocytes # (manual) 1.55 K/uL (0.11-0.59); Monocytes % (manual) 17.4 %; Myelocytes # (manual) 0.15 K/uL (0-0); Myelocytes % (manual) 1.7 %; Neutrophils % (manual) 65.2 %; Toxic Granulation 1+
[2018-05-20 06:37] LABS: BUN Creatinine Ratio 16.8 (10-20); Calcium 7.9 mg/dl (8.5-10.1); Creatinine Clr Calc Pharmacy 230.1 ml/min; Est GFR (African American) 131.2; Est GFR (Non-African American) 113.2; Potassium 3.9 mmol/L (3.5-5.1)
[2018-05-20] MEDS: FLECAINIDE ACETATE 100 MG TABLET PO SCH ×2 (09:06→20:47)
[2018-05-20] MEDS: APIXABAN 5 MG TABLET PO SCH ×2 (09:06→20:46)
[2018-05-20] MEDS: FAMOTIDINE 20 MG TAB PO SCH ×2 (09:06→20:47)
[2018-05-20] MEDS: VENLAFAXINE HCL XR 75 MG CAPXR PO SCH (09:07)
[2018-05-20] MEDS: METOPROLOL SUCC 25MG EXT REL TAB PO SCH (09:08)
[2018-05-20] MEDS: ATORVASTATIN 40 MG TAB PO SCH (09:08)
[2018-05-20] MEDS: dilTIAZem ER 180 MG CAPCR PO SCH (09:08)
[2018-05-20] MEDS: dilTIAZem ER 120 MG CAPCR PO SCH (09:09)
[2018-05-20] MEDS: PSYLLIUM 58.6% POWDER PACKET PO SCH (09:10)
[2018-05-20] MEDS ORDERED: FUROSEMIDE 40 MG TAB PO ONE (13:42)
[2018-05-20] MEDS ORDERED: POTASSIUM CHLORIDE 20 MEQ TABCR PO STA (13:42)
--- NOTE | 2018-05-20 20:28 | Hospitalist Progress Note ---
Date of Service May 20, 2018 Assessment & Plan (1) Staphylococcus aureus bacteremia with sepsis: suspected source - PORT. alternatively it could have been from skin on buttocks. Port seems to be the source given his erythema and swelling. most recent blood cultures were negative. surface echo w/o obvious valvular vegetations but limited study. need for ALEXIS? appreciate ID consult. remains on ancef. need to remove port? salvage therapy? will d/w ID. Present on Admission?: Yes (2) Fever and neutropenia: resolved. 2nd to recent chemo for sarcoma. Present on Admission?: Yes (3) Sarcoma of buttock: left - recent diagnosis and recent initiation of Rx. follows with [facility]. will ask wound care to see due to the extent of his skin issues in this region. Present on Admission?: Yes (4) Morbid obesity: BMI 63 Present on Admission?: Yes (5) Edema: stop IVF. lasix 20mg x 1 along with K supplementation. patient is on chronic anticoagulation- DVT unlikely. could be due to diltiazem. Present on Admission?: No (6) Atrial fibrillation/flutter: stable telemetry. continue diltiazem and fleicanide. continue eliquis. (7) Obstructive sleep apnea: CPAP (8) Hyponatremia: resolved (9) DVT prophylaxis: eliquis BID PT, OT evals wound care consult Subjective patient states he has developed edema over the last few days. however he denies any dyspnea at rest or with exertion. port in left chest is modestly tender. denies fever/chills. appetite ok. only pain is in buttocks. Constitutional: no weakness Respiratory: no cough and no dyspnea Cardiovascular: no chest pain Gastrointestinal: no abdominal pain and no diarrhea/loose stools Physical Exam Vital Signs (Past 24 Hours): Last Vital Signs Temp 36.6 C 05/20/18 20:12 Pulse 82 05/20/18 20:12 Resp 20 05/20/18 20:12 BP 106/65 05/20/18 20:12 Pulse Ox 95 05/20/18 20:12 Constitutional: + morbidly obese; no acute distress and not ill appearing ENMT: external ear and nose normal, oropharynx normal Respiratory: normal respiratory effort, lungs clear to auscultation Cardiovascular: Rate/Rhythm: + abnormal rhythm (irregular) Heart Sounds: normal S1 and normal S2; no murmur Vessels: posterior tibial pulses present and dorsalis pedis pulses present; no JVD Extremities: + edema (2+b/l) Gastrointestinal (Abdomen): normal bowel sounds, soft, nontender, no hepatosplenomegaly Skin: Port - left upper chest - mild erythema surrounding port and mildly tender to touch; left buttock with severe induration, swelling, and KHUSHI drain in place; malodorous smell exuding from left buttock Psychiatric: A+Ox3, euthymic affect Results & Data Laboratory Results Laboratory Results - last 24 hr 05/20/18 05/20/18 05:22 05:22 WBC 8.93 RBC 3.70 L Hgb 10.0 L Hct 31.4 L MCV 84.9 MCH 27.0 MCHC 31.8 L RDW Std Deviation 45.1 RDW Coeff of Silas 14.5 Plt Count 347 MPV 10.0 Absolute Nucleated RBC 0.03 H Nucleated RBC % (auto) 0.4 Neutrophils % (Manual) 65.2 Lymphocytes % (Manual) 9.6 Monocytes % (Manual) 17.4 Eosinophils % (Manual) 0.9 Metamyelocytes % (Man) 5.2 Myelocytes % (Man) 1.7 Neutrophils # (Manual) 5.82 Total Absolute Neuts 5.82 Lymphocytes # (Manual) 0.86 L Total Abs Lymphocytes 0.86 L Monocytes # (Manual) 1.55 H Eosinophils # (Manual) 0.08 Metamyelocytes # (Man) 0.46 H Myelocytes # (Manual) 0.15 H Toxic Granulation 1+ Dohle Bodies 1+ Echinocytes 1+ Sodium 137 Potassium 3.9 Chloride 104 Carbon Dioxide 28 Anion Gap 5.0 BUN 10 Creatinine 0.58 L Est Cr Clr Drug Dosing 230.1 Est GFR ( Amer) 131.2 Est GFR (Non-Af Amer) 113.2 BUN/Creatinine Ratio 16.8 Glucose 107 H Calcium 7.9 L (1) Edema Edema type: unspecified Qualified Code(s): R60.9 - Edema, unspecified
[2018-05-21] MEDS: CEFAZOLIN 2000MG 2,000 MG/15 ML SYR IV SCH ×4 (02:13→20:39)
[2018-05-21] MEDS: TRAMADOL HCL 50 MG TABLET PO PRN ×2 (04:19→23:53)
[2018-05-21] MEDS: HEPARIN 100 UNIT/ML 5ML FLUSH FLUSH PRN (05:57)
[2018-05-21 07:06] LABS: BUN Creatinine Ratio 14.9 (10-20); Calcium 7.9 mg/dl (8.5-10.1); Creatinine Clr Calc Pharmacy 226.5 ml/min; Est GFR (African American) 130.3; Est GFR (Non-African American) 112.4; Potassium 3.6 mmol/L (3.5-5.1)
[2018-05-21] MEDS: VENLAFAXINE HCL XR 75 MG CAPXR PO SCH (08:29)
[2018-05-21] MEDS: dilTIAZem ER 120 MG CAPCR PO SCH (08:29)
[2018-05-21] MEDS: FLECAINIDE ACETATE 100 MG TABLET PO SCH ×2 (08:29→20:47)
[2018-05-21] MEDS: METOPROLOL SUCC 25MG EXT REL TAB PO SCH (08:29)
[2018-05-21] MEDS: APIXABAN 5 MG TABLET PO SCH ×2 (08:29→20:47)
[2018-05-21] MEDS: FAMOTIDINE 20 MG TAB PO SCH ×2 (08:29→20:47)
[2018-05-21] MEDS: ATORVASTATIN 40 MG TAB PO SCH (08:29)
[2018-05-21] MEDS: dilTIAZem ER 180 MG CAPCR PO SCH (08:29)
[2018-05-21] MEDS: PSYLLIUM 58.6% POWDER PACKET PO SCH (08:30)
[2018-05-21] MEDS: FUROSEMIDE 20 MG TAB PO SCH (11:14)
[2018-05-21] MEDS: POTASSIUM CHLORIDE 20 MEQ TABCR PO SCH (11:14)
[2018-05-21] MEDS: ACETAMINOPHEN 325 MG TAB PO PRN (15:28)
--- NOTE | 2018-05-21 18:18 | Surgery Consultation ---
Date of Consultation May 21, 2018 Assessment & Plan (1) Sarcoma of buttock: 58-year-old male with large left buttock sarcoma with metastatic disease to the lungs. He also presented with neutropenic fever and bacteremia, and the presumed source of infection is his port Infectious disease and the hospitalist service is decided against removing the port at this time. I agree with this as this was a difficult access given his body habitus, and he would be difficult for a PICC line or other venous access. Regarding his buttock sarcoma, it appears somewhat stable from the last time I saw it. The CT scan shows that it is likely necrotic and I imagine that is why it is grown several centimeters since the induction of chemotherapy. This is also likely why he has the erythema and edema present. No surgical intervention indicated. We will reassess tomorrow to make sure the drain is still functioning and that the erythema has not progressed. Present on Admission?: Yes History of Present Illness Attending Physician: Camacho Dixon History of Present Illness 58-year-old male well-known to me for left buttock sarcoma with metastatic disease to the lungs. He has a drain in place that appears to be functioning though he states it is slowing down over the past 24 hours. He also has a port that I placed a few weeks ago and has been undergoing chemotherapy with plans for a palliative resection of the sarcoma for comfort. He was admitted with a neutropenic fever and found to have bacteremia with staph growing in his blood. The presumed source is his port, however they have decided to continue with antibiotics at this time. I was consulted who evaluated the sarcoma as it appears to have grown in size but does not appear to have an acute abscess at this time. He states he is having no increased pain, though again he notes that the drain is producing less and has some leakage around it. He feels much better than when he was admitted a few days ago. Allergies Allergy/AdvReac Type Severity Reaction Status Date / Time No Known Allergies Allergy Unverified 05/16/18 15:36 Home Medications Home Medications Medication Instructions Recorded Confirmed Type diltiazem HCl 300 mg PO QAM 05/01/18 05/16/18 History flecainide 100 mg PO Q12H 05/01/18 05/16/18 History metoprolol succinate 25 mg PO QAM 05/01/18 05/16/18 History multivitamin 1 tab PO QAM 05/01/18 05/16/18 History atorvastatin 40 mg PO DAILY 05/04/18 05/16/18 History acetaminophen 1,000 mg PO Q8 #90 cap 05/08/18 05/16/18 Rx tramadol 100 mg PO Q6H PRN #60 tab 05/08/18 05/16/18 Rx psyllium husk [Metamucil] 1 dose PO QAM 05/16/18 05/16/18 History Patient History Medical History Anxiety Dyslipidemia History of atrial fibrillation ON ELIQUIS History of atrial flutter ON ELIQUIS Hypertension Morbid obesity with BMI of 60.0-69.9, adult Sarcoma of soft tissue Sleep apnea CPAP Surgical History History of cardioversion X 2 History of colonoscopy History of excision of pilonidal cyst History of inguinal hernia repair BL History of lumbar fusion History of wisdom tooth extraction Family History Father Family history of diabetes mellitus Mother , in her 70s Cancer Uterine,ovarian Social History Communication Ability: Effective Beliefs That Will Affect Care: None Current Living Situation: Spouse 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 Other Information That Helps Us Care for You: No Feels Safe at Home: Yes Safety Concerns: Feels Safe At This Time Smoking Status: Never smoker Hx Alcohol Use: No Hx Substance Use: No Review of Systems 10 point review of systems negative except as above Physical Exam Vital Signs (Past 24 Hours): Last Vital Signs Temp 36.6 C 05/21/18 15:48 Pulse 94 H 05/21/18 16:00 Resp 20 05/21/18 15:48 BP 108/69 05/21/18 15:48 Pulse Ox 96 05/21/18 15:48 Constitutional: WD/WN, vitals as above + obese Eyes: PERRL, conjunctivae normal, anicteric sclerae ENMT: external ear and nose normal, oropharynx normal Neck: trachea midline, no thyromegaly Respiratory: normal respiratory effort, lungs clear to auscultation Cardiovascular: RRR, no murmur, no edema Gastrointestinal (Abdomen): normal bowel sounds, soft, nontender, no hep atosplenomegaly Musculoskeletal: no cyanosis or clubbing, extremities motor strength 5/5 Skin: Large left buttock sarcoma, drain in place draining serous sinus fluid. There is some erythema and pitting edema, however this is stable from the last time I saw it. This appears to be more reaction to the size of the tumor rather than an infection Neurologic: PERRL, EOMI, accommodation nl, no face palsy, no dysarthria Psychiatric: A+Ox3, euthymic affect Lymphatic: no cervical or axillary lymphadenopathy Results & Data Laboratory Results Laboratory Results - last 24 hr 05/21/18 05:56 Sodium 139 Potassium 3.6 Chloride 103 Carbon Dioxide 28 Anion Gap 8.0 BUN 9 Creatinine 0.59 L Est Cr Clr Drug Dosing 226.5 Est GFR ( Amer) 130.3 Est GFR (Non-Af Amer) 112.4 BUN/Creatinine Ratio 14.9 Glucose 105 H Calcium 7.[address] abd pelvis IV con only CLINICAL HISTORY: left gluteal sarcoma/erythema/neutropenia/fever COMPARISON STUDY: 04/12/2018 TECHNIQUE: The patient was scanned in a dynamic helical fashion during intravenous administration of 122 cc of Optiray 320. A dose lowering technique was utilized adhering to the principles of ALARA. CT DOSE: 2349.17 mGy.cm FINDINGS: Lower chest: There are enlarging bilateral solid pulmonary nodules indicative of progressive pulmonary metastatic disease. Liver: The contrast-enhanced liver is normal in size, contour, and attenuation. There is no intrahepatic biliary ductal dilatation. The hepatic veins and portal veins are patent. Gallbladder: Unremarkable. Spleen: The spleen is enlarged measuring 16.8 cm Pancreas: Unremarkable. Adrenal glands: Unremarkable. Kidneys: There is symmetric renal cortical enhancement. The kidneys are normal in size without hydronephrosis. Bowel: Portions of bowel are not visible due to the patient's large body habitus. The right lateral abdomen is not fully included. There are no transition zones to indicate bowel obstruction. There is colonic diverticulosis. There are no acute peridiverticular inflammatory changes. The appendix is not visualized. Peritoneum: There is no intraperitoneal free air or abdominal ascites. Vasculature: The abdominal aorta is normal in course and caliber. Adenopathy: None. Pelvic viscera: The bladder, and pelvic viscera are unremarkable. Skeletal structures: Postsurgical changes are present within the lumbar spine. There is a very large are slightly visualized left sided gluteal mass measuring in excess of 20 cm. This contains multiple air locules as well as catheters. The multiple air bubbles likely indicate a necrotic/infected mass. IMPRESSION: 1. Technically limited study secondary to the patient's large body habitus. 2. Enlarging bilateral pulmonary nodules indicative of progressive pulmonary metastasis. 3. Partially visualized left-sided gluteal mass measuring in excess of 20 cm. This contains multiple air locules and catheters. The air bubbles indicate either a necrotic/infected mass.
--- NOTE | 2018-05-21 20:28 | Hospitalist Progress Note ---
Date of Service May 21, 2018 Assessment & Plan (1) Staphylococcus aureus bacteremia with sepsis: suspected source - PORT. alternatively it could have been from skin on buttocks. Port seems to be the top source. most recent blood cultures were negative (05/18/18). surface echo w/o obvious valvular vegetations but limited study. appreciate ID consult. remains on ancef. case d/w Dr. Carter today. plan - 14 day course of IV abx therapy from date of most recent negative blood culture. at d/c change to rocephin 2 grams IV daily. then after completion of IV abx change to prolonged oral course. at this time all providers feel we should leave port in place for now. (2) Fever and neutropenia: resolved. 2nd to recent chemo for sarcoma. (3) Sarcoma of buttock: left - recent diagnosis and recent initiation of Rx. follows with [facility] Dr. Candelario. Dr. Candelario formally consulted today - no surgical Rx at this time. wound care appreciated. (4) Morbid obesity: BMI 63 (5) Edema: continue lasix daily. daily labs. (6) Atrial fibrillation/flutter: ongoing poor rates. increase metoprolol xl to BID. continue diltiazem and fleicanide. continue eliquis. will speak with cardiology about alternative anti-arrhythmic. (7) Obstructive sleep apnea: CPAP (8) Hyponatremia: resolved (9) DVT prophylaxis: eliquis BID PT, OT evals hopefully home next couple of days daughter updated Subjective no new complaints edema is improved feels ok ambulating port feels similar to yesterday buttock pain similar although KHUSHI drain not draining as much today daughter updated at bedside Constitutional: no fever Respiratory: no cough and no dyspnea Cardiovascular: no chest pain Gastrointestinal: no abdominal pain and no diarrhea/loose stools Physical Exam Vital Signs (Past 24 Hours): Last Vital Signs Temp 36.8 C 05/21/18 19:41 Pulse 103 H 05/21/18 19:41 Resp 20 05/21/18 19:41 BP 129/76 05/21/18 19:41 Pulse Ox 93 05/21/18 19:41 Constitutional: + morbidly obese; no acute distress and not ill appearing ENMT: external ear and nose normal, oropharynx normal Respiratory: normal respiratory effort, lungs clear to auscultation Cardiovascular: Rate/Rhythm: + tachycardic; + abnormal rhythm (irregular) Heart Sounds: normal S1 and normal S2; no murmur Vessels: posterior tibial pulses present and dorsalis pedis pulses present; no JVD Extremities: + edema (1+b/l) Gastrointestinal (Abdomen): normal bowel sounds, soft, nontender, no hepatosplenomegaly Skin: port - mild erythema surrounding the device; no tenderness. left buttock - large amount of swelling and erythema extending most of left buttock; KHUSHI drain in place; no definable superficial abscess present; mild tenderness to palpation; foul odor present. Psychiatric: A+Ox3, euthymic affect (1) Edema Edema type: unspecified Qualified Code(s): R60.9 - Edema, unspecified
[2018-05-21] MEDS ORDERED: METOPROLOL SUCC 25MG EXT REL TAB PO SCH (21:00)
[2018-05-22] MEDS: CEFAZOLIN 2000MG 2,000 MG/15 ML SYR IV SCH ×4 (02:47→20:44)
[2018-05-22 06:08] LABS: Hemoglobin 10.7 g/dL (14.0-18.0); Mean Corpuscular Hgb Conc 32.4 g/dL (32-36); Mean Corpuscular Volume 84.8 fL (80-100); Mean Platelet Volume 9.7 fL (7.4-10.4); Nucleated RBC # (auto) 0.04 K/uL (0-0); Nucleated RBC % (auto) 0.3 %; Platelet Count 479 K/uL (130-400); RDW Coefficient of Variation 14.7 % (11.5-14.5); RDW Standard Deviation 45.3 fL (36.4-46.3); Red Blood Count 3.89 M/uL (4.7-6.1); White Blood Count 11.57 K/uL (4.8-10.8)
[2018-05-22 06:38] LABS: BUN Creatinine Ratio 13.8 (10-20); Calcium 8.2 mg/dl (8.5-10.1); Creatinine Clr Calc Pharmacy 234.4 ml/min; Est GFR (African American) 132.1; Magnesium 1.7 mg/dl (1.8-2.4); Potassium 3.7 mmol/L (3.5-5.1)
[2018-05-22] MEDS: MAGNESIUM SULFATE / D5W 1 GM/100 ML BAG IV SCH ×2 (08:15→09:20)
[2018-05-22] MEDS: METOPROLOL SUCC 25MG EXT REL TAB PO SCH (08:18)
[2018-05-22] MEDS: dilTIAZem ER 180 MG CAPCR PO SCH (08:18)
[2018-05-22] MEDS: FLECAINIDE ACETATE 100 MG TABLET PO SCH ×2 (08:18→20:52)
[2018-05-22] MEDS: dilTIAZem ER 120 MG CAPCR PO SCH (08:18)
[2018-05-22] MEDS: POTASSIUM CHLORIDE 20 MEQ TABCR PO SCH (08:18)
[2018-05-22] MEDS: ATORVASTATIN 40 MG TAB PO SCH (08:18)
[2018-05-22] MEDS: VENLAFAXINE HCL XR 75 MG CAPXR PO SCH (08:18)
[2018-05-22] MEDS: FUROSEMIDE 20 MG TAB PO SCH (08:19)
[2018-05-22] MEDS: PSYLLIUM 58.6% POWDER PACKET PO SCH (08:19)
[2018-05-22] MEDS: FAMOTIDINE 20 MG TAB PO SCH ×2 (08:19→20:52)
[2018-05-22] MEDS: APIXABAN 5 MG TABLET PO SCH ×2 (08:19→20:51)
[2018-05-22] MEDS: TRAMADOL HCL 50 MG TABLET PO PRN (08:27)
--- NOTE | 2018-05-22 12:44 | Medical Student Progress Note ---
Date of Service May 22, 2018 Assessment & Plan (1) Staphylococcus aureus bacteremia with sepsis: Positive blood culture 05/18, + staph aureus Started on IV Vancomycin, switched to IV Cephazolin for 14 days per ID consult Infection likely from port due to local erythema and tenderness of port, surgical consult decided against removing port No signs of vegetation on echo, consider ALEXIS to better visualize valve (2) Fever and neutropenia: resolved, secondary to chemotherapy 05/04 (3) Sarcoma of buttock: Diagnosed 04/10, completed first round of chemo 05/04/2018. Abdominal CT scan may be indicative of metastasis to lung. Site of sarcoma is edematous and erythematous, CT scan showed some necrosis from sarcoma which may be from chemo or may be a sign of infection. [facility] surgery Consult Would Care. (4) Edema: IVF were stopped 05/16/18 bilateral edema remains present, L>R Continue Lasix 20 mg with K supplement Edema type: unspecified Qualified Code(s): R60.9 - Edema, unspecified (5) Atrial fibrillation/flutter: On telemetry, Continue diltiazem, fleicanide, and metoprolol. On Eliquis for anticoagulation Place cardiology consult due to unstable rate control (6) Obstructive sleep apnea: Continue CPAP (7) Adjustment disorder: Pt saw therapist today, says mood is "ok," having issues with sleep Continue Venlafaxine Adjustment disorder type: with depressed mood Qualified Code(s): F43.21 - Adjustment disorder with depressed mood (8) Hypomagnesemia: Mg 1.7 4/2 MgSO4 D5 IV was started Subjective Pt is a 58 yo M w/ a hx of sarcoma of soft tissue recently treated with chemotherapy 05/04, hx of afib, paroxysmal aflutter, htn, on day 7 of his admission for febrile neutropenia and bacteremia w/ sepsis. Overnight, there were no acute changes. Nursing reports this morning that patient seemed depressed and was having pain at the site of his sarcoma and was given tramadol. When speaking to pt, says his mood feels "ok" although he is feeling tired since he did not sleep well last night. He states he spoke to the therapist today and they both agreed that he did not need to be seen by therapy. Pt's pain is at 4 /10 and is localized at site of sarcoma. Pt state pain feels better when lays on his abdomen, but cannot stay in that position for too long. Pt feels swelling in legs has subsided slightly. Pt says appetite feels okay, ate half his breakfast this morning and had a bm today. Pt denies new onset of fever, chills, nausea, vomitting, chest pain, SOB, abdominal pain, genitourinary sx, change in bms. ROS + L. gluteal pain, R. & L. leg edema Musculoskeletal: + swelling (in legs bilaterally) Integumentary: + wounds (gluteal pain) and + alopecia Psychiatric: + depression Physical Exam Vital Signs (Past 24 Hours): Last Vital Signs Temp 36.6 C 05/22/18 07:44 Pulse 129 H 05/22/18 08:00 Resp 16 05/22/18 07:44 BP 100/61 05/22/18 07:44 Pulse Ox 93 05/22/18 07:44 Constitutional: well developed, + ill appearing and + obese Eyes: PERRL, conjunctivae normal, anicteric sclerae ENMT: external ear and nose normal, oropharynx normal Neck: normal visual inspection Respiratory: normal respiratory effort, lungs clear to auscultation Cardiovascular: Rate/Rhythm: + tachycardic (irregular rate, irregular rhythm ) Heart Sounds: normal S1 and normal S2 Extremities: normal capillary refill Gastrointestinal (Abdomen): normal bowel sounds, soft, nontender, no hepatosplenomegaly Musculoskeletal: Head/Neck/Chest: + abnormal inspection of chest wall (erythematous port at left upper chest) Extremities: extremities normal to inspection (IV line L. hand) Bilateral leg edema Skin: erythematous, edematous left gluteal at site of sarcoma with KHUSHI drain Psychiatric: Orientation: alert and oriented x 3 Affect: + depressed affect Suicidal Thoughts: denies suicidal thoughts Results & Data Laboratory Results WBC: RBC: 3.59 Hgb: 10/7 Hct 33 Na: 139 K: 3.7 Cl: 103 HCO3: 27 BUN: 8 Cr: .57 Glucose: 117 Ca: 8.2 M.7 Diagnostic Findings 05/[address] Enlarging Pulmonary nodules indicative of progressive metastasis Gluteal Mass measuring 20cm with signs of necrosis
[2018-05-22] MEDS: ACETAMINOPHEN 325 MG TAB PO PRN (15:46)
--- NOTE | 2018-05-22 16:05 | Surgery Progress Note ---
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 He also presented with neutropenic fever and bacteremia, and the presumed source of infection is his port. Infectious disease and the hospitalist service have decided against removing the port at this time. Regarding his buttock sarcoma, the drain may not be functioning, though I'm not sure it is producing all that much fluid. I would consider removing the drain as it will likely freely drain at this point no evidence of infection surgery will follow. 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 Admitted with neutropenic fever and bacteremia, believed secondary to infected port. Left buttock drain with minimal output, some leakage around it. Physical Exam Vital Signs (Past 24 Hours): Last Vital Signs Temp 36.6 C 05/22/18 15:37 Pulse 103 H 05/22/18 15:37 Resp 18 05/22/18 15:37 BP 107/68 05/22/18 15:37 Pulse Ox 94 05/22/18 15:37 Constitutional: WD/WN, vitals as above Skin: left buttock sarcoma with erythema and edema, no induration. Drain with minimal SS output, some necrotic tissue at insertion. Drain flushed, minimal return.
--- NOTE | 2018-05-22 17:10 | Cardiology Consultation ---
Date of Consultation May 22, 2018 Assessment & Plan (1) Atrial fibrillation/flutter: He is in atrial fibrillation with a somewhat rapid heart rate although he tolerates it well and on recent echocardiography his left ventricular function is good. I cannot tell for sure if he has had a lapse in anticoagulation, based on the records it appears so. I can only confirm that he is back on his anticoagulation since May 16, therefore just a little bit soon to consider cardioversion. He is on high dose Cardizem, low-dose metoprolol and moderate dose flecainide. We could increase his flecainide but I would like to hold off for now as he has not been anticoagulated and I do not want to encourage cardioversion. I am going to increase his metoprolol. Cardioversion is somewhat problematic in that we had difficulty converting his rhythm probably due to his size, the last time we did it I position patches with fluoroscopic guidance but this is a cumbersome procedure and cannot be easily accomplished on short notice. We will keep that in mind however as a future consideration. History of Present Illness Reason for Consultation: Atrial fibrillation with a rapid ventricular response Attending Physician: Camacho Dixon History of Present Illness This is a very pleasant 57-year-old gentleman who has a history of obesity and back difficulty for which he had surgery in 2014. He was having symptoms of progressive dyspnea on exertion for several months and presented to the office on 01/12/2016. He also noted palpitations and a sensation of a rapid heart rate as well as some peripheral edema. Evaluation disclosed atrial flutter with a rapid ventricular response (predominantly 2-1). He was hospitalized, left ventricular function was normal on echocardiography and he was started on diltiazem and heparin infusions. These were subsequently switched to oral diltiazem and Eliquis and he was discharged for outpatient treatment. His symptoms may go back almost a year before that, he is not very clear as to when they started but certainly they were much worse for a few days prior to hospitalization. He had noticed increasing difficulty with peripheral edema over the prior year and he has been less active over the prior year. He has not sought medical advice however and has not had electrocardiography therefore the time of onset is not definitely known. We arranged cardioversion after anticoagulation, this was done on 02/18/2016 however was unsuccessful (he is a very large gentleman). We therefore rescheduled it for 03/30/2016, we set him up to use a patch placement under fluoroscopy as well as 2 defibrillators however we were successful in converting him with a single 360 J shock on that occasion. He thinks he was in sinus rhythm (and felt considerably better) for perhaps 2 weeks and then had a return to atrial fibrillation which he felt was quite obvious at that time. His heart rate was somewhat fast therefore we started metoprolol succinate on 08/18/2016. He continued having shortness of breath, especially when walking or working outside in the sun, as well as some peripheral edema. He has also had his sleep apnea evaluated and treated, which may be part of the causation of his atrial fibrillation. Based on his symptoms we started flecainide 100 mg twice a day on 09/02/2016 and arranged cardioversion on 09/23/2016 which was successful in restoring sinus rhythm with a single shock. I last saw him in the office December 21, 2017 where he was in sinus rhythm. Since then he has had a number of difficulties including a sarcoma and is undergone chemotherapy. He has been observed to be back in atrial fibrillation now with a rapid heart rate. He was in atrial fibrillation as of May 16, 2018 as assessed by electrocardiography, prior to that on May 02, 2018 he was in sinus rhythm on electrocardiogram. He does not recall when his rhythm converted as he does not have much in the way of symptoms. He did have an echocardiogram May 19, 2018 where his left ventricular function was normal. His rate has typically been fast this admission. He remains on flecainide and diltiazem, as near as I can tell he does not seem to be on anticoagulation at home although he thought he was. His discharge from May 10, 2018 does not list an anticoagulant. Here he is on apixaban since May 16, 2018. On my evaluation today he remains asymptomatic with his arrhythmia. Allergies Allergy/AdvReac Type Severity Reaction Status Date / Time No Known Allergies Allergy Unverified 05/16/18 15:36 Home Medications Home Medications Medication Instructions Recorded Confirmed Type diltiazem HCl 300 mg PO QAM 05/01/18 06/04/18 History multivitamin 1 tab PO QAM 05/01/18 06/04/18 History atorvastatin 40 mg PO DAILY 05/04/18 06/04/18 History acetaminophen 1,000 mg PO Q8 #90 cap 05/08/18 06/04/18 Rx tramadol 100 mg PO Q6H PRN #60 tab 05/08/18 06/04/18 Rx Metamucil 1 dose PO QAM 05/16/18 06/04/18 History Eliquis 5 mg PO BID 05/27/18 06/04/18 History amoxicillin-pot clavulanate 1 tab PO BID #60 tab 05/27/18 06/04/18 Rx [Augmentin] flecainide 150 mg PO Q12H #60 tab 05/27/18 06/04/18 Rx furosemide 20 mg PO QAM #30 tab 05/27/18 06/04/18 Rx magnesium oxide 400 mg PO BID #60 tab 05/27/18 06/04/18 Rx metoprolol succinate 50 mg PO BID #60 tab 05/27/18 06/04/18 Rx potassium chloride [Klor-Con M20] 20 meq PO QAM #30 tab 05/27/18 06/04/18 Rx venlafaxine 75 mg PO QAM #30 cap 05/27/18 06/04/18 Rx Patient History Medical History Anxiety Dyslipidemia History of atrial fibrillation ON ELIQUIS History of atrial flutter ON ELIQUIS Hypertension Morbid obesity with BMI of 60.0-69.9, adult Sarcoma of soft tissue Sleep apnea CPAP Surgical History History of cardioversion X 2 History of colonoscopy History of excision of pilonidal cyst History of inguinal hernia repair BL History of lumbar fusion History of wisdom tooth extraction Family History Father Family history of diabetes mellitus Mother , in her 70s Cancer Uterine,ovarian Social History Smoking Status: Never smoker second hand exposure: No substance use type: does not use Physical Exam Vital Signs (Past 24 Hours): Last Vital Signs Temp 36.6 C 05/22/18 15:37 Pulse 103 H 05/22/18 15:37 Resp 18 05/22/18 15:37 BP 107/68 05/22/18 15:37 Pulse Ox 94 05/22/18 15:37 Physical Exam: Constitutional: Alert, cooperative and in no distress. HEENT: Unremarkable Neck: No jugular venous distention, carotid pulses are irregular but otherwise normal and equal bilaterally without bruits. Pulmonary: Clear to auscultation bilaterally. Cardiac: Irregular rhythm with no murmur, gallop or rub. Abdomen: Soft, nontender with normal bowel sounds. Extremities: Bilateral pretibial edema. Distal pulses intact. Neurologic: No focal findings. Gait was not tested. Skin: No rash, ecchymoses or petechiae. Results & Data Diagnostic Findings His electrocardiogram from May 16, 2018 shows atrial fibrillation with a rapid ventricular response of 113 bpm. He does have low voltage but no significant abnormality otherwise. An echocardiogram done May 19, 2018 shows normal left ventricular systolic function with no regional wall motion abnormalities, ejection fraction is 55- 60%.
[2018-05-22] MEDS: METOPROLOL SUCC 50MG EXT REL TAB PO SCH (20:52)
--- NOTE | 2018-05-22 21:06 | Hospitalist Progress Note ---
Date of Service May 22, 2018 Assessment & Plan (1) Staphylococcus aureus bacteremia with sepsis: suspected source - PORT. alternatively it could have been from skin on buttocks. Port seems to be the top source. most recent blood cultures were negative (05/18/18). surface echo w/o obvious valvular vegetations but limited study. appreciate ID consult. remains on ancef. case d/w Dr. Carter and plan is as follows -- 14 day course of IV abx therapy from date of most recent negative blood culture. at d/c change to rocephin 2 grams IV daily. then after completion of IV abx change to prolonged oral course. at this time all providers feel we should leave port in place for now. today is day #5 of 14 of IV abx therapy. (2) Fever and neutropenia: resolved. 2nd to recent chemo for sarcoma. (3) Sarcoma of buttock: left - recent diagnosis and recent initiation of Rx. follows with [facility] Dr. Candelario. Dr. Candelario formally consulted - no surgical Rx at this time. wound care appreciated. KHUSHI drain in place -- continue. (4) Morbid obesity: BMI 59 (5) Edema: continue lasix daily. daily labs. doubt DVT as he has been taking eliquis BID. (6) Atrial fibrillation/flutter: ongoing poor rates. Dr. Abdlulahi consulted - metoprolol xl increased to 50mg BID. continue diltiazem and fleicanide. continue eliquis. poor candidate for cardioversion. (7) Obstructive sleep apnea: CPAP (8) Hyponatremia: resolved (9) Hypomagnesemia: 2 grams mag sulfate today repeat Mag level am (10) Depression: consider increase in effexor (11) DVT prophylaxis: eliquis BID PT, OT evals - cleared for home hopefully home next couple of days depending on a.flutter Subjective patient w/o any significant complaints or changes from yesterday tele with rapid a flutter, rates often >100 at rest he does not feel the rapid heart rates; denies palpitations Constitutional: no fever, no chills and no anorexia Respiratory: no cough and no dyspnea Cardiovascular: + edema; no chest pain, no orthopnea and no paroxysmal nocturnal dyspnea Gastrointestinal: no abdominal pain, no nausea, no vomiting and no diarrhea/loose stools Physical Exam Vital Signs (Past 24 Hours): Last Vital Signs Temp 36.5 C 05/22/18 19:44 Pulse 90 05/22/18 20:43 Resp 20 05/22/18 19:44 BP 119/65 05/22/18 20:43 Pulse Ox 96 05/22/18 20:43 Constitutional: + morbidly obese; no acute distress and not ill appearing ENMT: external ear and nose normal, oropharynx normal Respiratory: normal respiratory effort, lungs clear to auscultation Cardiovascular: Rate/Rhythm: + tachycardic; + abnormal rhythm (irregular) Heart Sounds: normal S1 and normal S2; no murmur Vessels: posterior tibial pulses present and dorsalis pedis pulses present; no JVD Extremities: + edema (1+b/l) Gastrointestinal (Abdomen): normal bowel sounds, soft, nontender, no hepatosplenomegaly Skin: mild erythema surrounding his left central PORT; no tenderness to palpation. left gluteal sarcoma --- very swollen, mildly erythematous -- no changes from yesterday's examination. Psychiatric: A+Ox3, euthymic affect Results & Data Laboratory Results Laboratory Results - last 24 hr 05/22/18 05/22/18 05:45 05:45 WBC 11.57 H RBC 3.89 L Hgb 10.7 L Hct 33.0 L MCV 84.8 MCH 27.5 MCHC 32.4 RDW Std Deviation 45.3 RDW Coeff of Silas 14.7 H Plt Count 479 H MPV 9.7 Absolute Nucleated RBC 0.04 H Nucleated RBC % (auto) 0.3 Sodium 139 Potassium 3.7 Chloride 103 Carbon Dioxide 27 Anion Gap 9.0 BUN 8 Creatinine 0.57 L Est Cr Clr Drug Dosing 234.4 Est GFR ( Amer) 132.1 Est GFR (Non-Af Amer) 114.0 BUN/Creatinine Ratio 13.8 Glucose 117 H Calcium 8.2 L Magnesium 1.7 L (1) Edema Edema type: unspecified Qualified Code(s): R60.9 - Edema, unspecified (2) Depression Depression Type: unspecified Qualified Code(s): F32.9 - Major depressive disorder, single episode, unspecified
[2018-05-23] MEDS: CEFAZOLIN 2000MG 2,000 MG/15 ML SYR IV SCH ×4 (01:46→20:38)
[2018-05-23] MEDS: HEPARIN 100 UNIT/ML 5ML FLUSH FLUSH PRN (06:22)
[2018-05-23 06:37] LABS: Hematocrit (blood only) 31.9 % (42-52); Hemoglobin 10.2 g/dL (14.0-18.0); Mean Corpuscular Volume 85.8 fL (80-100); Mean Platelet Volume 9.5 fL (7.4-10.4); Nucleated RBC # (auto) 0.05 K/uL (0-0); Nucleated RBC % (auto) 0.3 %; Platelet Count 468 K/uL (130-400); RDW Coefficient of Variation 14.9 % (11.5-14.5); RDW Standard Deviation 45.8 fL (36.4-46.3); Red Blood Count 3.72 M/uL (4.7-6.1)
[2018-05-23 07:02] LABS: BUN Creatinine Ratio 13.5 (10-20); Creatinine Clr Calc Pharmacy 250.8 ml/min; Est GFR (African American) 136.1; Est GFR (Non-African American) 117.5; Magnesium 1.8 mg/dl (1.8-2.4); Potassium 3.6 mmol/L (3.5-5.1)
[2018-05-23] MEDS: ATORVASTATIN 40 MG TAB PO SCH (08:42)
[2018-05-23] MEDS: TRAMADOL HCL 50 MG TABLET PO PRN ×3 (08:42→23:56)
[2018-05-23] MEDS: FUROSEMIDE 20 MG TAB PO SCH (08:43)
[2018-05-23] MEDS: APIXABAN 5 MG TABLET PO SCH ×2 (08:43→21:54)
[2018-05-23] MEDS: dilTIAZem ER 180 MG CAPCR PO SCH (08:43)
[2018-05-23] MEDS: FAMOTIDINE 20 MG TAB PO SCH (08:43)
[2018-05-23] MEDS: POTASSIUM CHLORIDE 20 MEQ TABCR PO SCH (08:43)
[2018-05-23] MEDS: VENLAFAXINE HCL XR 75 MG CAPXR PO SCH (08:43)
[2018-05-23] MEDS: FLECAINIDE ACETATE 100 MG TABLET PO SCH ×2 (08:43→20:46)
[2018-05-23] MEDS: PSYLLIUM 58.6% POWDER PACKET PO SCH (08:44)
[2018-05-23] MEDS: dilTIAZem ER 120 MG CAPCR PO SCH (08:44)
[2018-05-23] MEDS: METOPROLOL SUCC 50MG EXT REL TAB PO SCH ×2 (08:44→20:47)
[2018-05-23] MEDS: MAGNESIUM OXIDE 400 MG TAB PO SCH ×2 (09:47→20:47)
--- NOTE | 2018-05-23 14:14 | Surgery Progress Note ---
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 He also presented with neutropenic fever and bacteremia, and the presumed source of infection is his port. Infectious disease and the hospitalist service have decided against removing the port at this time. Regarding his buttock sarcoma, the drain may not be functioning, though I'm not sure it is producing all that much fluid. We can leave the drain tomorrow, as it is acting like a curtis. daily drain flushes no evidence of infection surgery will follow. 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 Admitted with neutropenic fever and bacteremia, believed secondary to infected port. Left buttock drain with minimal output, some leakage around it. Physical Exam Vital Signs (Past 24 Hours): Last Vital Signs Temp 36.8 C 05/23/18 11:57 Pulse 123 H 05/23/18 11:57 Resp 20 05/23/18 11:57 BP 124/81 05/23/18 11:57 Pulse Ox 94 05/23/18 11:57 Constitutional: WD/WN, vitals as above + obese Skin: left buttock sarcoma with drain, no significant output. no change, stable edema. Some drainage around drain.
--- NOTE | 2018-05-23 14:38 | Ultrasound Report ---
US venous doppler LE BI CLINICAL HISTORY: 58 years-old Male presenting with asymmetric lower extremity swelling left greater than right, m edema, cancer; eval for DVT. TECHNIQUE: Real-time grayscale and color and spectral Doppler ultrasound imaging of the veins of the bilateral lower extremities was performed. Compression and augmentation were also utilized. COMPARISON: None. FINDINGS: RIGHT: Common femoral vein: Patent. Greater saphenous vein (superficial): Patent. Deep femoral vein: Patent. Femoral vein: Patent. Popliteal vein: Patent. Calf veins: Patent. LEFT: Common femoral vein: Patent. Greater saphenous vein (superficial): Patent. Deep femoral vein: Patent. Femoral vein: Patent. Popliteal vein: Patent. Calf veins: Patent. Other: None. IMPRESSION: No evidence of deep venous thrombosis. Electronically signed by: Lino Gonzales M.D. 05/23/2018 2:37 PM
--- NOTE | 2018-05-23 19:37 | Medical Student Progress Note ---
Date of Service May 23, 2018 Assessment & Plan (1) Staphylococcus aureus bacteremia with sepsis: Positive blood culture 05/18, + staph aureus Started on IV Vancomycin, switched to IV Cephazolin for 14 days per ID consult, rocephin upon discharge Infection likely from port due to local erythema and tenderness of port, surgical consult decided against removing port No signs of vegetation on echo, no fu ALEXIS WBC was slightly elevated today (13.30) in comparison to yesterday (11.57), but clinically pt has no sx that would suggest bacteremia has progressed (2) Fever and neutropenia: resolved, secondary to chemotherapy 05/04 (3) Sarcoma of buttock: Diagnosed 04/10, completed first round of chemo 05/04/2018. Abdominal CT scan may be indicative of metastasis to lung. Site of sarcoma is edematous and erythematous, CT scan showed some necrosis from sarcoma which may be from chemo or may be a sign of infection. [facility] Has been seen by surgery today, states to keep drain in (4) Edema: IVF were stopped 05/16/18 bilateral edema remains present, L>R Continue Lasix 20 mg with K supplement Due to pt being off of eliquis since 05/18, doppler ultrasound has been ordered to r/o dvt Edema type: unspecified Qualified Code(s): R60.9 - Edema, unspecified (5) Atrial fibrillation/flutter: On telemetry, Continue diltiazem, fleicanide, and metoprolol. On Eliquis for anticoagulation Cardiology has recommended increasing metoprolol, may consider increasing fleccinide but holding off for now, has decided against cardioversion (6) Obstructive sleep apnea: Continue CPAP (7) Adjustment disorder: Pt saw therapist today, says mood is "ok," having issues with sleep Continue Venlafaxine Adjustment disorder type: with depressed mood Qualified Code(s): F43.21 - Adjustment disorder with depressed mood Subjective Pt is a 58 yo M w/ a hx of sarcoma of soft tissue recently treated with chemotherapy 05/04, hx of afib, paroxysmal aflutter, htn, on day 8 of his adm ission for febrile neutropenia and bacteremia w/ sepsis. Overnight, there were no acute changes. Pt states he is feeling better and slept good. His drain in the buttock was leaking throughout the night and continues to slightly leak throughout the day. Pt says appetite feels okay, ate half his breakfast this morning and had a bm today. Pt was in the chair when seeing him and did ambulate throughout the day. Pt denies new onset of fever, chills, nausea, vomitting, chest pain, SOB, abdominal pain, genitourinary sx, change in bms. ROS + L. gluteal pain, R. & L. leg edema Telemetry notes pt has been in atrial flutter in the high 120s-130s Musculoskeletal: + swelling (in legs bilaterally) Integumentary: + wounds (gluteal pain) and + alopecia Psychiatric: + depression Physical Exam Vital Signs (Past 24 Hours): Last Vital Signs Temp 36.8 C 05/23/18 15:30 Pulse 91 H 05/23/18 15:58 Resp 18 05/23/18 15:30 BP 103/64 05/23/18 15:30 Pulse Ox 93 05/23/18 15:30 Constitutional: well developed, + ill appearing and + obese Eyes: PERRL, conjunctivae normal, anicteric sclerae ENMT: external ear and nose normal, oropharynx normal Neck: normal visual inspection Respiratory: normal respiratory effort, lungs clear to auscultation Cardiovascular: Rate/Rhythm: + tachycardic (irregular rate, irregular rhythm ) Heart Sounds: normal S1 and normal S2 Extremities: normal capillary refill Gastrointestinal (Abdomen): normal bowel sounds, soft, nontender, no hepatosplenomegaly Musculoskeletal: Head/Neck/Chest: + abnormal inspection of chest wall (erythematous port at left upper chest) Extremities: extremities normal to inspection (IV line L. hand) Psychiatric: Orientation: alert and oriented x 3 Affect: + depressed affect Suicidal Thoughts: denies suicidal thoughts
--- NOTE | 2018-05-23 20:44 | Hospitalist Progress Note ---
Date of Service May 23, 2018 Assessment & Plan (1) Staphylococcus aureus bacteremia with sepsis: suspected source - PORT. alternatively it could have been from skin on buttocks. Port seems to be the top source. most recent blood cultures were negative (05/18/18). surface echo w/o obvious valvular vegetations but limited study. appreciate ID consult. remains on ancef. case d/w Dr. Carter and plan is as follows -- 14 day course of IV abx therapy from date of most recent negative blood culture. at d/c change to rocephin 2 grams IV daily. then after completion of IV abx change to prolonged oral course. at this time all providers feel we should leave port in place for now. today is day #6 of 14 of IV abx therapy. I discussed the possibility of ALEXIS with Dr. Abdullahi to get a better look at valves for endocarditis; this might be possible as patient may need cardioversion for a. flutter as well. 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 follows with [facility] Gen surg Dr. Candelario. Dr. Candelario formally consulted - no surgical Rx at this time. wound care appreciated. KHUSHI drain in place -- continue. will need referral back to oncology shortly after hospital d/c. of note - patient did NOT receive neulasta following previous round of chemo thus leukocytosis is not from such. (3) Atrial fibrillation/flutter: ongoing challenging rate control despite increase in toprol xl to 50 BID and use of diltiazem and fleicanide. remains on eliquis. pharmacy mentioned today during rounds that the studies are poor on use of eliquis in extreme morbid obesity --- need to d/w Dr. Abdullahi. I spoke with Dr. Abdullahi today -- we may pursue ALEXIS cardiverson THIS Monday. to be determined. Present on Admission?: Yes (4) Fever and neutropenia: resolved. 2nd to recent chemo for sarcoma. (5) Obstructive sleep apnea: CPAP (6) Edema: continue lasix daily. daily labs. dopplers w/o DVT. (7) Hyponatremia: resolved (8) Hypomagnesemia: resolved (9) Depression: consider increase in effexor (10) Morbid obesity: BMI about 60 (11) DVT prophylaxis: eliquis BID PT, OT evals - cleared for home once a. flutter has been controlled and IV abx approved can d/c home --- later this week? Subjective no major complaints today pain in buttocks is controlled appetite fair-good ambulating tele - a.flutter with rates to 120s/130s with ambulating in room Constitutional: no fever and no chills Respiratory: no cough and no dyspnea Cardiovascular: + edema; no chest pain, no orthopnea and no paroxysmal nocturnal dyspnea Gastrointestinal: no abdominal pain, no bloating, no nausea and no vomiting Physical Exam Vital Signs (Past 24 Hours): Last Vital Signs Temp 36.7 C 05/23/18 19:59 Pulse 104 H 05/23/18 20:37 Resp 18 05/23/18 19:59 BP 118/72 05/23/18 20:37 Pulse Ox 92 05/23/18 20:37 Constitutional: + morbidly obese; no acute distress and not ill appearing ENMT: external ear and nose normal, oropharynx normal Respiratory: normal respiratory effort, lungs clear to auscultation Cardiovascular: Rate/Rhythm: + tachycardic; + abnormal rhythm (irregular) Heart Sounds: normal S1 and normal S2; no murmur Vessels: posterior tibial pulses present and dorsalis pedis pulses present; no JVD Extremities: + edema (1-2+ b/l) Gastrointestinal (Abdomen): normal bowel sounds, soft, nontender, no hepatosplenomegaly Skin: port - left chest - still w/ mild erythema and swelling but not tender -- this is similar to yesterday's exam. left buttock swelling/mass/erythema -- no change. KHUSHI drain in place. Psychiatric: A+Ox3, euthymic affect Results & Data Laboratory Results Laboratory Results - last 24 hr 05/23/18 05/23/18 06:20 06:20 WBC 13.30 H RBC 3.72 L Hgb 10.2 L Hct 31.9 L MCV 85.8 MCH 27.4 MCHC 32.0 RDW Std Deviation 45.8 RDW Coeff of Silas 14.9 H Plt Count 468 H MPV 9.5 Absolute Nucleated RBC 0.05 H Nucleated RBC % (auto) 0.3 Sodium 140 Potassium 3.6 Chloride 103 Carbon Dioxide 30 Anion Gap 7.0 BUN 7 Creatinine 0.53 L Est Cr Clr Drug Dosing 250.8 Est GFR ( Amer) 136.1 Est GFR (Non-Af Amer) 117.5 BUN/Creatinine Ratio 13.5 Glucose 103 H Calcium 8.0 L Magnesium 1.8 (1) Depression Depression Type: unspecified Qualified Code(s): F32.9 - Major depressive disorder, single episode, unspecified (2) Edema Edema type: unspecified Qualified Code(s): R60.9 - Edema, unspecified
[2018-05-24] MEDS: CEFAZOLIN 2000MG 2,000 MG/15 ML SYR IV SCH ×4 (02:27→20:22)
[2018-05-24 06:03] LABS: Hematocrit (blood only) 32.1 % (42-52); Hemoglobin 10.1 g/dL (14.0-18.0); Mean Corpuscular Hgb Conc 31.5 g/dL (32-36); Mean Corpuscular Volume 86.5 fL (80-100); Mean Platelet Volume 9.4 fL (7.4-10.4); Platelet Count 468 K/uL (130-400); RDW Coefficient of Variation 15.1 % (11.5-14.5); RDW Standard Deviation 46.3 fL (36.4-46.3); Red Blood Count 3.71 M/uL (4.7-6.1); White Blood Count 13.74 K/uL (4.8-10.8)
[2018-05-24 06:42] LABS: BUN Creatinine Ratio 13.7 (10-20); Calcium 8.1 mg/dl (8.5-10.1); Creatinine Clr Calc Pharmacy 255.7 ml/min; Est GFR (African American) 137.2; Est GFR (Non-African American) 118.4; Potassium 3.9 mmol/L (3.5-5.1)
[2018-05-24 06:43] LABS: C Reactive Protein 12.4 mg/dl (0-0.29)
[2018-05-24 06:45] LABS: ALC (manual) 1.21 K/uL (1.2-3.4); Lymphocytes # (manual) 1.21 K/uL (1.2-3.4); Lymphocytes % (manual) 8.8 %; Metamyelocytes # (manual) 0.73 K/uL (0-0); Metamyelocytes % (manual) 5.3 %; Monocytes # (manual) 0.48 K/uL (0.11-0.59); Monocytes % (manual) 3.5 %; Myelocytes # (manual) 0.36 K/uL (0-0); Myelocytes % (manual) 2.6 %; Neutrophils % (manual) 79.8 %; RBC Morphology Unremarkable
[2018-05-24] MEDS: TRAMADOL HCL 50 MG TABLET PO PRN ×3 (08:13→21:40)
[2018-05-24] MEDS: ATORVASTATIN 40 MG TAB PO SCH (08:15)
[2018-05-24] MEDS: PSYLLIUM 58.6% POWDER PACKET PO SCH (08:15)
[2018-05-24] MEDS: dilTIAZem ER 120 MG CAPCR PO SCH (08:15)
[2018-05-24] MEDS: METOPROLOL SUCC 50MG EXT REL TAB PO SCH ×2 (08:15→20:29)
[2018-05-24] MEDS: APIXABAN 5 MG TABLET PO SCH ×2 (08:15→20:30)
[2018-05-24] MEDS: dilTIAZem ER 180 MG CAPCR PO SCH (08:16)
[2018-05-24] MEDS: MAGNESIUM OXIDE 400 MG TAB PO SCH ×2 (08:16→20:30)
[2018-05-24] MEDS: VENLAFAXINE HCL XR 75 MG CAPXR PO SCH (08:16)
[2018-05-24] MEDS: FUROSEMIDE 20 MG TAB PO SCH (08:16)
[2018-05-24] MEDS: FLECAINIDE ACETATE 100 MG TABLET PO SCH ×2 (08:16→20:30)
[2018-05-24] MEDS: POTASSIUM CHLORIDE 20 MEQ TABCR PO SCH (08:16)
[2018-05-24] MEDS ORDERED: PROPOFOL IV EMULSION 10 MG/ML 20 ML VIAL IV ONE ×2 (08:57→09:43)
[2018-05-24] MEDS ORDERED: MIDAZOLAM HCL 1 MG/ML 2ML VIAL ONE (08:57)
[2018-05-24] MEDS ORDERED: LIDOCAINE HCL 2% 2 ML VIAL/AMP(20MG/ML) INFIL ONE (08:57)
--- NOTE | 2018-05-24 09:05 | Anesthesiology Consultation ---
Date of Service May 24, 2018 Assessment & Plan (1) Encounter for pre-operative examination: Chart Review Chart Review: Acceptable Risk for Surgery Consults Requested none ASA ASA4 Proposed Anesthesia Anesthesia Type: MAC Risk / Benefits Reviewed With: PT / POA / Parent / Guardian, Accepts Plan and Informed Consent Obtained NPO Date Last Intake of Fluids: 05/23/18 Time Last Intake of Fluids: 17:30 Date Last Intake of Solids: 05/23/18 Time Last Intake of Solids: 17:30 History Height/Weight Height: 5 ft 8 in Weight: 184.8 kg Allergies Allergy/AdvReac Type Severity Reaction Status Date / Time No Known Allergies Allergy Unverified 05/16/18 15:36 Medications Home Medications Medication Instructions Recorded Confirmed Last Taken diltiazem HCl 300 mg PO QAM 05/01/18 05/16/18 05/16/18 flecainide 100 mg PO Q12H 05/01/18 05/16/18 05/16/18 metoprolol succinate 25 mg PO QAM 05/01/18 05/16/18 05/16/18 multivitamin 1 tab PO QAM 05/01/18 05/16/18 05/16/18 atorvastatin 40 mg PO DAILY 05/04/18 05/16/18 05/15/18 acetaminophen 1,000 mg PO Q8 #90 cap 05/08/18 05/16/18 05/16/18 tramadol 100 mg PO Q6H PRN #60 tab 05/08/18 05/16/18 Unknown psyllium husk [Metamucil] 1 dose PO QAM 05/16/18 05/16/18 05/16/18 Active Medications Generic Name Dose Route Start Last Admin Trade Name Freq PRN Reason Stop Dose Admin Acetaminophen 650 mg 05/16/18 21:18 05/22/18 15:46 Tylenol PO 06/15/18 21:17 650 mg Q4H PRN Administration pain/fever Apixaban 5 mg 05/16/18 21:18 05/24/18 08:15 Eliquis PO 06/15/18 21:17 5 mg BID ALICIA Administration Atorvastatin Calcium 40 mg 05/17/18 09:00 05/24/18 08:15 Lipitor PO 06/16/18 08:59 40 mg DAILY ALICIA Administration Calcium Carbonate 1,500 mg 05/17/18 16:51 05/17/18 17:41 Tums PO 06/16/18 16:50 1,500 mg BID PRN Administration Indigestion Diltiazem HCl 180 mg 05/17/18 09:00 05/24/18 08:16 Tiazac PO 06/16/18 08:59 180 mg QAM ALICIA Administration Diltiazem HCl 120 mg 05/17/18 09:00 05/24/18 08:15 Tiazac PO 06/16/18 08:59 120 mg QAM ALICIA Administration Flecainide Acetate 100 mg 05/16/18 22:00 05/24/18 08:16 Tambocor PO 06/15/18 21:59 100 mg Q12 ALICIA Administration Furosemide 20 mg 05/21/18 09:00 05/24/18 08:16 Lasix PO 06/20/18 08:59 20 mg QAM ALICIA Administration Heparin Sodium (Porcine) 5 ml 05/18/18 23:56 05/23/18 06:22 Heparin Sod 100 Unit/Ml Flush FLUSH 06/17/18 23:44 5 ml PRN PRN Administration Flush Cefazolin Sodium 2,000 mg in 15 mls @ 3.75 mls/min 05/18/18 14:00 05/24/18 08:17 Ancef 2000mg IV 06/01/18 00:00 3.75 mls/min Q6H ALICIA Administration Protocol Magnesium Oxide 400 mg 05/23/18 09:00 05/24/18 08:16 Mag-Ox PO 06/22/18 08:59 400 mg BID ALICIA Administration Metoprolol Succinate 50 mg 05/22/18 21:00 05/24/18 08:15 Toprol Xl PO 06/21/18 20:59 50 mg BID ALICIA Administration Potassium Chloride 20 meq 05/21/18 09:00 05/24/18 08:16 Klor-Con M20 PO 06/20/18 08:59 20 meq QAM ALICIA Administration Psyllium Hydrophilic Mucilloid 1 pkt 05/17/18 09:00 05/24/18 08:15 Metamucil PO 06/16/18 08:59 1 pkt QAM ALICIA Administration Tramadol HCl 100 mg 05/16/18 21:18 05/24/18 08:13 Ultram PO 06/15/18 21:17 100 mg Q6H PRN Administration pain Venlafaxine HCl 75 mg 05/17/18 09:00 05/24/18 08:16 Effexor Extended Release PO 06/16/18 08:59 75 mg QAM ALICIA Administration Past Medical History Medical History Anxiety Dyslipidemia History of atrial fibrillation ON ELIQUIS History of atrial flutter ON ELIQUIS Hypertension Morbid obesity with BMI of 60.0-69.9, adult Sarcoma of soft tissue Sleep apnea CPAP Past Family History Family History Father Family history of diabetes mellitus Mother , in her 70s Cancer Uterine,ovarian Past Surgical History Surgical History History of cardioversion X 2 History of colonoscopy History of excision of pilonidal cyst History of inguinal hernia repair BL History of lumbar fusion History of wisdom tooth extraction Past Anesthesia History No Hx of Anesthesia Complications and No Family Hx of Anesthesia Complications History of PONV No Motion Sickness Screening History of Motion Sickness: No Social History Smoking Status: Never smoker tobacco type: smokeless tobacco Do You Dip or Chew Tobacco: No (quit 1 month ago) Hx Alcohol Use: No Hx Substance Use: No substance use type: does not use Exercise / Class Metabolic Activity III < 4 Walking/Shop/Light housework Physical Exam Vital Signs Last Vital Signs Temp 97.9 F 05/24/18 07:50 Pulse 121 H 05/24/18 07:50 Resp 20 05/24/18 07:50 BP 105/69 05/24/18 07:50 Pulse Ox 95 05/24/18 07:50 ENMT Mouth: no dentition abnormality Thyromental Distance: > or= 3.5 Finger Breadths Mallampati Class: II Neck normal visual inspection Respiratory normal respiratory effort Auscultation: lungs clear to auscultation bilaterally Cardiovascular Rate/Rhythm: regular rate and regular rhythm Testing Electrocardiogram Date: 05/16/18 aflutter/tachycardia with RVR, rate 129 bpm inferior RI, probably old ST depression Chest X-Ray Date: 05/16/18 1. Unchanged metastatic disease as discussed. 2. Central catheter ends in the superior vena cava cava. 3. No significant interval change from the prior study. Echocardiogram Date: 05/19/18 EF: 55-60% LV Function: normal RWMA: + none Laboratory Results 05/24/18 05:35 05/24/18 05:35 PT 14.3 Seconds (9.0-12.0) H 05/16/18 15:13 INR 1.4 (0.9-1.1) H 05/16/18 15:13 05/18/18 09:51 Blood Culture - Final Blood No growth 05/18/18 09:44 Blood Culture - Final Blood No growth 05/17/18 09:43 Blood Culture - Final Blood Staphylococcus aureus 05/17/18 09:18 Blood Culture - Final Blood Staphylococcus aureus 05/16/18 18:00 Blood Culture - Final Blood Staphylococcus aureus 05/16/18 15:13 Blood Culture - Final Blood Staphylococcus aureus
[2018-05-24] MEDS ORDERED: PROPOFOL IV EMULSION 10 MG/ML 20 ML VIAL (CATH LAB USE ONLY) ONE (09:29)
--- NOTE | 2018-05-24 09:41 | Procedure Note ---
Procedure Note Date of Service May 24, 2018 Note Procedure performed: Cardioversion Indication: The patient is a 58-year-old woman with a history of paroxysmal atrial fibrillation who presented with atrial for ablation high ventricular rates. Staff television parts tester: Hill Sparks MD Procedure in detail: The patient was informed of the risks benefits and alternatives to the intended procedure. He understood such which proceed. He was taken to the cardiac catheterization suite holding area. A ALEXIS was performed prior to cardioversion in order to exclude thrombus in the left atrial appendage. Once excluded, A general anesthetic was administered by the Anesthesiology Service. Once appropriately anesthetized, the patient was cardioverted using 360 joules delivered in a biphasic fashion. This returned the patient to sinus rhythm. The patient tolerated procedure well, there were no immediate complications. Patient was neurologically intact subsequent to the procedure. Impression: Successful cardioversion from atrial fibrillation to normal sinus rhythm
--- NOTE | 2018-05-24 09:43 | Anesthesiology Progress Note ---
Date of Service May 24, 2018 Anesthesia Post Procedure Vital Signs Vital Signs: Temp Pulse Pulse Resp BP BP Pulse Ox 05/24/18 08:00 128 H 05/24/18 07:50 97.9 F 121 H 20 105/69 95 05/24/18 03:12 97.5 F L 100 H 20 125/75 94 05/24/18 00:49 97.7 F 102 H 20 111/69 94 05/23/18 23:50 84 05/23/18 20:37 104 H 118/72 92 05/23/18 19:59 98.1 F 107 H 18 107/61 92 05/23/18 15:58 91 H 05/23/18 15:30 98.2 F 90 18 103/64 93 05/23/18 11:57 98.2 F 123 H 20 124/81 94 Pain Intensity Left Buttock: Pain Intensity: 0 Notes Mental Status: alert / awake / arousable and participated in evaluation Patient Amnestic to Procedure: Yes Nausea / Vomiting: adequately controlled Pain: adequately controlled Airway Patency, RR, SpO2: stable & adequate BP & HR: stable & adequate Hydration State: stable & adequate Anesthetic Complications: no major complications apparent and Pt Satisfied with anesthetic care
--- NOTE | 2018-05-24 11:02 | Medical Student Progress Note ---
Date of Service May 24, 2018 Assessment & Plan (1) Staphylococcus aureus bacteremia with sepsis: Positive blood culture 05/18, + staph aureus Started on IV Vancomycin, switched to IV Cephazolin for 14 days per ID consult, rocephin upon discharge Infection likely from port due to local erythema and tenderness of port, surgical consult decided against removing port No signs of vegetation on echo, no fu ALEXIS WBC was slightly elevated today (13.30) in comparison to yesterday (11.57), but clinically pt has no sx pf fever/chills, myalgias, or increase in pain/tenderness at port or at site of sarcoma Due to elevated white count, CT scan of the pelvis will be ordered to r/o abscess formation at the site of sarcoma although sarcoma has continued to drain as per surgery's evaluation. Site of sarcoma will also be cultured in order to adjust abx coverage if pathogen grows at culture site. (2) Fever and neutropenia: resolved, secondary to chemotherapy 05/04 (3) Sarcoma of buttock: Diagnosed 04/10, completed first round of chemo 05/04/2018. Abdominal CT scan may be indicative of metastasis to lung. Site of sarcoma is edematous and erythematous, CT scan showed some necrosis from sarcoma which may be from chemo or may be a sign of infection. Follows with [facility] and General surgery Has been seen by surgery today, states to keep KHUSHI drain as drain is acting more as a curtis and allowing to area to keep draining CT is planned to r/o abscess formation at the site of sarcoma due to elevated WBC, site will also be cultured in case ABx coverage may need to change (4) Edema: IVF were stopped 05/16/18 bilateral edema remains present, L>R Continue Lasix 20 mg with K supplement Due to pt being off of eliquis since 05/18, venous doppler was ordered to r/o dvt and was unremarkable Edema type: unspecified Qualified Code(s): R60.9 - Edema, unspecified (5) Atrial fibrillation/flutter: On telemetry, pt in normal sinus rhythm following cardioversion 05/24 Continue diltiazem, fleicanide, and metoprolol. On Eliquis for anticoagulation, although pharmacy has stated eliquis has not been studied in patients with such an elevated BMI. No data on xarelto. Risk & benefit of switching to warfarin was considered, and it was decided to keep patient on eliquis. (6) Obstructive sleep apnea: Continue CPAP (7) Adjustment disorder: stable, pt saw a therapist during hospitalization Continue Venlafaxine Adjustment disorder type: with depressed mood Qualified Code(s): F43.21 - Adjustment disorder with depressed mood Subjective Pt is a 58 yo M w/ a hx of sarcoma of soft tissue recently treated with chemotherapy 05/04, hx of afib, paroxysmal aflutter, htn, on day 9 of his admission for febrile neutropenia and bacteremia w/ sepsis. Overnight, there were no acute changes, although pt does not feel he has been sleeping well since being hospitalized. He was in flutter in the 80s-90s overnight and in flutter in the 90s-130s early this morning. This morning, pt went for a ALEXIS and was cardi overted successfully. He has not had anything to eat or drink yet. He did have a bm this morning and has bm regularly throughout his stay. He feels well, alot better since initially being hospitalized he states. States mood is good. Pt continues to have pain at the site of his sarcoma, which has been controlled with medication. The site of the sarcoma continues to leak, pt denies any increase of leakage. He denies fever/ chills, myalgia, dyspnea, chest pain, n/v, abdominal pain, changes in bm, bloody stools and calf tenderness. Musculoskeletal: + swelling (in legs bilaterally) Integumentary: + wounds (gluteal pain) and + alopecia Physical Exam Vital Signs (Past 24 Hours): Last Vital Signs Temp 36.6 C 05/24/18 10:10 Pulse 82 05/24/18 10:10 Resp 18 05/24/18 10:10 BP 108/68 05/24/18 10:10 Pulse Ox 93 05/24/18 10:10 Constitutional: well developed, + ill appearing and + obese Eyes: PERRL, conjunctivae normal, anicteric sclerae ENMT: external ear and nose normal, oropharynx normal Neck: normal visual inspection Respiratory: normal respiratory effort, lungs clear to auscultation Gastrointestinal (Abdomen): normal bowel sounds, soft, nontender, no hepatosplenomegaly Musculoskeletal: Head/Neck/Chest: + abnormal inspection of chest wall (erythematous port at left upper chest) Extremities: extremities normal to inspection (IV line L. hand) Skin: erythema and edema around site of sarcoma on L. gluteus, port on L. side of chest appears to be more erythematous, non tender Psychiatric: Orientation: alert and oriented x 3
--- NOTE | 2018-05-24 11:41 | Hospitalist Progress Note ---
Date of Service May 24, 2018 Assessment & Plan (1) Staphylococcus aureus bacteremia with sepsis: suspected source - PORT. alternatively it could have been from skin on buttocks. Port seems to be the top source. most recent blood cultures were negative (05/18/18). surface echo w/o obvious valvular vegetations but limited study. ALEXIS on 05/24 without valvular vegetation appreciate ID consult. remains on ancef. case d/w Dr. Carter and plan is as follows -- 14 day course of IV abx therapy from date of most recent negative blood culture. at d/c change to rocephin 2 grams IV daily. then after completion of IV abx change to prolonged oral course. at this time all providers feel we should leave port in place for now as his port placement was quite difficult and there is a chance that it could be salvaged. today is day #7 of 14 of IV abx therapy. 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 follows with [facility] surg Dr. Candelario. Dr. Candelario formally consulted - no surgical Rx at this time. wound care appreciated. KHUSHI drain in place not draining adequately but it is acting as a Meka drain at this place as per surgery-- continue. of note - patient did NOT receive neulasta following previous round of chemo thus leukocytosis is not from such. -Is due to start round 2 of chemo at the end of next week-discussed with oncology-he will be done with his IV antibiotics at that point and should be able to continue with chemotherapy (3) Atrial fibrillation/flutter: Had ongoing challenging rate control despite increase in toprol xl to 50 BID and use of diltiazem and fleicanide. remains on eliquis although not well studied in the morbid obese population, seems to be the best choice for now. Now s/p successful DCCV with ALEXIS on 05/24, back in sinus rhythm (4) Fever and neutropenia: resolved. 2nd to recent chemo for sarcoma. (5) Obstructive sleep apnea: CPAP (6) Edema: continue lasix daily. daily labs. dopplers w/o DVT. (7) Hyponatremia: resolved (8) Hypomagnesemia: resolved (9) Depression: Started on Effexor 75 mg daily this admission-mood seems to be improved -consider increase in effexor dose in the next 2-3 weeks (10) Morbid obesity: BMI about 60 (11) Leukocytosis: WBC count continues to increase and is at 13 today Remains afebrile Repeat CT abdomen/pelvis on 05/24 does not reveal any new source of infection specifically no abscess or fluid collection in the buttocks at the site of the circumflex,-there is persistent gas consistent with likely necrosis tumor status post chemotherapy No urinary symptoms, no diarrhea, no abdominal pain, no cough. -Continue same antibiotics for now -Follow CBC in the morning -Ordered incentive spirometry (12) DVT prophylaxis: eliquis BID PT, OT evals - cleared for home once a. flutter has been controlled and IV abx approved can d/c home --- possibly tomorrow Subjective Patient feeling better today. No tenderness at the port site. No shortness of breath or chest pain. He had his ALEXIS with DC cardioversion that was successful today. I discussed the case with oncology. I also discussed the case with infectious disease. Telemetry was with atrial flutter in the 120s-130s, now with normal sinus rhythm. Review of Systems All systems reviewed & are unremarkable except as noted in HPI & below Physical Exam Vital Signs (Past 24 Hours): Last Vital Signs Temp 36.6 C 05/24/18 10:10 Pulse 82 05/24/18 10:10 Resp 18 05/24/18 10:10 BP 108/68 05/24/18 10:10 Pulse Ox 93 05/24/18 10:10 Constitutional: WD/WN, vitals as above + morbidly obese Eyes: PERRL, conjunctivae normal, anicteric sclerae Neck: trachea midline, no thyromegaly Respiratory: normal respiratory effort, lungs clear to auscultation Cardiovascular: RRR, no murmur, no edema Gastrointestinal (Abdomen): normal bowel sounds, soft, nontender, no hepatosplenomegaly Musculoskeletal: Extremities: + extremities abnormal to inspection (left buttocks with immensely large mass about 12 inches across protruding), no cyanosis and no clubbing Skin: no rashes, warm and dry + erythema (over left buttocks and also some erythema surrounding port) Neurologic: moves all extremities and awake; no focal motor deficits Psychiatric: A+Ox3, euthymic affect Results & Data Laboratory Results 05/24/18 05/24/18 Range/Units 05:35 05:35 WBC 13.74 H (4.8-10.8) K/uL RBC 3.71 L (4.7-6.1) M/uL Hgb 10.1 L (14.0-18.0) g/dL Hct 32.1 L (42-52) % MCV 86.5 (80-100) fL MCH 27.2 (25-34) pg MCHC 31.5 L (32-36) g/dL RDW Std Deviation 46.3 (36.4-46.3) fL RDW Coeff of Silas 15.1 H (11.5-14.5) % Plt Count 468 H (130-400) K/uL MPV 9.4 (7.4-10.4) fL Neutrophils % (Manual) 79.8 % Lymphocytes % (Manual) 8.8 % Monocytes % (Manual) 3.5 % Metamyelocytes % (Man) 5.3 % Myelocytes % (Man) 2.6 % Neutrophils # (Manual) 10.96 H (1.4-6.5) K/uL Total Absolute Neuts 10.96 H (1.4-6.5) K/uL Lymphocytes # (Manual) 1.21 (1.2-3.4) K/uL Total Abs Lymphocytes 1.21 (1.2-3.4) K/uL Monocytes # (Manual) 0.48 (0.11-0.59) K/uL Metamyelocytes # (Man) 0.73 H (0-0) K/uL Myelocytes # (Manual) 0.36 H (0-0) K/uL RBC Morphology Unremarkable Sodium 141 (136-145) mmol/L Potassium 3.9 (3.5-5.1) mmol/L Chloride 104 (98-107) mmol/L Carbon Dioxide 32 (21-32) mmol/L Anion Gap 5.0 (3-11) BUN 7 (7-18) mg/dl Creatinine 0.52 L (0.6-1.4) mg/dl Est Cr Clr Drug Dosing 255.7 ml/min Est GFR ( Amer) 137.2 Est GFR (Non-Af Amer) 118.4 BUN/Creatinine Ratio 13.7 (10-20) Glucose 99 (70-99) mg/dl Calcium 8.1 L (8.5-10.1) mg/dl C-Reactive Protein 12.40 H (0-0.29) mg/dl Diagnostic Findings CT abd pelvis IV con only CLINICAL HISTORY: 58 years-old Male presenting with known sarcoma,rising WBC count,assess for abscess. TECHNIQUE: Multidetector CT of the abdomen and pelvis was performed after the administration of intravenous contrast. IV contrast: 120 mL of Optiray 320. One or more dose lowering techniques were used consistent with the principles of ALARA (as low as reasonably achievable), including automatic exposure control, mA or kV adjustment to individual patient size, and/or use of iterative reconstruction. COMPARISON: 05/16/2018. CT DOSE (mGy.cm): The estimated cumulative dose is 2633.57 mGy.cm. FINDINGS: Hand Brush Filler topogram: Unremarkable. Lung bases: Normal heart size. No pericardial or pleural effusion. Redemonstration of the solid multifocal lung nodules compatible with known metastases. These are in all of the visualized lobes. These are grossly stable from the most recent prior exam. Liver: Normal morphology. No liver lesion. Patent hepatic vasculature. Biliary: No intrahepatic or extrahepatic biliary ductal dilatation. Normal gallbladder. Pancreas: Mild parenchymal atrophy. Spleen: Top normal in size. Adrenal glands: Normal. Kidneys and ureters: Normal. No hydronephrosis. Bladder: Normal. Pelvic organs: Prostate and seminal vesicles normal. Bowel: Diverticulosis of the sigmoid colon without wall thickening or pericolonic inflammatory change. Diverticula also noted elsewhere in the colon. The appendix is normal. No bowel obstruction. Peritoneal cavity: No free fluid or intraperitoneal gas. Lymph nodes: No enlarged lymph nodes in the abdomen or pelvis. Vasculature: Aorta and IVC patent and normal in caliber. Abdominal wall: Abdominal wall laxity. Fat-containing umbilical hernia. Fat- containing left inguinal hernia. Musculoskeletal: Redemonstration of the large enhancing mass within the left gluteus region. A drain is in place with extensive internal foci of gas. The mass measures nearly 20 cm in diameter. The appearance is similar to prior exam. Postsurgical changes of lumbar fusion hardware. IMPRESSION: 1. Drain remains within the large left gluteal mass, which again contains gas. Presumably this is the most likely source of infection. No separate source of infection in the abdomen or pelvis. 2. Pulmonary metastatic disease grossly stable from the most recent CT though progressed since March. 3. Diverticulosis coli. No evidence of diverticulitis. (1) Depression Depression Type: unspecified Qualified Code(s): F32.9 - Major depressive disorder, single episode, unspecified (2) Edema Edema type: unspecified Qualified Code(s): R60.9 - Edema, unspecified
[2018-05-24] MEDS ORDERED: OPTIRAY 320 125ml IV PRN (12:05)
--- NOTE | 2018-05-24 12:37 | CT Scan Report ---
CT abd pelvis IV con only CLINICAL HISTORY: 58 years-old Male presenting with known sarcoma,rising WBC count,assess for abscess . TECHNIQUE: Multidetector CT of the abdomen and pelvis was performed after the administration of intra venous contrast. IV contrast: 120 mL of Optiray 320. One or more dose lowering techniques were used c onsistent with the principles of ALARA (as low as reasonably achievable), including automatic exposur e control, mA or kV adjustment to individual patient size, and/or use of iterative reconstruction. COMPARISON: 05/16/2018. CT DOSE (mGy.cm): The estimated cumulative dose is 2633.57 mGy.cm. FINDINGS: Faculty I On Call Medical Assistant topogram: Unremarkable. Lung bases: Normal heart size. No pericardial or pleural effusion. Redemonstration of the solid multi focal lung nodules compatible with known metastases. These are in all of the visualized lobes. These are grossly stable from the most recent prior exam. Liver: Normal morphology. No liver lesion. Patent hepatic vasculature. Biliary: No intrahepatic or extrahepatic biliary ductal dilatation. Normal gallbladder. Pancreas: Mild parenchymal atrophy. Spleen: Top normal in size. Adrenal glands: Normal. Kidneys and ureters: Normal. No hydronephrosis. Bladder: Normal. Pelvic organs: Prostate and seminal vesicles normal. Bowel: Diverticulosis of the sigmoid colon without wall thickening or pericolonic inflammatory change . Diverticula also noted elsewhere in the colon. The appendix is normal. No bowel obstruction. Peritoneal cavity: No free fluid or intraperitoneal gas. Lymph nodes: No enlarged lymph nodes in the abdomen or pelvis. Vasculature: Aorta and IVC patent and normal in caliber. Abdominal wall: Abdominal wall laxity. Fat-containing umbilical hernia. Fat-containing left inguinal hernia. Musculoskeletal: Redemonstration of the large enhancing mass within the left gluteus region. A drain is in place with extensive internal foci of gas. The mass measures nearly 20 cm in diameter. The appe arance is similar to prior exam. Postsurgical changes of lumbar fusion hardware. IMPRESSION: 1. Drain remains within the large left gluteal mass, which again contains gas. Presumably this is th e most likely source of infection. No separate source of infection in the abdomen or pelvis. 2. Pulmonary metastatic disease grossly stable from the most recent CT though progressed since jens. 3. Diverticulosis coli. No evidence of diverticulitis. Electronically signed by: Lino Gonzales M.D. 05/24/2018 12:35 PM
[2018-05-25] MEDS: CEFAZOLIN 2000MG 2,000 MG/15 ML SYR IV SCH ×4 (02:30→19:50)
[2018-05-25] MEDS: TRAMADOL HCL 50 MG TABLET PO PRN ×2 (05:37→14:34)
[2018-05-25 05:48] LABS: Hemoglobin 10.1 g/dL (14.0-18.0); Mean Corpuscular Hgb Conc 31.6 g/dL (32-36); Mean Platelet Volume 9.2 fL (7.4-10.4); Nucleated RBC # (auto) 0.04 K/uL (0-0); Nucleated RBC % (auto) 0.3 %; Platelet Count 459 K/uL (130-400); RDW Coefficient of Variation 15.5 % (11.5-14.5); RDW Standard Deviation 47.1 fL (36.4-46.3); Red Blood Count 3.68 M/uL (4.7-6.1); White Blood Count 14.05 K/uL (4.8-10.8)
[2018-05-25 06:20] LABS: Albumin Level 1.7 gm/dl (3.4-5.0); BUN Creatinine Ratio 14.6 (10-20); Bilirubin Direct 0.1 mg/dl (0-0.2); Bilirubin,Total 0.5 mg/dl (0.2-1); Calcium 8.4 mg/dl (8.5-10.1); Creatinine Clr Calc Pharmacy 213.9 ml/min; Est GFR (African American) 127.6; Est GFR (Non-African American) 110.1; Potassium 4.1 mmol/L (3.5-5.1); Total Protein 5.9 gm/dl (6.4-8.2)
[2018-05-25 06:26] LABS: Basophils # (auto) 0.03 K/uL (0-0.2); Basophils % (auto) 0.2 %; Immature Granulocytes # (auto) 1.11 K/uL (0.00-0.02); Immature Granulocytes % (auto) 7.9 %; Lymphocytes # (auto) 1.13 K/uL (1.2-3.4); Monocytes # (auto) 1.26 K/uL (0.11-0.59); Neutrophils # (auto) 10.52 K/uL (1.4-6.5); Neutrophils % (auto) 74.9 %; RBC Morphology Unremarkable
[2018-05-25] MEDS: FUROSEMIDE 20 MG TAB PO SCH (08:02)
[2018-05-25] MEDS: FLECAINIDE ACETATE 100 MG TABLET PO SCH ×2 (08:02→19:50)
[2018-05-25] MEDS: APIXABAN 5 MG TABLET PO SCH (08:02)
[2018-05-25] MEDS: MAGNESIUM OXIDE 400 MG TAB PO SCH ×2 (08:02→19:51)
[2018-05-25] MEDS: dilTIAZem ER 120 MG CAPCR PO SCH (08:03)
[2018-05-25] MEDS: POTASSIUM CHLORIDE 20 MEQ TABCR PO SCH (08:03)
[2018-05-25] MEDS: PSYLLIUM 58.6% POWDER PACKET PO SCH (08:04)
[2018-05-25] MEDS: VENLAFAXINE HCL XR 75 MG CAPXR PO SCH (08:04)
[2018-05-25] MEDS: ATORVASTATIN 40 MG TAB PO SCH (08:05)
[2018-05-25] MEDS: METOPROLOL SUCC 50MG EXT REL TAB PO SCH ×2 (08:05→19:50)
[2018-05-25] MEDS: dilTIAZem ER 180 MG CAPCR PO SCH (08:05)
--- NOTE | 2018-05-25 09:25 | Cardiology Progress Note ---
Date of Service May 25, 2018 Assessment & Plan (1) Atrial fibrillation/flutter: He is now back in sinus rhythm since cardioversion yesterday and seems to feel better. The heart rate is better, he has not been bradycardic. We should continue his rate controlling medications as he may well have a recurrence, I also want to go up on his flecainide to try to maintain sinus rhythm. I am giving an extra dose of 50 mg this morning for a total of 150 and increasing the dose to 150 mg twice daily. We should continue anticoagulation. Although there is no data on Eliquis in someone his size I think that is a theoretical concern, I do not know of any data saying it does not work. The fact that he does not have an atrial clot is supportive that it is effective in his case and I would continue it. Subjective From the cardiovascular standpoint he is feeling well. He believes he feels better now that he is back in sinus rhythm. No palpitations, no discomfort at his cardioversion sites. Physical Exam Vital Signs (Past 24 Hours): Last Vital Signs Temp 36.4 C L 05/25/18 07:46 Pulse 87 05/25/18 07:46 Resp 16 05/25/18 07:46 BP 160/68 H 05/25/18 07:46 Pulse Ox 94 05/25/18 07:46 Physical Exam: Constitutional: Alert, cooperative and in no distress. He is obese. Pulmonary: Clear to auscultation bilaterally. Cardiac: Regular rhythm with no murmur, gallop or rub. Abdomen: Soft, nontender with normal bowel sounds. Extremities: Bilateral edema. Skin: Minor skin irritation on his back from the cardioversion, this should resolve without treatment. Results & Data Diagnostic Findings Telemetry: Sinus rhythm since cardioversion yesterday
[2018-05-25] MEDS ORDERED: FLECAINIDE ACETATE 100 MG TABLET PO ONE (09:27)
[2018-05-25 09:29] LABS: Appearance Urine Clear (Clear); Bilirubin Urine Negative (Negative); Blood Urine Negative (Negative); Color Urine Yellow; Glucose Urine UA Negative (Negative); Ketones Urine Negative (Negative); Leukocyte Esterase Urine Negative (Negative); Nitrite Urine Negative (Negative); Protein Urine Negative (Negative); Specific Gravity Urine 1.018 (1.000-1.030); Urobilinogen Urine Negative (Negative); pH Urine 5.5 (4.5-7.5)
--- NOTE | 2018-05-25 09:34 | XRay Report ---
XR chest 2V routine CLINICAL HISTORY: Evaluate for pneumonia. Sarcoma. COMPARISON STUDY: Chest CT April 12, 2018. Chest radiograph May 16, 2018. FINDINGS: Left internal jugular Cutuxa-j-Ojzu is in place. Numerous pulmonary nodules are similar to exam of May 16, 2018. Cardiomediastinal silhouette is stable. There is no pneumothorax or pleural e ffusion. No evidence for pulmonary edema or pneumonia. IMPRESSION: 1. No acute cardiopulmonary findings. 2. No significant change in pulmonary metastases. Electronically signed by: Mario Torres M.D. 05/25/2018 9:33 AM
[2018-05-25] MEDS: HEPARIN 100 UNIT/ML 5ML FLUSH FLUSH PRN (11:27)
--- NOTE | 2018-05-25 11:54 | Hospitalist Progress Note ---
Date of Service May 25, 2018 Assessment & Plan (1) Staphylococcus aureus bacteremia with sepsis: suspected source - PORT. alternatively it could have been from skin on buttocks.Wound cx from buttocks drain growing Staph and Strep species Port now deaccessed and with erythema and purulent drainage Most recent blood cultures were negative (05/18/18). surface echo w/o obvious valvular vegetations but limited study. ALEXIS on 05/24 without valvular vegetation appreciate ID consult. remains on ancef day #8 of abx total Now with plans for possible port removal given rising leukocytosis and purulent drainage from port case d/w Dr. Carter and plan is as follows -- Continue 14 day course of IV abx therapy from date of most recent negative blood culture. at d/c change to rocephin 2 grams IV daily. then after completion of IV abx change to prolonged oral course. 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 follows with [facility] surg Dr. Candelario. Dr. Candelario formally consulted - no surgical Rx at this time. wound care appreciated. KHUSHI drain in place not draining adequately but it is acting as a Meka drain at this place as per surgery-- continue. of note - patient did NOT receive neulasta following previous round of chemo thus leukocytosis is not from such. -Is due to start round 2 of chemo at the end of next week-discussed with oncology-he will be done with his IV antibiotics at that point and should be able to continue with chemotherapy (3) Atrial fibrillation/flutter: Had ongoing challenging rate control despite increase in toprol xl to 50 BID and use of diltiazem and fleicanide. remains on eliquis although not well studied in the morbid obese population, seems to be the best choice for now. Now s/p successful DCCV with ALEXIS on 05/24, back in sinus rhythm -Cardio increased Flecainide to 150mg po bid (4) Fever and neutropenia: resolved. Neutropenia secondary to chemotherapy and now resolved Fever from MSSA septicemia as above (5) Obstructive sleep apnea: CPAP (6) Edema: continue lasix daily. daily labs. dopplers w/o DVT. (7) Hyponatremia: resolved (8) Hypomagnesemia: resolved (9) Depression: Started on Effexor 75 mg daily this admission-mood seems to be improved -consider increase in effexor dose in the next 2-3 weeks (10) Morbid obesity: BMI about 60 (11) Leukocytosis: WBC count continues to increase and is at 14 today Remains afebrile Repeat CT abdomen/pelvis on 05/24 does not reveal any new source of infection specifically no abscess or fluid collection in the buttocks at the site of the circumflex,-there is persistent gas consistent with likely necrosis tumor status post chemotherapy No urinary symptoms and UA negative CXR neg for PNA no diarrhea, no abdominal pain, no cough. Port with erythema and purulent drainage --> likely source of continued worsening leukocytosis -Follow CBC -awaiting gen Surgery consult to see if will remove port today or maybe on Monday (12) DVT prophylaxis: eliquis BID-hold if going ot have surgery in the next 24-48 hours PT, OT evals - cleared for home when medically stable Remain hospitalized Subjective Pt has no complaints. No tenderness at port site but IV team deaccessed his port and noted purulent drainage coming out and did not want to reaccess it. I discussed the case with ID Dr. Carter and Surgery Dr. Candelario. Tele with NSR, rates in the 80s, some PVCs Review of Systems All systems reviewed & are unremarkable except as noted in HPI & below Physical Exam Vital Signs (Past 24 Hours): Last Vital Signs Temp 36.8 C 05/25/18 11:42 Pulse 77 05/25/18 11:42 Resp 16 05/25/18 11:42 BP 102/59 L 05/25/18 11:42 Pulse Ox 94 05/25/18 11:42 Constitutional: WD/WN, vitals as above + morbidly obese Eyes: PERRL, conjunctivae normal, anicteric sclerae ENMT: external ear and nose normal, oropharynx normal Neck: trachea midline, no thyromegaly Respiratory: normal respiratory effort, lungs clear to auscultation Cardiovascular: Rate/Rhythm: regular rate and regular rhythm Extremities: + edema (1+ pitting edema legs bilat) Gastrointestinal (Abdomen): normal bowel sounds, soft, nontender, no hepatosplenomegaly Musculoskeletal: Extremities: + extremities abnormal to inspection (left buttocks with immensely large mass about 12 inches across protruding), no cyanosis and no clubbing Skin: + erythema (left buttocks and erythema surrounding port site with purulent drainage) Neurologic: moves all extremities and awake; no focal motor deficits Psychiatric: A+Ox3, euthymic affect Results & Data Laboratory Results 05/25/18 05/25/18 05/25/18 Range/Units 08:55 05:33 05:33 WBC 14.05 H (4.8-10.8) K/uL RBC 3.68 L (4.7-6.1) M/uL Hgb 10.1 L (14.0-18.0) g/dL Hct 32.0 L (42-52) % MCV 87.0 (80-100) fL MCH 27.4 (25-34) pg MCHC 31.6 L (32-36) g/dL RDW Std Deviation 47.1 H (36.4-46.3) fL RDW Coeff of Silas 15.5 H (11.5-14.5) % Plt Count 459 H (130-400) K/uL MPV 9.2 (7.4-10.4) fL Immature Gran % (Auto) 7.9 % Neut % (Auto) 74.9 % Lymph % (Auto) 8.0 % [place] % (Auto) 9.0 % Eos % (Auto) 0.0 % Baso % (Auto) 0.2 % Immature Gran # (Auto) 1.11 H (0.00-0.02) K/uL Neut # (Auto) 10.52 H (1.4-6.5) K/uL Lymph # (Auto) 1.13 L (1.2-3.4) K/uL [place] # (Auto) 1.26 H (0.11-0.59) K/uL Eos # (Auto) 0.00 (0-0.5) K/uL Baso # (Auto) 0.03 (0-0.2) K/uL Absolute Nucleated RBC 0.04 H (0-0) K/uL Nucleated RBC % (auto) 0.3 % RBC Morphology Unremarkable Sodium 140 (136-145) mmol/L Potassium 4.1 (3.5-5.1) mmol/L Chloride 102 (98-107) mmol/L Carbon Dioxide 34 H (21-32) mmol/L Anion Gap 4.0 (3-11) BUN 9 (7-18) mg/dl Creatinine 0.62 (0.6-1.4) mg/dl Est Cr Clr Drug Dosing 213.9 ml/min Est GFR ( Amer) 127.6 Est GFR (Non-Af Amer) 110.1 BUN/Creatinine Ratio 14.6 (10-20) Glucose 93 (70-99) mg/dl Calcium 8.4 L (8.5-10.1) mg/dl Magnesium 2.0 (1.8-2.4) mg/dl Total Bilirubin 0.5 (0.2-1) mg/dl Direct Bilirubin 0.1 (0-0.2) mg/dl AST 18 (15-37) U/L ALT 9 L (12-78) U/L Alkaline Phosphatase 146 H (45-117) U/L Total Protein 5.9 L (6.4-8.2) gm/dl Albumin 1.7 L (3.4-5.0) gm/dl Urine Color Yellow Urine Appearance Clear (Clear) Urine pH 5.5 (4.5-7.5) Ur Specific [place] 1.018 (1.000-1.030) Urine Protein Negative (Negative) Urine Glucose (UA) Negative (Negative) Urine Ketones Negative (Negative) Urine Blood Negative (Negative) Urine Nitrite Negative (Negative) Urine Bilirubin Negative (Negative) Urine Urobilinogen Negative (Negative) Ur Leukocyte Esterase Negative (Negative) Diagnostic Findings CXR image personally reviewed by me and agree with the following report: XR chest 2V routine CLINICAL HISTORY: Evaluate for pneumonia. Sarcoma. COMPARISON STUDY: Chest CT April 12, 2018. Chest radiograph May 16, 2018. FINDINGS: Left internal jugular Bevask-o-Njcy is in place. Numerous pulmonary nodules are similar to exam of May 16, 2018. Cardiomediastinal silhouette is stable. There is no pneumothorax or pleural effusion. No evidence for pulmonary edema or pneumonia. IMPRESSION: 1. No acute cardiopulmonary findings. 2. No significant change in pulmonary metastases. (1) Depression Depression Type: unspecified Qualified Code(s): F32.9 - Major depressive disorder, single episode, unspecified (2) Edema Edema type: unspecified Qualified Code(s): R60.9 - Edema, unspecified
--- NOTE | 2018-05-25 13:11 | Surgery Progress Note ---
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 He also presented with neutropenic fever and bacteremia, and the presumed source of infection is his port. He has a climbing wbc though otherwise clinically improved. Medicine and ID have asked for us to remove the port. If buttock sarcoma is determined to be source of infection, then recommend drain removal. Any intervention should be performed at tertiary center due to complex wound it would create. Plan for port removal today in OR under local (no sedation) risks reviewed to include bleeding, infection, port fracture or failure to remove, and seroma/hematoma, difficult venous access Hold eliquis til tomorrow cont abx recommend picc for access [facility] surgery will follow over weekend. 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 Admitted with neutropenic fever and bacteremia, believed secondary to infected port. Left buttock drain with minimal output, some leakage around it. Asked by medicine to eval for port removal. Ate breakfast, took eliquis this morning. No fevers Physical Exam Vital Signs (Past 24 Hours): Last Vital Signs Temp 36.8 C 05/25/18 11:42 Pulse 77 05/25/18 11:42 Resp 16 05/25/18 11:42 BP 102/59 L 05/25/18 11:42 Pulse Ox 94 05/25/18 11:42 Constitutional: WD/WN, vitals as above + obese Skin: port with some echymossis/erythema inferior to incision. Nurse reports purulent material while removing needle while aspirating. left buttock with large sarcoma, drain acting as curtis Results & Data Laboratory Results Laboratory Results - last 24 hr 05/25/18 05/25/18 05/25/18 05:33 05:33 08:55 WBC 14.05 H RBC 3.68 L Hgb 10.1 L Hct 32.0 L MCV 87.0 MCH 27.4 MCHC 31.6 L RDW Std Deviation 47.1 H RDW Coeff of Silas 15.5 H Plt Count 459 H MPV 9.2 Immature Gran % (Auto) 7.9 Neut % (Auto) 74.9 Lymph % (Auto) 8.0 Ogle % (Auto) 9.0 Eos % (Auto) 0.0 Baso % (Auto) 0.2 Immature Gran # (Auto) 1.11 H Neut # (Auto) 10.52 H Lymph # (Auto) 1.13 L Ogle # (Auto) 1.26 H Eos # (Auto) 0.00 Baso # (Auto) 0.03 Absolute Nucleated RBC 0.04 H Nucleated RBC % (auto) 0.3 RBC Morphology Unremarkable Sodium 140 Potassium 4.1 Chloride 102 Carbon Dioxide 34 H Anion Gap 4.0 BUN 9 Creatinine 0.62 Est Cr Clr Drug Dosing 213.9 Est GFR ( Amer) 127.6 Est GFR (Non-Af Amer) 110.1 BUN/Creatinine Ratio 14.6 Glucose 93 Calcium 8.4 L Magnesium 2.0 Total Bilirubin 0.5 Direct Bilirubin 0.1 AST 18 ALT 9 L Alkaline Phosphatase 146 H Total Protein 5.9 L Albumin 1.7 L Urine Color Yellow Urine Appearance Clear Urine pH 5.5 Ur Specific [place] 1.018 Urine Protein Negative Urine Glucose (UA) Negative Urine Ketones Negative Urine Blood Negative Urine Nitrite Negative Urine Bilirubin Negative Urine Urobilinogen Negative Ur Leukocyte Esterase Negative Diagnostic Findings CT abd pelvis IV con only CLINICAL HISTORY: 58 years-old Male presenting with known sarcoma,rising WBC count,assess for abscess. TECHNIQUE: Multidetector CT of the abdomen and pelvis was performed after the administration of intravenous contrast. IV contrast: 120 mL of Optiray 320. One or more dose lowering techniques were used consistent with the principles of ALARA (as low as reasonably achievable), including automatic exposure control, mA or kV adjustment to individual patient size, and/or use of iterative reconstruction. COMPARISON: 05/16/2018. CT DOSE (mGy.cm): The estimated cumulative dose is 2633.57 mGy.cm. FINDINGS: Refueler topogram: Unremarkable. Lung bases: Normal heart size. No pericardial or pleural effusion. Redemonstration of the solid multifocal lung nodules compatible with known metastases. These are in all of the visualized lobes. These are grossly stable from the most recent prior exam. Liver: Normal morphology. No liver lesion. Patent hepatic vasculature. Biliary: No intrahepatic or extrahepatic biliary ductal dilatation. Normal gallbladder. Pancreas: Mild parenchymal atrophy. Spleen: Top normal in size. Adrenal glands: Normal. Kidneys and ureters: Normal. No hydronephrosis. Bladder: Normal. Pelvic organs: Prostate and seminal vesicles normal. Bowel: Diverticulosis of the sigmoid colon without wall thickening or pericolonic inflammatory change. Diverticula also noted elsewhere in the colon. The appendix is normal. No bowel obstruction. Peritoneal cavity: No free fluid or intraperitoneal gas. Lymph nodes: No enlarged lymph nodes in the abdomen or pelvis. Vasculature: Aorta and IVC patent and normal in caliber. Abdominal wall: Abdominal wall laxity. Fat-containing umbilical hernia. Fat- containing left inguinal hernia. Musculoskeletal: Redemonstration of the large enhancing mass within the left gluteus region. A drain is in place with extensive internal foci of gas. The mass measures nearly 20 cm in diameter. The appearance is similar to prior exam. Postsurgical changes of lumbar fusion hardware. IMPRESSION: 1. Drain remains within the large left gluteal mass, which again contains gas. Presumably this is the most likely source of infection. No separate source of infection in the abdomen or pelvis. 2. Pulmonary metastatic disease grossly stable from the most recent CT though progressed since March. 3. Diverticulosis coli. No evidence of diverticulitis.
[2018-05-25] MEDS ORDERED: LIDOCAINE/EPINEPHRINE 1% 20 ML VIAL ONE (13:27)
[2018-05-25] MEDS ORDERED: BUPIVACAINE 0.5 % 5 MG/1 ML MPF 30ML VIAL ONE (13:27)
--- NOTE | 2018-05-25 13:35 | Medical Student Progress Note ---
Date of Service May 25, 2018 Assessment & Plan (1) Staphylococcus aureus bacteremia with sepsis: Positive blood culture 05/18, + staph aureus Started on IV Vancomycin, switched to IV Cephazolin for 14 days per ID consult, rocephin upon discharge Infection likely from port due to local erythema and tenderness of port, surgical consult decided against removing port No signs of vegetation on echo, no fu ALEXIS WBC was slightly elevated today (13.30) in comparison to yesterday (11.57), but clinically pt has no sx pf fever/chills, myalgias, or increase in pain/tenderness at port or at site of sarcoma Due to elevated white count, CT scan of the pelvis will be ordered to r/o abscess formation at the site of sarcoma although sarcoma has continued to drain as per surgery's evaluation. CT scan found no acute change at site of sarcoma. Would culture was positive for staph and strep, which are covered pathogen's in patient's antibiotic therapy. Further workup to look into other causes of elevated leukocytosis included a U/A and CXR, which were both negative. Given the patient's purulent drainage and erythema surrounding port site, leukocytosis likely secondary to port. General Surgery has seen pt and will proceed with removing the port this afternoon under local. Pt will have to come off his next dose of eliquis tonight. (2) Fever and neutropenia: resolved, secondary to chemotherapy 05/04 (3) Sarcoma of buttock: Diagnosed 04/10, completed first round of chemo 05/04/2018. Abdominal CT scan may be indicative of metastasis to lung. Site of sarcoma is edematous and erythematous, CT scan showed some necrosis from sarcoma which may be from chemo or may be a sign of infection. Follows with [facility] oncology and General surgery Has been seen by surgery today, states to keep KHUSHI drain as drain is acting more as a curtis and allowing to area to keep draining CT found no acute changes of the sarcoma. not likely to be cause of infection. Culture of wound site was positive for staph and strep, which are covered by pt's abx. Pt scheduled to receive chemotherapy for the sarcoma in the next week, will have completed antibiotics by then. Since pt no longer has access to his port, picc line has been considered and IV team was called to evaluate if access could be established. (4) Edema: IVF were stopped 05/16/18 bilateral edema remains present, L>R Continue Lasix 20 mg with K supplement Due to pt being off of eliquis since 05/18, venous doppler was ordered to r/o dvt and was unremarkable Edema type: unspecified Qualified Code(s): R60.9 - Edema, unspecified (5) Atrial fibrillation/flutter: On telemetry, pt in normal sinus rhythm following cardioversion 05/24 Continue diltiazem, fleicanide, and metoprolol. On Eliquis for anticoagulation, although pharmacy has stated eliquis has not been studied in patients with such an elevated BMI. No data on xarelto. Risk & benefit of switching to warfarin was considered, and it was decided to keep patient on eliquis. Pt will miss his next dose of anticoagulation due to removal of port Pt seen by cardiology today. Cardiology has recommended increasing his fleccanide to 150mg Q12. 50mg PO was given this morning. (6) Obstructive sleep apnea: Continue CPAP (7) Adjustment disorder: stable, pt saw a therapist during hospitalization Continue Venlafaxine Adjustment disorder type: with depressed mood Qualified Code(s): F43.21 - Adjustment disorder with depressed mood Subjective Pt is a 58 yo M w/ a hx of sarcoma of soft tissue recently treated with chemotherapy 05/04, hx of afib, paroxysmal aflutter, htn, on day 10 of his adm ission for febrile neutropenia and bacteremia w/ sepsis. Overnight, there were no acute changes, pt states he slept well. He has been in NSR since his cardioversion, rate in the 70s-80s. Pt had his wound dressing changed this morning with placement of a different apparatus due to increase in leakage while getting his CXR. He does not feel any tenderness at site of port line. Port dressing was changed later in the morning where puss was found to be coming out of the drain. Surgery had been consulted and visited patient soon following these findings. Pt ate all of his breakfast and did have a bm this morning and has bm regularly throughout his stay. He feels well, mood is okay. He was asking about discharge. Pt deines fever/ chills, fatigue, myalgia, cough, dyspnea, chest pain, n/v, abdominal pain, changes in bm, bloody stools and calf tenderness. Musculoskeletal: + swelling (in legs bilaterally) Integumentary: + wounds (gluteal pain) and + alopecia Psychiatric: + depression Physical Exam Vital Signs (Past 24 Hours): Last Vital Signs Temp 36.8 C 05/25/18 11:42 Pulse 77 05/25/18 11:42 Resp 16 05/25/18 11:42 BP 102/59 L 05/25/18 11:42 Pulse Ox 94 05/25/18 11:42 Constitutional: well developed, + ill appearing and + obese Eyes: PERRL, conjunctivae normal, anicteric sclerae ENMT: external ear and nose normal, oropharynx normal Neck: normal visual inspection Respiratory: normal respiratory effort, lungs clear to auscultation Cardiovascular: RRR, no murmur, no edema Heart Sounds: normal S1 and normal S2 Extremities: normal capillary refill Gastrointestinal (Abdomen): normal bowel sounds, soft, nontender, no hepatosplenomegaly Musculoskeletal: Head/Neck/Chest: + abnormal inspection of chest wall (erythematous port at left upper chest) Extremities: extremities normal to inspection (IV line L. hand) Psychiatric: Orientation: alert and oriented x 3
--- NOTE | 2018-05-25 14:11 | Operative Report ---
Post Operative Report Pre & Post Diagnosis Preop diagnosis: Infected port, sarcoma Postop diagnosis: Infected port, sarcoma Procedure Procedure performed: Port removal Surgeon Jaylon Candelario DO, FACS [employer] Supervisor Prosper Calzada Estimated Blood Loss 1 Findings Consistent with Post-Op Diagnosis Port removed intact, good hemostasis, no evidence of purulent drainage, tip sent for culture Specimens Port Catheter tip for culture Anesthesia Type Local Complications none Disposition Accompanied Patient To Recovery: No Disposition: Recovery Room Indications 58-year-old male with metastatic sarcoma status post port placement and on chemotherapy. He presented with neutropenic fevers and found to be bacteremic, presumed source is the port. We attempted to treat him through antibiotics, however his WBC continues to climb. After discussion with primary team and infectious disease, they would like us to remove the port. Plan for port removal. The risks of the procedure were discussed, all questions were answered, and the patient agreed to proceed with surgery as planned. Description of Procedure The patient was properly identified, consented, and taken to the operating room where he was placed in the supine position. SCDs and a safety belt were placed. Preoperative antibiotics were administered. The patient's left chest and neck were prepped and draped in the standard sterile fashion. Surgical timeout was performed and all parties were in agreement that this was the correct patient and procedure to be performed and we continued as planned. Local anesthetic was injected along the prior skin incision. The transverse incision was opened and deepened down through the subcutaneous tissue with electrocautery. The sutures tethering the port were cut. The port was removed and passed off the table as specimen. The port appeared to be intact. Pressure was held over the left internal jugular insertion point for several minutes. The wound was irrigated and hemostasis was confirmed. The skin was closed with interrupted 3-0 Vicryl deep dermal sutures, followed by 3-0 nylon simple interrupted sutures. A sterile dressing was placed over the wound. The patient was returned to the floor where he recovered without apparent incident. All sponge, instrument and needle counts were correct at the conclusion of the procedure. The patient tolerated the procedure well. The physician's assistant associate professor was present and scrubbed for the entire procedure. He is critical position the patient, prepping and draping, retraction exposure, removal of the port, holding pressure, closure of incision, placement of the dressing. I attest to the content of the Intraoperative Record and any orders documented therein. Any exceptions are noted below.
[2018-05-25] MEDS ORDERED: MoRPHine SULFATE 2 MG/ML CARP IV PRN (14:33)
--- NOTE | 2018-05-25 15:16 | Infectious Disease Progress Nt ---
Date of Service May 25, 2018 Assessment & Plan (1) Staphylococcus aureus bacteremia with sepsis: 58-year-old male with metastatic sarcoma with necrotic gluteal mass on chemotherapy with staph aureus sepsis. Developed evidence of infection of his [id number], now removed. Patient to be continued on IV cefazolin, await follow-up culture results. Will follow. Subjective Patient seen in follow-up for staph bacteremia/sepsis. Developed purulence around his [id number], now status post removal. Follow-up cultures are pending. Abdominal CT shows no obvious change worsening of gluteal collection. Remains afebrile. Review of Systems All systems reviewed & are unremarkable except as noted in HPI & below Physical Exam Vital Signs (Past 24 Hours): Last Vital Signs Temp 36.8 C 05/25/18 14:55 Pulse 82 05/25/18 14:55 Resp 16 05/25/18 14:55 BP 107/72 05/25/18 14:55 Pulse Ox 95 05/25/18 14:55 Constitutional: WD/WN, vitals as above + ill appearing and comfortable; no acute distress Eyes: PERRL, conjunctivae normal, anicteric sclerae ENMT: external ear and nose normal, oropharynx normal Neck: trachea midline, no thyromegaly neck nontender Respiratory: normal respiratory effort, lungs clear to auscultation normal percussion; does not use accessory muscles Cardiovascular: Rate/Rhythm: regular rate and regular rhythm Heart Sounds: normal S1 and normal S2; no gallop, no murmur and no cardiac rub Vessels: normal peripheral pulses; no JVD Gastrointestinal (Abdomen): normal bowel sounds, soft, nontender, no hepatosplenomegaly Musculoskeletal: no cyanosis or clubbing, extremities motor strength 5/5 Spine: thoracic spine normal to inspection and lumbar spine normal to inspection; no cervical spinal tenderness Skin: normal turgor and + wound (With drain in place, erythema and induration, a port line appears without evidence of infection); no rashes Surgical dressing intact chest wall Neurologic: patellar DTR's 2+ bilat, sensation intact no focal motor deficits Psychiatric: A+Ox3, euthymic affect Orientation: cooperative Lymphatic: no cervical or axillary lymphadenopathy no inguinal lymphadenopathy Results & Data Laboratory Results Short CBC 05/25/18 Range/Units 05:33 WBC 14.05 H (4.8-10.8) K/uL Hgb 10.1 L (14.0-18.0) g/dL Hct 32.0 L (42-52) % Plt Count 459 H (130-400) K/uL BMP 05/25/18 05:33 Sodium 140 Potassium 4.1 Chloride 102 Carbon Dioxide 34 H BUN 9 Creatinine 0.62 Glucose 93 Calcium 8.4 L Liver Function 05/25/18 Range/Units 05:33 Total Bilirubin 0.5 (0.2-1) mg/dl Direct Bilirubin 0.1 (0-0.2) mg/dl AST 18 (15-37) U/L ALT 9 L (12-78) U/L Alkaline Phosphatase 146 H (45-117) U/L Albumin 1.7 L (3.4-5.0) gm/dl Urine 05/25/18 Range/Units 08:55 Urine Color Yellow Urine Appearance Clear (Clear) Urine pH 5.5 (4.5-7.5) Ur Specific [place] 1.018 (1.000-1.030) Urine Protein Negative (Negative) Urine Glucose (UA) Negative (Negative) Diagnostic Findings Microbiology 05/24/18 11:30 Buttock Gram Stain - Final 05/24/18 11:30 Buttock Deep Wound Culture - Preliminary Staphylococcus aureus Streptococcus species 05/18/18 09:51 Blood Blood Culture - Final No growth 05/18/18 09:44 Blood Blood Culture - Final No growth 05/17/18 09:43 Blood Blood Culture - Final Staphylococcus aureus 05/17/18 09:18 Blood Blood Culture - Final Staphylococcus aureus 05/16/18 18:00 Blood Blood Culture - Final Staphylococcus aureus 05/16/18 15:13 Blood Blood Culture - Final Staphylococcus aureus XR chest 2V routine CLINICAL HISTORY: Evaluate for pneumonia. Sarcoma. COMPARISON STUDY: Chest CT April 12, 2018. Chest radiograph May 16, 2018. FINDINGS: Left internal jugular Hswgvy-c-Udzt is in place. Numerous pulmonary nodules are similar to exam of May 16, 2018. Cardiomediastinal silhouette is stable. There is no pneumothorax or pleural effusion. No evidence for pulmonary edema or pneumonia. IMPRESSION: 1. No acute cardiopulmonary findings. 2. No significant change in pulmonary metastases.
[2018-05-26] MEDS: TRAMADOL HCL 50 MG TABLET PO PRN ×3 (02:04→18:02)
[2018-05-26] MEDS: CEFAZOLIN 2000MG 2,000 MG/15 ML SYR IV SCH ×4 (02:05→19:56)
[2018-05-26 07:31] LABS: Basophils # (auto) 0.02 K/uL (0-0.2); Basophils % (auto) 0.2 %; Hematocrit (blood only) 30.6 % (42-52); Hemoglobin 9.7 g/dL (14.0-18.0); Lymphocytes # (auto) 0.89 K/uL (1.2-3.4); Lymphocytes % (auto) 7.4 %; Mean Corpuscular Hgb Conc 31.7 g/dL (32-36); Mean Corpuscular Volume 86.4 fL (80-100); Mean Platelet Volume 9.3 fL (7.4-10.4); Monocytes # (auto) 1.08 K/uL (0.11-0.59); Monocytes % (auto) 8.9 %; Neutrophils # (auto) 9.51 K/uL (1.4-6.5); Neutrophils % (auto) 78.5 %; Platelet Count 418 K/uL (130-400); RDW Coefficient of Variation 15.4 % (11.5-14.5); RDW Standard Deviation 47.4 fL (36.4-46.3); Red Blood Count 3.54 M/uL (4.7-6.1)
[2018-05-26] MEDS: MAGNESIUM OXIDE 400 MG TAB PO SCH ×2 (07:47→19:57)
[2018-05-26] MEDS: METOPROLOL SUCC 50MG EXT REL TAB PO SCH ×2 (07:47→19:56)
[2018-05-26] MEDS: dilTIAZem ER 120 MG CAPCR PO SCH (07:48)
[2018-05-26] MEDS: FUROSEMIDE 20 MG TAB PO SCH (07:48)
[2018-05-26] MEDS: dilTIAZem ER 180 MG CAPCR PO SCH (07:48)
[2018-05-26] MEDS: POTASSIUM CHLORIDE 20 MEQ TABCR PO SCH (07:48)
[2018-05-26] MEDS: FLECAINIDE ACETATE 100 MG TABLET PO SCH ×2 (07:49→19:57)
[2018-05-26] MEDS: ATORVASTATIN 40 MG TAB PO SCH (07:49)
[2018-05-26] MEDS: VENLAFAXINE HCL XR 75 MG CAPXR PO SCH (07:49)
[2018-05-26] MEDS: PSYLLIUM 58.6% POWDER PACKET PO SCH (07:49)
[2018-05-26 07:50] LABS: BUN Creatinine Ratio 14.1 (10-20); Calcium 8.5 mg/dl (8.5-10.1); Creatinine Clr Calc Pharmacy 275.5 ml/min; Est GFR (African American) 141.8; Est GFR (Non-African American) 122.3; Potassium 4.1 mmol/L (3.5-5.1)
--- NOTE | 2018-05-26 11:31 | Hospitalist Progress Note ---
Date of Service May 26, 2018 Assessment & Plan (1) Staphylococcus aureus bacteremia with sepsis: Source - PORT. alternatively source could have been from skin on buttocks.Wound cx from buttocks drain growing Staph and Strep species Port with erythema and purulent drainage after being de-accessed Port now removed by Surgery on 05/25 given rising leukocytosis and purulent drainage from port Most recent blood cultures were negative (05/18/18). surface echo w/o obvious valvular vegetations but limited study. ALEXIS on 05/24 without valvular vegetation appreciate ID consult. remains on ancef day #[address] Carter and plan is as follows -- Continue 14 day course of IV abx therapy from date of most recent negative blood culture. Change to Rocephin 2 grams IV daily starting tomorrow and then dc with 3 more days after that. After completion of IV abx change to prolonged oral course--> need to discuss with ID about choice of po abx. 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 [facility]. Dr. Candelario formally consulted - no surgical Rx at this time. wound care appreciated. KHUSHI drain in place not draining adequately but it is acting as a [place] drain at this place as per surgery-- continue. of note - patient did NOT receive neulasta following previous round of chemo thus leukocytosis is not from such. -Is due to start round 2 of chemo at the end of next week-discussed with oncology-he will be done with his IV antibiotics at that point and should be able to continue with chemotherapy -Plan is for palliative resection of sarcoma at [place] after chemotherapy (3) Atrial fibrillation/flutter: Had ongoing challenging rate control despite increase in toprol xl to 50 BID and use of diltiazem and fleicanide. remains on eliquis although not well studied in the morbid obese population, seems to be the best choice for now. Now s/p successful DCCV with ALEXIS on 05/24, continues to remain in sinus rhythm -Cardio increased Flecainide to 150mg po bid -restart Eliquis this evening 24 hrs after port removal (4) Fever and neutropenia: resolved. Neutropenia secondary to chemotherapy and now resolved Fever from MSSA septicemia as above (5) Obstructive sleep apnea: CPAP (6) Edema: continue lasix daily. daily labs. dopplers w/o DVT. (7) Hyponatremia: resolved (8) Hypomagnesemia: resolved (9) Depression: Started on Effexor 75 mg daily this admission-mood seems to be improved -consider increase in effexor dose in the next 2-3 weeks (10) Morbid obesity: BMI about 60 (11) Leukocytosis: WBC count continued to increase to 14k despite treatment with abx, now with port removed, is decreasing again Remains afebrile Repeat CT abdomen/pelvis on 05/24 does not reveal any new source of infection specifically no abscess or fluid collection in the buttocks at the site of the circumflex,-there is persistent gas consistent with likely necrosis tumor status post chemotherapy No urinary symptoms and UA negative CXR neg for PNA no diarrhea, no abdominal pain, no cough. -follow CBC (12) DVT prophylaxis: Eliquis BID PT, OT evals - cleared for home when medically stable Remain hospitalized and if remains afebrile, leukocytosis continues to improve, can be discharged to home tomorrow with first home dose of Rocephin on Monday05/28/18 Subjective Feeling well today, no pain at previous port site. Anxious for discharge to home Tele with NSR, rates in 70s-80s Review of Systems All systems reviewed & are unremarkable except as noted in HPI & below Physical Exam Vital Signs (Past 24 Hours): Last Vital Signs Temp 36.4 C L 05/26/18 07:45 Pulse 76 05/26/18 07:45 Resp 16 05/26/18 07:45 BP 111/72 05/26/18 07:45 Pulse Ox 91 05/26/18 07:45 Constitutional: WD/WN, vitals as above + morbidly obese Eyes: PERRL, conjunctivae normal, anicteric sclerae Neck: trachea midline, no thyromegaly Respiratory: normal respiratory effort, lungs clear to auscultation Cardiovascular: Rate/Rhythm: regular rate and regular rhythm Extremities: + edema (1+ pitting edema legs bilat) Gastrointestinal (Abdomen): normal bowel sounds, soft, nontender, no hepatosplenomegaly Musculoskeletal: Extremities: no cyanosis and no clubbing Skin: no rashes, warm and dry + erythema (left buttocks and erythema surrounding port site with purulent drainage) Neurologic: moves all extremities and awake; no focal motor deficits Psychiatric: Orientation: alert Mood: + depressed mood Results & Data Laboratory Results 05/26/18 05/26/18 Range/Units 07:10 07:10 WBC 12.10 H (4.8-10.8) K/uL RBC 3.54 L (4.7-6.1) M/uL Hgb 9.7 L (14.0-18.0) g/dL Hct 30.6 L (42-52) % MCV 86.4 (80-100) fL MCH 27.4 (25-34) pg MCHC 31.7 L (32-36) g/dL RDW Std Deviation 47.4 H (36.4-46.3) fL RDW Coeff of Silas 15.4 H (11.5-14.5) % Plt Count 418 H (130-400) K/uL MPV 9.3 (7.4-10.4) fL Immature Gran % (Auto) 5.0 % Neut % (Auto) 78.5 % Lymph % (Auto) 7.4 % [place] % (Auto) 8.9 % Eos % (Auto) 0.0 % Baso % (Auto) 0.2 % Immature Gran # (Auto) 0.60 H (0.00-0.02) K/uL Neut # (Auto) 9.51 H (1.4-6.5) K/uL Lymph # (Auto) 0.89 L (1.2-3.4) K/uL [place] # (Auto) 1.08 H (0.11-0.59) K/uL Eos # (Auto) 0.00 (0-0.5) K/uL Baso # (Auto) 0.02 (0-0.2) K/uL Sodium 140 (136-145) mmol/L Potassium 4.1 (3.5-5.1) mmol/L Chloride 103 (98-107) mmol/L Carbon Dioxide 32 (21-32) mmol/L Anion Gap 5.0 (3-11) BUN 7 (7-18) mg/dl Creatinine 0.48 L (0.6-1.4) mg/dl Est Cr Clr Drug Dosing 275.5 ml/min Est GFR ( Amer) 141.8 Est GFR (Non-Af Amer) 122.3 BUN/Creatinine Ratio 14.1 (10-20) Glucose 99 (70-99) mg/dl Calcium 8.5 (8.5-10.1) mg/dl Magnesium 2.0 (1.8-2.4) mg/dl (1) Edema Edema type: unspecified Qualified Code(s): R60.9 - Edema, unspecified (2) Depression Depression Type: unspecified Qualified Code(s): F32.9 - Major depressive disorder, single episode, unspecified
[2018-05-26] MEDS: APIXABAN 5 MG TABLET PO SCH (19:57)
[2018-05-27] MEDS: CEFAZOLIN 2000MG 2,000 MG/15 ML SYR IV SCH (01:43)
[2018-05-27 07:05] LABS: Basophils # (auto) 0.02 K/uL (0-0.2); Basophils % (auto) 0.2 %; Hematocrit (blood only) 31.5 % (42-52); Immature Granulocytes % (auto) 3.5 %; Mean Corpuscular Hgb Conc 31.7 g/dL (32-36); Mean Corpuscular Volume 86.3 fL (80-100); Mean Platelet Volume 9.6 fL (7.4-10.4); Monocytes # (auto) 1.32 K/uL (0.11-0.59); Monocytes % (auto) 11.7 %; Neutrophils # (auto) 8.65 K/uL (1.4-6.5); Neutrophils % (auto) 76.6 %; Platelet Count 406 K/uL (130-400); RDW Coefficient of Variation 15.5 % (11.5-14.5); RDW Standard Deviation 47.4 fL (36.4-46.3); Red Blood Count 3.65 M/uL (4.7-6.1); White Blood Count 11.29 K/uL (4.8-10.8)
[2018-05-27 07:22] LABS: BUN Creatinine Ratio 14.2 (10-20); Calcium 8.5 mg/dl (8.5-10.1); Creatinine Clr Calc Pharmacy 287.5 ml/min; Est GFR (African American) 144.3; Est GFR (Non-African American) 124.5; Potassium 3.7 mmol/L (3.5-5.1)
[2018-05-27] MEDS: TRAMADOL HCL 50 MG TABLET PO PRN ×2 (07:41→13:37)
[2018-05-27] MEDS: ATORVASTATIN 40 MG TAB PO SCH (07:47)
[2018-05-27] MEDS: APIXABAN 5 MG TABLET PO SCH (07:47)
[2018-05-27] MEDS: METOPROLOL SUCC 50MG EXT REL TAB PO SCH (07:47)
[2018-05-27] MEDS: FLECAINIDE ACETATE 100 MG TABLET PO SCH (07:47)
[2018-05-27] MEDS: dilTIAZem ER 180 MG CAPCR PO SCH (07:49)
[2018-05-27] MEDS: MAGNESIUM OXIDE 400 MG TAB PO SCH (07:49)
[2018-05-27] MEDS: dilTIAZem ER 120 MG CAPCR PO SCH (07:50)
[2018-05-27] MEDS: POTASSIUM CHLORIDE 20 MEQ TABCR PO SCH (07:51)
[2018-05-27] MEDS: FUROSEMIDE 20 MG TAB PO SCH (07:51)
[2018-05-27] MEDS: VENLAFAXINE HCL XR 75 MG CAPXR PO SCH (07:51)
[2018-05-27] MEDS: PSYLLIUM 58.6% POWDER PACKET PO SCH (07:52)
[2018-05-27] MEDS ORDERED: cefTRIAXone SODIUM 2,000 MG in DEXTROSE 5% 50 ML IV SCH (09:00)
[2018-05-27] MEDS: HEPARIN 100 UNIT/ML 5ML FLUSH FLUSH PRN (10:56)
--- NOTE | 2018-05-27 13:45 | Discharge Summary ---
Date of Service May 27, 2018 Admission HPI Per Admitting Provider Mr. 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 Patient is s/p inpatient induction chemotherapy performed on 05/04/18 with adriamycin, ifosfamide and mesna. Chemotherapy was complicated by episode of delirium. Patient did not receive Neupogen/or CSF after chemo. He was discharged home in stable condition. He was feeling well. He has home health nursing that comes in and draws blood every Monday and . Blood that was drawn on 05/14/18 with neutropenia, WBC=0.53 and ANC of 0.12. Over the last 2-3 days the patient states he has been feeling weak and fatigued. He has difficult time ambulating in his home and performing ADLS secondary to weakness and shortness of breath. He complains of chills since receiving chemotherapy. Had an episode of night sweats last evening. Also with poor appetite, food does not taste well. He was seen at Dr. Araya's office for the above complaints. Per Brittani Snyder's note the patient appeared miranda and color with dyspnea, worse with exertion. His temperature was found to be 99.8. She also noted foul smelling discharge from the catheter site. Patient had aspiration of fluid from the mass performed x 3. Had placement of a Billy-Whitman drain which the patient manages and drains on his own. Patient is to receive two cycles of combination chemotherapy and be reevaluated at [facility] by Dr. Vang for palliative surgical resection. He also has a left sided chest port Principal Diagnosis Staphylococcal bacteremia and infected port Discharge Exam Constitutional WD/WN, vitals as above + morbidly obese Eyes PERRL, conjunctivae normal, anicteric sclerae Neck trachea midline, no thyromegaly Respiratory normal respiratory effort, lungs clear to auscultation Cardiovascular RRR, no murmur, no edema Rate/Rhythm: regular rate and regular rhythm Extremities: + edema (1+ pitting edema legs bilat) Gastrointestinal (Abdomen) normal bowel sounds, soft, nontender, no hepatosplenomegaly Musculoskeletal Extremities: no cyanosis and no clubbing Skin + erythema (left buttocks and erythema surrounding port site much improved, sutures in) Neurologic moves all extremities and awake; no focal motor deficits Psychiatric A+Ox3, euthymic affect Discharge Data Allergies Allergy/AdvReac Type Severity Reaction Status Date / Time No Known Allergies Allergy Unverified 05/16/18 15:36 Consultations 05/16/18 21:18 Consult Oncology Routine 05/17/18 09:02 Consult Infectious Diseases Routine 05/21/18 15:06 Consult General Surgery Routine 05/22/18 17:49 Consult Cardiology Routine Procedures Performed Operation Date: 05/24/18 09:00 Actual Procedures p Cardioversion - Kaiden Sparks MD Operation Date: 05/25/18 12:10 Actual Procedures p Infusaport Removal(Left) - Jaylon Candelario DO, FACS Ordered Studies 05/16/18 14:57 CT abd pelvis IV con only Stat 05/23/18 12:14 US venous doppler LE BI Routine 05/24/18 11:03 CT abd pelvis IV con only Urgent Chest xray Hospital Course (1) Staphylococcus aureus bacteremia with sepsis: Source - PORT. alternatively source could have been from skin on buttocks.Wound cx from buttocks drain growing MSSA x 2 and Enterococcus Port with erythema and purulent drainage after being de-accessed Port now removed by Surgery on 05/25 given rising leukocytosis and purulent drainage from port Most recent blood cultures were negative (05/18/18). surface echo w/o obvious valvular vegetations but limited study. ALEXIS on 05/24 without valvular vegetation appreciate ID consult. Received 9 days of Ancef and now on day #10 overall of antibiotics but switched to Rocephin 2 gm IV q24h--> finish 4 more days of ROcephin, last dose 05/31, then START AUgmentin 875mg bid x 4 more weeks -f/u with ID in about 2 weeks (2) Sarcoma of buttock: left - recent diagnosis and recent initiation of Rx. follows with [facility] Dr. Candelario. Dr. Candelario formally consulted - no surgical Rx at this time. wound care appreciated. KHUSHI drain in place not draining adequately but it is acting as a Meka drain at this place as per surgery-- continue. of note - patient did NOT receive neulasta following previous round of chemo thus leukocytosis is not from such. -Is due to start round 2 of chemo at the end of next week-discussed with oncology-he will be done with his IV antibiotics at that point and should be able to continue with chemotherapy -Plan is for palliative resection of sarcoma at [place] after chemotherapy - tentatively for the end of May (3) Atrial fibrillation/flutter: Had ongoing challenging rate control despite increase in toprol xl to 50 BID and use of diltiazem and fleicanide. remains on eliquis although not well studied in the morbid obese population, seems to be the best choice for now. Now s/p successful DCCV with ALEXIS on 05/24, continues to remain in sinus rhythm -Cardio increased Flecainide to 150mg po bid -continue Toprol XL 50mg bid (increased fromhome dose) -continue Eliquis 5mg po bid (4) Fever and neutropenia: resolved. Neutropenia secondary to chemotherapy and now resolved Fever from MSSA septicemia as above (5) Obstructive sleep apnea: CPAP (6) Edema: continue lasix daily, KCl supplementation dopplers w/o DVT. (7) Hyponatremia: resolved (8) Hypomagnesemia: resolved (9) Depression: Started on Effexor 75 mg daily this admission-mood seems to be improved -consider increase in effexor dose in the next 2-3 weeks (10) Morbid obesity: BMI about 60 (11) Leukocytosis: WBC count continued to increase to 14k despite treatment with abx, now with port removed, is decreasing again-WBC 11k on day of dc Remains afebrile Repeat CT abdomen/pelvis on 05/24 does not reveal any new source of infection specifically no abscess or fluid collection in the buttocks at the site of the circumflex,-there is persistent gas consistent with likely necrosis tumor status post chemotherapy No urinary symptoms and UA negative CXR neg for PNA no diarrhea, no abdominal pain, no cough. -follow CBC with Oncology next week (12) DVT prophylaxis: Eliquis BID PT, OT evals - cleared for home Dispo-stable for dc to home today with Home Health for IV abx Total Time Total Time Spent Total Time Spent (In Minutes): >30 min Total Time Includes: Examination of the Patient, Discharge Planning, Medication Reconciliation and Communication With Other Providers (Infectious DIsease) Discharge Plan Discharge Items Patient Disposition: Home - Home Health Services Reason For Visit: NEUTROPENIA,ELECTROLYTES ABNORMAL Discharge Diagnosis: Staphylococcus bacteremia, infected port Condition: Good Discharge Goals: Decrease discomfort, Diagnostic testing, Improve disease control, Learn about illness and Therapeutic intervention Activity: Resume your previous activity Lifting: None Bathing Comment: May shower but keep PICC line dry, no soaking port surgical site Exercise/Sports: As tolerated Non-emergency contact: Primary Care Provider and Oncologist Call non-emergency contact if: you have any medication questions, your symptoms worsen, your pain is not controlled, your pain is worsening, your pain is unusual for you, you have a fever, your temperature is above 100.5, your wound has increased redness, your wound has increased drainage and your wound pain has increased Follow-up/Referrals: Dagoberto Carter MD [Physician] - (Please call to schedule and appointment within 2 weeks for follow up on your blood stream infection.) Mark Abdullahi MD [Physician] - (Please call for a follow up appointment within 2-3 weeks) Lc Araya III, MD [Primary Care Provider] - (Please call for a follow up appointment within 1-2 weeks) Karl Camara DO [Family Provider] - (Please call to inquire about when to come in for your next chemotherapy at the hospital.) Diet: Heart Healthy Addtl Provider Instructions: You were admitted for fever and found to have an infected port with bacteria in your bloodstream. Your port was removed and you were treated with IV antibio tics. You will need to continue the home IV antibiotics through 05/31/18 (that is the day of your last dose). A nurse from the home infusion company will come out and teach you how to take care of your PICC line and administer your antibiotics. After that, the PICC line will remain in place instead of your port for your future chemotherapy treatments. You will then start taking the oral antibiotic called Augmentin one tablet twice a day beginning Monday06/01/18 for several weeks. Please follow up with Dr. Carter of Infectious Disease-he will determine when it is safe for you to stop taking the oral antibiotic. Please call Dr. Camara's office to coordinate when to come in for your next chemotherapy treatment next week. You had a cardioversion electrically of your heart, and your flecainide and Toprol XL were both increased in dose. You were also started on an antidepressant called Effexor. Please follow up with your PCP to see if this dose should be increased. You will need to follow up with the [facility] and have your sutures removed in about 7-10 days. Prescriptions: New ceftriaxone 2 gram recon soln 2 gm IV DAILY 6 Days Qty: 6 RF: 0 metoprolol succinate 50 mg Tablet Extended Release 24 Hr 50 mg PO BID Qty: 60 RF: 0 venlafaxine 75 mg Capsule,Extended Release 24hr 75 mg PO QAM Qty: 30 RF: 0 potassium chloride [Klor-Con M20] 20 mEq Tablet,Er Particles/Crystals 20 meq PO QAM Qty: 30 RF: 0 furosemide 20 mg Tablet 20 mg PO QAM Qty: 30 RF: 0 magnesium oxide 400 mg (241.3 mg magnesium) Tablet 400 mg PO BID Qty: 60 RF: 0 amoxicillin-pot clavulanate [Augmentin] 875-125 mg tablet 1 tab PO BID Qty: 60 RF: 0 flecainide 150 mg tablet 150 mg PO Q12H Qty: 60 RF: 0 Continued atorvastatin 20 mg tablet 40 mg PO DAILY RF: 0 tramadol 50 mg Tablet 100 mg PO Q6H PRN (Reason: pain) Qty: 60 RF: 0 acetaminophen 500 mg capsule 1,000 mg PO Q8 Qty: 90 RF: 0 multivitamin Tablet 1 tab PO QAM RF: 0 diltiazem HCl 300 mg Tablet Extended Release 24 Hr 300 mg PO QAM RF: 0 Metamucil 3.4 gram/5.4 gram Powder 1 dose PO QAM RF: 0 Eliquis 5 mg tablet 5 mg PO BID RF: 0 Discontinued metoprolol succinate 25 mg Tablet Extended Release 24 Hr 25 mg PO QAM RF: 0 Stand-Alone Forms: [facility] Discharge Orders: Discharge Order (Routine); Ordered 05/27/18 Ordered By: Maria Isabel Cody Admission Data Admit Date/Time: 05/16/18 18:44 Attending Provider: Maria Isabel Cody Admit Provider: Luisa Espinoza Primary Care Provider: Lc Araya III Other Providers: Home,Nursing Agency ; Karl Camara V ; Flaca Magaña ; Jaylon Candelario ; Mark Abdullahi Service: Telemetry Medical Other Pending Studies at Discharge: Yes Studies:: Final Wound culture result from port
== END 2018-05-27 16:52 | disposition home health service (06) | DRG 314 ==
LOC: ED 14:23 → 2N 18:44 → SUATTDRO 18:44 → 2N 20:15 → 2E 05-17 00:17 → 2N 05-17 17:34

== ENCOUNTER 2018-06-04 08:38 | Inpatient (IN) ==
[2018-06-04] MEDS ORDERED: PROCHLORPERAZINE MALEATE 10 MG TAB PO PRN (10:02)
[2018-06-04] MEDS ORDERED: PROCHLORPERAZINE 10 MG in SYRINGE 8 ML IV PRN (10:04)
[2018-06-04] MEDS ORDERED: ONDANSETRON INJ 2 MG/ML 2 ML VIAL IV PRN (10:29)
[2018-06-04] MEDS ORDERED: POLYETHYLENE (MIRALAX) 17 GM PACK PO PRN (10:29)
[2018-06-04] MEDS ORDERED: TRAMADOL HCL 50 MG TABLET PO PRN (10:32)
--- NOTE | 2018-06-04 11:08 | History & Physical Report ---
Date of Service June 04, 2018 Assessment & Plan (1) Sarcoma of soft tissue: -With metastatic disease presumably to the lungs -Here for second round of inpatient chemotherapy -Chemotherapy orders as per oncology -Antiemetics and IV fluids ordered -Oncology consult placed -Plan for palliative surgery for removal of sarcoma on the this month- however this may be pushed back as per patient -Pain control with tramadol as needed although lately his pain has been improved -KHUSHI drain in place, the wound is opening up a bit but does not appear actively infected, however this likely does explain the bleeding he has especially in the setting of anticoagulation with Eliquis. -Wound care consulted, watch for active bleeding, continue daily dressing changes Of note, with last inpatient chemotherapy, he developed acute encephalopathy which was thought to be secondary to his chemotherapy regimen-we will watch carefully for this here -Follow daily chemistry, CBC (2) Sleep apnea: On CPAP 16 cm H2O -Ordered CPAP for while inpatient (3) Hypertension: Blood pressures controlled -Continue Toprol 50 mg p.o. twice daily -Continue diltiazem 30 mg once daily (4) Paroxysmal atrial flutter: Status post DC cardioversion with ALEXIS last admission for persistent atrial flutter -Continue rate control with Toprol-XL and diltiazem -Continue with anticoagulation with Eliquis 5 mill grams p.o. twice daily -Appears to be in a regular rhythm with a normal rate on exam today (5) Dyslipidemia: -Continue atorvastatin 40 mg once daily (6) Chronic anticoagulation: With Eliquis for paroxysmal atrial fibrillation and flutter as above (7) Staphylococcus aureus bacteremia: With recent admission for this and discharged on 05/27 -He completed a total of 14 days from the last negative blood culture of IV antibiotics with Rocephin and now is on Augmentin 875 mg p.o. twice daily for 4 more weeks from starting date of 06/01 -Port has been removed and this was the source of his infection-the site appears well-healed and the sutures can be removed today -Has persistent leukocytosis on most recent CBC but no fevers -Continue to follow CBC (8) DVT prophylaxis: Eliquis Disposition-admit to medical oncology floor History of Present Illness Chief Complaint: Inpatient chemotherapy Primary Care Provider: Lc Araya MD This patient is a 58-year-old male with a history of left buttocks pleomorphic sarcoma with presumed pulmonary metastases, paroxysmal atrial flutter/fibrillation on Eliquis, morbid obesity, major depressive disorder, hyperlipidemia, and SIMIN on CPAP, and recent MSSA bacteremia and port infection now status post port removal, who presents to the hospital for his second round of inpatient chemotherapy. He is about a week late on getting his chemotherapy due to recent bacteremia and remains on Augmentin at this time. His only complaint today is that he has been having some blood clots since last evening from his buttocks and the skin has broken down more around his KHUSHI drain. Otherwise, the pain in his buttocks has dramatically improved. He denies chest pain or shortness of breath. Denies headache or lightheadedness, no nausea or vomiting. He is moving his bowels regularly. Denies joint pains or rash. Allergies Allergy/AdvReac Type Severity Reaction Status Date / Time No Known Allergies Allergy Unverified 05/16/18 15:36 Home Medications Home Medications Medication Instructions Recorded Confirmed Type diltiazem HCl 300 mg PO QAM 05/01/18 05/16/18 History multivitamin 1 tab PO QAM 05/01/18 05/16/18 History atorvastatin 40 mg PO DAILY 05/04/18 05/16/18 History acetaminophen 1,000 mg PO Q8 #90 cap 05/08/18 05/16/18 Rx tramadol 100 mg PO Q6H PRN #60 tab 05/08/18 05/16/18 Rx Metamucil 1 dose PO QAM 05/16/18 05/16/18 History Eliquis 5 mg PO BID 05/27/18 05/27/18 History amoxicillin-pot clavulanate 1 tab PO BID #60 tab 05/27/18 Rx [Augmentin] flecainide 150 mg PO Q12H #60 tab 05/27/18 Rx furosemide 20 mg PO QAM #30 tab 05/27/18 Rx magnesium oxide 400 mg PO BID #60 tab 05/27/18 Rx metoprolol succinate 50 mg PO BID #60 tab 05/27/18 Rx potassium chloride [Klor-Con M20] 20 meq PO QAM #30 tab 05/27/18 Rx venlafaxine 75 mg PO QAM #30 cap 05/27/18 Rx Past Med/Surg History Medical History Chronic anticoagulation Major depressive disorder Paroxysmal atrial flutter Anxiety (Resolved) Dyslipidemia History of atrial fibrillation ON ELIQUIS History of atrial flutter ON ELIQUIS Hypertension Morbid obesity with BMI of 60.0-69.9, adult Sarcoma of soft tissue Sleep apnea CPAP Surgical History History of cardioversion X 2 History of colonoscopy History of excision of pilonidal cyst History of inguinal hernia repair BL History of lumbar fusion History of wisdom tooth extraction Family History Father Family history of diabetes mellitus Mother , in her 70s Cancer Uterine,ovarian Social History Preferred Language: Tristanian Communication Ability: Effective Ehs Teacher Required: No Beliefs That Will Affect Care: None marital status: Current Living Situation: Spouse current occupational status: employed 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 Other Information That Helps Us Care for You: No Feels Safe at Home: No Safety Concerns: Feels Safe At This Time Smoking Status: Never smoker Hx Alcohol Use: No Hx Substance Use: No Review of Systems All systems reviewed & are unremarkable except as noted in HPI & below (Has some pain on the tip of his tongue as he has been biting his tongue after he quit chewing tobacco) Physical Exam Vital Signs (Past 24 Hours): Last Vital Signs Temp 36.7 C 06/04/18 10:00 Pulse 58 L 06/04/18 10:00 Resp 20 06/04/18 10:00 BP 130/81 06/04/18 10:00 Pulse Ox 97 06/04/18 10:00 Constitutional: WD/WN, vitals as above (With alopecia) + morbidly obese Eyes: PERRL, conjunctivae normal, anicteric sclerae ENMT: external ear and nose normal, oropharynx normal Mouth: + tongue abnormality (Small ulcer on the tip of his tongue) Neck: trachea midline, no thyromegaly Respiratory: normal respiratory effort, lungs clear to auscultation Cardiovascular: Rate/Rhythm: regular rate and regular rhythm Heart Sounds: no murmur Extremities: + edema (1+ pitting edema of the legs bilaterally left greater than right) Gastrointestinal (Abdomen): normal bowel sounds, soft, nontender, no hepatosplenomegaly Musculoskeletal: Spine: + buttock swelling (Very large left buttocks mass approximately 20 x 15 cm with open wound in the middle with KHUSHI drain coming out, serous drainage in the KHUSHI bulb and the colostomy bag from around the open wound, no active bleeding) Extremities: no cyanosis and no clubbing Skin: + wound (Left anterior chest wall with previous port site with sutures in place with well-healed wound, no erythema or drainage) Neurologic: moves all extremities and awake; no focal motor deficits Psychiatric: A+Ox3, euthymic affect Code Status & VTE Plan Code Status Full code VTE Prophylaxis Plan VTE Prophylaxis will be ordered: Yes
[2018-06-04] MEDS: SODIUM CHLORIDE 0.9% 1000ML 1,000 ML IV SCH ×2 (11:19→20:18)
[2018-06-04 12:07] LABS: Hematocrit (blood only) 32.4 % (42-52); Hemoglobin 10.4 g/dL (14.0-18.0); Mean Corpuscular Hgb Conc 32.1 g/dL (32-36); Mean Corpuscular Volume 85.5 fL (80-100); Mean Platelet Volume 9.3 fL (7.4-10.4); Platelet Count 352 K/uL (130-400); RDW Coefficient of Variation 16.6 % (11.5-14.5); RDW Standard Deviation 50.7 fL (36.4-46.3); Red Blood Count 3.79 M/uL (4.7-6.1); White Blood Count 10.76 K/uL (4.8-10.8)
[2018-06-04 12:27] LABS: BUN Creatinine Ratio 15.3 (10-20); Calcium 8.6 mg/dl (8.5-10.1); Est GFR (African American) 125.2
[2018-06-04] MEDS: ONDANSETRON 8 MG TABLET PO SCH (15:32)
[2018-06-04] MEDS: dexAMETHasone 4 MG TAB PO SCH (15:33)
[2018-06-04] MEDS: DOXORUBICIN HCL IV SCH (15:59)
[2018-06-04] MEDS: SODIUM CHLORIDE 0.9% IV SCH ×2 (15:59→16:01)
[2018-06-04] MEDS: IFOSFAMIDE IV SCH (16:01)
[2018-06-04] MEDS: MESNA IV SCH (16:01)
[2018-06-04] MEDS: AMOXICILLIN/CLAVULANATE 875 MG TAB PO SCH (16:30)
[2018-06-04] MEDS: ACETAMINOPHEN 325 MG TAB PO PRN (16:30)
[2018-06-04] MEDS: METOPROLOL SUCC 50MG EXT REL TAB PO SCH (20:18)
[2018-06-04] MEDS: APIXABAN 5 MG TABLET PO SCH (20:19)
[2018-06-04] MEDS: FLECAINIDE ACETATE 100 MG TABLET PO SCH (20:19)
[2018-06-04] MEDS: MAGNESIUM OXIDE 400 MG TAB PO SCH (20:19)
[2018-06-05 06:35] LABS: Hemoglobin 11.5 g/dL (14.0-18.0); Mean Corpuscular Hgb Conc 31.9 g/dL (32-36); Mean Platelet Volume 9.4 fL (7.4-10.4); Platelet Count 412 K/uL (130-400); RDW Coefficient of Variation 16.3 % (11.5-14.5); RDW Standard Deviation 51.5 fL (36.4-46.3); Red Blood Count 4.14 M/uL (4.7-6.1); White Blood Count 13.31 K/uL (4.8-10.8)
[2018-06-05] MEDS: ACETAMINOPHEN 325 MG TAB PO PRN ×2 (06:46→19:08)
[2018-06-05] MEDS: SODIUM CHLORIDE 0.9% 1000ML 1,000 ML IV SCH ×2 (06:49→17:03)
[2018-06-05 07:02] LABS: BUN Creatinine Ratio 13.3 (10-20); Calcium 8.9 mg/dl (8.5-10.1); Creatinine Clr Calc Pharmacy 168.5 ml/min; Est GFR (African American) 117.4; Est GFR (Non-African American) 101.3; Potassium 4.2 mmol/L (3.5-5.1)
[2018-06-05] MEDS: AMOXICILLIN/CLAVULANATE 875 MG TAB PO SCH ×2 (07:41→17:03)
[2018-06-05] MEDS: APIXABAN 5 MG TABLET PO SCH ×2 (07:42→20:02)
[2018-06-05] MEDS: POTASSIUM CHLORIDE 20 MEQ TABCR PO SCH (07:42)
[2018-06-05] MEDS: VENLAFAXINE HCL XR 75 MG CAPXR PO SCH (07:42)
[2018-06-05] MEDS: MAGNESIUM OXIDE 400 MG TAB PO SCH ×2 (07:42→20:02)
[2018-06-05] MEDS: METOPROLOL SUCC 50MG EXT REL TAB PO SCH ×2 (07:43→20:04)
[2018-06-05] MEDS: FLECAINIDE ACETATE 100 MG TABLET PO SCH ×2 (07:43→20:01)
[2018-06-05] MEDS: dilTIAZem ER 180 MG CAPCR PO SCH (07:45)
[2018-06-05] MEDS: ATORVASTATIN 40 MG TAB PO SCH (07:45)
[2018-06-05] MEDS: dilTIAZem ER 120 MG CAPCR PO SCH (07:45)
[2018-06-05] MEDS: dexAMETHasone 4 MG TAB PO SCH (15:02)
[2018-06-05] MEDS: ONDANSETRON 8 MG TABLET PO SCH (15:03)
[2018-06-05] MEDS: SODIUM CHLORIDE 0.9% IV SCH ×2 (16:32→16:33)
[2018-06-05] MEDS: MESNA IV SCH (16:32)
[2018-06-05] MEDS: IFOSFAMIDE IV SCH (16:32)
[2018-06-05] MEDS: DOXORUBICIN HCL IV SCH (16:33)
--- NOTE | 2018-06-05 17:00 | Oncology Consultation ---
Date of Consultation June 05, 2018 Assessment & Plan (1) Sarcoma of buttock: Mr. Hu is here for cycle 2 of AIM, which he began yesterday. His infectious issues seem to be improving and his overall clinical improvement argues that his disease is responding as well. He should be done with treatment by and hopefully ready for discharge later that day. He is scheduled to come to our clinic Monday for Neulasta. However, if there is any possibility that he may not leave on time, we will need to give the treatment here to avoid another episode of febrile neutropenia. He should have daily labs and antiemetics ordered PRN. Present on Admission?: Yes History of Present Illness Reason for Consultation: Sarcoma, here for chemotherapy Attending Physician: Maria Isabel Cody MD History of Present Illness Mr. Hu is a 58 year old man with a large undifferentiated pleomorphic sarcoma involving his left buttock and hip, along with numerous pulmonary metastases. The mass was centrally necrotic and has been draining fluid. He has KHUSHI drains chronically and a colostomy bag at the site of his wound there. He was hospitalized in April to begin chemotherapy with AIM. His first cycle was complicated by delayed recovery of his counts and febrile neutropenia secondary to what proved to be MSSA bacteremia. His port site had frankly purulent drainage, so it was removed on 05/25/18. Interestingly, culture from the port tip was negative and cultures from the port pocket revealed cutibacterium acnes and a coag-negative staph, both different than the S. aureus that grew from his blood and from his tumor wound. He remains on a course of Augmentin for the MSSA. His hip and buttock pain have improved considerably over the last week or so, over which time he hasn't needed any doses of Tramadol. His energy is good as well and overall he feels the best he has since this whole issue began. He was admitted yesterday afternoon for cycle 2 of AIM. Allergies Allergy/AdvReac Type Severity Reaction Status Date / Time No Known Allergies Allergy Unverified 05/16/18 15:36 Home Medications Home Medications Medication Instructions Recorded Confirmed Type diltiazem HCl 300 mg PO QAM 05/01/18 06/04/18 History multivitamin 1 tab PO QAM 05/01/18 06/04/18 History atorvastatin 40 mg PO DAILY 05/04/18 06/04/18 History acetaminophen 1,000 mg PO Q8 #90 cap 05/08/18 06/04/18 Rx tramadol 100 mg PO Q6H PRN #60 tab 05/08/18 06/04/18 Rx Metamucil 1 dose PO QAM 05/16/18 06/04/18 History Eliquis 5 mg PO BID 05/27/18 06/04/18 History amoxicillin-pot clavulanate 1 tab PO BID #60 tab 05/27/18 06/04/18 Rx [Augmentin] flecainide 150 mg PO Q12H #60 tab 05/27/18 06/04/18 Rx furosemide 20 mg PO QAM #30 tab 05/27/18 06/04/18 Rx magnesium oxide 400 mg PO BID #60 tab 05/27/18 06/04/18 Rx metoprolol succinate 50 mg PO BID #60 tab 05/27/18 06/04/18 Rx potassium chloride [Klor-Con M20] 20 meq PO QAM #30 tab 05/27/18 06/04/18 Rx venlafaxine 75 mg PO QAM #30 cap 05/27/18 06/04/18 Rx Patient History Medical History Chronic anticoagulation Major depressive disorder Paroxysmal atrial flutter Anxiety (Resolved) Dyslipidemia History of atrial fibrillation ON ELIQUIS History of atrial flutter ON ELIQUIS Hypertension Morbid obesity with BMI of 60.0-69.9, adult Sarcoma of soft tissue Sleep apnea CPAP Surgical History History of cardioversion X 2 History of colonoscopy History of excision of pilonidal cyst History of inguinal hernia repair BL History of lumbar fusion History of wisdom tooth extraction Family History Father Family history of diabetes mellitus Mother , in her 70s Cancer Uterine,ovarian Social History Preferred Language: Portuguese Communication Ability: Effective Head Of Music Required: No Beliefs That Will Affect Care: None marital status: Current Living Situation: Spouse current occupational status: employed 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 Other Information That Helps Us Care for You: No Feels Safe at Home: No Safety Concerns: Feels Safe At This Time Smoking Status: Never smoker Hx Alcohol Use: No Hx Substance Use: No Review of Systems Constitutional: + fatigue (improving); no fever Eyes: no worsening vision Respiratory: no cough and no dyspnea Cardiovascular: + edema (improving); no chest pain and no palpitations Gastrointestinal: no abdominal pain, no nausea and no vomiting Musculoskeletal: as per Subjective / HPI Integumentary: no rash and no new lesions Neurologic: no dizziness and no headache(s) Hematologic / Lymphatic: no night sweats Physical Exam Vital Signs (Past 24 Hours): Last Vital Signs Temp 36.4 C L 06/05/18 15:08 Pulse 63 06/05/18 15:08 Resp 18 06/05/18 15:08 BP 141/61 H 06/05/18 15:08 Pulse Ox 95 06/05/18 15:08 Constitutional: + obese and comfortable; no acute distress Eyes: + anicteric sclerae and EOM intact bilaterally ENMT: external ear and nose normal, oropharynx normal Respiratory: normal respiratory effort, lungs clear to auscultation Cardiovascular: RRR, no murmur, no edema Gastrointestinal (Abdomen): Inspection/Auscultation: normal bowel sounds Percussion/Palpation: abdomen soft; abdomen nontender Skin: no rashes, warm and dry Psychiatric: A+Ox3, euthymic affect Results & Data Laboratory Results Laboratory Results - last 24 hr 06/05/18 06/05/18 06/05/18 06:13 06:13 16:20 WBC 13.31 H RBC 4.14 L Hgb 11.5 L Hct 36.0 L MCV 87.0 MCH 27.8 MCHC 31.9 L RDW Std Deviation 51.5 H RDW Coeff of Silas 16.3 H Plt Count 412 H MPV 9.4 Sodium 138 Potassium 4.2 Chloride 103 Carbon Dioxide 27 Anion Gap 7.0 BUN 10 Creatinine 0.76 Est Cr Clr Drug Dosing 168.5 Est GFR ( Amer) 117.4 Est GFR (Non-Af Amer) 101.3 BUN/Creatinine Ratio 13.3 Glucose 161 H Calcium 8.9 Magnesium 2.0 Urine Blood Negative
--- NOTE | 2018-06-05 17:51 | Hospitalist Progress Note ---
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 -Wound care consulted, watch for active bleeding, continue daily dressing changes Of note, with last inpatient chemotherapy, he developed acute encephalopathy which was thought to be secondary to his chemotherapy regimen-we will watch carefully for this here -Follow daily chemistry, CBC (2) Sleep apnea: On CPAP 16 cm H2O -Ordered CPAP for while inpatient (3) Hypertension: Blood pressures controlled -Continue Toprol 50 mg p.o. twice daily -Continue diltiazem 300 mg once daily (4) Paroxysmal atrial flutter: Status post DC cardioversion with ALEXIS last admission for persistent atrial flutter -Continue rate control with Toprol-XL and diltiazem -Continue rhythm control with flecainide 150 mill grams p.o. twice daily -Continue with anticoagulation with Eliquis 5 mill grams p.o. twice daily -Appears to be in a regular rhythm with a normal rate on exam today (5) Dyslipidemia: -Continue atorvastatin 40 mg once daily (6) Chronic anticoagulation: With Eliquis for paroxysmal atrial fibrillation and flutter as above (7) Staphylococcus aureus bacteremia: With recent admission for this and discharged on 05/27 -He completed a total of 14 days from the last negative blood culture of IV antibiotics with Rocephin and now is on Augmentin 875 mg p.o. twice daily for 4 more weeks from starting date of 06/01 -Port has been removed and this was the source of his infection-the site appears well-healed and the sutures were removed on day of admission here -Has persistent leukocytosis on most recent CBC but no fevers -Continue to follow CBC (8) DVT prophylaxis: Eliquis Disposition-continued stay for chemotherapy Subjective Feeling very well, no complaints. No nausea or vomiting. No shortness of breath or chest pain. Review of Systems All systems reviewed & are unremarkable except as noted in HPI & below Physical Exam Vital Signs (Past 24 Hours): Last Vital Signs Temp 36.4 C L 06/05/18 15:08 Pulse 63 06/05/18 15:08 Resp 18 06/05/18 15:08 BP 141/61 H 06/05/18 15:08 Pulse Ox 95 06/05/18 15:08 Constitutional: WD/WN, vitals as above (With alopecia) + morbidly obese Eyes: PERRL, conjunctivae normal, anicteric sclerae ENMT: external ear and nose normal, oropharynx normal Mouth: + tongue abnormality (Small ulcer on the tip of his tongue) Neck: trachea midline, no thyromegaly Respiratory: normal respiratory effort, lungs clear to auscultation Cardiovascular: Rate/Rhythm: regular rate and regular rhythm Heart Sounds: no murmur Extremities: + edema (1+ pitting edema of the legs bilaterally left greater than right) Gastrointestinal (Abdomen): normal bowel sounds, soft, nontender, no hepatosplenomegaly Musculoskeletal: Spine: + buttock swelling (Very large left buttocks mass approximately 20 x 15 cm with open wound in the middle with KHUSHI drain coming out, serous drainage in the KHUSHI bulb and the colostomy bag from around the open wound, no active bleeding) Extremities: no cyanosis and no clubbing Skin: + wound (Left anterior chest wall with previous port site with sutures in place with well-healed wound, no erythema or drainage) Neurologic: moves all extremities and awake; no focal motor deficits Psychiatric: A+Ox3, euthymic affect Results & Data Laboratory Results 06/06/18 06/05/18 Range/Units 01:37 16:20 Urine Blood Negative Negative (Negative) WBC 13, hemoglobin 11.5, platelets 412 Sodium 138, potassium 4.2, chloride 103, bicarb 27, creatinine 0.76, glucose 161
[2018-06-06] MEDS: SODIUM CHLORIDE 0.9% 1000ML 1,000 ML IV SCH ×3 (03:28→23:49)
[2018-06-06] MEDS: ACETAMINOPHEN 325 MG TAB PO PRN ×2 (07:14→17:27)
[2018-06-06] MEDS: METOPROLOL SUCC 50MG EXT REL TAB PO SCH ×2 (08:21→20:17)
[2018-06-06] MEDS: VENLAFAXINE HCL XR 75 MG CAPXR PO SCH (08:22)
[2018-06-06] MEDS: FLECAINIDE ACETATE 100 MG TABLET PO SCH ×2 (08:23→20:17)
[2018-06-06] MEDS: MAGNESIUM OXIDE 400 MG TAB PO SCH ×2 (08:24→20:17)
[2018-06-06] MEDS: APIXABAN 5 MG TABLET PO SCH ×2 (08:24→20:17)
[2018-06-06] MEDS: AMOXICILLIN/CLAVULANATE 875 MG TAB PO SCH ×2 (08:25→18:19)
[2018-06-06] MEDS: dilTIAZem ER 180 MG CAPCR PO SCH (08:25)
[2018-06-06] MEDS: dilTIAZem ER 120 MG CAPCR PO SCH (08:25)
[2018-06-06] MEDS: POTASSIUM CHLORIDE 20 MEQ TABCR PO SCH (08:26)
[2018-06-06] MEDS: ATORVASTATIN 40 MG TAB PO SCH (08:26)
[2018-06-06 08:32] LABS: Hematocrit (blood only) 32.9 % (42-52); Hemoglobin 10.4 g/dL (14.0-18.0); Immature Granulocytes # (auto) 0.07 K/uL (0.00-0.02); Immature Granulocytes % (auto) 0.4 %; Lymphocytes # (auto) 0.42 K/uL (1.2-3.4); Lymphocytes % (auto) 2.6 %; Mean Corpuscular Hgb Conc 31.6 g/dL (32-36); Mean Platelet Volume 9.4 fL (7.4-10.4); Monocytes # (auto) 1.08 K/uL (0.11-0.59); Monocytes % (auto) 6.8 %; Neutrophils # (auto) 14.32 K/uL (1.4-6.5); Neutrophils % (auto) 90.2 %; Platelet Count 342 K/uL (130-400); RDW Coefficient of Variation 16.6 % (11.5-14.5); RDW Standard Deviation 51.9 fL (36.4-46.3); Red Blood Count 3.78 M/uL (4.7-6.1); White Blood Count 15.89 K/uL (4.8-10.8)
[2018-06-06 08:50] LABS: Albumin Level 1.9 gm/dl (3.4-5.0); BUN Creatinine Ratio 15.5 (10-20); Bilirubin,Total 0.3 mg/dl (0.2-1); Calcium 8.8 mg/dl (8.5-10.1); Creatinine Clr Calc Pharmacy 200.1 ml/min; Est GFR (African American) 125.2; Potassium 3.9 mmol/L (3.5-5.1)
[2018-06-06 08:52] LABS: Albumin Globulin Ratio 0.5 (0.9-2); Globulin 4.1 gm/dl (2.5-4.0)
[2018-06-06] MEDS: ONDANSETRON 8 MG TABLET PO SCH (16:44)
[2018-06-06] MEDS: dexAMETHasone 4 MG TAB PO SCH (16:44)
--- NOTE | 2018-06-06 16:52 | Hospitalist Progress Note ---
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 -Here for second round of inpatient chemotherapy -Chemotherapy orders as per oncology with Mesna, Ifosfamide, and doxorubicin- today is day #3 of therapy-doing well, no side effects so far -Antiemetics prn and IV fluids continue -checking urine blood-negative so far -Oncology consult appreciated -Plan for palliative surgery for removal of sarcoma on the this month- however this may be pushed back as per patient -Pain control with tramadol as needed although lately his pain has been improved -KHUSHI drain in place, the wound is opening up a bit but does not appear actively infected,bleeding on admission now resolved -Wound care consulted, watch for active bleeding, continue daily dressing changes Of note, with last inpatient chemotherapy, he developed acute encephalopathy which was thought to be secondary to his chemotherapy regimen vs high dose dexamethasone-we will watch carefully for this here-none so far -Follow daily chemistry, CBC (2) Sleep apnea: On CPAP 16 cm H2O -Ordered CPAP for while inpatient (3) Hypertension: Blood pressures controlled -Continue Toprol 50 mg p.o. twice daily -Continue diltiazem 300 mg once daily (4) Paroxysmal atrial flutter: Status post DC cardioversion with ALEXIS last admission for persistent atrial flutter-continues in normal rhythm here on exam -Continue rate control with Toprol-XL and diltiazem -Continue rhythm control with flecainide 150 mill grams p.o. twice daily -Continue with anticoagulation with Eliquis 5 mill grams p.o. twice daily (5) Dyslipidemia: -Continue atorvastatin 40 mg once daily (6) Chronic anticoagulation: With Eliquis for paroxysmal atrial fibrillation and flutter as above (7) Staphylococcus aureus bacteremia: With recent admission for this and discharged on 05/27 -He completed a total of 14 days from the last negative blood culture of IV antibiotics with Rocephin and now is on Augmentin 875 mg p.o. twice daily for 4 more weeks from starting date of 06/01 -Port has been removed and this was the source of his infection-the site appears well-healed and the sutures were removed on day of admission here -Has persistent leukocytosis on most recent CBC but no fevers -Continue to follow CBC (8) DVT prophylaxis: Eliquis Disposition-continued stay for chemotherapy, last dose will finish up on Monday AM, then dc after that if doing well Subjective Feeling very well, no complaints. No nausea or vomiting. No shortness of b reath or chest pain. Has ambulated the halls today. No further bleeding from the buttocks/sarcoma site Review of Systems Review of Systems: All systems reviewed & are unremarkable except as noted in HPI & below Physical Exam Constitutional: WD/WN, vitals as above (With alopecia) + morbidly obese Eyes: PERRL, conjunctivae normal, anicteric sclerae ENMT: external ear and nose normal, oropharynx normal Neck: trachea midline, no thyromegaly Respiratory: normal respiratory effort, lungs clear to auscultation Cardiovascular: Rate/Rhythm: regular rate and regular rhythm Heart Sounds: no murmur Extremities: + edema (1+ pitting edema of the legs bilaterally left greater than right) Gastrointestinal (Abdomen): normal bowel sounds, soft, nontender, no hepatosplenomegaly Musculoskeletal: Extremities: no cyanosis and no clubbing Skin: + wound (Left anterior chest wall with wound with steri strips,no erythema) Neurologic: moves all extremities and awake; no focal motor deficits Psychiatric: A+Ox3, euthymic affect Results & Data Vital Signs (Past 12 Hours) Vital Signs Temp Pulse Resp BP Pulse Ox 06/06/18 15:34 36.6 C 70 20 155/72 H 97 06/06/18 11:13 36.5 C 55 L 20 186/78 H 98 06/06/18 08:28 62 06/06/18 07:19 36.4 C L 52 L 18 155/79 H 99 Laboratory Results 06/06/18 06/06/18 06/06/18 Range/Units 11:05 08:13 08:13 WBC 15.89 H (4.8-10.8) K/uL RBC 3.78 L (4.7-6.1) M/uL Hgb 10.4 L (14.0-18.0) g/dL Hct 32.9 L (42-52) % MCV 87.0 (80-100) fL MCH 27.5 (25-34) pg MCHC 31.6 L (32-36) g/dL RDW Std Deviation 51.9 H (36.4-46.3) fL RDW Coeff of Silas 16.6 H (11.5-14.5) % Plt Count 342 (130-400) K/uL MPV 9.4 (7.4-10.4) fL Immature Gran % (Auto) 0.4 % Neut % (Auto) 90.2 % Lymph % (Auto) 2.6 % [place] % (Auto) 6.8 % Eos % (Auto) 0.0 % Baso % (Auto) 0.0 % Immature Gran # (Auto) 0.07 H (0.00-0.02) K/uL Neut # (Auto) 14.32 H (1.4-6.5) K/uL Lymph # (Auto) 0.42 L (1.2-3.4) K/uL [place] # (Auto) 1.08 H (0.11-0.59) K/uL Eos # (Auto) 0.00 (0-0.5) K/uL Baso # (Auto) 0.00 (0-0.2) K/uL Sodium 140 (136-145) mmol/L Potassium 3.9 (3.5-5.1) mmol/L Chloride 106 (98-107) mmol/L Carbon Dioxide 27 (21-32) mmol/L Anion Gap 6.0 (3-11) BUN 10 (7-18) mg/dl Creatinine 0.65 (0.6-1.4) mg/dl Est Cr Clr Drug Dosing 200.1 ml/min Est GFR ( Amer) 125.2 Est GFR (Non-Af Amer) 108.0 BUN/Creatinine Ratio 15.5 (10-20) Glucose 134 H (70-99) mg/dl Calcium 8.8 (8.5-10.1) mg/dl Magnesium 2.0 (1.8-2.4) mg/dl Total Bilirubin 0.3 (0.2-1) mg/dl AST 10 L (15-37) U/L ALT 8 L (12-78) U/L Alkaline Phosphatase 94 (45-117) U/L Total Protein 6.0 L (6.4-8.2) gm/dl Albumin 1.9 L (3.4-5.0) gm/dl Globulin 4.1 H (2.5-4.0) gm/dl Albumin/Globulin Ratio 0.5 L (0.9-2) Urine Blood Negative (Negative) 06/06/18 06/05/18 Range/Units 01:37 16:20 WBC (4.8-10.8) K/uL RBC (4.7-6.1) M/uL Hgb (14.0-18.0) g/dL Hct (42-52) % MCV (80-100) fL MCH (25-34) pg MCHC (32-36) g/dL RDW Std Deviation (36.4-46.3) fL RDW Coeff of Silas (11.5-14.5) % Plt Count (130-400) K/uL MPV (7.4-10.4) fL Immature Gran % (Auto) % Neut % (Auto) % Lymph % (Auto) % [place] % (Auto) % Eos % (Auto) % Baso % (Auto) % Immature Gran # (Auto) (0.00-0.02) K/uL Neut # (Auto) (1.4-6.5) K/uL Lymph # (Auto) (1.2-3.4) K/uL [place] # (Auto) (0.11-0.59) K/uL Eos # (Auto) (0-0.5) K/uL Baso # (Auto) (0-0.2) K/uL Sodium (136-145) mmol/L Potassium (3.5-5.1) mmol/L Chloride (98-107) mmol/L Carbon Dioxide (21-32) mmol/L Anion Gap (3-11) BUN (7-18) mg/dl Creatinine (0.6-1.4) mg/dl Est Cr Clr Drug Dosing ml/min Est GFR ( Amer) Est GFR (Non-Af Amer) BUN/Creatinine Ratio (10-20) Glucose (70-99) mg/dl Calcium (8.5-10.1) mg/dl Magnesium (1.8-2.4) mg/dl Total Bilirubin (0.2-1) mg/dl AST (15-37) U/L ALT (12-78) U/L Alkaline Phosphatase (45-117) U/L Total Protein (6.4-8.2) gm/dl Albumin (3.4-5.0) gm/dl Globulin (2.5-4.0) gm/dl Albumin/Globulin Ratio (0.9-2) Urine Blood Negative Negative (Negative)
[2018-06-06] MEDS: DOXORUBICIN HCL IV SCH (17:52)
[2018-06-06] MEDS: SODIUM CHLORIDE 0.9% IV SCH ×2 (17:52→18:18)
[2018-06-06] MEDS: MESNA IV SCH (18:18)
[2018-06-06] MEDS: IFOSFAMIDE IV SCH (18:18)
[2018-06-07 08:04] LABS: Hematocrit (blood only) 34.6 % (42-52); Hemoglobin 10.8 g/dL (14.0-18.0); Immature Granulocytes # (auto) 0.04 K/uL (0.00-0.02); Immature Granulocytes % (auto) 0.3 %; Lymphocytes # (auto) 0.39 K/uL (1.2-3.4); Lymphocytes % (auto) 3.2 %; Mean Corpuscular Hgb Conc 31.2 g/dL (32-36); Mean Corpuscular Volume 88.3 fL (80-100); Mean Platelet Volume 9.4 fL (7.4-10.4); Monocytes # (auto) 0.91 K/uL (0.11-0.59); Monocytes % (auto) 7.5 %; Neutrophils # (auto) 10.77 K/uL (1.4-6.5); Platelet Count 348 K/uL (130-400); Red Blood Count 3.92 M/uL (4.7-6.1); White Blood Count 12.11 K/uL (4.8-10.8)
[2018-06-07] MEDS: POTASSIUM CHLORIDE 20 MEQ TABCR PO SCH (08:04)
[2018-06-07] MEDS: VENLAFAXINE HCL XR 75 MG CAPXR PO SCH (08:04)
[2018-06-07] MEDS: AMOXICILLIN/CLAVULANATE 875 MG TAB PO SCH ×2 (08:04→17:11)
[2018-06-07] MEDS: ATORVASTATIN 40 MG TAB PO SCH (08:04)
[2018-06-07] MEDS: FLECAINIDE ACETATE 100 MG TABLET PO SCH ×2 (08:04→20:07)
[2018-06-07] MEDS: MAGNESIUM OXIDE 400 MG TAB PO SCH ×2 (08:04→20:06)
[2018-06-07] MEDS: APIXABAN 5 MG TABLET PO SCH ×2 (08:04→20:07)
[2018-06-07] MEDS: METOPROLOL SUCC 50MG EXT REL TAB PO SCH ×2 (08:05→20:08)
[2018-06-07] MEDS: ACETAMINOPHEN 325 MG TAB PO PRN ×2 (08:05→20:06)
[2018-06-07] MEDS: dilTIAZem ER 180 MG CAPCR PO SCH (08:05)
[2018-06-07] MEDS: dilTIAZem ER 120 MG CAPCR PO SCH (08:05)
[2018-06-07 08:32] LABS: Albumin Level 2.1 gm/dl (3.4-5.0); BUN Creatinine Ratio 16.7 (10-20); Calcium 9.1 mg/dl (8.5-10.1); Est GFR (African American) 124.4; Est GFR (Non-African American) 107.3; Magnesium 2.1 mg/dl (1.8-2.4); Potassium 4.1 mmol/L (3.5-5.1)
[2018-06-07 08:35] LABS: Albumin Globulin Ratio 0.5 (0.9-2); Bilirubin,Total 0.3 mg/dl (0.2-1); Globulin 4.2 gm/dl (2.5-4.0); Total Protein 6.3 gm/dl (6.4-8.2)
[2018-06-07] MEDS: SODIUM CHLORIDE 0.9% 1000ML 1,000 ML IV SCH ×2 (08:49→18:29)
--- NOTE | 2018-06-07 12:25 | Hospitalist Progress Note ---
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 -Here for second round of inpatient chemotherapy -Chemotherapy orders as per oncology with Mesna, Ifosfamide, and doxorubicin- today is day #4 of therapy-doing well, no side effects so far -Antiemetics prn and IV fluids continue -checking urine blood-negative so far except one had 1+, then resolved -Oncology consult appreciated -Plan for palliative surgery for removal of sarcoma on the this month- however this may be pushed back as per patient -Pain control with tramadol, tylenol as needed although lately his pain has been improved -KHUSHI drain in place, the wound is opening up a bit but does not appear actively infected,bleeding on admission now resolved -Wound care consulted, watch for active bleeding, continue daily dressing changes Of note, with last inpatient chemotherapy, he developed acute encephalopathy which was thought to be secondary to his chemotherapy regimen vs high dose dexamethasone-we will watch carefully for this here-none so far -Follow daily chemistry, CBC -plan for Aj as an inpatient on Monday prior to dc (2) Sleep apnea: On CPAP 16 cm H2O -Ordered CPAP for while inpatient (3) Hypertension: Blood pressures controlled -Continue Toprol 50 mg p.o. twice daily -Continue diltiazem 300 mg once daily (4) Paroxysmal atrial flutter: Status post DC cardioversion with ALEXIS last admission for persistent atrial flutter-continues in normal rhythm here on exam -Continue rate control with Toprol-XL and diltiazem -Continue rhythm control with flecainide 150 mill grams p.o. twice daily -Continue with anticoagulation with Eliquis 5 mill grams p.o. twice daily (5) Dyslipidemia: -Continue atorvastatin 40 mg once daily (6) Chronic anticoagulation: With Eliquis for paroxysmal atrial fibrillation and flutter as above (7) Staphylococcus aureus bacteremia: With recent admission for this and discharged on 05/27 -He completed a total of 14 days from the last negative blood culture of IV antibiotics with Rocephin and now is on Augmentin 875 mg p.o. twice daily for 4 more weeks from starting date of 06/01 -Port has been removed and this was the source of his infection-the site appears well-healed and the sutures were removed on day of admission here -Has persistent leukocytosis on most recent CBC but no fevers, leukocytosis also likely now from dexamethasone received with chemo x 3 days -Continue to follow CBC (8) DVT prophylaxis: Jennifer Disposition-continued stay for chemotherapy, last dose will finish up on Monday AM, then dc after that if doing well Subjective Feeling wlel, does not feel confused, moved his bowels todya, is making plenty of urine. No CP or SOB. No headache or lightheadedness, no N/V. Had some mild pain in buttocks that is controlled with tylenol Review of Systems Review of Systems: All systems reviewed & are unremarkable except as noted in HPI & below Physical Exam Constitutional: WD/WN, vitals as above (With alopecia) + morbidly obese Eyes: PERRL, conjunctivae normal, anicteric sclerae ENMT: external ear and nose normal, oropharynx normal Neck: trachea midline, no thyromegaly Respiratory: normal respiratory effort, lungs clear to auscultation Cardiovascular: Rate/Rhythm: regular rate and regular rhythm Heart Sounds: no murmur Extremities: + edema (1+ pitting edema of the legs bilaterally left greater than right) Gastrointestinal (Abdomen): normal bowel sounds, soft, nontender, no hepatosplenomegaly Musculoskeletal: Extremities: no cyanosis and no clubbing Skin: + wound (Left anterior chest wall with wound with steri strips,no erythema) Neurologic: moves all extremities and awake; no focal motor deficits Psychiatric: A+Ox3, euthymic affect Results & Data Vital Signs (Past 12 Hours) Vital Signs Temp Pulse Resp BP Pulse Ox 06/07/18 11:10 36.5 C 67 22 143/67 H 98 06/07/18 08:07 36.3 C L 58 L 18 154/77 H 97 06/07/18 08:03 36.4 C L 56 L 20 161/84 H 99 06/07/18 03:42 36.4 C L 66 18 137/73 98 Laboratory Results 06/07/18 06/07/18 06/07/18 Range/Units Unknown 07:46 07:46 WBC 12.11 H (4.8-10.8) K/uL RBC 3.92 L (4.7-6.1) M/uL Hgb 10.8 L (14.0-18.0) g/dL Hct 34.6 L (42-52) % MCV 88.3 (80-100) fL MCH 27.6 (25-34) pg MCHC 31.2 L (32-36) g/dL RDW Std Deviation 53.0 H (36.4-46.3) fL RDW Coeff of Silas 17.0 H (11.5-14.5) % Plt Count 348 (130-400) K/uL MPV 9.4 (7.4-10.4) fL Immature Gran % (Auto) 0.3 % Neut % (Auto) 89.0 % Lymph % (Auto) 3.2 % [place] % (Auto) 7.5 % Eos % (Auto) 0.0 % Baso % (Auto) 0.0 % Immature Gran # (Auto) 0.04 H (0.00-0.02) K/uL Neut # (Auto) 10.77 H (1.4-6.5) K/uL Lymph # (Auto) 0.39 L (1.2-3.4) K/uL [place] # (Auto) 0.91 H (0.11-0.59) K/uL Eos # (Auto) 0.00 (0-0.5) K/uL Baso # (Auto) 0.00 (0-0.2) K/uL Sodium 140 (136-145) mmol/L Potassium 4.1 (3.5-5.1) mmol/L Chloride 106 (98-107) mmol/L Carbon Dioxide 27 (21-32) mmol/L Anion Gap 7.0 (3-11) BUN 11 (7-18) mg/dl Creatinine 0.66 (0.6-1.4) mg/dl Est Cr Clr Drug Dosing 199.0 ml/min Est GFR ( Amer) 124.4 Est GFR (Non-Af Amer) 107.3 BUN/Creatinine Ratio 16.7 (10-20) Glucose 119 H (70-99) mg/dl Calcium 9.1 (8.5-10.1) mg/dl Magnesium 2.1 (1.8-2.4) mg/dl Total Bilirubin 0.3 (0.2-1) mg/dl AST 14 L (15-37) U/L ALT 12 (12-78) U/L Alkaline Phosphatase 97 (45-117) U/L Total Protein 6.3 L (6.4-8.2) gm/dl Albumin 2.1 L (3.4-5.0) gm/dl Globulin 4.2 H (2.5-4.0) gm/dl Albumin/Globulin Ratio 0.5 L (0.9-2) Urine Blood Negative (Negative) 06/06/18 06/06/18 Range/Units 20:27 11:05 WBC (4.8-10.8) K/uL RBC (4.7-6.1) M/uL Hgb (14.0-18.0) g/dL Hct (42-52) % MCV (80-100) fL MCH (25-34) pg MCHC (32-36) g/dL RDW Std Deviation (36.4-46.3) fL RDW Coeff of Silas (11.5-14.5) % Plt Count (130-400) K/uL MPV (7.4-10.4) fL Immature Gran % (Auto) % Neut % (Auto) % Lymph % (Auto) % [place] % (Auto) % Eos % (Auto) % Baso % (Auto) % Immature Gran # (Auto) (0.00-0.02) K/uL Neut # (Auto) (1.4-6.5) K/uL Lymph # (Auto) (1.2-3.4) K/uL [place] # (Auto) (0.11-0.59) K/uL Eos # (Auto) (0-0.5) K/uL Baso # (Auto) (0-0.2) K/uL Sodium (136-145) mmol/L Potassium (3.5-5.1) mmol/L Chloride (98-107) mmol/L Carbon Dioxide (21-32) mmol/L Anion Gap (3-11) BUN (7-18) mg/dl Creatinine (0.6-1.4) mg/dl Est Cr Clr Drug Dosing ml/min Est GFR ( Amer) Est GFR (Non-Af Amer) BUN/Creatinine Ratio (10-20) Glucose (70-99) mg/dl Calcium (8.5-10.1) mg/dl Magnesium (1.8-2.4) mg/dl Total Bilirubin (0.2-1) mg/dl AST (15-37) U/L ALT (12-78) U/L Alkaline Phosphatase (45-117) U/L Total Protein (6.4-8.2) gm/dl Albumin (3.4-5.0) gm/dl Globulin (2.5-4.0) gm/dl Albumin/Globulin Ratio (0.9-2) Urine Blood 1+ H Negative (Negative)
[2018-06-07] MEDS ORDERED: MESNA IV ONE (15:30)
[2018-06-07] MEDS ORDERED: SODIUM CHLORIDE 0.9% IV ONE (15:30)
[2018-06-07] MEDS ORDERED: MESNA IV SCH (16:00)
[2018-06-07] MEDS ORDERED: SODIUM CHLORIDE 0.9% IV SCH (16:00)
[2018-06-08 05:59] LABS: Basophils # (auto) 0.01 K/uL (0-0.2); Basophils % (auto) 0.1 %; Eosinophils # (auto) 0.02 K/uL (0-0.5); Eosinophils % (auto) 0.2 %; Hematocrit (blood only) 34.8 % (42-52); Hemoglobin 10.8 g/dL (14.0-18.0); Immature Granulocytes # (auto) 0.03 K/uL (0.00-0.02); Immature Granulocytes % (auto) 0.3 %; Lymphocytes # (auto) 1.02 K/uL (1.2-3.4); Lymphocytes % (auto) 10.5 %; Mean Corpuscular Volume 87.7 fL (80-100); Mean Platelet Volume 9.6 fL (7.4-10.4); Monocytes # (auto) 0.46 K/uL (0.11-0.59); Monocytes % (auto) 4.7 %; Neutrophils % (auto) 84.2 %; Platelet Count 324 K/uL (130-400); RDW Coefficient of Variation 16.8 % (11.5-14.5); RDW Standard Deviation 53.5 fL (36.4-46.3); Red Blood Count 3.97 M/uL (4.7-6.1); White Blood Count 9.74 K/uL (4.8-10.8)
[2018-06-08] MEDS: ACETAMINOPHEN 325 MG TAB PO PRN ×2 (06:06→20:49)
[2018-06-08 06:17] LABS: BUN Creatinine Ratio 18.1 (10-20); Calcium 8.5 mg/dl (8.5-10.1); Creatinine Clr Calc Pharmacy 196.1 ml/min; Est GFR (African American) 123.6; Est GFR (Non-African American) 106.7; Magnesium 2.1 mg/dl (1.8-2.4); Potassium 3.8 mmol/L (3.5-5.1)
[2018-06-08 06:19] LABS: Albumin Globulin Ratio 0.5 (0.9-2); Bilirubin,Total 0.5 mg/dl (0.2-1); Globulin 3.8 gm/dl (2.5-4.0); Total Protein 5.8 gm/dl (6.4-8.2)
[2018-06-08] MEDS: APIXABAN 5 MG TABLET PO SCH ×2 (07:35→20:46)
[2018-06-08] MEDS: POTASSIUM CHLORIDE 20 MEQ TABCR PO SCH (07:35)
[2018-06-08] MEDS: FLECAINIDE ACETATE 100 MG TABLET PO SCH ×2 (07:35→20:44)
[2018-06-08] MEDS: dilTIAZem ER 120 MG CAPCR PO SCH (07:35)
[2018-06-08] MEDS: AMOXICILLIN/CLAVULANATE 875 MG TAB PO SCH ×2 (07:36→17:45)
[2018-06-08] MEDS: dilTIAZem ER 180 MG CAPCR PO SCH (07:36)
[2018-06-08] MEDS: MAGNESIUM OXIDE 400 MG TAB PO SCH ×2 (07:36→20:45)
[2018-06-08] MEDS: VENLAFAXINE HCL XR 75 MG CAPXR PO SCH (07:37)
[2018-06-08] MEDS: ATORVASTATIN 40 MG TAB PO SCH (07:37)
[2018-06-08] MEDS: METOPROLOL SUCC 50MG EXT REL TAB PO SCH ×2 (07:37→20:43)
[2018-06-08] MEDS ORDERED: PEGFILGRASTIM 6 MG/0.6 ML SYR SQ SCH (19:30)
[2018-06-08] MEDS: CALCIUM CARBONATE 500 MG CHEWABLE TAB PO PRN (20:42)
--- NOTE | 2018-06-08 21:00 | Hospitalist Progress Note ---
Date of Service June 08, 2018 Assessment & Plan (1) Sarcoma of soft tissue: With metastatic disease to the lungs s/p chemotherapy cycle #2 this week - now complete (received Mesna, Ifosfamide, and doxorubicin). NO gross hematuria. There has been discussion about surgical resection of sarcoma for palliative purposes later this month - date to be determined. Continue dressings and ostomy bag/KHUSHI drain for drainage. To receive Neulasta this evening. Anticipate d/c home tomorrow with outpatient f/u with Dr Camara on June 28. CBC in am. Present on Admission?: Yes (2) Sleep apnea: On CPAP 16 cm H2O at HS Present on Admission?: Yes (3) Hypertension: No issues; cont toprol and diltiazem daily. Present on Admission?: Yes (4) Paroxysmal atrial flutter: Status post ALEXIS cardioversion last admission. -Continue rate control with Toprol-XL and diltiazem -Continue rhythm control with flecainide 150 mill grams p.o. twice daily -Continue with anticoagulation with Eliquis 5 mill grams p.o. twice daily Clinically remains in NSR. Present on Admission?: Yes (5) Dyslipidemia: Statin (6) Staphylococcus aureus bacteremia: 2nd to port infection. s/p PORT removal prior stay. Addressed during prior admission. ALEXIS w/o endocarditis. Completed 14-day course of IV rocephin. Now on Augmentin 875 mg p.o. twice daily for 4 weeks - starting date of 06/01/18. (7) Morbid obesity with BMI of 50.0-59.9, adult: (8) DVT prophylaxis: Eliquis d/c home tomorrow AM if stable Subjective Had minimal amount of confusion overnight. During my visit in the afternoon he was a/o x 3. Knew he was in hospital, knew it was Monday, and could recite the months backwards starting wJanuary. /daughter at bedside; both agree he is at baseline. Mild pain over left buttocks and ongoing drainage but no significant changes. Hopeful for d/c home tomorrow. Review of Systems Constitutional: + anorexia; no fever and no chills Respiratory: no dyspnea Cardiovascular: no chest pain Gastrointestinal: no abdominal pain Physical Exam Constitutional: + morbidly obese; no acute distress ENMT: external ear and nose normal, oropharynx normal Respiratory: normal respiratory effort, lungs clear to auscultation Cardiovascular: Rate/Rhythm: regular rate and regular rhythm Heart Sounds: normal S1 and normal S2; no murmur Vessels: posterior tibial pulses present and dorsalis pedis pulses present; no JVD Extremities: + edema (appears to be lymphedema) Gastrointestinal (Abdomen): normal bowel sounds, soft, nontender, no hepatosplenomegaly Musculoskeletal: left buttock sarcoma unchanged from prior exams; ostomy collection bag and KHUSHI drain also in place; no overlying cellulitis Psychiatric: Orientation: alert and oriented x 3 Mood: + depressed mood Results & Data Vital Signs (Past 12 Hours) Vital Signs Temp Pulse Resp BP Pulse Ox 06/08/18 19:31 36.7 C 70 18 133/68 93 06/08/18 14:58 36.4 C L 73 18 153/81 H 95 06/08/18 11:56 36.8 C 74 18 147/64 H 94 Laboratory Results Laboratory Results - last 24 hr 06/07/18 06/08/18 06/08/18 20:15 05:23 05:23 WBC 9.74 RBC 3.97 L Hgb 10.8 L Hct 34.8 L MCV 87.7 MCH 27.2 MCHC 31.0 L RDW Std Deviation 53.5 H RDW Coeff of Silas 16.8 H Plt Count 324 MPV 9.6 Immature Gran % (Auto) 0.3 Neut % (Auto) 84.2 Lymph % (Auto) 10.5 [place] % (Auto) 4.7 Eos % (Auto) 0.2 Baso % (Auto) 0.1 Immature Gran # (Auto) 0.03 H Neut # (Auto) 8.20 H Lymph # (Auto) 1.02 L [place] # (Auto) 0.46 Eos # (Auto) 0.02 Baso # (Auto) 0.01 Sodium 139 Potassium 3.8 Chloride 104 Carbon Dioxide 31 Anion Gap 4.0 BUN 12 Creatinine 0.67 Est Cr Clr Drug Dosing 196.1 Est GFR ( Amer) 123.6 Est GFR (Non-Af Amer) 106.7 BUN/Creatinine Ratio 18.1 Glucose 82 Calcium 8.5 Magnesium 2.1 Total Bilirubin 0.5 AST 15 ALT 12 Alkaline Phosphatase 90 Total Protein 5.8 L Albumin 2.0 L Globulin 3.8 Albumin/Globulin Ratio 0.5 L Urine Blood Negative (1) Sleep apnea Sleep apnea type: obstructive Qualified Code(s): G47.33 - Obstructive sleep apnea (adult) (pediatric) (2) Hypertension Hypertension type: essential hypertension Qualified Code(s): I10 - Essential (primary) hypertension
[2018-06-09 06:29] LABS: Basophils # (auto) 0.01 K/uL (0-0.2); Basophils % (auto) 0.1 %; Eosinophils # (auto) 0.08 K/uL (0-0.5); Eosinophils % (auto) 0.4 %; Hematocrit (blood only) 30.3 % (42-52); Hemoglobin 9.8 g/dL (14.0-18.0); Immature Granulocytes # (auto) 0.06 K/uL (0.00-0.02); Immature Granulocytes % (auto) 0.3 %; Lymphocytes # (auto) 0.59 K/uL (1.2-3.4); Lymphocytes % (auto) 3.3 %; Mean Corpuscular Hgb Conc 32.3 g/dL (32-36); Mean Corpuscular Volume 84.9 fL (80-100); Mean Platelet Volume 9.4 fL (7.4-10.4); Monocytes % (auto) 1.1 %; Neutrophils # (auto) 17.06 K/uL (1.4-6.5); Neutrophils % (auto) 94.8 %; Platelet Count 250 K/uL (130-400); RDW Coefficient of Variation 16.6 % (11.5-14.5); RDW Standard Deviation 51.3 fL (36.4-46.3); Red Blood Count 3.57 M/uL (4.7-6.1)
[2018-06-09 07:02] LABS: BUN Creatinine Ratio 23.1 (10-20); Calcium 8.7 mg/dl (8.5-10.1); Creatinine Clr Calc Pharmacy 222.8 ml/min; Est GFR (African American) 131.2; Est GFR (Non-African American) 113.2; Potassium 3.3 mmol/L (3.5-5.1)
[2018-06-09] MEDS: FLECAINIDE ACETATE 100 MG TABLET PO SCH (07:57)
[2018-06-09] MEDS: VENLAFAXINE HCL XR 75 MG CAPXR PO SCH (07:58)
[2018-06-09] MEDS: ATORVASTATIN 40 MG TAB PO SCH (07:58)
[2018-06-09] MEDS: AMOXICILLIN/CLAVULANATE 875 MG TAB PO SCH (07:59)
[2018-06-09] MEDS: dilTIAZem ER 120 MG CAPCR PO SCH (07:59)
[2018-06-09] MEDS: APIXABAN 5 MG TABLET PO SCH (07:59)
[2018-06-09] MEDS: POTASSIUM CHLORIDE 20 MEQ TABCR PO SCH (07:59)
[2018-06-09] MEDS: dilTIAZem ER 180 MG CAPCR PO SCH (07:59)
[2018-06-09] MEDS: MAGNESIUM OXIDE 400 MG TAB PO SCH (08:00)
[2018-06-09] MEDS: CALCIUM CARBONATE 500 MG CHEWABLE TAB PO PRN (08:00)
[2018-06-09] MEDS: ACETAMINOPHEN 325 MG TAB PO PRN (08:06)
[2018-06-09] MEDS ORDERED: POTASSIUM CHLORIDE 20 MEQ TABCR PO STA (08:17)
[2018-06-09] MEDS: METOPROLOL SUCC 50MG EXT REL TAB PO SCH (08:41)
--- NOTE | 2018-06-14 06:14 | Discharge Summary ---
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 flutter), morbid obesity, major depressive disorder, hyperlipidemia, and SIMIN on CPAP, and recent MSSA bacteremia and port infection now status post port removal, who presents to the hospital for his second round of inpatient chemotherapy. He is about a week late on getting his chemotherapy due to recent bacteremia and remains on Augmentin at this time. His only complaint today is that he has been having some blood clots since last evening from his buttocks and the skin has broken down more around his KHUSHI drain. Otherwise, the pain in his buttocks has dramatically improved. He denies chest pain or shortness of breath. Denies headache or lightheadedness, no nausea or vomiting. He is moving his bowels regularly. Denies joint pains or rash. Principal Diagnosis stage 4 sarcoma s/p chemotherapy Discharge Exam Constitutional + morbidly obese; no acute distress ENMT external ear and nose normal, oropharynx normal Respiratory normal respiratory effort, lungs clear to auscultation Cardiovascular Rate/Rhythm: regular rate and regular rhythm Heart Sounds: normal S1 and normal S2; no murmur Vessels: posterior tibial pulses present and dorsalis pedis pulses present; no JVD Extremities: + edema (appears to be lymphedema) Gastrointestinal (Abdomen) normal bowel sounds, soft, nontender, no hepatosplenomegaly Musculoskeletal left buttock with large sarcoma; ostomy bag in place; KHUSHI drain in place. Recent port explantation site clean with intact steri strips. Psychiatric Orientation: alert and oriented x 3 Mood: + depressed mood Discharge Data Allergies Allergy/AdvReac Type Severity Reaction Status Date / Time No Known Allergies Allergy Unverified 05/16/18 15:36 Consultations 1. Oncology - Cordell Cardenas MD 2. Wound Care nurse Hospital Course (1) Sarcoma of soft tissue: With metastatic disease to the lungs s/p chemotherapy cycle #2 this admission. He received Mesna, Ifosfamide, and doxorubicin. NO gross hematuria during the stay. He DID indeed receive NEULASTA on 06/08/18. There has been discussion about surgical resection of sarcoma for palliative purposes later this month - date to be determined. He will continue dressings and ostomy bag/KHUSHI drain for drainage from the sarcoma. Patient has follow-up with Dr. Karl Camara on June 28. CBC on day of discharge was stable. (2) Sleep apnea: On CPAP 16 cm H2O at HS (3) Hypertension: No issues while here; continue toprol xl and diltiazem daily. (4) Paroxysmal atrial flutter: Status post ALEXIS cardioversion last admission. -Continue rate control with Toprol-XL and diltiazem -Continue rhythm control with flecainide 150 mill grams p.o. twice daily -Continue with anticoagulation with Eliquis 5 mill grams p.o. twice daily Clinically remained in NSR this stay. (5) Dyslipidemia: Statin (6) Staphylococcus aureus bacteremia: 2nd to port infection during the previous hospital stay. s/p PORT removal. ALEXIS w/o endocarditis. Completed 14-day course of IV rocephin. Now on Augmentin 875 mg p.o. twice daily for 4 weeks - starting date of 06/01/18. No issues during this hospitalization. (7) Morbid obesity with BMI of 50.0-59.9, adult: BMI 59.5. (8) Depression: Continue effexor. Consider titration as outpatient. Total Time Total Time Spent Total Time Spent (In Minutes): 40 Total Time Includes: Examination of the Patient, Discharge Planning, Medication Reconciliation and Communication With Other Providers Discharge Plan Discharge Items Patient Disposition: Home - Home Health Services Reason For Visit: SOFT TISSUE SARCOMA, 4 DAY CHEMOTHERAPY CYCLE Discharge Diagnosis: sarcoma of buttocks with 4-day cycle of chemotherapy Discharge Goals: Improve disease control and Therapeutic intervention Activity: Resume your previous activity Non-emergency contact: Primary Care Provider, Surgeon and Oncologist Call non-emergency contact if: you have any medication questions, your symptoms worsen, your pain is not controlled, your pain is worsening, your pain is unusual for you, your pain is concerning for you, your temperature is above 10 0.5, your wound has increased redness and your wound pain has increased Follow-up/Referrals: [facility] [Outside] - 07/02/18 (as scheduled for CT scans and follow-up) Lc Araya III, MD [Primary Care Provider] - 06/18/18 1:50 pm (Please, follow up with Dr. Araya on MondayJune 18 at 1:50 pm. *If you need to change this appointment, call the office at [phone].) Karl Camara DO [Physician] - 06/28/18 Diet: Heart Healthy Addtl Provider Instructions: From Camacho Dixon - Hospitalist - You were admitted for a 4-day cycle of chemotherapy for your sarcoma. You overall did well with stable labs and stable vital signs. You DID receive neulasta to keep your white blood cell count from dropping on 06/08/18. Please contact Dr. Camara's office this week to determine how long your PICC line should remain in place. Keep your PICC line clean/dry when you take your showers (cover it with a bag, etc). It is OK to get the steri strips on your left upper chest wet when you shower. Pat dry when you get out. The steri strips will ultimately just fall off with time. Continue local wound care and dressings to the left buttock. For heartburn may take ranitidine 150mg up to twice daily as needed. For pain may take tramadol 50 to 100mg every 6 hours as needed. STOP DATE for your antibiotic (amoxicillin-clavulanate) --- June 28, 2018. Follow-up - see separate section. Return to [facility] if -- * you have fevers over 100.5 degrees * you have worsening pain not responding to your pain medication * you have redness or drainage from your PICC line site or the recent left upper chest port site * you have shortness of breath or chest pain * severe diarrhea develops * any other concerns Prescriptions: New ranitidine HCl [Zantac] 150 mg tablet 150 mg PO BID PRN (Reason: heartburn) Qty: 60 RF: 0 Continued atorvastatin 20 mg tablet 40 mg PO DAILY RF: 0 acetaminophen 500 mg capsule 1,000 mg PO Q8 Qty: 90 RF: 0 multivitamin Tablet 1 tab PO QAM RF: 0 diltiazem HCl 300 mg Tablet Extended Release 24 Hr 300 mg PO QAM RF: 0 Metamucil 3.4 gram/5.4 gram Powder 1 dose PO QAM RF: 0 Eliquis 5 mg tablet 5 mg PO BID RF: 0 metoprolol succinate 50 mg Tablet Extended Release 24 Hr 50 mg PO BID Qty: 60 RF: 0 venlafaxine 75 mg Capsule,Extended Release 24hr 75 mg PO QAM Qty: 30 RF: 0 potassium chloride [Klor-Con M20] 20 mEq Tablet,Er Particles/Crystals 20 meq PO QAM Qty: 30 RF: 0 furosemide 20 mg Tablet 20 mg PO QAM Qty: 30 RF: 0 magnesium oxide 400 mg (241.3 mg magnesium) Tablet 400 mg PO BID Qty: 60 RF: 0 flecainide 150 mg tablet 150 mg PO Q12H Qty: 60 RF: 0 amoxicillin-pot clavulanate [Augmentin] 875-125 mg tablet 1 tab PO BID Qty: 60 RF: 0 Changed tramadol 50 mg Tablet 50 - 100 mg PO Q6H PRN (Reason: pain) Qty: 30 RF: 0 Discontinued tramadol 50 mg Tablet 100 mg PO Q6H PRN (Reason: pain) Qty: 60 RF: 0 Stand-Alone Forms: [facility] Discharge Orders: Discharge Order (Routine); Ordered 06/09/18 Ordered By: Camacho Dixon Admission Data Admit Date/Time: 06/04/18 09:45 Attending Provider: Camacho Dixon Admit Provider: Cordell Cardenas Primary Care Provider: Lc Araya III Other Providers: Cordell Cardenas ; Home,Nursing Agency Service: Oncology Other Interventions: Discharge Summary Assessment (RN) Last Done: 06/09/18 11:10 DC Date/Time DO NOT enter until pt leaves facility: 06/09/18 12:45
== END 2018-06-09 12:45 | disposition home health service (06) | DRG 847 ==
LOC: SUATTDRO 09:45 → 4E 09:45

== ENCOUNTER 2018-09-04 12:31 | Inpatient (IN) ==
[2018-09-04] MEDS ORDERED: ALUMINUM/MAGNESIUM SUSP 30 ML UDC PO PRN (14:12)
[2018-09-04] MEDS ORDERED: MAGNESIUM HYDROXIDE SUSP 30 ML UDC PO PRN (14:12)
[2018-09-04] MEDS ORDERED: PROCHLORPERAZINE MALEATE 10 MG TAB PO PRN (14:12)
[2018-09-04] MEDS ORDERED: ACETAMINOPHEN 325 MG TAB PO PRN (14:12)
[2018-09-04] MEDS ORDERED: ONDANSETRON INJ 2 MG/ML 2 ML VIAL IV PRN (14:12)
[2018-09-04] MEDS ORDERED: POLYETHYLENE (MIRALAX) 17 GM PACK PO PRN (14:12)
[2018-09-04] MEDS ORDERED: SODIUM CHLORIDE 0.9% 250 ML IV PRN (14:12)
[2018-09-04] MEDS ORDERED: POTASSIUM CHLORIDE 20 MEQ TABCR PO ONE (14:30)
--- NOTE | 2018-09-04 15:45 | History & Physical Report ---
Date of Service September 04, 2018 Assessment & Plan (1) Anemia: Hemoglobin of 8.1 Secondary to chemotherapy with Taxotere and Gemzar Patient with antigens and blood requiring special blood from blood bank Transfused 2 units of PRBCs Follow serial labs (2) Hypotension: Most likely secondary to anemia and volume contraction 2 units of packed red blood cells have been ordered No acute renal failure Follow serial labs and vital signs per protocol (3) Sarcoma of buttock: Undifferentiated sarcoma Currently receiving Taxotere and Gemzar via Dr. Camara Metastatic pulmonary nodules in the lungs Oxygenating well on room air Continue treatment plan per Dr. Camara who has been consulted for this admission Consult wound care (4) Low back pain: Chronic Was previously taking alternating doses of Tylenol and tramadol * Due to bump and liver enzymes patient stopped taking Tylenol * Continue tramadol and follow (5) Atrial fibrillation/flutter: Currently regular on exam and rate controlled Continues on apixaban 5 mg p.o. twice daily as well as diltiazem, metoprolol, and flecainide We will monitor on telemetry unit Although patient has anemia no active bleeding Continue apixaban and monitor hemoglobin closely (6) Hypokalemia: Oral replacement at this time with serial labs Magnesium within normal limit Follow serial lab (7) Staphylococcus aureus bacteremia: Methicillin sensitive staph aureus Secondary to chemotherapy and neutropenia Patient is on Bactrim Continue treatment No history of MRSA Follow clinically (8) Obstructive sleep apnea on CPAP: Patient uses CPAP at home at 18 cm of water We will continue with CPAP here in the hospital May need to adjust positive air pressure as patient has lost over 100 pounds secondary to chemotherapy and malignant sarcoma Adjust per protocol (9) DVT prophylaxis: Apixaban for atrial fibrillation/flutter Ambulate as tolerated watching for orthopnea Please refer to Dr. Espinoza's addendum for further recommendations History of Present Illness Attending: Dr. 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 The patient presented to the [facility] cancer care unit for chemotherapy today to receive Taxotere and Gemzar. He was found to have a hemoglobin of 8.1 and transferred to the medical treatment unit and [facility] for transfusion. The patient was then found to be hypotensive with a systolic pressure of 78. Due to antigens in the blood PRBCs were not readily available. We were called to admit the patient for further management and care. The patient was asymptomatic with his anemia and his hypotension other than some lightheadedness when he sits up quickly or stands. He has no recent falls and had no fall today secondary to hypotension. Packed red blood cells have been ordered and are scheduled be delivered within the next hour. Patient is aware that the treatment plan is for transfusion of packed red blood cells and further monitoring. The patient has no other acute complaints. The sarcoma on his left buttock and hip is followed by Dr. Fritz Preston from the wound care clinic as well as Dr. Karl Camara from oncology. Primary Care Provider: Lc Araya MD Allergies Allergy/AdvReac Type Severity Reaction Status Date / Time No Known Allergies Allergy Unverified 09/04/18 09:23 Home Medications Home Medications Medication Instructions Recorded Confirmed Type diltiazem HCl 300 mg PO QAM 05/01/18 09/04/18 History atorvastatin 40 mg PO DAILY 05/04/18 09/04/18 History Metamucil 1 dose PO QAM PRN 05/16/18 09/04/18 History Eliquis 5 mg PO BID 05/27/18 09/04/18 History flecainide 150 mg PO Q12H #60 tab 05/27/18 09/04/18 Rx metoprolol succinate 50 mg PO BID #60 tab 05/27/18 09/04/18 Rx venlafaxine 75 mg PO QAM #30 cap 05/27/18 09/04/18 Rx ranitidine HCl [Zantac] 150 mg PO BID PRN #60 tab 06/09/18 09/04/18 Rx tramadol 50 - 100 mg PO Q6H PRN #30 tab 06/09/18 09/04/18 Rx furosemide 20 mg tablet 20 mg PO QAM #90 tab 08/06/18 09/04/18 Rx dexamethasone 4 mg tablet 4 mg PO DAILY 08/20/18 09/04/18 History docetaxel 80 mg/4 mL (20 mg/mL) IV ml 08/20/18 08/29/18 History intravenous solution prochlorperazine maleate 10 mg 10 mg PO Q6H PRN 08/20/18 09/04/18 History tablet sulfamethoxazole 800 1 tab PO BID 30 Days #60 tab 08/29/18 09/04/18 Rx mg-trimethoprim 160 mg tablet Past Med/Surg History Medical History Chronic anticoagulation (Chronic) Dyslipidemia (Chronic) History of atrial fibrillation (Chronic) ON ELIQUIS History of atrial flutter (Chronic) ON ELIQUIS Hypertension (Chronic) Major depressive disorder (Chronic) Morbid obesity with BMI of 60.0-69.9, adult (Chronic) Paroxysmal atrial flutter (Chronic) Sarcoma of soft tissue (Chronic) Sleep apnea (Chronic) CPAP Anxiety (Resolved) Surgical History History of cardioversion (Chronic) X 2 History of colonoscopy (Resolved) History of excision of pilonidal cyst (Resolved) History of inguinal hernia repair (Resolved) BL History of lumbar fusion (Resolved) History of wisdom tooth extraction (Resolved) Family History Father Family history of diabetes mellitus Mother , in her 70s Cancer Uterine,ovarian Social History Preferred Language: Korean Communication Ability: Effective Visual Impairment: No Limitations Hearing Ability: Normal 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 Beliefs That Will Affect Care: None marital status: Current Living Situation: Spouse and Family current occupational status: employed 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 Other Information That Helps Us Care for You: No Feels Safe at Home: Yes Safety Concerns: Feels Safe At This Time Smoking Status: Never smoker Tobacco Type: smokeless tobacco Second Hand Exposure: No Hx Alcohol Use: No Hx Substance Use: No Childhood Exposure to Second-Hand Smoke: Yes Review of Systems Review of Systems: All systems reviewed & are unremarkable except as noted in HPI & below Patient denies shortness of breath or chest pain No nausea or vomiting No diarrhea although he has had some loose stool No abdominal pain Chronic back pain which is unchanged from usual Pain in left buttock and hip is much improved and drainage is unchanged No sweats, chills, rigors No neurological complaints No new rashes or lesions Physical Exam Physical Exam: GENERAL : No acute distress. EYES: No icterus, gaze conjugate. Pupils equal round and reactive to light NOSE: No evidence of epistaxis. MOUTH: No lesions or candidiasis. Mucosa moist NECK: Supple. No stridor or carotid bruits appreciated LUNGS: CTA B/L, no wheezes, rales or rhonchi HEART: Regular, rate controlled ABDOMEN: Soft, NT, ND, BS Present EXTREMITIES: +1 bilateral LE edema, pedal pulses intact and equal bilaterally. NEURO: A&OX3. Results & Data Vital Signs (Past 12 Hours) Vital Signs Temp Pulse Pulse Resp BP BP Pulse Ox 09/04/18 15:41 36.5 C 52 L 18 99/54 L 09/04/18 15:00 36.4 C L 49 L 18 97/46 L 92 09/04/18 14:45 36.3 C L 49 L 24 99/52 L 93 09/04/18 14:25 36.2 C L 50 L 20 105/56 L 90 09/04/18 14:19 51 L 09/04/18 13:11 22 91/47 L 92 09/04/18 13:00 36.2 C L 51 L 22 91/47 L 92 Laboratory Results Laboratory Tests 09/03/18 09/03/18 09:45 09:45 WBC 11.79 H RBC 3.13 L Hgb 8.1 L Hct 25.6 L Plt Count 232 Neutrophils # (Manual) 10.46 H Sodium 132 L Potassium 3.0 L Chloride 96 L Carbon Dioxide 27 Anion Gap 9.0 BUN 7 Creatinine 0.85 Est GFR (Non-Af Amer) 96.7 Glucose 143 H Calcium 7.5 L AST 24 ALT 13 Alkaline Phosphatase 217 H Total Protein 4.6 L Albumin 1.4 L Code Status & VTE Plan Code Status Level V: DNR/DNI VTE Prophylaxis Plan VTE Prophylaxis will be ordered: Yes Reason for no VTE drug order: Contraindicated (Anemia requiring transfusion of PRBCs) PG Care Time/CCT Total # of Minutes Spent Total Time Spent with Patient: Total time spent is greater than 50% in coordination of care (as documented) at patient's floor/unit and/or counseling patient: 45
[2018-09-04] MEDS: TRAMADOL HCL 50 MG TABLET PO PRN (21:02)
[2018-09-04] MEDS: METOPROLOL SUCC 50MG EXT REL TAB PO SCH (21:03)
[2018-09-04] MEDS: SULFAMETHOXAZOLE/TRIMETHOPRIM DS 800/160MG TAB PO SCH (21:04)
[2018-09-04] MEDS: FLECAINIDE ACETATE 100 MG TABLET PO SCH (21:05)
[2018-09-04] MEDS: APIXABAN 5 MG TABLET PO SCH (21:06)
[2018-09-05 07:26] LABS: Hematocrit (blood only) 28.6 % (42-52); Hemoglobin 9.1 g/dL (14.0-18.0); Mean Corpuscular Hgb Conc 31.8 g/dL (32-36); Mean Corpuscular Volume 80.6 fL (80-100); Nucleated RBC # (auto) 0.02 K/uL (0-0); Nucleated RBC % (auto) 0.2 %; Platelet Count 245 K/uL (130-400); RDW Coefficient of Variation 16.4 % (11.5-14.5); Red Blood Count 3.55 M/uL (4.7-6.1); White Blood Count 9.99 K/uL (4.8-10.8)
[2018-09-05] MEDS: FLECAINIDE ACETATE 100 MG TABLET PO SCH (07:56)
[2018-09-05] MEDS: APIXABAN 5 MG TABLET PO SCH (07:56)
[2018-09-05] MEDS: SULFAMETHOXAZOLE/TRIMETHOPRIM DS 800/160MG TAB PO SCH (07:57)
[2018-09-05 07:58] LABS: BUN Creatinine Ratio 9.2 (10-20); Calcium 7.3 mg/dl (8.5-10.1); Creatinine Clr Calc Pharmacy 176.7 ml/min; Est GFR (Non-African American) 103.6
[2018-09-05] MEDS: METOPROLOL SUCC 50MG EXT REL TAB PO SCH (07:59)
[2018-09-05 08:00] LABS: Tear Drop Cells Occasional
[2018-09-05] MEDS: TRAMADOL HCL 50 MG TABLET PO PRN (08:07)
[2018-09-05] MEDS ORDERED: POTASSIUM CHLORIDE 20 MEQ TABCR PO STA (08:25)
[2018-09-05] MEDS ORDERED: ATORVASTATIN 20 MG TAB PO SCH (09:00)
[2018-09-05] MEDS ORDERED: dilTIAZem HCL 300 MG CAPCR PO SCH (09:00)
[2018-09-05] MEDS ORDERED: FUROSEMIDE 20 MG TAB PO SCH (09:00)
[2018-09-05] MEDS ORDERED: VENLAFAXINE HCL XR 75 MG CAPXR PO SCH (09:00)
[2018-09-05] MEDS ORDERED: IOVERSOL 100ml IV PRN (09:00)
[2018-09-05] MEDS ORDERED: CIPROFLOXACIN 500 MG TAB PO SCH (09:30)
[2018-09-05] MEDS ORDERED: POTASSIUM CHLORIDE 20 MEQ TABCR PO ONE (09:30)
--- NOTE | 2018-09-05 09:39 | CT Scan Report ---
CT chest w con CT DOSE: HISTORY: Sarcoma. Metastatic disease. r/o mets TECHNIQUE: Multiaxial CT images of the chest were performed following the intravenous administration of contrast. A dose lowering technique was utilized adhering to the principles of ALARA. COMPARISON: 04/12/2018 FINDINGS: General progression of the patient's known metastatic disease. Multiple bilateral parenchymal nodules have moderately increased in volume. There are now minimal steve ateral pleural effusions. There is increased prominence of right hilar mass/yenny complex with a current maximum dimension of 3 .0 cm increased from 2.7 cm on the prior exam. There is a progressive right apical nodule currently measuring 1.5 cm increased from 0.8 cm. A nodule anterior aspect right upper lobe is unchanged. There is slight increase in volume of a left apical nodule currently measuring 1.7 cm increased from 1.3 cm. Bilateral additional parenchymal nodules in the mid and lower lung regions are also slightly progressive. There is minimal superimposed left basilar atelectatic change. Interstitial changes thro ughout both hemithoraces is slightly progressive possibly on the basis of posttherapeutic change. Mediastinal and hilar adenopathy is slightly increased. IMPRESSION: 1. Moderately progressive pulmonary metastatic change with an increase in size as well as number of m etastatic foci. 2. Mildly progressive right hilar and to a lesser extent central mediastinal adenopathy. 3. Interval development of small bilateral pleural effusions. 4. Mild increase in interstitial prominence throughout both hemithoraces possibly on the basis of pos ttherapeutic pulmonary reaction. The above report was generated using voice recognition software. It may contain grammatical, syntax or spelling errors. Electronically signed by: Siva Springer M.D. 09/05/2018 9:38 AM
--- NOTE | 2018-09-05 09:56 | CT Scan Report ---
CT abd pelvis IV con only CLINICAL HISTORY: Sarcoma. Evaluate for metastatic disease. COMPARISON STUDY: CT scan dated 05/24/2018 TECHNIQUE: The patient was scanned in a dynamic helical fashion during intravenous administration of 120 cc of Optiray 320. A dose lowering technique was utilized adhering to the principles of ALARA. CT DOSE: 5296.41 mGy.cm FINDINGS: Lower chest: There are multiple bilateral lower lobe pulmonary nodules. At least one demonstrates sli ght interval increase in size. There are trace bilateral pleural effusions. Liver: There are stable subcentimeter hepatic hypodensities, statistically representing cysts. Gallbladder: Unremarkable. Spleen: The spleen is enlarged measuring 17.5 cm Pancreas: Unremarkable. Adrenal glands: Unremarkable. Kidneys: There is symmetric renal cortical enhancement. The kidneys are normal in size without hydron ephrosis. Bowel: Given the patient's large body habitus. Portion of the right lateral abdomen is not included o n this study. There is no pathologic bowel dilatation. There are no transition zones indicate bowel o bstruction. No acute inflammatory changes are visualized. Peritoneum: There is no intraperitoneal free air or abdominal ascites. There is a small fat-containin g left inguinal hernia Vasculature: The abdominal aorta is normal in course and caliber. Adenopathy: None. Pelvic viscera: The bladder, and pelvic viscera are unremarkable. Skeletal structures: Postsurgical changes are present within the lumbar spine. There is a partially v isualized left gluteal soft tissue mass measuring in excess of 23 cm. This contains air bubbles sugge sting necrosis/infection. IMPRESSION: 1. Large partially visualized left gluteal soft tissue mass measuring in excess of 23 cm. This contai ns air bubbles suggesting necrosis/infection 2. Pulmonary metastatic disease. At least one nodule has increased in size when compared to prior blayne dy 3. Splenomegaly (17.5 cm) Electronically signed by: Rickie Paul M.D. 09/05/2018 9:54 AM
--- NOTE | 2018-09-05 13:19 | Consultation Report ---
DATE OF CONSULTATION: 09/05/2018 MEDICAL ONCOLOGY CONSULTATION REASON FOR CONSULTATION: Severe anemia and generalized clinical decline in a 58-year-old gentleman with undifferentiated pleomorphic sarcoma. 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 Peripheral blood counts revealed a hemoglobin of 8.1 and plans were underway for him to hold on chemotherapy and proceed with transfusion of blood. Apparently, he has developed alloimmunization requiring more in-depth search for compatible blood. In the meantime, he became hypotensive and it was decided to directly admit him to [facility]. In general, Jerrell was diagnosed several months ago when he had presented with a large left buttock lesion, which was open and actively draining. He was managed by general surgery locally and also saw palliative surgeon at the [facility]. He initially received and ifosfamide based regimen, which unfortunately did not result in regression of disease. Palliative resection could not be carried out and hence, a drain was placed and Jerrell was sent back for further chemotherapy. I recently started him on a combination Taxotere and gemcitabine. Wound care who manages Jerrell reports enlarging left buttock lesion and he has not had surveillance scans in quite some time. Overall, other than his myelosuppression, he has done reasonably well on the current regimen. However, if disease progression is confirmed, I would then advocate discontinuing and possibly pursuing alternative salvage regiment. He received 2 units of blood. He is feeling a bit better today; however, he is notably depressed, which has been problematic for Jerrell since the diagnosis. Additionally, his appetite has not been robust. He reports no pain at this time. I have been asked to assist in his care while admitted. PAST MEDICAL HISTORY: Significant for metastatic undifferentiated pleomorphic sarcoma, atrial fibrillation/flutter, electrolyte dysfunction, low back pain, obstructive sleep apnea, myelosuppression attributable to chemotherapy, hyperlipidemia. He is also on chronic anticoagulation. PAST SURGICAL HISTORY: Includes cardioversion x2, colonoscopy, excision of a pilonidal cyst, inguinal hernia repair, lumbar fusion, wisdom tooth extraction. MEDICATIONS: Prior to admission include diltiazem 300 mg p.o. daily, atorvastatin 40 mg p.o. daily, Metamucil 1 dose p.o. q.a.m. p.r.n., Eliquis 5 mg p.o. b.i.d., flecainide 150 mg p.o. q.12 hours, metoprolol 50 mg p.o. b.i.d., Effexor 75 mg p.o. daily, Zantac 150 mg p.o. b.i.d. p.r.n., tramadol 50-100 mg p.o. q.6 hours p.r.n., furosemide 20 mg p.o. daily, dexamethasone 4 mg p.o. daily. Current chemotherapy regimen is docetaxel in combination with gemcitabine. Bactrim 1 tablet p.o. b.i.d. for 30 days. ALLERGIES: No known drug allergies. SOCIAL HISTORY: The patient is now on disability. He is . He is a nonsmoker, nondrinker. FAMILY HISTORY: Positive for diabetes mellitus on his father's side. Mother from uterine cancer in her 70s. REVIEW OF SYSTEMS: GENERAL: Clinical decline, weakness, anorexia. SKIN: No new rashes or lesions. HEENT: Negative for headaches, lightheadedness or dizziness. Denies any acute visual or hearing deficits. No sinus symptoms, sore throat or dysphagia. LYMPHATICS: No history of lymphoproliferative disease. CARDIAC: Positive history of atrial fibrillation. No current angina or palpitations. PULMONARY: Negative for COPD. No shortness of breath, dyspnea or orthopnea. Positive for pulmonary mets. GASTROINTESTINAL: He denies any abdominal pain at this time. No nausea, vomiting, diarrhea, constipation, hematochezia or melena stools. GENITOURINARY: No history of prostate disease. No hematuria, dysuria, or urinary incontinence. PSYCHIATRIC: Positive for depression, more pronounced since the diagnosis. ENDOCRINE: Negative for diabetes or thyroid disease. NEUROLOGIC: Negative for seizure, stroke, or migraine headache. MUSCULOSKELETAL: No muscle weakness. No new-onset arthralgias. HEMATOLOGIC: Positive for anemia. PHYSICAL EXAMINATION: GENERAL: Morbidly obese 58-year-old gentleman in no acute distress. VITAL SIGNS: Temperature 36.5, pulse 60, respiratory rate 20, blood pressure 93/48. SKIN: Warm, dry, noncyanotic without petechia, rash or ecchymosis. Turgor is fair. HEENT: Head atraumatic, normocephalic. Eyes: PERRLA, EOMI. Sclerae nonicteric. No conjunctival injection. Nares patent without rhinorrhea or discharge. Throat is clear. Tongue is midline. Mucous membranes are moist. NECK: Supple without JVD or thyromegaly. LYMPHATICS: No cervical, supraclavicular, or axillary palpable nodes. HEART: Regular rate and rhythm. No clicks, rubs, murmurs or gallops. LUNGS: Clear to auscultation bilaterally. ABDOMEN: Soft, obese, nontender, nondistended, without palpable hepatosplenomegaly. EXTREMITIES: Trace peripheral edema bilaterally. Pulses are intact. No clubbing or cyanosis otherwise noted. NEUROLOGIC: He is awake, alert, oriented x3. Cranial nerves are grossly intact. LABORATORY DATA: WBC count 10,000, hemoglobin 9.1, platelet count 245,000. His absolute neutrophil count is 8590. Sodium 135, potassium 3, chloride 101, carbon dioxide 26, BUN 7, creatinine 0.72. IMPRESSION: 1. Hypotension. 2. Anemia, attributable to blood loss and chemotherapy. 3. Metastatic undifferentiated pleomorphic sarcoma. 4. Atrial fibrillation/flutter. 5. Electrolyte dysfunction, hypokalemia. 6. Staphylococcus aureus bacteremia. PLAN: Jerrell was seen and examined at bedside. He is visibly depressed and I believe he understands his prognosis remains quite poor. Jerrell informed me that wound care believes his lesion has increased in size, and therefore, we will go ahead and order a CT scan of the chest, abdomen and pelvis with contrast to document disease progression. He initially was treated with an ifosfamide based regimen, which really did not result in response. Returned to [place] in hopes of palliative resection of the left buttock lesion, but unfortunately the surgeon deferred because of interval growth. [facility] and started a combination Taxotere and gemcitabine. He received 2 units of packed RBCs. He is feeling a bit better. I would like to see his blood pressure improve a little bit; hopefully, he is not trying to develop septicemia. In regards to treatment moving forward, he engaged in a lengthy discussion regarding the utility of seeking alternative therapies. His disease is proven to be quite aggressive and I believe at this point pursuing further therapy may be more harm than benefit. I recommended that we reconvene once he is out of hospital. I can sit down and review his most recent scans that will be ordered today. Questions were answered to Jerrell's satisfaction. He will most likely proceed to discharge in the next 24 hours or so. MICHAEL
--- NOTE | 2018-09-05 16:40 | Discharge Summary ---
Date of Service September 05, 2018 Admission HPI Per Admitting Provider This is a 58-year-old male with a history of undifferentiated pleomorphic sarcoma of the left buttock and hip, obstructive sleep apnea, atrial fibrillation and flutter, hyperlipidemia, MSSA bacteremia, anemia, morbid obesity. The patient presented to the [facility] [facility] cancer care unit for chemotherapy today to receive Taxotere and Gemzar. He was found to have a hemoglobin of 8.1 and transferred to the medical treatment unit and [facility] for transfusion. The patient was then found to be hypotensive with a systolic pressure of 78. Due to antigens in the blood PRBCs were not readily available. We were called to admit the patient for further management and care. The patient was asymptomatic with his anemia and his hypotension other than some lightheadedness when he sits up quickly or stands. He has no recent falls and had no fall today secondary to hypotension. Packed red blood cells have been ordered and are scheduled be delivered within the next hour. Patient is aware that the treatment plan is for transfusion of packed red blood cells and further monitoring. The patient has no other acute complaints. The sarcoma on his left buttock and hip is followed by Dr. Fritz Preston from the wound care clinic as well as Dr. Karl Camara from oncology. Principal Diagnosis Symptomatic anemia, Hypotension Acute hypoxic respiratory failure Discharge Exam Constitutional WD/WN, vitals as above + morbidly obese; no acute distress Eyes PERRL, conjunctivae normal, anicteric sclerae ENMT external ear and nose normal, oropharynx normal Neck trachea midline, no thyromegaly Respiratory normal respiratory effort Auscultation: + diminished lung sounds (throughout); no crackles, no rhonchi and no wheezes Cardiovascular Rate/Rhythm: regular rate and regular rhythm Extremities: + edema (1+ edema LEs to knees bilat) Gastrointestinal (Abdomen) normal bowel sounds, soft, nontender, no hepatosplenomegaly Musculoskeletal Extremities: extremities normal to inspection; no cyanosis and no clubbing Skin + wound (left buttocks w/ large tumor w/ ostomy bag over with foul odor,serous drain) Neurologic moves all extremities and awake; no focal motor deficits Psychiatric A+Ox3, euthymic affect Discharge Data Allergies Allergy/AdvReac Type Severity Reaction Status Date / Time No Known Allergies Allergy Unverified 09/04/18 09:23 Consultations Oncology Ordered Studies 09/05/18 08:23 CT abd pelvis IV con only Urgent CT chest w con Urgent Hospital Course (1) Anemia: Symptomatic anemia secondary to antineoplastic therapy Hemoglobin of 8.1 on admission with hypotension Secondary to chemotherapy with Taxotere and Gemzar Patient with antigens and blood requiring special blood from blood bank Transfused 2 units of PRBCs after admission and had improvement in BP Hgb up to 9.1 on day of discharge -follow CBC after dc at Cancer Center (2) Hypotension: Most likely secondary to anemia and volume contraction 2 units of packed red blood cells given and had improvement No acute renal failure -decrease home dose of Toprol to 50mg ONCE DAILY (3) Sarcoma of buttock: Undifferentiated sarcoma with mets to lungs, progressive despite multiple rounds of chemotherapy CT chest/abd/pel reveals progressive disease here Currently receiving Taxotere and Gemzar via Dr. Camara Continue treatment plan per Dr. Camara-considering referral to tertiary care or sarcoma center as outpt Continue wound care for drainage and recurrent infection of tumor in buttocks (4) Metastatic disease: with mets to lungs, causing hypoxia now down to the 70s with talking at rest -getting home O2 (5) Buttock wound: as above, growing Pseudomonas now and has a h/o MSSA -sees ID and Wound CLinic -continue on recently started Cipro 750mg po bid as outpt and continue Bactrim QTc on ECG is acceptable (6) Pseudomonas aeruginosa infection: as above -started Cipro (7) Acute respiratory failure with hypoxia: Secondary to Sarcoma with mets to the lungs and small pleural effusions bilat POx went to the 70s at rest with talking RT performed Two-step test and pt needs home O2 -Case Man arranged for this nad O2 was delivered to the hospital prior to discharge (8) Low back pain: Chronic Was previously taking alternating doses of Tylenol and tramadol * Due to bump and liver enzymes patient stopped taking Tylenol * Continue tramadol and follow (9) Obstructive sleep apnea on CPAP: Patient uses CPAP at home at 18 cm of water May need to adjust positive air pressure as patient has lost over 100 pounds secondary to chemotherapy and malignant sarcoma (10) Staphylococcus aureus bacteremia: Methicillin sensitive staph aureus previously Secondary to chemotherapy and neutropenia and had port infection which was then removed subsequently Patient is on Bactrim chronically Follows with ID (11) Atrial fibrillation/flutter: Continues in NSR here Continues on apixaban 5 mg p.o. twice daily as well as diltiazem, metoprolol, and flecainide, however flecainide dose recently decreased to 100 bid nad will decrease Toprol to 50 once daily due to hypotension (12) Hypokalemia: replaced -follow BMP at Oncology (13) Depression: stable -continue Lexapro (14) DVT prophylaxis: Apixaban Dispo-stable for dc to home Total Time Total Time Spent Total Time Spent (In Minutes): >30 min Total Time Includes: Examination of the Patient, Discharge Planning, Medication Reconciliation and Communication With Other Providers (Dr. Camara of Oncology) Discharge Plan Discharge Items Patient Disposition: Home - Home Health Services Reason For Visit: ANEMIA, HYPOTENSION Discharge Diagnosis: Anemia, orthostatic hypotension, Acute hypoxic respiratory failure Condition: Fair Discharge Goals: Decrease discomfort, Diagnostic testing, Improve disease control, Learn about illness and Therapeutic intervention Activity: Resume your previous activity Lifting: Gradually increase as tolerated Bathing: No limitations Exercise/Sports: As tolerated Non-emergency contact: Primary Care Provider and Oncologist Call non-emergency contact if: you have any medication questions, your symptoms worsen, your pain is not controlled, your pain is worsening, your pain is unusual for you, your pain is concerning for you, you have a fever, your temperature is above 101, your wound has increased redness, your wound has increased drainage and your wound pain has increased Follow-up/Referrals: Lc Araya III, MD [Primary Care Provider] - Diet: Heart Healthy Addtl Provider Instructions: You were admitted for low blood pressure and anemia requiring a blood transfusion. You received the blood transfusion and had improvement in your b lood pressure. Your metoprolol will be lowered to 50mg ONCE DAILY. A new prescription will be sent to your pharmacy in case you don't have this dose at home. You can continue the lasix and will be given a potassium pill too as your potassium levels were low. Please continue on the Cipro AND the Bactrim for your wound infection. Your oxygen levels were low and you were given Oxygen to wear--> you should wear 2 L at rest and 4 L with exertion. Keep your next follow up appointment with Dr. Camara. Prescriptions: New metoprolol succinate 50 mg Tablet Extended Release 24 Hr 50 mg PO QAM Qty: 30 RF: 0 potassium chloride 20 mEq tablet,ER particles/crystals 20 meq PO DAILY Qty: 30 RF: 0 Continued prochlorperazine maleate [Compazine] 10 mg tablet 10 mg PO Q6H PRN (Reason: nausea and vomiting) RF: 0 dexamethasone 4 mg tablet 4 mg PO DAILY RF: 0 docetaxel [Taxotere] 80 mg/4 mL (20 mg/mL) solution IV RF: 0 sulfamethoxazole-trimethoprim 800-160 mg tablet 1 tab PO BID 30 Days Qty: 60 RF: 1 furosemide 20 mg tablet 20 mg PO QAM Qty: 90 RF: 3 atorvastatin 20 mg tablet 40 mg PO DAILY RF: 0 ciprofloxacin HCl 750 mg tablet 750 mg PO BID RF: 0 flecainide 100 mg tablet 100 mg PO BID RF: 0 diltiazem HCl 300 mg Tablet Extended Release 24 Hr 300 mg PO QAM RF: 0 Eliquis 5 mg tablet 5 mg PO BID RF: 0 venlafaxine 75 mg Capsule,Extended Release 24hr 75 mg PO QAM Qty: 30 RF: 0 ranitidine HCl [Zantac] 150 mg tablet 150 mg PO BID PRN (Reason: heartburn) Qty: 60 RF: 0 tramadol 50 mg Tablet 50 - 100 mg PO Q6H PRN (Reason: pain) Qty: 30 RF: 0 Discontinued metoprolol succinate 100 mg tablet extended release 24 hr 100 mg PO DAILY RF: 0 Stand-Alone Forms: [facility] Discharge Orders: Discharge Order (Routine); Ordered 09/05/18 Ordered By: Maria Isabel Cody Admission Data Admit Date/Time: 09/04/18 12:57 Attending Provider: Maria Isabel Cody Admit Provider: Luisa Espinoza Primary Care Provider: Lc Araya III Other Providers: Karl Camara V Service: Telemetry Other Interventions: Discharge Summary Assessment (RN) Last Done: 09/05/18 17:11 Pending Studies at Discharge: No DC Date/Time DO NOT enter until pt leaves facility: 09/05/18 18:21
[2018-09-05] MEDS ORDERED: FLECAINIDE ACETATE 100 MG TABLET PO SCH (21:00)
[2018-09-05] MEDS ORDERED: CIPROFLOXACIN 250 MG TAB PO SCH (21:00)
[2018-09-06] MEDS ORDERED: METOPROLOL SUCC 50MG EXT REL TAB PO SCH (09:00)
== END 2018-09-05 18:21 | disposition home health service (06) | DRG 812 ==
LOC: 2S 12:57 → SUATTDRO 12:57
DX: Z79.01 Long term (current) use of anticoagulants; I48.0 Paroxysmal atrial fibrillation; I48.92 Unspecified atrial flutter; G47.33 Obstructive sleep apnea (adult) (pediatric); C78.00 Secondary malignant neoplasm of unspecified lung; E87.6 Hypokalemia; F32.9 Major depressive disorder, single episode, unspecified; C49.5 Malignant neoplasm of connective and soft tissue of pelvis; B95.61 Methicillin susceptible Staphylococcus aureus infection as the cause of diseases classified elsewhere; R78.81 Bacteremia; G89.29 Other chronic pain; Z68.43 Body mass index [BMI] 50.0-59.9, adult; D64.81 Anemia due to antineoplastic chemotherapy; E78.5 Hyperlipidemia, unspecified; F41.9 Anxiety disorder, unspecified; I10 Essential (primary) hypertension; E66.01 Morbid (severe) obesity due to excess calories; Z80.41 Family history of malignant neoplasm of ovary; Z79.899 Other long term (current) drug therapy; M54.5 Low back pain